=== PATIENT | female | born 1965 | race Two or more races ===

== ENCOUNTER 2020-05-04 00:18 | Emergency (ER) | payer MEDICAID, SELFPAY ==
[2020-05-04 00:20] VITALS: BP 151/84; PULSE 88; RESP 20; TEMP 36.2; O2SAT 99
[2020-05-04 00:50] VITALS: BP 151/84; PULSE 88; RESP 20; TEMP 36.2; O2SAT 99; BMI 34.0
[2020-05-04] MEDS: Acetaminophen 325 MG TABLET 975 MG PO (01:05)
[2020-05-04] MEDS: Lidocaine 4 % Patch ADH..PATCH 1 PATCH TRANSDERMA (01:06)
[2020-05-04] MEDS: Cyclobenzaprine HCl 10 MG TABLET PO (01:06)
[2020-05-04] MEDS: Ketorolac Tromethamine 15 MG/ML VIAL IM (01:08)
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
[2020-05-04 02:00] VITALS: BP 150/83; PULSE 80; RESP 18; O2SAT 100
== END 2020-05-04 02:23 | disposition home or self-care (01) ==
PROVIDERS: Emergency Provider Student in an Organized Health Care Education/Training Program; PCP Family Medicine
DX: M54.5 Low back pain (principal)
CPT/HCPCS: 96372; 99284

== ENCOUNTER 2020-05-17 02:13 | Emergency (ER) | payer MEDICAID, SELFPAY ==
[2020-05-17 02:55] VITALS: BP 186/91; PULSE 87; RESP 16; TEMP 36.9; O2SAT 100; BMI 36.2
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
[2020-05-17] MEDS: Acetaminophen 325 MG TABLET 975 MG PO (03:38)
[2020-05-17] MEDS: Cyclobenzaprine HCl 10 MG TABLET PO (03:38)
[2020-05-17 03:39] LABS: Glucose Urine UA NEG (NEG); Leukocyte Esterase Urine NEG (NEG); Nitrite Urine NEG (NEG); Urine Blood NEG (NEG); Urine Ketones NEG (NEG); Urine Protein NEG (NEG-TRACE)
[2020-05-17] MEDS: Lidocaine 4 % Patch ADH..PATCH 1 PATCH TRANSDERMA (03:39)
[2020-05-17] MEDS: Ketorolac Tromethamine 15 MG/ML VIAL IM (03:39)
[2020-05-17 03:45] LABS: Appearance Urine CLEAR; Color Urine YELLOW; UACC Culture Trigger NO
== END 2020-05-17 04:36 | disposition home or self-care (01) ==
PROVIDERS: Emergency Provider Student in an Organized Health Care Education/Training Program; PCP Family Medicine
DX: M62.830 Muscle spasm of back (principal); M54.5 Low back pain; Z79.899 Other long term (current) drug therapy
CPT/HCPCS: 81003; 96372; 99284; J1885

== ENCOUNTER 2020-06-13 09:04 | Emergency (ER) | payer MEDICAID, SELFPAY ==
--- NOTE | 2020-06-13 09:51 | CT_ITS ---
EXAMINATION: CT ABDOMEN AND PELVIS WITHOUT CONTRAST CLINICAL INFORMATION: Right flank pain. COMPARISON: Ultrasound abdomen 03/22/2019; CT abdomen and pelvis noncontrast 05/01/2017 TECHNIQUE: Multidetector volumetric imaging was performed from the superior aspect of the liver through the pubic symphysis. Sagittal and coronal reformatted images were obtained on the technologist's workstation. No oral or intravenous contrast. This CT examination was performed using dose optimization techniques as appropriate, variously including the following: *Automated exposure control *Adjustment of mA and/or kV according to patient size (this includes techniques or standardized protocols for targeted exams where dose is matched to indication/reason for exam; i.e. extremities or head) *Use of iterative reconstruction technique DLP: 782 mGy-cm FINDINGS: LUNG BASES: There are 2 small nodules left base and 2 small nodules right base, largest 5 mm, all stable from prior CT 2017. No effusion. LIVER, GALLBLADDER, AND BILIARY TREE: The liver is normal in size, shape, and attenuation. No focal hepatic lesion or biliary ductal dilatation is present. The gallbladder is unremarkable with no evidence of radiopaque gallstones, gallbladder wall thickening, or obvious pericholecystic inflammatory changes. PANCREAS: Unremarkable. SPLEEN: Unremarkable. ADRENAL GLANDS: Unremarkable. KIDNEYS AND URETERS: The kidneys are normal in size, shape, and attenuation. No hydronephrosis, hydroureter, or calculi seen. No perinephric stranding. BLADDER: Unremarkable. GASTROINTESTINAL TRACT: There is no bowel obstruction or inflammatory changes in the bowel or mesentery. There is moderate stool in the colon. The appendix is normal. There is no ascites or fluid collection. ABDOMINAL WALL: No significant hernia is appreciated. LYMPH NODES: No lymphadenopathy. VASCULAR: Unremarkable. PELVIC VISCERA: Unremarkable. OSSEOUS STRUCTURES: No acute bony abnormality. There are degenerative facet changes again seen lumbosacral junction. Mild stable degenerative changes SI joints. CT/CT abdomen pelvis wo con IMPRESSION: 1. No urinary tract calculi, hydronephrosis, or perinephric stranding. 2. No bowel obstruction or inflammatory changes. Normal appendix. 3. Stable small bibasilar nodules, similar to 2017, consistent with benign nodules.
[2020-06-13 09:54] VITALS: BP 155/65; PULSE 82; RESP 16; TEMP 36.7; O2SAT 99; BMI 36.2
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
[2020-06-13 10:34] LABS: Glucose Urine UA >=1000 MG/DL (NEG); Leukocyte Esterase Urine NEG (NEG); Nitrite Urine NEG (NEG); PH 5.5 (5.0-8.0); Specific Gravity - Urine <= 1.005 (1.005-1.025); Urine Blood NEG (NEG); Urine Ketones NEG (NEG); Urine Protein NEG (NEG-TRACE)
[2020-06-13 10:35] LABS: Appearance Urine CLEAR; Color Urine STRAW
[2020-06-13 10:44] LABS: RBC Urine 0 /HPF (0); Squamous Epithelial Cell Urine 1+ /LPF; WBC Urine 0 /HPF (0-4)
[2020-06-13 11:11] LABS: Glucose, Whole Blood 161 mg/dL (60-115)
== END 2020-06-13 11:42 | disposition home or self-care (01) ==
PROVIDERS: Physician Assistant Medical; Emergency Provider Emergency Medicine; PCP Family Medicine
DX: M47.896 Other spondylosis, lumbar region (principal); I10 Essential (primary) hypertension; M54.5 Low back pain; F17.200 Nicotine dependence, unspecified, uncomplicated; F14.20 Cocaine dependence, uncomplicated; F41.9 Anxiety disorder, unspecified; Z79.899 Other long term (current) drug therapy; Z71.6 Tobacco abuse counseling
CPT/HCPCS: 74176; 81001; 82947; 99284

== ENCOUNTER 2020-07-04 11:00 | Outpatient (RCR) | payer MEDICAID, SELFPAY | END 2020-07-31 14:25 | disposition other institution (70) | LOC: HO.PT 11:00 | PROVIDERS: PCP Family Medicine; Visit Provider Registered Nurse | DX: M54.5 Low back pain (principal); M62.89 Other specified disorders of muscle | CPT/HCPCS: 97014; 97110; 97112; 97162 ==

== ENCOUNTER 2020-07-16 16:48 | Emergency (ER) | payer MEDICAID, SELFPAY ==
[2020-07-16 17:00] VITALS: BP 141/69; PULSE 92; RESP 20; TEMP 37.1; O2SAT 97; BMI 36.2
--- NOTE | 2020-07-16 17:18 | ED_ITS ---
HPI - Back Pain/Injury General Chief Complaint: Back Pain/Injury Stated Complaint: back pain Time Seen by Provider: 07/16/20 17:09 Source: patient Mode of arrival: ambulatory History of Present Illness HPI Narrative: 55-year-old female with a past medical history of diabetes, hypertension, hyperlipidemia, chronic back pain, sciatica, 3 days, asthma, alcoholism, cocaine dependence, anxiety, adjustment disorder, depression, presenting to ED complaining of right-sided low back pain S/P picking up a heavy box last night. Admits pain radiates down right lower extremity. Does report dysuria today. Denies direct trauma/falls, urinary incontinence or retention, weakness, abdominal pain, flank pain MD elicited complaint: back pain Related Data Home Medications Medication Instructions Recorded Confirmed aspirin 81 mg PO DAILY 05/17/20 05/17/20 lisinopril 20 mg PO DAILY 05/17/20 05/17/20 metformin 1,000 mg PO BID 05/17/20 05/17/20 Previous Rx's Medication Instructions Recorded cyclobenzaprine 10 mg PO BEDTIME PRN #3 tab 05/04/20 ketorolac 10 mg PO Q6H PRN 5 Days #20 tab 05/04/20 cyclobenzaprine 10 mg PO BEDTIME PRN #3 tab 05/17/20 ketorolac 10 mg PO Q6H PRN 5 Days #20 tab 05/17/20 cyclobenzaprine 10 mg PO TID PRN #10 tab 06/13/20 naproxen 500 mg PO BID PRN #10 tab 06/13/20 oxycodone-acetaminophen [Percocet] 1 tab PO Q6H PRN #10 tab 06/13/20 acetaminophen [Tylenol Extra 500 mg PO Q6H PRN #20 tab 07/16/20 Strength] cyclobenzaprine 5 mg PO Q8H PRN 5 Days #14 tab 07/16/20 lidocaine [Lidoderm] 1 patch TOPICAL DAILY PRN #30 ea 07/16/20 MDD remove after 12 hours naproxen 500 mg PO BID PRN 10 Days #20 tab 07/16/20 Allergies Allergy/AdvReac Type Severity Reaction Status Date / Time No Known Allergies Allergy Verified 07/16/20 17:29 Review of Systems Review of Systems: Constitutional: No Weight loss, No Fever, No Chills Gastrointestinal: No Nausea, No Vomiting, No Abdominal pain Genitourinary:+ Dysuria, No Urinary Frequency, No Hematuria, No Urinary Incontinence or retention, No Flank Pain Musculoskeletal: +back pain, No Myalgias, No Joint Swelling Skin: No Skin Lesions, No rash Neuro: No Weakness, No Numbness, No Paresthesias Yes all other systems are reviewed and are negative Neurologic: Denies Sensory deficit (Neuro) [facility] Past Medical History Attestation statement: The following information was validated with the patient. Medical History Asthma Diabetes Hypertension Surgical History History of 2 sections Social History Social History Alcohol intake: never Smoking Status: Current some day smoker Advance Directives: No Advance Directives Information Provided: Yes Physical Exam Vital Signs: Vital Signs: Last Vital Signs Temp 98.7 F 07/16/20 17:00 Pulse 92 07/16/20 17:00 Resp 20 07/16/20 17:00 BP 141/69 H 07/16/20 17:00 Pulse Ox 97 07/16/20 17:00 Body Mass Index 36.2 Const: General: cooperative and healthy appearing Orientation/consciousness: patient oriented x3 Limitations: no limitations HENMT: Head: Yes normal to inspection Ears: hearing grossly normal bilaterally General nose exam: Normal external nose present Face and sinus: Yes normal facial exam Eyes: General: appearance normal, both eyes and all related structures EOM: EOMs intact bilaterally Neck: Neck: Yes normal visual inspection Resp: Effort & Inspection: normal respiratory effort Cardio: Rate: regular rate Peripheral pulses: dorsalis pedis present GI: Inspection: Yes normal to inspection Palpation (GI): Soft to palpation, nontender, no guarding and not rigid : General: Yes no CVA tenderness Back/Spine/Pelvis: Other: No midline thoracic/lumbar spinous tenderness. + right-sided head lumbar MSK tenderness Back: no CVA tenderness Skin: Rashes: no rashes Wounds: no wounds Neuro: Other: No saddle anesthesia. Ambulating with slow steady gait General: patient oriented x3, tone normal and moves all extremities Motor exam (neuro): 5/5 motor strength present throughout Sensory Exam: No Sensory deficit (Neuro) Extrem: General: Yes normal to inspection Course Course Course Narrative: * UA negative MDM - Back Pain/Injury MDM Narrative Medical decision making narrative: 55-year-old female with a past medical history of diabetes, hypertension, hyperlipidemia, chronic back pain, sciatica, 3 days, asthma, alcoholism, cocaine dependence, anxiety, adjustment disorder, depression, presenting to ED complaining of right-sided low back pain S/P picking up a heavy box last night. On exam VSS, NAD/well-appearing, no midline spinous tenderness throughout, no red flag symptoms, ambulating with steady slow gait. Likely MSK pain, low concern for cauda equina/cord compression, or renal stone/pyelo. Rule UTI. Patient has been seen and treated in the ED for similar symptoms in the past. Plan: UA, symptomatic treatment, DC with PCP follow-up Lab Data Labs: Lab Results 07/16/20 Range/Units 17:45 Urine Color YELLOW Urine Appearance CLEAR Urine pH 5.5 (5.0-8.0) Ur Specific [place] 1.015 (1.005-1.025) Urine Protein NEG (NEG-TRACE) MG/DL Urine Glucose (UA) >=1000 H (NEG) MG/DL Urine Ketones NEG (NEG) MG/DL Urine Blood NEG (NEG) Urine Nitrite NEG (NEG) Ur Leukocyte Esterase NEG (NEG) Urine RBC 0 (0) /HPF Urine WBC 0 (0-4) /HPF Ur Squamous Epith Cells 2+ /LPF Urine Bacteria 1+ /LPF Urine Yeast 1+ /HPF Discharge Plan Discharge Clinical Impression: Strain of lumbar region Qualifiers: Encounter type: subsequent encounter Qualified Code(s): S39.012D - Strain of muscle, fascia and tendon of lower back, subsequent encounter Sciatica Qualifiers: Laterality: right Qualified Code(s): M54.31 - Sciatica, right side Patient Disposition: Home, Self-Care Instructions: Acute Low Back Pain (ED) Additional Instructions: Your pain is likely musculoskeletal Flexeril is a muscle relaxer, take at night as it makes you drowsy, do not drive, drink alcohol, or operate machinery while taking it Naproxen as an anti-inflammatory / pain medication, take with food Lidoderm patches are numbing patches, apply to painful area In addition take Tylenol at home If symptoms persist or worsen, pain becomes unbearable, you developed urinary retention or incontinence, or weakness return to the ED Prescriptions: New acetaminophen [Tylenol Extra Strength] 500 mg tablet 500 mg PO Q6H PRN (Reason: pain or fever) Qty: 20 RF: 0 lidocaine [Lidoderm] 5 % adhesive patch,medicated 1 patch topical DAILY MDD remove after 12 hours PRN (Reason: pain) Qty: 30 RF: 0 naproxen 500 mg tablet 500 mg PO BID PRN (Reason: pain) 10 Days Qty: 20 RF: 0 cyclobenzaprine 5 mg tablet 5 mg PO Q8H PRN (Reason: pain (scale score 7-10)) 5 Days Qty: 14 RF: 0 No Action metformin 500 mg Tablet 1,000 mg PO BID RF: 0 lisinopril 20 mg Tablet 20 mg PO DAILY RF: 0 aspirin 81 mg Tablet 81 mg PO DAILY RF: 0 cyclobenzaprine 10 mg tablet 10 mg PO BEDTIME PRN (Reason: muscle spasm) Qty: 3 RF: 0 ketorolac 10 mg tablet 10 mg PO Q6H PRN (Reason: pain) 5 Days Qty: 20 RF: 0 cyclobenzaprine 10 mg tablet 10 mg PO TID PRN (Reason: muscle spasm) Qty: 10 RF: 0 oxycodone-acetaminophen [Percocet] 5-325 mg tablet 1 tab PO Q6H PRN (Reason: pain) Qty: 10 RF: 0 naproxen 500 mg tablet 500 mg PO BID PRN (Reason: pain) Qty: 10 RF: 0 ketorolac 10 mg tablet 10 mg PO Q6H PRN (Reason: pain) 5 Days Qty: 20 RF: 0 cyclobenzaprine 10 mg tablet 10 mg PO BEDTIME PRN (Reason: muscle spasm) Qty: 3 RF: 0 Referrals: Yanira Mi MD [Primary Care Provider] - 2 days
[2020-07-16] MEDS: NaPROXEN 500 MG TABLET PO (17:30)
[2020-07-16] MEDS: Cyclobenzaprine HCl 5 MG TABLET PO (17:30)
[2020-07-16] MEDS: Lidocaine 4 % Patch ADH..PATCH 1 PATCH TRANSDERMA (17:30)
[2020-07-16 17:54] LABS: Glucose Urine UA >=1000 MG/DL (NEG); Leukocyte Esterase Urine NEG (NEG); Nitrite Urine NEG (NEG); PH 5.5 (5.0-8.0); Specific Gravity - Urine 1.015 (1.005-1.025); Urine Blood NEG (NEG); Urine Ketones NEG (NEG); Urine Protein NEG (NEG-TRACE)
[2020-07-16 17:55] LABS: Appearance Urine CLEAR; Color Urine YELLOW
[2020-07-16 18:04] LABS: Bacteria Urine 1+ /LPF; RBC Urine 0 /HPF (0); Squamous Epithelial Cell Urine 2+ /LPF; WBC Urine 0 /HPF (0-4)
== END 2020-07-16 18:43 | disposition home or self-care (01) ==
PROVIDERS: Physician Assistant; Emergency Provider Emergency Medicine; PCP Family Medicine
DX: S39.012A Strain of muscle, fascia and tendon of lower back, initial encounter (principal); X50.0XXA Overexertion from strenuous movement or load, initial encounter; M54.41 Lumbago with sciatica, right side; E11.9 Type 2 diabetes mellitus without complications; I10 Essential (primary) hypertension; F10.20 Alcohol dependence, uncomplicated; F14.20 Cocaine dependence, uncomplicated; Y93.9 Activity, unspecified; Y92.009 Unspecified place in unspecified non-institutional (private) residence as the place of occurrence of the external cause; Y99.9 Unspecified external cause status
CPT/HCPCS: 81001; 99284

== ENCOUNTER 2020-08-28 13:42 | Outpatient (REF) | payer MEDICAID, SELFPAY ==
--- NOTE | 2020-08-28 | MM_ITS ---
EXAMINATION: MM SCREENING DIGITAL BREAST TOMOSYNTHESIS, BILATERAL CLINICAL INFORMATION: Screening. Asymptomatic. The lifetime risk of breast cancer based on the Tyrer-Cuzick Model is 6.1%. COMPARISON: Mammography: June 02, 2019 and studies dating back to March 01, 2014 TECHNIQUE: Digital breast tomosynthesis is performed in both the craniocaudal and mediolateral oblique views along with computer-aided detection (CAD). Synthesized 2D images are generated from the tomosynthesis. FINDINGS: There are scattered areas of fibroglandular density (ACR BI-RADS breast composition Category b). There are no significant masses, abnormal calcifications, or other abnormalities. MM/MM tomosynthesis screening BI IMPRESSION: There are no significant changes from prior study. ASSESSMENT: BI-RADS 1: Negative RECOMMENDATION: Routine annual mammography screening. This patient's information was entered into a reminder system with a target due date for their next mammogram.
== END 2020-08-28 13:43 | disposition home or self-care (01) ==
LOC: HO.MAMMO 13:42
PROVIDERS: PCP Family Medicine; Visit Provider Family Medicine
DX: Z12.31 Encounter for screening mammogram for malignant neoplasm of breast (principal)
CPT/HCPCS: 77063; 77067

== ENCOUNTER 2020-10-08 18:47 | Emergency (ER) | payer MEDICAID, SELFPAY ==
--- NOTE | ~2020-10-08 | XR_ITS ---
EXAMINATION: XR FOOT, LEFT CLINICAL INFORMATION: Question of foreign body in foot COMPARISON: None TECHNIQUE: AP, lateral, and oblique views of the left foot. FINDINGS: No radiopaque foreign bodies are seen there are large spurs in the calcaneus at the insertion of the Achilles tendon as well as on the plantar surface. The bones and soft tissues are otherwise normal. No fracture. Alignment is anatomic. Joint spaces are maintained. XR/XR foot LT 2V IMPRESSION: Large calcaneal spurs. No radiopaque foreign body is seen.
[2020-10-08 18:50] VITALS: BP 118/57; PULSE 90; RESP 18; TEMP 36.8; O2SAT 98; BMI 36.2
--- NOTE | 2020-10-08 20:57 | ED.WOUNDLAC ---
HPI - Wound/Laceration General Chief Complaint: Wound/Laceration Stated Complaint: foot lac Source: patient Mode of arrival: wheelchair Limitations: language barrier History of Present Illness HPI narrative: 55-year-old female with past medical history of hypertension, hyperlipidemia, adjustment disorder, chronic back pain, ETOH abuse, substance abuse, asthma and diabetes presents with a left plantar foot puncture injury and laceration after stepping on a piece of wood. This piece of wood is shaped as a chest piece, and was intact after the incident. Patient was not wearing shoes, and does not report any other concerning symptoms at this time. She is unable to bear weight because of the pain on the bottom of her foot. Onset (ago): hour(s) (Within the hour of arrival) Extremity Location: left: foot Place: home Patient tetanus UTD: No Context: accidental Associated symptoms: pain Related Data Home Medications Medication Instructions Recorded Confirmed aspirin 81 mg PO DAILY 05/17/20 05/17/20 lisinopril 20 mg PO DAILY 05/17/20 05/17/20 metformin 1,000 mg PO BID 05/17/20 05/17/20 Previous Rx's Medication Instructions Recorded cyclobenzaprine 10 mg PO BEDTIME PRN #3 tab 05/04/20 ketorolac 10 mg PO Q6H PRN 5 Days #20 tab 05/04/20 cyclobenzaprine 10 mg PO BEDTIME PRN #3 tab 05/17/20 ketorolac 10 mg PO Q6H PRN 5 Days #20 tab 05/17/20 cyclobenzaprine 10 mg PO TID PRN #10 tab 06/13/20 naproxen 500 mg PO BID PRN #10 tab 06/13/20 oxycodone-acetaminophen [Percocet] 1 tab PO Q6H PRN #10 tab 06/13/20 acetaminophen [Tylenol Extra 500 mg PO Q6H PRN #20 tab 07/16/20 Strength] cyclobenzaprine 5 mg PO Q8H PRN 5 Days #14 tab 07/16/20 lidocaine [Lidoderm] 1 patch TOPICAL DAILY PRN #30 ea 07/16/20 MDD remove after 12 hours naproxen 500 mg PO BID PRN 10 Days #20 tab 07/16/20 amoxicillin-pot clavulanate 1 tab PO Q12H 7 Days #14 tab 10/08/20 [Augmentin] ibuprofen 600 mg PO Q8H PRN #30 tab 10/08/20 Allergies Allergy/AdvReac Type Severity Reaction Status Date / Time No Known Allergies Allergy Verified 07/16/20 17:29 Review of Systems Review of Systems: Constitutional: No Fever, No Chills ENT/Mouth: No Ear Pain, No Hoarseness, No sore throat Eyes: No Eye Pain, No Swelling, No Redness, No Foreign Body Cardiovascular: No Chest Pain, No SOB Respiratory: No Cough, No Dyspnea Gastrointestinal: No Nausea, No Vomiting, No Diarrhea, No abdominal Pain Genitourinary: No Dysuria, No Hematuria Musculoskeletal: positive left foot pain, No Myalgias, No Joint Swelling Skin: Positive plantar laceration puncture wound left foot, No rash Neuro: No Weakness, No Numbness, No Paresthesias, No Loss of Consciousness, No Dizziness, No Headache Psych: No Anxiety/Panic, No Depression Heme/Lymph: no easy bruising, no Lymphadenopathy Endocrine: No Polyuria, No Polydipsia Yes all other systems are reviewed and are negative [facility] Past Medical History Attestation statement: The following information was validated with the patient. Source: old records reviewed Medical History Asthma Diabetes Hypertension Surgical History History of 2 sections Social History Social History Alcohol intake: never Smoking Status: Current some day smoker Advance Directives: No Advance Directives Information Provided: No Physical Exam Vital Signs: Vital Signs: Last Vital Signs Temp 98.3 F 10/08/20 18:50 Pulse 83 10/08/20 21:43 Resp 16 10/08/20 21:43 BP 121/55 L 10/08/20 21:43 Pulse Ox 99 10/08/20 21:43 Body Mass Index 36.2 Appearance: Alert. Oriented X3. Mild distress. Eyes: Pupils equal, round and reactive to light. ENT: Pharynx normal. Neck: Normal inspection. Neck supple. CVS: Normal heart rate and rhythm. Pulses normal. Respiratory: No respiratory distress. Breath sounds normal. Abdomen: Soft and nontender. Skin: 0.5 cm puncture wound to the left plantar, Skin warm and dry. Normal skin color. Normal skin turgor. Extremities: No lower extremity edema. Full range of motion to all extremities, brisk capillary refill, tenderness to palpation to the left foot consistent with puncture wound injury. Neuro: No motor deficit. No sensory deficit. No focal neural deficits, cranial nerves 2-12 intact. Course Course Course Narrative: 55-year-old female presents with puncture wound from a wooden object the left plantar aspect of her foot. The wooden piece was intact, no suspicion for foreign body. Will order x-rays. X-rays negative for foreign body or bone involvement. Patient will follow-up with her health policy manager, laceration is small for sutures, will clean apply bacitracin and dressing the postop shoe. She is a diabetic, we will give antibiotics to prevent infection. She does understand that she must follow-up with her primary care physician and or health policy manager this week. medical records supervisor utilized for all correspondence, Google translate utilized for discharge instructions. Patient verbalized understanding of and agrees plan of care discharge home. MDM - Wound/Laceration MDM Narrative Medical decision making narrative: Puncture wound, foreign body Differential Diagnosis Differential diagnosis: Likely laceration Medical Records Attestation: I reviewed the patient's medical records. Imaging Data Foot x-ray: Attestation: I personally reviewed and interpreted this imaging study as follows: Radiologist's impression: EXAMINATION: XR FOOT, LEFT CLINICAL INFORMATION: Question of foreign body in foot COMPARISON: None TECHNIQUE: AP, lateral, and oblique views of the left foot. FINDINGS: No radiopaque foreign bodies are seen there are large spurs in the calcaneus at the insertion of the Achilles tendon as well as on the plantar surface. The bones and soft tissues are otherwise normal. No fracture. Alignment is anatomic. Joint spaces are maintained. XR/XR foot LT 2V IMPRESSION: Large calcaneal spurs. No radiopaque foreign body is seen. Discharge Plan Discharge Clinical Impression: Puncture wound of foot, left Patient Disposition: Home, Self-Care Instructions: Puncture Wound in the Foot (ED) Additional Instructions: Te evaluaron por carrie herida punzante en el pie tez. Las radiograf?as son negativas para el cuerpo extra?o retenido. Por favor, baldo un seguimiento con Podiatry, llame ma?syed para carrie travis. [place] Tylenol y Motrin seg?n sea necesario para el dolor. [place] el pie, usa hielo para ayudar a reducir la hinchaz?n. Usa un zapato postop si tu habitual se sent?a inc?moda de usar. Roseann por elegir luis departamento de emergencias para alvarado evaluaci?n. Por favor, baldo un seguimiento con el m?dico de atenci?n primaria seg?n sea necesario. Regrese al servicio de emergencias para cualquier s?ntoma nuevo, preocupante o que empeore. You were evaluated for a puncture wound to the left foot. X-rays are negative for retained foreign body. Please follow-up with Podiatry, call tomorrow for an appointment. Use Tylenol and Motrin as needed for pain. Elevate the foot, use ice to help reduce swelling. Use a postop shoe if your regular she was uncomfortable to wear. Thank you for choosing this emergency department for evaluation. Please follow-up with primary care physician as needed. Return to the emergency department for any new, concerning, or worsening symptoms. Prescriptions: New ibuprofen 600 mg tablet 600 mg PO Q8H PRN (Reason: pain) Qty: 30 RF: 0 amoxicillin-pot clavulanate [Augmentin] 875-125 mg tablet 1 tab PO Q12H 7 Days Qty: 14 RF: 0 No Action metformin 500 mg Tablet 1,000 mg PO BID RF: 0 lisinopril 20 mg Tablet 20 mg PO DAILY RF: 0 aspirin 81 mg Tablet 81 mg PO DAILY RF: 0 cyclobenzaprine 10 mg tablet 10 mg PO BEDTIME PRN (Reason: muscle spasm) Qty: 3 RF: 0 ketorolac 10 mg tablet 10 mg PO Q6H PRN (Reason: pain) 5 Days Qty: 20 RF: 0 cyclobenzaprine 10 mg tablet 10 mg PO TID PRN (Reason: muscle spasm) Qty: 10 RF: 0 oxycodone-acetaminophen [Percocet] 5-325 mg tablet 1 tab PO Q6H PRN (Reason: pain) Qty: 10 RF: 0 naproxen 500 mg tablet 500 mg PO BID PRN (Reason: pain) Qty: 10 RF: 0 acetaminophen [Tylenol Extra Strength] 500 mg tablet 500 mg PO Q6H PRN (Reason: pain or fever) Qty: 20 RF: 0 lidocaine [Lidoderm] 5 % adhesive patch,medicated 1 patch topical DAILY MDD remove after 12 hours PRN (Reason: pain) Qty: 30 RF: 0 naproxen 500 mg tablet 500 mg PO BID PRN (Reason: pain) 10 Days Qty: 20 RF: 0 cyclobenzaprine 5 mg tablet 5 mg PO Q8H PRN (Reason: pain (scale score 7-10)) 5 Days Qty: 14 RF: 0 ketorolac 10 mg tablet 10 mg PO Q6H PRN (Reason: pain) 5 Days Qty: 20 RF: 0 cyclobenzaprine 10 mg tablet 10 mg PO BEDTIME PRN (Reason: muscle spasm) Qty: 3 RF: 0 Interventions: ED Discharge Assessment Last Done: 10/08/20 23:16 Discharge Date/Time: 10/08/20 23:17
[2020-10-08] MEDS: Acetaminophen 325 MG TABLET 650 MG PO (21:41)
[2020-10-08 21:43] VITALS: BP 121/55; PULSE 83; RESP 16; O2SAT 99
[2020-10-08] MEDS: Ibuprofen 600 MG TABLET PO (23:05)
[2020-10-08] MEDS: Amoxicillin/Potassium Clav 875 MG TABLET PO (23:05)
[2020-10-08] MEDS: Bacitracin Oint 14 GM TUBE 1 APPL TOPICAL (23:06)
== END 2020-10-08 23:17 | disposition home or self-care (01) ==
PROVIDERS: Emergency Provider Emergency Medicine; PCP Family Medicine
DX: S91.332A Puncture wound without foreign body, left foot, initial encounter (principal); W22.8XXA Striking against or struck by other objects, initial encounter; E11.9 Type 2 diabetes mellitus without complications; I10 Essential (primary) hypertension; Y93.9 Activity, unspecified; Y92.019 Unspecified place in single-family (private) house as the place of occurrence of the external cause; Y99.9 Unspecified external cause status
CPT/HCPCS: 73620; 90471; 90715; 99284

== ENCOUNTER 2021-01-07 19:48 | Emergency (ER) | payer MEDICAID, SELFPAY ==
[2021-01-07 20:22] VITALS: BP 140/65; PULSE 93; RESP 18; TEMP 37; O2SAT 98; BMI 34.2
[2021-01-07 21:46] VITALS: BP 119/49; PULSE 79; RESP 16; TEMP 36.5; O2SAT 97
--- NOTE | 2021-01-07 22:00 | ED.EPISTAXIS ---
History of Present Illness General Chief Complaint: Epistaxis Stated Complaint: NOSE BLEED Time Seen by Provider: 01/07/21 22:00 History of Present Illness HPI Narrative: Patient is a 55-year-old female presents today with having nosebleed that is been on and off for the last 3 days. Only on aspirin. Not on any other blood thinners. The bleeding stops spontaneously with pressure. Patient claims that when she coughs she gets small amount of blood. No nausea no vomiting. No diaphoresis. No chest pain or shortness of breath. Patient is from home. Related Data Home Medications Medication Instructions Recorded Confirmed aspirin 81 mg PO DAILY 05/17/20 05/17/20 lisinopril 20 mg PO DAILY 05/17/20 05/17/20 metformin 1,000 mg PO BID 05/17/20 05/17/20 Previous Rx's Medication Instructions Recorded cyclobenzaprine 10 mg PO BEDTIME PRN #3 tab 05/04/20 ketorolac 10 mg PO Q6H PRN 5 Days #20 tab 05/04/20 cyclobenzaprine 10 mg PO BEDTIME PRN #3 tab 05/17/20 ketorolac 10 mg PO Q6H PRN 5 Days #20 tab 05/17/20 cyclobenzaprine 10 mg PO TID PRN #10 tab 06/13/20 naproxen 500 mg PO BID PRN #10 tab 06/13/20 oxycodone-acetaminophen [Percocet] 1 tab PO Q6H PRN #10 tab 06/13/20 acetaminophen [Tylenol Extra 500 mg PO Q6H PRN #20 tab 07/16/20 Strength] cyclobenzaprine 5 mg PO Q8H PRN 5 Days #14 tab 07/16/20 lidocaine [Lidoderm] 1 patch TOPICAL DAILY PRN #30 ea 07/16/20 MDD remove after 12 hours naproxen 500 mg PO BID PRN 10 Days #20 tab 07/16/20 amoxicillin-pot clavulanate 1 tab PO Q12H 7 Days #14 tab 10/08/20 [Augmentin] ibuprofen 600 mg PO Q8H PRN #30 tab 10/08/20 Allergies Allergy/AdvReac Type Severity Reaction Status Date / Time No Known Allergies Allergy Verified 07/16/20 17:29 Review of Systems Review of Systems: Constitutional: No Weight loss, No Fever, No Chills, No Night Sweats, No Fatigue, No Malaise ENT/Mouth: No Hearing loss, No Ear Pain, No Nasal Congestion, No Sinus Pain, No Hoarseness, No sore throat, No Rhinorrhea, No Swallowing Difficulty. Positive nosebleed Eyes: No Eye Pain, No Swelling, No Redness, No Foreign Body, No Discharge, No Vision Changes Cardiovascular: No Chest Pain, No SOB, No Dyspnea on Exertion, No Orthopnea, No Edema, No Palpitations Respiratory: No Cough, No Sputum, No Wheezing, No Smoke Exposure, No Dyspnea Gastrointestinal: No Nausea, No Vomiting, No Diarrhea, No Constipation, No abdominal Pain, No Hematochezia, No Melena Genitourinary: no irregular bleeding, No Dysuria, No Urinary Frequency, No Hematuria, No Urinary Incontinence, No Urgency, No Flank Pain, No Urinary Flow Changes, No Hesitancy Musculoskeletal: No joint pain, No Myalgias, No Joint Swelling Skin: No Skin Lesions, No rash Neuro: No Weakness, No Numbness, No Paresthesias, No Loss of Consciousness, No Dizziness, No Headache Psych: No Anxiety/Panic, No Depression, No SI/HI/AH/VH, No Social Issues, Heme/Lymph: No Bruising, No Bleeding,No Lymphadenopathy Endocrine: No Polyuria, No Polydipsia, No Temperature Intolerance Yes all other systems are reviewed and are negative [facility] Past Medical History Attestation statement: The following information was validated with the patient. Medical History Asthma Diabetes Hypertension Surgical History History of 2 sections Social History Social History Alcohol intake: never Advance Directives: No Advance Directives Information Provided: Yes Patient : No Physical Exam Vital Signs: Vital Signs: Last Vital Signs Temp 97.7 F 01/07/21 21:46 Pulse 79 01/07/21 21:46 Resp 16 01/07/21 21:46 BP 119/49 L 01/07/21 21:46 Pulse Ox 97 01/07/21 21:46 Body Mass Index 34.2 Appearance: Alert. Oriented X3. No acute distress. Eyes: Pupils equal, round and reactive to light. ENT: Pharynx normal. Bilateral nares are normal. There is minimal amount of dry blood in the left nostril. No active bleeding Neck: Normal inspection. Neck supple. No lymph nodes noted. No crepitus CVS: Normal heart rate and rhythm. Pulses normal. Normal S1 and S2 Respiratory: No respiratory distress. Breath sounds normal. No Wheezing. No rales Abdomen: Soft and nontender. No rigidity. No distention. good BS x4 Skin: Skin warm and dry. Normal skin color. Normal skin turgor. Extremities: No lower extremity edema. Neurovascular intact to all extremities. No Lacerations. No Rash Neuro: Oriented X 3. No motor deficit. No sensory deficit. Moving all extermities. No slurred speech MDM - Epistaxis MDM Narrative Medical decision making narrative: Well-appearing no acute distress. Minimal bleeding has already stopped. Will discharge patient home. Given reassurance. Currently in in stable condition. Differential Diagnosis Differential diagnosis: Likely anterior epistaxis Discharge Plan Discharge Clinical Impression: Epistaxis Patient Disposition: Home, Self-Care Instructions: Nosebleed (ED) Prescriptions: No Action metformin 500 mg Tablet 1,000 mg PO BID RF: 0 lisinopril 20 mg Tablet 20 mg PO DAILY RF: 0 aspirin 81 mg Tablet 81 mg PO DAILY RF: 0 cyclobenzaprine 10 mg tablet 10 mg PO BEDTIME PRN (Reason: muscle spasm) Qty: 3 RF: 0 ketorolac 10 mg tablet 10 mg PO Q6H PRN (Reason: pain) 5 Days Qty: 20 RF: 0 cyclobenzaprine 10 mg tablet 10 mg PO TID PRN (Reason: muscle spasm) Qty: 10 RF: 0 oxycodone-acetaminophen [Percocet] 5-325 mg tablet 1 tab PO Q6H PRN (Reason: pain) Qty: 10 RF: 0 naproxen 500 mg tablet 500 mg PO BID PRN (Reason: pain) Qty: 10 RF: 0 acetaminophen [Tylenol Extra Strength] 500 mg tablet 500 mg PO Q6H PRN (Reason: pain or fever) Qty: 20 RF: 0 lidocaine [Lidoderm] 5 % adhesive patch,medicated 1 patch topical DAILY MDD remove after 12 hours PRN (Reason: pain) Qty: 30 RF: 0 naproxen 500 mg tablet 500 mg PO BID PRN (Reason: pain) 10 Days Qty: 20 RF: 0 cyclobenzaprine 5 mg tablet 5 mg PO Q8H PRN (Reason: pain (scale score 7-10)) 5 Days Qty: 14 RF: 0 ibuprofen 600 mg tablet 600 mg PO Q8H PRN (Reason: pain) Qty: 30 RF: 0 amoxicillin-pot clavulanate [Augmentin] 875-125 mg tablet 1 tab PO Q12H 7 Days Qty: 14 RF: 0 ketorolac 10 mg tablet 10 mg PO Q6H PRN (Reason: pain) 5 Days Qty: 20 RF: 0 cyclobenzaprine 10 mg tablet 10 mg PO BEDTIME PRN (Reason: muscle spasm) Qty: 3 RF: 0 Referrals: Jose Miguel Herrera [Physician] - 2 days Print Language: Faroese
== END 2021-01-07 22:24 | disposition home or self-care (01) ==
PROVIDERS: Emergency Provider Emergency Medicine Emergency Medical Services; PCP Family Medicine
DX: R04.0 Epistaxis (principal); E11.9 Type 2 diabetes mellitus without complications; I10 Essential (primary) hypertension; Z79.84 Long term (current) use of oral hypoglycemic drugs; Z79.82 Long term (current) use of aspirin; Z79.899 Other long term (current) drug therapy
CPT/HCPCS: 99282; 99283

== ENCOUNTER 2021-04-30 14:00 | Outpatient (RCR) | payer MEDICAID, SELFPAY | END 2021-05-09 07:54 | disposition home or self-care (01) | LOC: HO.PT 14:00 | PROVIDERS: PCP Family Medicine; Visit Provider Family Medicine | DX: M25.561 Pain in right knee (principal) | CPT/HCPCS: 97110; 97162 ==

== ENCOUNTER 2021-05-12 04:48 | Emergency (ER) | payer MEDICAID, SELFPAY ==
--- NOTE | ~2021-05-12 | XR_ITS ---
EXAMINATION: XR RIGHT SHOULDER: 3 VIEWS XR RIGHT HUMERUS: 2 VIEWS CLINICAL INFORMATION: Fall. Pain. COMPARISON: None FINDINGS: No acute fracture or dislocation. Prominent marginal osteophytes present along the chromic clavicular joint. Small marginal osteophyte along the glenohumeral joint. Elbow joint unremarkable. Soft tissues unremarkable. XR/XR shoulder RT min 2V IMPRESSION: No acute fracture or dislocation. Chronic and degenerative changes as described.
--- NOTE | ~2021-05-12 | XR_ITS ---
EXAMINATION: XR RIGHT SHOULDER: 3 VIEWS XR RIGHT HUMERUS: 2 VIEWS CLINICAL INFORMATION: Fall. Pain. COMPARISON: None FINDINGS: No acute fracture or dislocation. Prominent marginal osteophytes present along the chromic clavicular joint. Small marginal osteophyte along the glenohumeral joint. Elbow joint unremarkable. Soft tissues unremarkable. XR/XR humerus RT IMPRESSION: No acute fracture or dislocation. Chronic and degenerative changes as described.
--- NOTE | 2021-05-12 05:06 | ED_ITS ---
HPI - Extremity Problem General Chief complaint: Fall Stated complaint: fall Time Seen by Provider: 05/12/21 04:52 Source: patient Mode of arrival: EMS History of Present Illness HPI Narrative: 56-year-old female presents via EMS, intoxicated, stating that she had a mechanical fall onto her right side but denies head strike or loss of consciousness and is now complaining of right shoulder and upper arm pain. Related Data Home Medications Medication Instructions Recorded Confirmed aspirin 81 mg tablet 81 mg PO DAILY 05/17/20 05/17/20 lisinopril 20 mg tablet 20 mg PO DAILY 05/17/20 05/17/20 metformin 500 mg tablet 1,000 mg PO BID 05/17/20 05/17/20 Previous Rx's Medication Instructions Recorded cyclobenzaprine 10 mg tablet 10 mg PO BEDTIME PRN #3 tab 05/04/20 ketorolac 10 mg tablet 10 mg PO Q6H PRN 5 Days #20 tab 05/04/20 cyclobenzaprine 10 mg tablet 10 mg PO BEDTIME PRN #3 tab 05/17/20 ketorolac 10 mg tablet 10 mg PO Q6H PRN 5 Days #20 tab 05/17/20 cyclobenzaprine 10 mg tablet 10 mg PO TID PRN #10 tab 06/13/20 naproxen 500 mg tablet 500 mg PO BID PRN #10 tab 06/13/20 oxycodone-acetaminophen 5 mg-325 1 tab PO Q6H PRN #10 tab 06/13/20 mg tablet (Percocet) acetaminophen 500 mg tablet 500 mg PO Q6H PRN #20 tab 07/16/20 (Tylenol Extra Strength) cyclobenzaprine 5 mg tablet 5 mg PO Q8H PRN 5 Days #14 tab 07/16/20 lidocaine 5 % topical patch 1 patch TOPICAL DAILY PRN #30 ea 07/16/20 (Lidoderm) MDD remove after 12 hours naproxen 500 mg tablet 500 mg PO BID PRN 10 Days #20 tab 07/16/20 amoxicillin 875 mg-potassium 1 tab PO Q12H 7 Days #14 tab 10/08/20 clavulanate 125 mg tablet (Augmentin) ibuprofen 600 mg tablet 600 mg PO Q8H PRN #30 tab 10/08/20 Allergies Allergy/AdvReac Type Severity Reaction Status Date / Time No Known Allergies Allergy Verified 07/16/20 17:29 Review of Systems Review of Systems: Pertinent positives and negatives as stated in HPI 10 point review of systems is otherwise negative. [facility] Past Medical History Source: nursing notes reviewed Medical History Asthma Diabetes Hypertension Surgical History History of 2 sections Social History Social History Alcohol intake: never Advance Directives: No Physical Exam Vital Signs: Vital Signs: Last Vital Signs Temp 98 F 05/12/21 05:28 Pulse 90 05/12/21 05:28 Resp 15 05/12/21 05:28 BP 122/84 05/12/21 05:28 Pulse Ox 98 05/12/21 05:28 Body Mass Index 32.0 VITAL SIGNS: Reviewed. GENERAL: Well developed, well nourished, in no acute distress. HEAD: Normocephalic/atraumatic EYES: PERRLA, EOMI OROPHARYNX: no oral lesions noted, posterior pharynx clear LUNGS: Normal breath sounds. No adventitious sounds or accessory muscle use. SpO2<98> CARDIOVASCULAR: Regular rate and rhythm without noted murmurs ABDOMEN: Soft, non-tender, non-distended with bowel sounds. RIGHT UPPER EXTREMITY: There is no observed deformity, capillary refills less than 3 seconds, palpable radial and ulnar pulses with warm skin, there is tenderness to palpation along the bicipital groove, there is full range of motion at the wrist, elbow, but at the shoulder patient has limited range of motion with ABduction. NEUROLOGIC: Alert and oriented x 4. Strength and sensation to light touch were grossly intact x 4. Course Course Course Narrative: This is a 56-year-old female with history and clinical presentation consistent with mechanical fall resulting in presumably soft tissue injury of the right upper extremity. On review of all investigations there is no evidence of fracture or dislocation and patient was provided with combination analgesics and on re-evaluation has had complete resolution of her pain. She was otherwise discharged in stable condition with a safe ride and instructed to follow-up with primary care provider on Thursday morning. Discharge Plan Discharge Clinical Impression: Accident due to mechanical fall without injury Patient Disposition: Home, Self-Care Instructions: Alcohol Intoxication (ED), Fall Prevention (ED), Shoulder Pain (ED) Additional Instructions: Follow-up with your primary care provider on Thursday morning for re-evaluation and further outpatient management. Prescriptions: No Action metformin 500 mg Tablet 1,000 mg PO BID RF: 0 lisinopril 20 mg Tablet 20 mg PO DAILY RF: 0 aspirin 81 mg Tablet 81 mg PO DAILY RF: 0 cyclobenzaprine 10 mg tablet 10 mg PO BEDTIME PRN (Reason: muscle spasm) Qty: 3 RF: 0 ketorolac 10 mg tablet 10 mg PO Q6H PRN (Reason: pain) 5 Days Qty: 20 RF: 0 cyclobenzaprine 10 mg tablet 10 mg PO TID PRN (Reason: muscle spasm) Qty: 10 RF: 0 oxycodone-acetaminophen [Percocet] 5-325 mg tablet 1 tab PO Q6H PRN (Reason: pain) Qty: 10 RF: 0 naproxen 500 mg tablet 500 mg PO BID PRN (Reason: pain) Qty: 10 RF: 0 acetaminophen [Tylenol Extra Strength] 500 mg tablet 500 mg PO Q6H PRN (Reason: pain or fever) Qty: 20 RF: 0 lidocaine [Lidoderm] 5 % adhesive patch,medicated 1 patch topical DAILY MDD remove after 12 hours PRN (Reason: pain) Qty: 30 RF: 0 naproxen 500 mg tablet 500 mg PO BID PRN (Reason: pain) 10 Days Qty: 20 RF: 0 cyclobenzaprine 5 mg tablet 5 mg PO Q8H PRN (Reason: pain (scale score 7-10)) 5 Days Qty: 14 RF: 0 ibuprofen 600 mg tablet 600 mg PO Q8H PRN (Reason: pain) Qty: 30 RF: 0 amoxicillin-pot clavulanate [Augmentin] 875-125 mg tablet 1 tab PO Q12H 7 Days Qty: 14 RF: 0 ketorolac 10 mg tablet 10 mg PO Q6H PRN (Reason: pain) 5 Days Qty: 20 RF: 0 cyclobenzaprine 10 mg tablet 10 mg PO BEDTIME PRN (Reason: muscle spasm) Qty: 3 RF: 0 Referrals: [facility] [Primary Care Provider] - 2 days Print Language: Slovenian
[2021-05-12 05:15] VITALS: BP 119/64; BP 140/110; PULSE 102; PULSE 92; RESP 15; TEMP 36.6; O2SAT 96; O2SAT 99; BMI 32.0
[2021-05-12] MEDS: Ibuprofen 400 MG TABLET PO (05:21)
[2021-05-12] MEDS: Acetaminophen 325 MG TABLET 975 MG PO (05:21)
[2021-05-12 05:28] VITALS: BP 122/84; PULSE 90; RESP 15; TEMP 36.6; O2SAT 98
[2021-05-12 07:11] VITALS: BP 97/54; PULSE 76; RESP 14; TEMP 36.7; O2SAT 96
--- NOTE | 2021-05-12 08:46 | PC.NURSE ---
Multiple attempts to call pt's daughter and personal cell phone, which she left at home with her son. Pt unable to provide any numbers for us to call.
--- NOTE | 2021-05-12 08:59 | PC.NURSE ---
this rn was able to reach pt's daughter arnoldo ([phone]) who will try to call her brother who has the pt's phone.
--- NOTE | 2021-05-12 09:15 | PC.NURSE ---
spoke with pt's daughter arnoldo ([phone]) who ordered an uber for the pt to take her home.
== END 2021-05-12 09:21 | disposition home or self-care (01) ==
PROVIDERS: Emergency Provider Student in an Organized Health Care Education/Training Program
DX: Z04.3 Encounter for examination and observation following other accident (principal); M25.511 Pain in right shoulder; I10 Essential (primary) hypertension; E11.9 Type 2 diabetes mellitus without complications; Z91.81 History of falling
CPT/HCPCS: 73030; 73060; 99283; 99285

== ENCOUNTER 2021-05-27 10:14 | Emergency (ER) | payer MEDICAID, SELFPAY ==
--- NOTE | ~2021-05-27 | CT_ITS ---
EXAMINATION: CT SHOULDER WITHOUT CONTRAST, RIGHT CLINICAL INFORMATION: Fall with right shoulder pain. Fall a week ago, decreased range of motion. COMPARISON: XR right shoulder and right humerus 05/12/2021. TECHNIQUE: Helical scanning was performed with submillimeter collimation in the axial plane with multiplanar 2-D reconstructions. This CT examination was performed using dose optimization techniques as appropriate, variously including the following: *Automated exposure control *Adjustment of mA and/or kV according to patient size (this includes techniques or standardized protocols for targeted exams where dose is matched to indication/reason for exam; i.e. extremities or head) *Use of iterative reconstruction technique DLP: 388 mGy-cm. FINDINGS: There is no acute fracture or dislocation. There are marginal osteophytes involving the glenohumeral joint. There is moderate elevation of the humeral head relative to the glenoid suspicious for rotator cuff pathology. There is a shallow broad-based subacromial spur. There is a moderate elongated anteriorly projecting acromial spur. There is moderate osteoarthritis of the acromioclavicular joint. The visualized right lung and right rib cage are unremarkable. CT/CT shoulder RT wo con IMPRESSION: 1. Mild osteoarthritis of the glenohumeral joint. Mild elevation of the humeral head suggests rotator cuff pathology. However, CT is not adequate for evaluation of the soft tissue structures of the shoulder, including the rotator cuff, labrum, and biceps. Consider MRI if clinically indicated. 2. Shallow broad-based subacromial spur and moderate elongated anterior acromial spur. 3. Moderate osteoarthritis of the acromioclavicular joint. 4. No acute fracture.
[2021-05-27 11:25] VITALS: BP 120/61; PULSE 82; RESP 18; TEMP 35.6; O2SAT 98; BMI 32.5
--- NOTE | 2021-05-27 11:49 | ED.EXTPRO ---
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 Mode of arrival: ambulatory Limitations: no limitations History of Present Illness Complaint: joint paint Onset (ago): day(s) (since 05/12) Pain Consistency: constant Location: right and upper extremity (shoulder) Quality: aching Radiation: distal Relieving factors: nothing Exacerbating factors: range of motion Associated symptoms: denies other symptoms Context: other (fell seen in ED that night negative xrays but notes that she can't move her arm well since then) Related Data Home Medications Medication Instructions Recorded Confirmed aspirin 81 mg tablet 81 mg PO DAILY 05/17/20 05/17/20 lisinopril 20 mg tablet 20 mg PO DAILY 05/17/20 05/17/20 metformin 500 mg tablet 1,000 mg PO BID 05/17/20 05/17/20 Previous Rx's Medication Instructions Recorded cyclobenzaprine 10 mg tablet 10 mg PO BEDTIME PRN #3 tab 05/04/20 ketorolac 10 mg tablet 10 mg PO Q6H PRN 5 Days #20 tab 05/04/20 cyclobenzaprine 10 mg tablet 10 mg PO BEDTIME PRN #3 tab 05/17/20 ketorolac 10 mg tablet 10 mg PO Q6H PRN 5 Days #20 tab 05/17/20 cyclobenzaprine 10 mg tablet 10 mg PO TID PRN #10 tab 06/13/20 naproxen 500 mg tablet 500 mg PO BID PRN #10 tab 06/13/20 oxycodone-acetaminophen 5 mg-325 1 tab PO Q6H PRN #10 tab 06/13/20 mg tablet (Percocet) acetaminophen 500 mg tablet 500 mg PO Q6H PRN #20 tab 07/16/20 (Tylenol Extra Strength) cyclobenzaprine 5 mg tablet 5 mg PO Q8H PRN 5 Days #14 tab 07/16/20 lidocaine 5 % topical patch 1 patch TOPICAL DAILY PRN #30 ea 07/16/20 (Lidoderm) MDD remove after 12 hours naproxen 500 mg tablet 500 mg PO BID PRN 10 Days #20 tab 07/16/20 amoxicillin 875 mg-potassium 1 tab PO Q12H 7 Days #14 tab 10/08/20 clavulanate 125 mg tablet (Augmentin) ibuprofen 600 mg tablet 600 mg PO Q8H PRN #30 tab 10/08/20 diclofenac sodium 1 % topical gel 2 g TOPICAL QID #100 g 05/27/21 (Voltaren Arthritis Pain) lidocaine 4 % topical patch 1 patch TOPICAL DAILY PRN #10 ea 05/27/21 Allergies Allergy/AdvReac Type Severity Reaction Status Date / Time No Known Allergies Allergy Verified 07/16/20 17:29 Review of Systems Review of Systems: Constitutional : No Fever, No Chills ENT/Mouth : No Ear Pain, No Hoarseness, No sore throat Eyes: No Eye Pain, No Swelling, No Redness, No Foreign Body Cardiovascular : No Chest Pain, No SOB Respiratory : No Cough, No Dyspnea Gastrointestinal : No Nausea, No Vomiting, No Diarrhea, No abdominal Pain Genitourinary : No Dysuria, No Hematuria Musculoskeletal : positive joint pain, No Myalgias, No Joint Swelling Skin : No Skin lacerations, No rash Neuro : No Weakness, No Numbness, No Loss of Consciousness, No Dizziness, No Headache Psych : No Anxiety/Panic, No Depression All other systems reviewed and are negative [facility] Past Medical History Medical History Asthma Diabetes Hypertension Surgical History History of 2 sections Social History Social History (Updated 05/27/21 @ 12:13 by Carolina Clemosn DO) Alcohol intake: never Patient Tobacco Use Status: Never used Tobacco Advance Directives: No Advance Directives Information Provided: Yes Patient : No Physical Exam Vital Signs: Vital Signs: Last Vital Signs Temp 97.8 F 05/27/21 12:31 Pulse 81 05/27/21 12:31 Resp 18 05/27/21 12:31 BP 118/57 L 05/27/21 12:31 Pulse Ox 99 05/27/21 12:31 Body Mass Index 32.5 Appearance: Alert. Oriented X3. No acute distress. Eyes: Pupils equal, round and reactive to light. ENT: Pharynx normal. Neck: Normal inspection. Neck supple. CVS: Normal heart rate and rhythm. Pulses normal. Respiratory: No respiratory distress. Breath sounds normal. Abdomen: Soft and non-tender. Skin: Skin warm and dry. Normal skin color. Normal skin turgor. Extremities: No lower extremity edema. R shoulder ttp along AC joint area cannot reach behind her cannot abduct her lift arm very little strength or ability to do rotator cuff testing Neuro: Oriented X 3. No motor deficit. No sensory deficit. MDM - Extremity (Nontraumatic) MDM Narrative Medical decision making narrative: 56 yo female with HLD, anxiety, ETOH abuse, arhtritis, here with R shoulder pain post fall on 05/12 with neg xrays at this time still c/o pain - she is NV intact. Her exam is concerning for rotator cuff injury at this time CT scan ordered will place in sling order flexeril and voltaren gel instruct her to follow up with PCP for MRI Discharge Plan Discharge Clinical Impression: Injury of right rotator cuff Qualifiers: Encounter type: subsequent encounter Qualified Code(s): S46.001D - Unspecified injury of muscle(s) and tendon(s) of the rotator cuff of right shoulder, subsequent encounter Patient Disposition: Home, Self-Care Instructions: Rotator Cuff Injury (ED), Rotator Cuff Injury Exercises (DC) Additional Instructions: return to ED for any worsening symptoms or concerns wear sling as needed for comfort no more than 3 days use [place] seg?n sea necesario para mayor comodidad no m?s de 3 d?as Prescriptions: New lidocaine 4 % adhesive patch,medicated 1 patch topical DAILY PRN (Reason: pain) Qty: 10 RF: 0 diclofenac sodium [Voltaren Arthritis Pain] 1 % gel 2 g topical QID Qty: 100 RF: 0 No Action metformin 500 mg Tablet 1,000 mg PO BID RF: 0 lisinopril 20 mg Tablet 20 mg PO DAILY RF: 0 aspirin 81 mg Tablet 81 mg PO DAILY RF: 0 cyclobenzaprine 10 mg tablet 10 mg PO BEDTIME PRN (Reason: muscle spasm) Qty: 3 RF: 0 ketorolac 10 mg tablet 10 mg PO Q6H PRN (Reason: pain) 5 Days Qty: 20 RF: 0 cyclobenzaprine 10 mg tablet 10 mg PO TID PRN (Reason: muscle spasm) Qty: 10 RF: 0 oxycodone-acetaminophen [Percocet] 5-325 mg tablet 1 tab PO Q6H PRN (Reason: pain) Qty: 10 RF: 0 naproxen 500 mg tablet 500 mg PO BID PRN (Reason: pain) Qty: 10 RF: 0 acetaminophen [Tylenol Extra Strength] 500 mg tablet 500 mg PO Q6H PRN (Reason: pain or fever) Qty: 20 RF: 0 lidocaine [Lidoderm] 5 % adhesive patch,medicated 1 patch topical DAILY MDD remove after 12 hours PRN (Reason: pain) Qty: 30 RF: 0 naproxen 500 mg tablet 500 mg PO BID PRN (Reason: pain) 10 Days Qty: 20 RF: 0 cyclobenzaprine 5 mg tablet 5 mg PO Q8H PRN (Reason: pain (scale score 7-10)) 5 Days Qty: 14 RF: 0 ibuprofen 600 mg tablet 600 mg PO Q8H PRN (Reason: pain) Qty: 30 RF: 0 amoxicillin-pot clavulanate [Augmentin] 875-125 mg tablet 1 tab PO Q12H 7 Days Qty: 14 RF: 0 ketorolac 10 mg tablet 10 mg PO Q6H PRN (Reason: pain) 5 Days Qty: 20 RF: 0 cyclobenzaprine 10 mg tablet 10 mg PO BEDTIME PRN (Reason: muscle spasm) Qty: 3 RF: 0 Referrals: Yanira Mi MD [Primary Care Provider] - 2 days (MRI) Print Language: Divehi
--- NOTE | 2021-05-27 12:17 | PC.NURSE ---
pt in xr
[2021-05-27 12:31] VITALS: BP 118/57; PULSE 81; RESP 18; TEMP 36.6; O2SAT 99
--- NOTE | 2021-05-27 12:35 | PC.NURSE ---
patient a&ox3, c/o 04/05 rt shoulder pain, sling applied per order, vss, will continue to monitor.
== END 2021-05-27 13:43 | disposition home or self-care (01) ==
PROVIDERS: Emergency Provider Emergency Medicine; PCP Family Medicine
DX: S46.001D Unspecified injury of muscle(s) and tendon(s) of the rotator cuff of right shoulder, subsequent encounter (principal); W19.XXXD Unspecified fall, subsequent encounter; I10 Essential (primary) hypertension; E11.9 Type 2 diabetes mellitus without complications; J45.909 Unspecified asthma, uncomplicated
CPT/HCPCS: 73200; 99284

== ENCOUNTER → 2021-06-05 09:27 | Outpatient (BNVA) | payer MEDICAID, SELFPAY | PROVIDERS: Visit Provider Physician Assistant | DX: M75.81 Other shoulder lesions, right shoulder (principal); E11.9 Type 2 diabetes mellitus without complications; I10 Essential (primary) hypertension | CPT/HCPCS: 20610; 99202; J1020 ==

== ENCOUNTER 2021-06-06 13:16 | Outpatient (REF) | payer MEDICAID, SELFPAY ==
--- NOTE | ~2021-06-06 | XR_ITS ---
EXAMINATION: XR HIP, LEFT CLINICAL INFORMATION: Pain COMPARISON: None TECHNIQUE: Two views of the left hip. FINDINGS: Bone alignment is normal. No fracture or dislocation is seen. There is moderate left hip arthritis with joint space narrowing and osteophyte formation. There are degenerative changes visualized lower lumbar spine. Soft tissues are unremarkable. XR/XR hip LT min 2V IMPRESSION: Moderate left hip arthritis.
--- NOTE | ~2021-06-06 | XR_ITS ---
EXAMINATION: XR LUMBOSACRAL SPINE WITH OBLIQUES CLINICAL INFORMATION: Left hip pain COMPARISON: None TECHNIQUE: AP, flexion and extension, and lateral views of the lumbar spine. Lateral view of the lumbosacral junction. FINDINGS: No fracture or dislocation is seen. There is very mild 2 mm anterior subluxation of L4 with respect L5 with flexion. There is multilevel mild degenerative spondylosis. There is disc space narrowing at L5-S1. There is severe multilevel facet arthritis.. XR/XR lumbar spine 6V w bending IMPRESSION: Mild 2 mm anterior subluxation of L4 with respect L5 on flexion. Severe facet arthritis. Mild multilevel spondylosis and degenerative disc disease at L5-S1.
== END 2021-06-06 13:17 | disposition home or self-care (01) ==
LOC: HO.XRAY 13:16
PROVIDERS: PCP Family Medicine; Visit Provider Family Medicine
DX: M25.552 Pain in left hip (principal); M54.42 Lumbago with sciatica, left side
CPT/HCPCS: 72114; 73502

== ENCOUNTER 2021-06-09 19:22 | Emergency (ER) | payer MEDICAID, SELFPAY ==
--- NOTE | 2021-06-09 | ECG_ITS ---
Test Reason : CHEST PAIN Blood Pressure : / mmHG Vent. Rate : 091 BPM Atrial Rate : 091 BPM P-R Int : 122 ms QRS Dur : 082 ms QT Int : 370 ms P-R-T Axes : 051 029 057 degrees QTc Int : 455 ms Sinus rhythm with Premature supraventricular complexes Nonspecific ST abnormality Abnormal ECG When compared with ECG of 20-FEB-2019 03:46, Premature supraventricular complexes are now Present Referred By: Generic ED Physician Electronically Signed By:CORINA ASHRAF MD
--- NOTE | ~2021-06-09 | XR_ITS ---
EXAMINATION: XR CHEST CLINICAL INFORMATION: Palpitations. COMPARISON: 07/23/2019 chest radiographs. TECHNIQUE: Frontal view of the chest was obtained. FINDINGS: The lungs are clear. The heart and mediastinal structures are unremarkable. Mild thoracic dextro scoliosis and mild to moderate multilevel degenerative changes including marginal osteophyte formation without significant change. XR/XR chest 1V IMPRESSION: No acute cardiopulmonary process.
[2021-06-09 19:33] VITALS: BP 125/45; PULSE 84; RESP 18; TEMP 37.1; O2SAT 98; BMI 31.1
--- NOTE | 2021-06-09 21:17 | ED_ITS ---
HPI - Arrhythmia/Palpitations General Chief Complaint: Arrhythmia/Palpitations Stated Complaint: palpitations Time Seen by Provider: 06/09/21 20:47 Source: patient Mode of arrival: ambulatory Limitations: no limitations History of Present Illness MD complaint: heart racing and palpitations Onset (ago): day(s) (4) Severity: moderate Context: occurred during rest and occurred during exertion Associated symptoms: shortness of breath Related Data Home Medications Medication Instructions Recorded Confirmed aspirin 81 mg tablet 81 mg PO DAILY 05/17/20 05/17/20 lisinopril 20 mg tablet 20 mg PO DAILY 05/17/20 05/17/20 metformin 500 mg tablet 1,000 mg PO BID 05/17/20 05/17/20 Previous Rx's Medication Instructions Recorded cyclobenzaprine 10 mg tablet 10 mg PO BEDTIME PRN #3 tab 05/04/20 ketorolac 10 mg tablet 10 mg PO Q6H PRN 5 Days #20 tab 05/04/20 cyclobenzaprine 10 mg tablet 10 mg PO BEDTIME PRN #3 tab 05/17/20 ketorolac 10 mg tablet 10 mg PO Q6H PRN 5 Days #20 tab 05/17/20 cyclobenzaprine 10 mg tablet 10 mg PO TID PRN #10 tab 06/13/20 naproxen 500 mg tablet 500 mg PO BID PRN #10 tab 06/13/20 oxycodone-acetaminophen 5 mg-325 1 tab PO Q6H PRN #10 tab 06/13/20 mg tablet (Percocet) acetaminophen 500 mg tablet 500 mg PO Q6H PRN #20 tab 07/16/20 (Tylenol Extra Strength) cyclobenzaprine 5 mg tablet 5 mg PO Q8H PRN 5 Days #14 tab 07/16/20 lidocaine 5 % topical patch 1 patch TOPICAL DAILY PRN #30 ea 07/16/20 (Lidoderm) MDD remove after 12 hours naproxen 500 mg tablet 500 mg PO BID PRN 10 Days #20 tab 07/16/20 amoxicillin 875 mg-potassium 1 tab PO Q12H 7 Days #14 tab 10/08/20 clavulanate 125 mg tablet (Augmentin) ibuprofen 600 mg tablet 600 mg PO Q8H PRN #30 tab 10/08/20 diclofenac sodium 1 % topical gel 2 g TOPICAL QID #100 g 05/27/21 (Voltaren Arthritis Pain) lidocaine 4 % topical patch 1 patch TOPICAL DAILY PRN #10 ea 05/27/21 metoprolol succinate 25 mg 12.5 mg PO DAILY #30 tab 06/09/21 tablet,extended release 24 hr Allergies Allergy/AdvReac Type Severity Reaction Status Date / Time No Known Allergies Allergy Verified 06/05/21 09:30 Review of Systems Review of Systems: Constitutional : No Weight loss, No Fever, No Chills, No Fatigue, No Malaise ENT/Mouth : No sore throat, No Rhinorrhea Eyes: No Eye Pain, No Swelling, No Redness Cardiovascular : No Chest Pain, pos SOB, No Dyspnea on Exertion, No Orthopnea, No Edema, pos Palpitations Respiratory : No Cough, No Sputum, No Wheezing Gastrointestinal : No Nausea, No Vomiting, No Diarrhea, No Constipation, No abdominal Pain, No Hematochezia, No Melena Genitourinary : No Dysuria, No Urinary Frequency, No Hematuria, Musculoskeletal : No joint pain, No Myalgias, No Joint Swelling Skin : No Skin Lesions, No rash Neuro : No Weakness, No Numbness, No Dizziness, No Headache Psych : No Anxiety/Panic, No Depression Heme/Lymph: No Bruising, No Bleeding,No Lymphadenopathy Endocrine : No Polyuria, No Polydipsia All other systems reviewed and are negative [facility] Past Medical History Attestation statement: The following information was validated with the patient. Medical History Asthma Diabetes Hypertension Surgical History History of 2 sections Social History Social History Alcohol intake: never Patient Tobacco Use Status: Never used Tobacco Advance Directives: No Physical Exam Vital Signs: Vital Signs: Last Vital Signs Temp 98.7 F 06/09/21 19:33 Pulse 76 06/09/21 22:34 Resp 12 06/09/21 22:34 BP 116/63 06/09/21 22:34 Pulse Ox 97 06/09/21 22:34 Body Mass Index 31.1 Appearance: Alert. Oriented X3. No acute distress. Eyes: Pupils equal, round and reactive to light. ENT: Pharynx normal. Neck: Normal inspection. Neck supple. CVS: irregular heart rate and rhythm. Pulses normal. Respiratory: No respiratory distress. Breath sounds normal. Abdomen: Soft and non-tender. Skin: Skin warm and dry. Normal skin color. Normal skin turgor. Extremities: No lower extremity edema. No calf ttp Neuro: Oriented X 3. No motor deficit. No sensory deficit. Course Course Course Narrative: very symptomatic PACs - will start on low dose bblocker MDM - Arrhythmia/Palpitations MDM Narrative Medical decision making narrative: 56 yo female with hx of ETOH abuse, HTN, DM comes in with 4 days of dyspnea and palpitations - no CP, she is not on any bblockers at this time will obtain labs, EKG, ddimer, troponin, CXR - could be lyte related or low magnesium, I do not see bblockers on her list. Dispo per res ults and findings. Lab Data Result diagrams: 06/09/21 22:08 06/09/21 22:08 Labs: Lab Results 06/09/21 06/09/21 06/09/21 Range/Units 22:08 22:08 22:08 WBC 16.0 H (4.8-10.8) X10*3/uL RBC 4.68 (4.20-5.50) X10*6/uL Hgb 14.3 (12.0-16.0) g/dl Hct 44.4 (37.0-47.0) % MCV 94.9 (80.0-98.0) fL MCH 30.6 (27.0-33.0) pg MCHC 32.2 (31.0-35.0) g/dl RDW 13.2 (11.0-16.0) % Plt Count 219 (160-400) X10*3/uL MPV 11.6 (9.4-12.3) fL Immature Gran % (Auto) 0.8 H (0.0-0.4) % Neut % (Auto) 58.8 (45-73) % Lymph % (Auto) 32.0 (20-40) % [place] % (Auto) 7.0 (2-11) % Eos % (Auto) 1.1 (0-4) % Baso % (Auto) 0.3 (0-2) % Lymph # (Auto) 5.1 H (1.2-4.9) X10*3/uL [place] # (Auto) 1.1 (0.1-1.2) X10*3/uL Eos # (Auto) 0.2 (0.0-0.4) X10*3/uL Baso # (Auto) 0.1 (0.0-0.2) X10*3/uL Abs Immat Gran (auto) 0.13 H (0.00-0.03) X10*3/uL Absolute Neuts (auto) 9.4 H (2.0-8.3) x10*3/uL Absolute Nucleated RBC 0.000 (0.0-0.012) X10*3/uL Nucleated RBC % (auto) 0.0 (0.0-0.2) /100WBC Smear Tech's Comments VERIFIED D-Dimer < 200 NG/ML Sodium 141 (135-145) mmol/L Potassium 4.6 (3.3-5.1) mmol/L Chloride 103 (96-108) mmol/L Carbon Dioxide 26 (22-29) mmol/L Anion Gap 17 (12-20) BUN 14 (9-16) mg/dL Creatinine 0.79 (0.5-1.4) mg/dL Estim Creat Clear Calc 76.4 Estimated GFR > 60 Random Glucose 164 H (60-115) mg/dL Calcium 9.4 (8.4-10.2) mg/dL Magnesium 1.9 (1.6-2.6) mg/dL Total Bilirubin 0.2 (0.0-1.0) mg/dL Direct Bilirubin < 0.2 (0.0-0.5) mg/dL AST 25 (5-31) U/L ALT 42 H (0-31) U/L Alkaline Phosphatase 85 (39-117) U/L Troponin I High Sens (<3.5-17.0) ng/L Total Protein 7.0 (6.5-8.0) g/dL Albumin 4.1 (3.5-5.0) g/dL TSH 0.77 (0.32-4.0) uIU/mL 06/09/21 Range/Units 22:08 WBC (4.8-10.8) X10*3/uL RBC (4.20-5.50) X10*6/uL Hgb (12.0-16.0) g/dl Hct (37.0-47.0) % MCV (80.0-98.0) fL MCH (27.0-33.0) pg MCHC (31.0-35.0) g/dl RDW (11.0-16.0) % Plt Count (160-400) X10*3/uL MPV (9.4-12.3) fL Immature Gran % (Auto) (0.0-0.4) % Neut % (Auto) (45-73) % Lymph % (Auto) (20-40) % [place] % (Auto) (2-11) % Eos % (Auto) (0-4) % Baso % (Auto) (0-2) % Lymph # (Auto) (1.2-4.9) X10*3/uL [place] # (Auto) (0.1-1.2) X10*3/uL Eos # (Auto) (0.0-0.4) X10*3/uL Baso # (Auto) (0.0-0.2) X10*3/uL Abs Immat Gran (auto) (0.00-0.03) X10*3/uL Absolute Neuts (auto) (2.0-8.3) x10*3/uL Absolute Nucleated RBC (0.0-0.012) X10*3/uL Nucleated RBC % (auto) (0.0-0.2) /100WBC Smear Tech's Comments D-Dimer NG/ML Sodium (135-145) mmol/L Potassium (3.3-5.1) mmol/L Chloride (96-108) mmol/L Carbon Dioxide (22-29) mmol/L Anion Gap (12-20) BUN (9-16) mg/dL Creatinine (0.5-1.4) mg/dL Estim Creat Clear Calc Estimated GFR Random Glucose (60-115) mg/dL Calcium (8.4-10.2) mg/dL Magnesium (1.6-2.6) mg/dL Total Bilirubin (0.0-1.0) mg/dL Direct Bilirubin (0.0-0.5) mg/dL AST (5-31) U/L ALT (0-31) U/L Alkaline Phosphatase (39-117) U/L Troponin I High Sens < 3.5 (<3.5-17.0) ng/L Total Protein (6.5-8.0) g/dL Albumin (3.5-5.0) g/dL TSH (0.32-4.0) uIU/mL ECG Data Attestation: I personally reviewed and interpreted this ECG as follows: ECG interpretation date: 06/09/21 ECG interpretation time: 21:24 Interpretation: Rate: 91 Rhythm: NSR with PACs [place]: normal Normal P waves. Normal ROSA. Normal QRS complex. ST T wave : normal no [place] qTC: normal prior studies: no acute ischemia The study has been interpreted contemporaneously by me. . Discharge Plan Discharge Clinical Impression: PAC (premature atrial contraction) Patient Disposition: Home, Self-Care Instructions: Premature Atrial Contractions (ED) Additional Instructions: return to ED for any worsening symptoms or concerns Prescriptions: New metoprolol succinate 25 mg tablet extended release 24 hr 12.5 mg PO DAILY Qty: 30 RF: 0 No Action metformin 500 mg Tablet 1,000 mg PO BID RF: 0 lisinopril 20 mg Tablet 20 mg PO DAILY RF: 0 aspirin 81 mg Tablet 81 mg PO DAILY RF: 0 cyclobenzaprine 10 mg tablet 10 mg PO BEDTIME PRN (Reason: muscle spasm) Qty: 3 RF: 0 ketorolac 10 mg tablet 10 mg PO Q6H PRN (Reason: pain) 5 Days Qty: 20 RF: 0 cyclobenzaprine 10 mg tablet 10 mg PO TID PRN (Reason: muscle spasm) Qty: 10 RF: 0 oxycodone-acetaminophen [Percocet] 5-325 mg tablet 1 tab PO Q6H PRN (Reason: pain) Qty: 10 RF: 0 naproxen 500 mg tablet 500 mg PO BID PRN (Reason: pain) Qty: 10 RF: 0 acetaminophen [Tylenol Extra Strength] 500 mg tablet 500 mg PO Q6H PRN (Reason: pain or fever) Qty: 20 RF: 0 lidocaine [Lidoderm] 5 % adhesive patch,medicated 1 patch topical DAILY MDD remove after 12 hours PRN (Reason: pain) Qty: 30 RF: 0 naproxen 500 mg tablet 500 mg PO BID PRN (Reason: pain) 10 Days Qty: 20 RF: 0 cyclobenzaprine 5 mg tablet 5 mg PO Q8H PRN (Reason: pain (scale score 7-10)) 5 Days Qty: 14 RF: 0 ibuprofen 600 mg tablet 600 mg PO Q8H PRN (Reason: pain) Qty: 30 RF: 0 amoxicillin-pot clavulanate [Augmentin] 875-125 mg tablet 1 tab PO Q12H 7 Days Qty: 14 RF: 0 ketorolac 10 mg tablet 10 mg PO Q6H PRN (Reason: pain) 5 Days Qty: 20 RF: 0 cyclobenzaprine 10 mg tablet 10 mg PO BEDTIME PRN (Reason: muscle spasm) Qty: 3 RF: 0 lidocaine 4 % adhesive patch,medicated 1 patch topical DAILY PRN (Reason: pain) Qty: 10 RF: 0 diclofenac sodium [Voltaren Arthritis Pain] 1 % gel 2 g topical QID Qty: 100 RF: 0 Referrals: Yanira Mi MD [Primary Care Provider] - 1 day Print Language: Chinese
[2021-06-09 22:13] LABS: Basophils Absolute Auto 0.1 X10*3/uL (0.0-0.2); Basophils Percent Auto 0.3 % (0-2); Eosinophils Absolute Auto 0.2 X10*3/uL (0.0-0.4); Eosinophils Percent Auto 1.1 % (0-4); Hematocrit 44.4 % (37.0-47.0); Hemoglobin 14.3 g/dl (12.0-16.0); Imm Gran Abs Auto 0.13 X10*3/uL (0.00-0.03); Imm Gran Pct Auto 0.8 % (0.0-0.4); Lymphocytes Absolute Auto 5.1 X10*3/uL (1.2-4.9); MANUAL DIFF FLAG SCAN; Mean Corpuscular HGB Conc 32.2 g/dl (31.0-35.0); Mean Corpuscular Hemoglobin 30.6 pg (27.0-33.0); Mean Corpuscular Volume 94.9 fL (80.0-98.0); Mean Platelet Volume 11.6 fL (9.4-12.3); Monocytes Absolute Auto 1.1 X10*3/uL (0.1-1.2); Neutrophils Absolute Auto 9.4 x10*3/uL (2.0-8.3); Neutrophils Percent Auto 58.8 % (45-73); Platelet Count 219 X10*3/uL (160-400); Red Blood Count 4.68 X10*6/uL (4.20-5.50); Red Cell Distribution Width 13.2 % (11.0-16.0); SCAN SMEAR FLAG 1
[2021-06-09 22:30] LABS: D Dimer < 200 NG/ML
[2021-06-09 22:31] LABS: Alanine Aminotransferase 42 U/L (0-31); Albumin Level 4.1 g/dL (3.5-5.0); Alkaline Phosphatase 85 U/L (39-117); Anion Gap 17 (12-20); Aspartate Amino Transferase 25 U/L (5-31); Bilirubin Direct < 0.2 mg/dL (0.0-0.5); Bilirubin Total 0.2 mg/dL (0.0-1.0); Blood Urea Nitrogen 14 mg/dL (9-16); Calcium 9.4 mg/dL (8.4-10.2); Carbon Dioxide 26 mmol/L (22-29); Chloride 103 mmol/L (96-108); Creatinine Clr Calc Pharmacy 76.4; Estimated Glomerular Filt Rate > 60; Glucose Random 164 mg/dL (60-115); Magnesium 1.9 mg/dL (1.6-2.6); Potassium 4.6 mmol/L (3.3-5.1); Sodium 141 mmol/L (135-145)
[2021-06-09 22:34] VITALS: BP 116/63; PULSE 76; RESP 12; O2SAT 97
[2021-06-09 22:34] LABS: Troponin-I High Sensitivity < 3.5 ng/L (<3.5-17.0)
[2021-06-09 22:36] LABS: SLIDE REVIEW VERIFIED
[2021-06-09 22:50] LABS: TSH reflex Free T4 0.77 uIU/mL (0.32-4.0)
[2021-06-09 23:21] LABS: Appearance Urine CLEAR; Color Urine YELLOW; Glucose Urine UA >=1000 MG/DL (NEG); Leukocyte Esterase Urine NEG (NEG); Nitrite Urine NEG (NEG); PH 5.5 (5.0-8.0); Specific Gravity - Urine 1.015 (1.005-1.025); Urine Blood NEG (NEG); Urine Ketones NEG (NEG); Urine Protein NEG (NEG-TRACE)
[2021-06-09 23:56] LABS: Granular Casts Urine 0-2 /LPF; Hyaline Casts Urine 0-2 /LPF; Mucus Urine TRACE /LPF; RBC Urine 0 /HPF (0); Squamous Epithelial Cell Urine TRACE /LPF; WBC Urine 0 /HPF (0-4)
== END 2021-06-09 23:37 | disposition home or self-care (01) ==
PROVIDERS: Emergency Provider Emergency Medicine; PCP Family Medicine
DX: I49.1 Atrial premature depolarization (principal); I10 Essential (primary) hypertension; E11.9 Type 2 diabetes mellitus without complications; J45.909 Unspecified asthma, uncomplicated
CPT/HCPCS: 36415; 71045; 80048; 80076; 81001; 83735; 84443; 84484; 85025; 85379; 93005; 99283; 99284

== ENCOUNTER 2021-06-19 13:01 | Outpatient (REF) | payer MEDICAID, SELFPAY ==
--- NOTE | ~2021-06-19 | CT_ITS ---
EXAMINATION: CT CHEST WITHOUT CONTRAST CLINICAL INFORMATION: Follow-up pulmonary nodule COMPARISON: Previous chest CT July 2018 TECHNIQUE: Multidetector volumetric CT imaging of the chest was done. Axial MIP volume rendering provided. Sagittal and coronal reformatted images were obtained. This CT examination was performed using dose optimization techniques as appropriate, variously including the following: *Automated exposure control *Adjustment of mA and/or kV according to patient size (this includes techniques or standardized protocols for targeted exams where dose is matched to indication/reason for exam; i.e. extremities or head) *Use of iterative reconstruction technique DLP: 256 mGy-cm FINDINGS: LUNGS: The pulmonary nodules are stable. Largest pulmonary nodules are a 5 mm left upper lobe nodule axial image 280 series 5 and 4 mm left lower lobe nodule axial image 354 series 5. No new pulmonary nodule is seen. MEDIASTINUM: There are right hilar calcified lymph nodes. There are small noncalcified mediastinal lymph nodes. No enlarged lymph nodes are seen. The heart does not appear enlarged. 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 The thoracic aorta is normal in caliber. There is no pericardial effusion. PLEURA: There is no pleural effusion. No pleural mass or thickening. AXILLA: No lymphadenopathy. UPPER ABDOMEN: Unremarkable. OSSEOUS STRUCTURES: There are degenerative changes of the spine. CT/CT chest wo con IMPRESSION: Stable pulmonary nodules, largest measuring 5 mm in the left upper lobe. Fleischner guidelines were followed.
== END 2021-06-19 13:02 | disposition home or self-care (01) ==
LOC: HO.CT 13:01
PROVIDERS: PCP Family Medicine; Visit Provider Family Medicine
DX: R91.8 Other nonspecific abnormal finding of lung field (principal)
CPT/HCPCS: 71250

== ENCOUNTER → 2021-06-24 13:16 | Outpatient (REF) | payer MEDICAID, SELFPAY ==
--- NOTE | 2021-06-24 13:20 | ECG_ITS ---
Hook-up date: 2021-06-24 13:34:00 Duration: 25:03:00 Test Indications: PALPITATIONS, ATRIAL PREMATURE Medications: 027538 QRS complexes 35 Ventricular ectopics which represent <1 % of total QRS comp. 2753 Supraventricular ectopics which represent 2 % of total QRS comp. * Paced QRS complexs which represent % of total QRS comp. VENTRICULAR ECTOPY 31 Isolated 0 Bigeminal Cycles 2 Couplets 0 Runs 0 Beats in Runs * Beats LONGEST at * BPM at :: -- * Beats FASTEST at * BPM at :: -- SUPRAVENTRICULAR ECTOPY 2747 Isolated 3 Couplets 0 Runs 0 Beats in Runs * Beats LONGEST at * BPM at :: -- * Beats FASTEST at * BPM at :: -- HEART RATES 54 MIN at 09:08:54 2021-06-25 91 AVG 148 MAX at 20:01:07 2021-06-24 LONGEST RR 1.4080 secs at 07:11:44 2021-06-25 S-T LEVELS Channel 1 - 128 mm at 13:34:00 2021-06-24 - 128 mm at 13:34:00 2021-06-24 Channel 2 - 128 mm at 13:34:00 2021-06-24 - 128 mm at 13:34:00 2021-06-24 Channel 3 - 128 mm at 03:25:31 -- - 128 mm at 03:25:31 Basic rhythm Normal sinus rhythm No long pause or profound bradycardia Frequent Sinus tachycardia , 34% of time HR > 100 bpm Frequent Premature atrial complexes , 2% of total beats No diary submitted Referred By: Yanira Mi Overread By: WAGNER LEE MD
== END ==
LOC: HO.CARD 13:16
PROVIDERS: Visit Provider Family Medicine
DX: I49.1 Atrial premature depolarization (principal); R00.2 Palpitations
CPT/HCPCS: 93226

== ENCOUNTER 2021-07-10 10:48 | Outpatient (REF) | payer MEDICAID, SELFPAY ==
--- NOTE | ~2021-07-10 | XR_ITS ---
EXAMINATION: XR SHOULDER, RIGHT XR HUMERUS, RIGHT CLINICAL INFORMATION: Right shoulder and right arm pain. COMPARISON: Most recent right shoulder CT dated 05/27/2021. Right humerus radiographs dated 05/12/2021. TECHNIQUE: AP, Grashey, scapular Y, and axillary views of the right shoulder. AP and lateral views of the right humerus. FINDINGS: Right shoulder: No acute fracture or dislocation. Moderate acromioclavicular joint space narrowing with marginal osteophytes. Lateral subacromial spurring. Mild glenohumeral joint space narrowing with small marginal osteophytes. No osseous erosion. No abnormal soft tissue calcification. Right humerus: No acute fracture or dislocation. No lytic or blastic osseous lesion. Enthesopathic spurring at the medial epicondyle. XR/XR shoulder RT min 2V IMPRESSION: Right shoulder: No acute fracture or dislocation. Moderate acromioclavicular and mild glenohumeral osteoarthritis, unchanged. Lateral subacromial spurring. Right humerus: No acute osseous abnormality.
--- NOTE | ~2021-07-10 | XR_ITS ---
EXAMINATION: XR SHOULDER, RIGHT XR HUMERUS, RIGHT CLINICAL INFORMATION: Right shoulder and right arm pain. COMPARISON: Most recent right shoulder CT dated 05/27/2021. Right humerus radiographs dated 05/12/2021. TECHNIQUE: AP, Grashey, scapular Y, and axillary views of the right shoulder. AP and lateral views of the right humerus. FINDINGS: Right shoulder: No acute fracture or dislocation. Moderate acromioclavicular joint space narrowing with marginal osteophytes. Lateral subacromial spurring. Mild glenohumeral joint space narrowing with small marginal osteophytes. No osseous erosion. No abnormal soft tissue calcification. Right humerus: No acute fracture or dislocation. No lytic or blastic osseous lesion. Enthesopathic spurring at the medial epicondyle. XR/XR humerus RT IMPRESSION: Right shoulder: No acute fracture or dislocation. Moderate acromioclavicular and mild glenohumeral osteoarthritis, unchanged. Lateral subacromial spurring. Right humerus: No acute osseous abnormality.
== END 2021-07-10 10:49 | disposition home or self-care (01) ==
LOC: HO.XRAY 10:48
PROVIDERS: Visit Provider Family Medicine
DX: M25.511 Pain in right shoulder (principal); M79.601 Pain in right arm
CPT/HCPCS: 73030; 73060

== ENCOUNTER 2021-07-10 11:00 | Outpatient (RCR) | payer MEDICAID, SELFPAY ==
--- NOTE | 2021-06-10 15:59 | MHC.PT.EP ---
[facility] [place] Office [place] Office [place] Office [address] [phone] F: [phone] F: [phone] F: [phone] F: [phone] Physical Therapy Plan of Care Date of Evaluation: Date of Surgery: N/A Diagnosis: OTHER SHOULDER LESIONS, RIGHT SHOULDER Assessment: Pt is a 56yo F who presents to PT with R shoulder injury after falling on to her shoulder 05/13/21. XRAY and CT negative for fracture. She presents today with current impairments in pain, decreased shoulder ROM (significant improvement with PROM vs. AROM), decreased strength, decreased scap stability and impaired strength. Her signs and symptoms may be consistent with a RTC tendonitis. She is limited functionally by reaching, overhead ADLs and sleeping. She is a good candidate for skilled PT services to address current impairments in order to facilitate return to PLOF. She will be seen 2x/week for 4 weeks and will be reassessed at that time. Frequency and Duration: The patient will be seen 2x/week for 4 weeks Short Term Goals: Pt will be I with HEP to promote self management of symptoms Pt will improve R shoulder flexion by at least 10 degrees Alf Goals: Pt will demonstrate WNL ROM throughout all planes of R shoulder Pt will perform overhead ADLs without compensation with pain < 3 / 10 Pt will demonstrate improvements in function as evidenced by statistically significant improvement in SPADI outcome measure Treatment Plan: Modalities to reduce pain, spasms and effusion. Manual therapy to restore motion and function. Therapeutic exercise to improve strength and flexibility. Neuromuscular re-education for posture and balance. Therapeutic activities to return to functional activities of daily living. Electronically signed by: Moni Smiley, PT, DPT Please sign and return to therapist. Thank you for your referral.
--- NOTE | 2021-07-10 14:09 | MHC.PT.DC ---
[facility] [place] Office [place] Office [place] Office [address] Sm[address] [phone] F: [phone] F: [phone] F: [phone] F: [phone] Physical Therapy Discharge Report Diagnosis: OTHER SHOULDER LESIONS, RIGHT SHOULDER Date of Surgery: DOI 05/13/21 Date of Evaluation: 06/10/21 Date of Discharge: 07/10/21 Treatments to Date: 7 Cancellations to Date: No Shows to Date: Discharge Status: Recommend MD Follow-up Discharge Summary: Pt has made limited progress since SOC. She has attended 7 PT sessions. She continues to have significant limitations with AROM of R shoulder and is able to achieve only 30 degrees AROM R shoulder flexion with compensation of R UT. She is able to achieve more ROM with PROM vs. AROM. She has empty end feel with PROM limited 2* pain. Her SPADI improved from 119/130 on initial PT evaluation to 100/130 today however she continues to be extremely limited with functional activities involving her R UE. She has (+) drop arm test on her R UE. Pts signs and symptoms may be consistent with a R RTC tear. She is being D/C from skilled PT services 2* lack of progress and she was recommended to follow up with ortho and has an appointment on 07/24/21. Provided pt with printed, updated copy of HEP and RTB and pt verbalized and demonstrated understanding of HEP. Pt reports no further questions or concerns for PT at this time. Electronically signed by: Moni Smiley, PT, DPT Please sign and return to therapist. Thank you for your referral.
== END 2021-07-10 14:09 | disposition home or self-care (01) ==
LOC: HO.PT 11:00
PROVIDERS: PCP Family Medicine; Visit Provider Physician Assistant
DX: M75.81 Other shoulder lesions, right shoulder (principal)
CPT/HCPCS: 97110; 97140; 97162; 97530

== ENCOUNTER → 2021-07-24 09:31 | Outpatient (BNVA) | payer MEDICAID, SELFPAY | PROVIDERS: PCP Family Medicine; Visit Provider Physician Assistant | DX: M75.81 Other shoulder lesions, right shoulder (principal) | CPT/HCPCS: 99212 ==

== ENCOUNTER 2021-08-13 14:44 | Outpatient (REF) | payer MEDICAID, SELFPAY ==
--- NOTE | ~2021-08-13 | MR_ITS ---
EXAMINATION: MR SHOULDER WITHOUT CONTRAST, RIGHT CLINICAL INFORMATION: Other shoulder lesions, right shoulder. COMPARISON: Most recent right shoulder radiographs dated 07/10/2021. Right shoulder CT dated 05/27/2021. Right shoulder MRI dated 09/25/2010. TECHNIQUE: MRI of the shoulder without contrast was performed on a high-field scanner. FINDINGS: ROTATOR CUFF: Complete full-thickness tear of the supraspinatus tendon with full-thickness tearing extending into the anterior aspect of the infraspinatus tendon. Tearing measures up to 3.6 cm in AP dimension and 3.6 cm in ML dimension with retraction of the tendon fibers proximal to the humeral head apex. There is moderate subscapularis tendinosis with full-thickness partial tearing involving the superior 0.9 cm of the distal tendon fibers. No muscle atrophy or fatty infiltration. BICEPS: Normal. CORACOACROMIAL ARCH: The undersurface of the acromion is minimally curved with subacromial spurring. Moderate acromioclavicular osteoarthritis. LABRUM/CAPSULE: Attenuation and irregularity of the posterosuperior and posterior labrum, likely representing degenerative tearing. No displaced undersurface tear. Intact joint capsule. GLENOHUMERAL JOINT/MARROW: Full-thickness articular cartilage loss at the superior humeral head measuring 2.6 cm in ML dimension. Mild glenoid articular cartilage signal heterogeneity. Small marginal osteophytes. Moderate joint effusion. MR/MR shoulder RT wo con IMPRESSION: 1. Complete full-thickness tear of the supraspinatus tendon with full-thickness partial tearing extending into the anterior aspect of the infraspinatus tendon measuring up to 3.6 cm in AP dimension. The torn tendon fibers are retracted proximal to the humeral head apex. Moderate subscapularis tendinosis with superior full-thickness partial tearing. 2. Moderate acromioclavicular osteoarthritis with subacromial spurring. 3. Degenerative tearing of the posterosuperior and posterior labrum. 4. Mild glenohumeral osteoarthritis including full-thickness articular cartilage loss at the superior humeral head. Moderate joint effusion.
== END 2021-08-13 14:45 | disposition home or self-care (01) ==
LOC: HO.MRI 14:44
PROVIDERS: Visit Provider Physician Assistant
DX: M75.81 Other shoulder lesions, right shoulder (principal); M25.511 Pain in right shoulder; R29.898 Other symptoms and signs involving the musculoskeletal system
CPT/HCPCS: 73221

== ENCOUNTER → 2021-08-30 12:44 | Outpatient (BNVA) | payer MEDICAID, SELFPAY | PROVIDERS: PCP Family Medicine; Visit Provider Physician Assistant | DX: M75.101 Unspecified rotator cuff tear or rupture of right shoulder, not specified as traumatic (principal); M12.811 Other specific arthropathies, not elsewhere classified, right shoulder | CPT/HCPCS: 99212 ==

== ENCOUNTER → 2021-09-09 11:00 | Outpatient (BNVA) | payer MEDICAID, SELFPAY | PROVIDERS: PCP Family Medicine; Visit Provider Orthopaedic Surgery | DX: M75.101 Unspecified rotator cuff tear or rupture of right shoulder, not specified as traumatic (principal) | CPT/HCPCS: 99212 ==

== ENCOUNTER 2021-09-12 14:00 | Outpatient (REF) | payer MEDICAID, SELFPAY ==
--- NOTE | ~2021-09-12 | MM_ITS ---
EXAMINATION: MM SCREENING DIGITAL BREAST TOMOSYNTHESIS, BILATERAL CLINICAL INFORMATION: Screening. Asymptomatic. The lifetime risk of breast cancer based on the Tyrer-Cuzick Model is 7%. COMPARISON: Mammography: 08/28/2020, 06/02/2019, 02/16/2018 TECHNIQUE: Digital breast tomosynthesis is performed in both the craniocaudal and mediolateral oblique views along with computer-aided detection (CAD). Synthesized 2D images are generated from the tomosynthesis. Additional right MLO view is provided. FINDINGS: There are scattered areas of fibroglandular density (ACR BI-RADS breast composition Category b). There are no significant masses, abnormal calcifications, or other abnormalities. Background stromal and fibroglandular densities are stable. Small asymmetric fibroglandular densities mid upper outer right breast are similar to prior exams. There is no developing density or interval mass or architectural abnormality. The axilla and skin contours are unremarkable. MM/MM tomosynthesis screening BI IMPRESSION: No significant changes from prior studies. ASSESSMENT: BI-RADS 2: Benign RECOMMENDATION: Routine annual mammography screening. This patient's information was entered into a reminder system with a target due date for their next mammogram.
== END 2021-09-12 14:01 | disposition home or self-care (01) ==
LOC: HO.MAMMO 14:00
PROVIDERS: PCP Family Medicine; Visit Provider Family Medicine
DX: Z12.31 Encounter for screening mammogram for malignant neoplasm of breast (principal)
CPT/HCPCS: 77063; 77067

== ENCOUNTER → 2021-10-08 13:29 | Outpatient (BNVA) | payer MEDICAID, SELFPAY | PROVIDERS: PCP Family Medicine; Referring Provider Family Medicine; Visit Provider Internal Medicine | DX: Z01.810 Encounter for preprocedural cardiovascular examination (principal); I49.1 Atrial premature depolarization | CPT/HCPCS: 93005; 99202 ==

== ENCOUNTER 2021-11-06 12:59 | Outpatient (REF) | payer MEDICAID, SELFPAY ==
--- NOTE | ~2021-11-06 | MR_ITS ---
EXAMINATION: MR BRAIN WITHOUT CONTRAST CLINICAL INFORMATION: 56-year-old with new headaches. History of occipital trauma 04/2021. COMPARISON: None TECHNIQUE: Multiplanar multisequence MR imaging of the brain was done without IV contrast. FINDINGS: Brain Volume: Within normal limits. Structural: No malformations. Brain and Meninges: DWI sequence demonstrates no restricted diffusion. Specifically, there is no evidence for acute or subacute cerebral ischemia. Scattered subcentimeter foci of FLAIR/T2 signal hyperintensity are noted within the subcortical white matter of both cerebral hemispheres, which are nonspecific findings. Small zones of T2 hyperintensity are seen within the periatrial white matter bilaterally. Remainder of the brain is normal in signal intensity. Gradient refocused imaging demonstrates no evidence for hemorrhage, hemosiderin staining or abnormal mineral deposition. No extra-axial fluid collections, space-occupying process or mass effect are identified. Nagel-white matter interface is preserved. Ventricles and Subarachnoid Spaces: The ventricular system and subarachnoid spaces are within normal limits without hydrocephalus. Orbital Structures: Dehiscence of the right medial orbital wall noted with orbital fat prolapsing into the right ethmoid cavity. Otherwise unremarkable within the limitations of the exam. Vascular: Signal voids are noted in the visualized major intracranial vessels. Sinuses and Osseous Structures: There are some retained secretions in the left mastoid which are nonspecific findings and there is minor mucosal thickening in the ethmoid complex. Incidental note is made of a dehiscence of the right lamina papyracea with orbital fat prolapsing into the right ethmoid cavity. MR/MR head/brain wo con IMPRESSION: 1. Multiple nonspecific T2 hyperintense white matter lesions in the cerebral hemispheres bilaterally as detailed above. Differential diagnostic considerations include chronic ischemic microangiopathy, migraine associated vasculopathy, vasculitis and other forms of vasculopathy. Follow-up clinically. 2. No acute intracranial process. No evidence for acute or subacute cerebral ischemia, hemorrhage, extra-axial fluid collection, space-occupying process, mass effect or hydrocephalus. 3. Dehiscence of the medial right orbital wall with prolapse of right orbital fat into the ethmoid cavity incidentally noted. 4. Minimal left mastoid effusion, which is nonspecific.
== END 2021-11-06 13:00 | disposition home or self-care (01) ==
LOC: HO.MRI 12:59
PROVIDERS: Visit Provider Nurse Practitioner Family
DX: R51.9 Headache, unspecified (principal); Z87.828 Personal history of other (healed) physical injury and trauma
CPT/HCPCS: 70551

== ENCOUNTER → 2021-11-19 13:46 | Outpatient (REF) | payer MEDICAID, SELFPAY ==
--- NOTE | 2021-11-19 13:50 | CA_ITS ---
Transthoracic Echocardiogram Patient (Last, First, Middle): La Gamble, Gender: Female Date of : 1965 Age: 56 Procedure Date: 11/19/2021 Procedure Type: Transthoracic Echocardiogram Location: OP Height: 157.48 cm Weight: 86.18 kg BSA: 1.87 m2 Heart Rate: bpm BP: 132 / 90 mmHg Technical Services Consultant: SB Referring MD: Cristobal Guadarrama MD Symptoms: Z01.810 - Encounter for preprocedural cardiovascular exam... Study Quality: Fair ECG Rhythm: Sinus Conclusions: - The left ventricular systolic function is normal. The visually estimated ejection fraction is between 65-70%. - No obvious valvular pathology seen on this study. Findings Left Ventricle Normal left ventricular cavity size. There is normal left ventricular wall thickness. The left ventricular systolic function is normal. The visually estimated ejection fraction is between 65-70%. There is no evidence of regional wall motion abnormalities. Diastolic function is normal for age. Right Ventricle Normal right ventricular cavity size and systolic function. Atria Both atria are normal in size. Aortic Valve There is a normal trileaflet aortic valve. There is no aortic valve stenosis. There is no aortic valve regurgitation. Mitral Valve There is mild mitral annular calcification. There is no mitral valve regurgitation. There is no mitral valve stenosis. Pulmonic Valve The pulmonic valve was not well visualized. Tricuspid Valve Normal tricuspid valve structure. There is trace tricuspid valve regurgitation. The pulmonary artery systolic pressure is normal. Great Vessels The sinuses of valsalva and sino tubular ridge are normal in size. Venous The inferior vena cava is normal in size and collapses greater than 50% with inspiration. Pericardium/Pleural There is no evidence of pericardial effusion. Prior Study Comparison Changes noted compared to prior study dated: 06/29/2013. RVSP looks normal. Recommendations, Care & Conclusions No obvious valvular pathology seen on this study. Measurements 2D Linear Measurements IVSd: 0.78 0.6-0.9/0.6-1.0 cm LVIDd: 4.70 3.9-5.3/4.2-5.9 cm LVIDd Index: 2.51 2.4-3.2/2.2-3.1 cm/m2 LVIDs: 3.07 2.0-3.6 cm LVPWd: 0.76 0.7-1.1 cm LA Diam: 3.70 2.7-3.8/3.0-4.0 cm LAIDs Index: 1.98 1.5-2.3 cm/m2 LV Mass: 144.71 67-162/88-224 g LV Mass Index: 77.39 43-95/49-115 g/m2 LVOT Diam: 1.90 3.0+(-)1.3 cm 2D Systolic Function EF 4C: 62.10 >55% Mitral Valve MV Pk E: 0.85 MV PK A: 0.71 MV Decel Time: 193.00 E/A: 1.20 E'Lateral: 8.59 E'Medial: 8.05 E/E' Med: 10.50 E/E' Lat: 9.90 PHT: 57.00 MVA PHT: 3.86 Decel [place]: 4.39 Aortic Valve AoV Pk Paolo: 1.53 AoV Mn Paolo: 1.04 AoV VTI: 0.26 AoV Pk Grad: 9.00 Aov Mn Grad: 5.00 RAFFI Cont.VTI: 2.78 LVOT LVOT Pk Paolo: 1.33 LVOT Mn Paolo: 0.87 LVOT VTI: 0.25 LVOT Pk Grad: 7.00 LVOT Mn Grad: 4.00 LVOT Diam: 1.90 LVOT Area: 2.84 Diastolic Function MV Pk E: 0.85 MV Pk A: 0.71 E/A: 1.20 E'Medial: 8.05 E/E' Med: 10.50 E' Laterial: 8.59 E/E' Lat: 9.90 Right Ventricle TAPSE (mm): 21.20 TVS' Paolo: 12.60 Tricuspid Valve RA Press: 3.00 Great Vessels Aorta Sinus of Valsalva: 2.40 2.0-3.[address] [place]: 2.42 1.7-3.4 cm Ao Asc: 3.00 2.1-3.4 cm Pulmonary Veins Pulm Vein S/D 0.90 Pulmonary Valve PV Pk Paolo: 0.80 Peak PV Grad: 3.00 Updated in Other Vendor System with Status of Final Cristobal Guadarrama MD electronically signed on 11/19/2021 4:16:03 PM with status of Final
== END ==
LOC: HO.CARD 13:46
PROVIDERS: PCP Family Medicine; Visit Provider Internal Medicine
DX: Z01.810 Encounter for preprocedural cardiovascular examination (principal); I49.1 Atrial premature depolarization
CPT/HCPCS: 93306

== ENCOUNTER 2021-12-16 09:00 | Outpatient (RCR) | payer MEDICAID, SELFPAY ==
--- NOTE | 2021-09-23 16:48 | MHC.PT.EP ---
[facility] [place] Office [place] Office [place] Office [address]iley Cohen [address] [phone] F: [phone] F: [phone] F: [phone] F: [phone] Physical Therapy Plan of Care Date of Evaluation: Date of Surgery: ? ORIGINALLY 10/11/21 BUT IS RESCHEDULED Diagnosis: ROTATOR CUFF TEAR OF R SHOULDER PREHAB Assessment: Pt IS 56 YO RHD F REFERRED TO PT FROM ORTHO (DR CHOPRA) WITH R RC (SUPRASPINATUS) TEAR FROM FALL IN APRIL OF 2021. HAD PT WITHOUT SIGNIF GAIN (SUSPECTED RC TEAR) TO MRI (+TEAR) TO ORTHO AND REFERRED TO PT FOR WORK ON ROM PRIOR TO RC REPAIR SURGERY (INITIALLY SCHEDULED FOR 10/11/21 BUT NOW TO BE RESCHEDULED BECAUSE Pt NEED CARDIOLOGY CLEARANCE FIRST). Pt PRESENTS WITH SIGNIF DECREASE IN ROM AND STRENGTH R SHLDER WITH PAIN AND LIMITED USE OF R UE. SHOULD BENEFIT FROM PT PRE-OP TO HELP IMPROVE ROM AND ED RE POST OP PT INTERVENTION Frequency and Duration: The patient will be seen 2X/WK X 4 WKS Short Term Goals: 1. I HEP 2. INCREASED AWARENESS SHLDER CARE AND POSTURE 3. INCREASED R SHLDER FLEX, ABD, ER 10-20 DEGREES 4. 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 Manual therapy to restore motion and function. Therapeutic exercise to improve strength and flexibility. Neuromuscular re-education for posture and balance. Therapeutic activities to return to functional activities of daily living. Electronically signed by: MICHELL ANSARI PT Please sign and return to therapist. Thank you for your referral.
--- NOTE | 2021-12-16 11:20 | MHC.PT.DC ---
[facility] [place] Office [place] Office [place] Office [address] Smiley Cohen [address] [phone] F: [phone] F: [phone] F: [phone] F: [phone] Physical Therapy Discharge Report Diagnosis: ROTATOR CUFF TEAR OF R SHOULDER PREHAB Date of Surgery: ? ORIGINALLY 10/11/21 BUT IS RESCHEDULED Date of Evaluation: 09/23/21 Date of Discharge: 12/16/21 Treatments to Date: 14 Cancellations to Date: No Shows to Date: Discharge Status: Achieved Goals Independent with HEP Discharge Summary: TO HAVE RC REPAIR 12/[address] CHOPRA. ALREADY HAS PO EVAL SCHEDULED IN ORTHO OFFICE ON 12/30. SHOULD BENEFIT FROM CONTINUED PT INTERVENTION (PROTOCOL BASED ON PROCEDURE) PO Electronically signed by: MICHELL ANSARI PT Please sign and return to therapist. Thank you for your referral.
== END 2021-12-16 11:21 | disposition home or self-care (01) ==
LOC: HO.PT 09:00
PROVIDERS: PCP Family Medicine; Visit Provider Physician Assistant
DX: M75.101 Unspecified rotator cuff tear or rupture of right shoulder, not specified as traumatic (principal); M12.811 Other specific arthropathies, not elsewhere classified, right shoulder
CPT/HCPCS: 97110; 97140; 97161; 97530; 97535

== ENCOUNTER → 2021-12-19 10:27 | Outpatient (BNVA) | payer MEDICAID, SELFPAY | PROVIDERS: PCP Family Medicine; Visit Provider Physician Assistant | DX: Z01.818 Encounter for other preprocedural examination (principal); M75.101 Unspecified rotator cuff tear or rupture of right shoulder, not specified as traumatic | CPT/HCPCS: 99212 ==

== ENCOUNTER 2022-01-01 10:15 | Day surgery (SDC) | payer MEDICAID, SELFPAY ==
[2021-12-18 15:32] VITALS: BMI 32.5
--- NOTE | 2021-12-31 09:29 | HO.ANESPROP2 ---
Documented by User: Amara Parker NP 12/31/21 09:34 HPI - Anesthesia Eval Consult details Narrative: 56yo F for Right Arthroscopic Rotator Cuff Repair Cardiac cleared PMFSH Active Problems Active Problems: All Active Problems (Updated 12/18/21 @ 15:23 by Geovanna Vivas RN) Carpal tunnel syndrome (Acute) Cocaine dependence, episodic (Acute) Chronic back pain (Acute) Alcohol dependence (Acute) Arthritis (Acute) Adjustment disorder (Acute) Anxiety reaction (Acute) Alcoholism (Acute) Sciatica (Acute) Hyperlipidemia (Acute) Dental caries (Acute) Depression (Acute) Mood disorder (Acute) Tendinitis of right rotator cuff (Acute) Rotator cuff tear arthropathy of right shoulder (Acute) Rotator cuff tear, right (Acute) Preoperative cardiovascular examination (Acute) History of 2 sections (Acute) Hypertension (Acute) Diabetes (Acute) Asthma (Acute) Past Medical History Medical History (Updated 12/18/21 @ 15:23 by Geovanna Vivas RN) Alcohol dependence Arthritis Asthma Depression Diabetes Elevated cholesterol Hypertension Mood disorder Palpitations Surgical History Surgical History (Updated 12/18/21 @ 15:31 by Geovanna Vivas RN) H/O colonoscopy History of 2 sections Social History Social History (Updated 12/18/21 @ 15:32 by Geovanna Vivas RN) Alcohol intake: never Patient Tobacco Use Status: Current everyday Tobacco user Cigarettes Per Day: 7 Second Hand Smoke Exposure: No Use of substances other than those prescribed or required for medical reasons: No Advance Directives: Yes Advance Directives Information Provided: Yes Advance Directives on File: Yes Advance Directives Date on File: 06/13/13 Current occupational status: disabled 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 Meds Allergies Allergy/AdvReac Type Severity Reaction Status Date / Time No Known Allergies Allergy Verified 10/08/21 13:44 Home Medications Medication Instructions Recorded Confirmed Last Taken Type aspirin 81 mg tablet 81 mg PO DAILY 05/17/20 12/18/21 Unknown History lisinopril 20 mg tablet 20 mg PO DAILY 05/17/20 12/18/21 Unknown History metformin 500 mg tablet 1,000 mg PO BID 05/17/20 12/18/21 Unknown History atorvastatin 20 mg tablet 20 mg PO QAM 10/08/21 12/18/21 Unknown History sertraline 100 mg tablet 150 mg PO QAM 10/08/21 12/18/21 Unknown History albuterol sulfate 90 mcg/actuation 2 puff PO Q4-6H PRN Wheezing 12/18/21 12/18/21 Unknown History aerosol inhaler (ProAir HFA) buspirone 10 mg tablet 1 tab PO BID anxiety 12/18/21 12/18/21 Unknown History empagliflozin 10 mg tablet 1 tab PO QAM 12/18/21 12/18/21 Unknown History (Jardiance) fluticasone propionate 44 2 puff inhalation BID 12/18/21 12/18/21 Unknown History mcg/actuation HFA aerosol inhaler (Flovent HFA) metoprolol succinate 25 mg 0.5 tab PO QAM 12/18/21 12/18/21 Unknown History tablet,extended release 24 hr Exam Exam Date and Time: December 31, 2021 0929 Height,Weight and Vital Signs: Height 5 ft 2 in Weight 80.739 kg Pertinent Lab Results Pertinent Lab Results: Laboratory Tests 06/09/21 06/09/21 22:08 22:08 WBC 16.0 H Hgb 14.3 Hct 44.4 Plt Count 219 Sodium 141 Potassium 4.6 Chloride 103 Carbon Dioxide 26 BUN 14 Creatinine 0.79 Narrative Narrative: ECHO 10/2021 Conclusions: - The left ventricular systolic function is normal.? The visually estimated ejection fraction is between 65-70%. ? - No obvious valvular pathology seen on this study.? Findings Left Ventricle Normal left ventricular cavity size.? There is normal left ventricular wall thickness.? The left ventricular systolic function is normal.? The visually estimated ejection fraction is between 65-70%.? There is no evidence of regional wall motion abnormalities.? Diastolic function is normal for age. EKG 09/2021 sinus rhythm at 90/Min; no significant ST-T changes and otherwise unremarkable Assessment and Plan Assessment Anesthesia Assessment: Chart Reviewed Documented by User: Alber Jorge MD 01/01/22 14:47 HPI - Anesthesia Eval Consult details Narrative: 56yo F for Right Arthroscopic Rotator Cuff Repair Cardiac cleared As per cardiology patient is optimized and may proceed with surgery PMFSH Past Medical History Medical History (Updated 12/18/21 @ 15:23 by Geovanna Vivas RN) Alcohol dependence Arthritis Asthma Depression Diabetes Elevated cholesterol Hypertension Mood disorder Palpitations Family History Family history of problems with anesthesia: No Surgical History Surgical History (Updated 12/18/21 @ 15:31 by Geovanna Vivas RN) H/O colonoscopy History of 2 sections History of Problems with Anesthesia: No Social History Social History (Updated 12/18/21 @ 15:32 by Geovanna Vivas RN) Alcohol intake: never Patient Tobacco Use Status: Current everyday Tobacco user Cigarettes Per Day: 7 Second Hand Smoke Exposure: No Use of substances other than those prescribed or required for medical reasons: No Advance Directives: Yes Advance Directives Information Provided: Yes Advance Directives on File: Yes Advance Directives Date on File: 06/13/13 Current occupational status: disabled 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 Meds Allergies Allergy/AdvReac Type Severity Reaction Status Date / Time No Known Allergies Allergy Verified 10/08/21 13:44 Home Medications Medication Instructions Recorded Confirmed Last Taken Type aspirin 81 mg tablet 81 mg PO DAILY 05/17/20 12/18/21 Unknown History lisinopril 20 mg tablet 20 mg PO DAILY 05/17/20 12/18/21 Unknown History metformin 500 mg tablet 1,000 mg PO BID 05/17/20 12/18/21 Unknown History atorvastatin 20 mg tablet 20 mg PO QAM 10/08/21 12/18/21 Unknown History sertraline 100 mg tablet 150 mg PO QAM 10/08/21 12/18/21 Unknown History albuterol sulfate 90 mcg/actuation 2 puff PO Q4-6H PRN Wheezing 12/18/21 12/18/21 Unknown History aerosol inhaler (ProAir HFA) buspirone 10 mg tablet 1 tab PO BID anxiety 12/18/21 12/18/21 Unknown History empagliflozin 10 mg tablet 1 tab PO QAM 12/18/21 12/18/21 Unknown History (Jardiance) fluticasone propionate 44 2 puff inhalation BID 12/18/21 12/18/21 Unknown History mcg/actuation HFA aerosol inhaler (Flovent HFA) metoprolol succinate 25 mg 0.5 tab PO QAM 12/18/21 12/18/21 Unknown History tablet,extended release 24 hr Exam Airway Mallampati Class: III TM Dist: >3cm Neck ROM: Full Loose/Missing/Broken Teeth: Yes (poor dentition ) Heart: S1, S2 Lungs: b/l breath sounds Assessment and Plan Assessment Anesthesia Assessment: Anesthesia Plan Discussed Final Anesthetic Review Family History of Problems with Anesthesia: No History of Problems with Anesthesia: No NPO: Yes ASA Class: III Final Preanesthetic Review: Meds/Allgs Chart Reviewed, Consent Obtained/Reviewed and Anes Risks/Benef Reviewed Patient Risk: High Procedure Risk: Intermediate Anesthetic Plan Anesthetic Plan: GA Disposition: Standard PACU
[2022-01-01] VITALS (12 sets, daily range): BP systolic 99–137; BP diastolic 46–81; PULSE 66–99; RESP 16–17; TEMP 36.1–36.5; O2SAT 93–100
[2022-01-01 10:56] LABS: Amphetamine Screen Urine Not Detected (Not Detect); Barbiturates, Urine Not Detected (Not Detect); Benzodiazepines Screen Urine Not Detected (Not Detect); Cannabinoid Screen Urine Not Detected (Not Detect); Cocaine Screen Urine Not Detected (Not Detect); Fentanyl, urine Not Detected (Not Detect); Opiate Screen Urine Not Detected (Not Detect); Phencyclidine Screen Urine Not Detected (Not Detect)
[2022-01-01] MEDS: Lactated Ringers 1,000 ML 100 ML IVCONT (11:03)
[2022-01-01 13:28] LABS: Glucose, Whole Blood 78 mg/dL (60-115)
[2022-01-01] MEDS: ondansetron HCL 4 MG/2 ML VIAL IVPUSH (17:09)
[2022-01-01] MEDS: Ketorolac Tromethamine 30 MG/ML VIAL 15 MG IVPUSH (17:14)
[2022-01-01 17:42] LABS: Glucose, Whole Blood 167 mg/dL (60-115)
--- NOTE | 2022-01-20 17:10 | PM.OP ---
Brief Operative Note Date of Service: 01/01/22 Pre-op diagnosis: right rotator cuff tear Post-op diagnosis: same Procedure: Right rotator cuff repair ( subscapularis and Sup[raspinatus Implants: [employer] Helacopil x 5 Surgeon: Arpan Azul MD Anesthesia: GETA, local and spinal Was an Supervisor [employer] used for this Procedure?: Yes Supervisor [employer]: Dedra Garrido Estimated blood loss (mL): 20 IV fluids (mL): 1,000 Pathology: none sent Condition: stable Disposition: PACU
--- NOTE | 2022-01-20 17:14 | P.OP_ITS ---
Operative Note Operative Note Date of Service: 01/01/22 Narrative: Date of Service: 01/01/22 Pre-op diagnosis: right rotator cuff tear Post-op diagnosis: same Procedure: Right rotator cuff repair ( subscapularis and Sup[raspinatus Implants: [employer]hew Helacopil x 5 Surgeon: Arpan Azul MD Anesthesia: GETA, local and spinal Was an Machine Stone Polisher used for this Procedure?: Yes Machine Stone Polisher: Dedra Garrido Estimated blood loss (mL): 20 IV fluids (mL): 1,000 Pathology: none sent Condition: stable Disposition: PACU Procedure in detail: Patient was brought to the operating room and placed the the beach chair position. All bony prominences were well padded and the limb was prepped and draped in standard sterile fashion. A time out was called to identify proper site, proper procedure and proper surgeon. IV antibiotics per weight were administered.I began by making a posterolateral stab incision with a 15 blade. A blunt trochar was placed into the glenohumeral joint and I insufflated the joint with saline and a 30 degree arthroscope was placed. I established an outside- in anterior portal just distal to the biceps tendon. I then began my inspection of the glenohumeral joint. The cartilage surfaces were normal. The biceps and labrum were normal. The subscapularis was 50 % torn at the humeral insertion. I debrided the insertion and given that subscapularis was mobile I placed 1 5 point 0 [employer]hew knotless helical oil at the humeral insertion of the subscapularis and performed an anatomic repair of the subscap. I was satisfied with the repair. This was repaired in internal rotation. Once this was done I turned my attention to the subacromial space. A direct lateral portal was then established and I performed a bursectomy. The cuff was then examined. There was a large full-thickness tear of the supraspinatus and infraspinatus. The tear was mobile. I therefore debrided loose tissue and then placed 24.75 double loaded Healicoil anchors at the medial row. The bone here was poor and 1 of the anchors pulled out. A 2nd anchor was placed more ant erior. I then passed the SutureTape through the cuff and brought 1 limb from each anchor down to a lateral anchor. Prior to this I burred down the bare area to bleeding bone. I had excellent reapproximation of the cuff and was very satisfied with the repair specially given the poor quality of her bone. A 5 mm subacromial decompression was then performed. Once I was satisfied with the repair final images were captured and I removed all instrumentation. Portals were closed with nylon. Patient was placed in an abduction sling, extubated and brought to the recovery room in stable condition. There were no known complications.
== END 2022-01-01 18:30 | disposition home or self-care (01) ==
LOC: HO.SSS 10:16
PROVIDERS: Nurse Practitioner; PCP Family Medicine; Visit Provider Orthopaedic Surgery
PROC: (CPT 29827; principal; 2022-01-01 12:50)
DX: M75.101 Unspecified rotator cuff tear or rupture of right shoulder, not specified as traumatic (principal); I10 Essential (primary) hypertension; R00.2 Palpitations; I49.1 Atrial premature depolarization; J45.909 Unspecified asthma, uncomplicated; E11.9 Type 2 diabetes mellitus without complications; Z79.82 Long term (current) use of aspirin; Z79.1 Long term (current) use of non-steroidal anti-inflammatories (NSAID); Z79.84 Long term (current) use of oral hypoglycemic drugs; Z79.899 Other long term (current) drug therapy; F17.210 Nicotine dependence, cigarettes, uncomplicated
CPT/HCPCS: 29827; 29826; 80307; 82947; C1713; J0131; J0690; J1100; J1170; J1885; J2250; J2370; J2405; J2795; J3010

== ENCOUNTER 2022-03-03 08:23 | Emergency (ER) | payer MEDICAID, SELFPAY ==
[2022-03-03 08:59] VITALS: BP 106/36; PULSE 66; RESP 18; TEMP 36.2; O2SAT 96; BMI 34.4
[2022-03-03 09:43] LABS: Appearance Urine CLEAR; Color Urine STRAW; Glucose Urine UA >=1000 MG/DL (NEG); Leukocyte Esterase Urine NEG (NEG); Nitrite Urine NEG (NEG); PH 5.5 (5.0-8.0); Urine Blood NEG (NEG); Urine Ketones NEG (NEG); Urine Protein NEG (NEG-TRACE)
[2022-03-03 09:54] LABS: Squamous Epithelial Cell Urine 2+ /LPF
[2022-03-03 09:56] LABS: Bacteria Urine TRACE /LPF
[2022-03-03 09:58] LABS: RBC Urine 0 /HPF (0); WBC Urine 0-2 /HPF (0-4)
--- NOTE | 2022-03-03 11:19 | ED.BACK ---
HPI - Back Pain/Injury General Chief Complaint: Back Pain/Injury Stated Complaint: Back pain Time Seen by Provider: 03/03/22 09:59 History of Present Illness HPI Narrative: Patient complains of low back pain on both sides radiating down the right leg with some tingling and pain but no numbness or weakness no changes to bowel or bladder Related Data Home Medications Medication Instructions Recorded Confirmed aspirin 81 mg tablet 81 mg PO DAILY 05/17/20 12/18/21 lisinopril 20 mg tablet 20 mg PO DAILY 05/17/20 12/18/21 metformin 500 mg tablet 1,000 mg PO BID 05/17/20 12/18/21 atorvastatin 20 mg tablet 20 mg PO QAM 10/08/21 12/18/21 sertraline 100 mg tablet 150 mg PO QAM 10/08/21 12/18/21 albuterol sulfate 90 mcg/actuation 2 puff PO Q4-6H PRN Wheezing 12/18/21 12/18/21 aerosol inhaler (ProAir HFA) buspirone 10 mg tablet 1 tab PO BID anxiety 12/18/21 12/18/21 empagliflozin 10 mg tablet 1 tab PO QAM 12/18/21 12/18/21 (Jardiance) fluticasone propionate 44 2 puff inhalation BID 12/18/21 12/18/21 mcg/actuation HFA aerosol inhaler (Flovent HFA) metoprolol succinate 25 mg 0.5 tab PO QAM 12/18/21 12/18/21 tablet,extended release 24 hr Previous Rx's Medication Instructions Recorded ketorolac 10 mg tablet 10 mg PO Q6H PRN pain 5 days #20 05/04/20 tabs naproxen 500 mg tablet 500 mg PO BID PRN pain #10 tabs 06/13/20 acetaminophen 500 mg tablet 500 mg PO Q6H PRN pain or fever 07/16/20 (Tylenol Extra Strength) #20 tabs cyclobenzaprine 5 mg tablet 5 mg PO Q8H PRN pain (scale score 07/16/20 7-10) 5 days #14 tabs lidocaine 5 % topical patch 1 patch topical DAILY PRN pain #30 07/16/20 (Lidoderm) ea ibuprofen 600 mg tablet 600 mg PO Q8H PRN pain #30 tabs 10/08/20 diclofenac sodium 1 % topical gel 2 g topical QID #100 grams 05/27/21 (Voltaren Arthritis Pain) oxycodone 10 mg tablet,crush 10 mg PO Q12H 3 days #6 tabs 01/01/22 resistant,extended release 12 hr (OxyContin) oxycodone-acetaminophen 5 mg-325 1 tab PO .QD PRN pain (scale score 02/28/22 mg tablet (Percocet) 4-6) 7 days #7 tabs cyclobenzaprine 5 mg tablet 5 mg PO TID PRN muscle spasm #10 03/03/22 tabs ibuprofen 600 mg tablet 600 mg PO Q6H PRN pain #20 tabs 03/03/22 oxycodone 5 mg tablet 5 mg PO Q6H PRN pain #10 tabs 03/03/22 prednisone 20 mg tablet 60 mg PO DAILY 3 days #9 tabs 03/03/22 Allergies Allergy/AdvReac Type Severity Reaction Status Date / Time No Known Allergies Allergy Verified 03/03/22 09:05 Review of Systems Review of Systems: Positive for back pain radiating to right leg Negatives are no fever no chills no dizziness or weakness no headache no neck pain no chest pain no abdominal pain no nausea or vomiting no dysuria no frequency no incontinence no changes to bowel or bladder no numbness or weakness no muscle weakness or loss of sensation no skin rash Yes all other systems are reviewed and are negative [facility] Past Medical History Source: nursing notes reviewed Medical History (Updated 03/03/22 @ 11:22 by MERYL Nguyen) Alcohol dependence Arthritis Asthma Depression Diabetes Elevated cholesterol Hypertension Mood disorder Palpitations Surgical History (Updated 02/07/22 @ 12:38 by JACK Leal) H/O colonoscopy History of 2 sections Hx of repair of rotator cuff Social History Social History Alcohol intake: never Patient Tobacco Use Status: Current everyday Tobacco user Cigarettes Per Day: 7 Second Hand Smoke Exposure: No Advance Directives: Yes Advance Directives on File: Yes Advance Directives Date on File: 01/02/22 Current occupational status: disabled 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 Physical Exam Vital Signs: Vital Signs: Last Vital Signs Temp 97.2 F 03/03/22 08:59 Pulse 66 03/03/22 08:59 Resp 18 03/03/22 08:59 BP 106/36 L 03/03/22 08:59 Pulse Ox 96 03/03/22 08:59 O2 Del Method 03/03/22 08:59 BMI result Body Mass Index 34.4 General appearance no distress Head is normocephalic atraumatic Neck is supple Respiratory no distress Abdomen soft nontender The back had mostly right-sided lower lumbar tenderness, skin was normal in appearance no redness no wound no rash The extremities full range of motion x4 Neuro gait and balance are normal, motor is 5/5 x4, sensation is intact and symmetrical Course Course Course Narrative: Patient without neurologic deficit with atraumatic back pain is discharged MDM - Back Pain/Injury Lab Data Labs: Lab Results 03/03/22 Range/Units 09:26 Urine Color STRAW Urine Appearance CLEAR Urine pH 5.5 (5.0-8.0) Ur Specific [place] 1.010 (1.005-1.025) Urine Protein NEG (NEG-TRACE) MG/DL Urine Glucose (UA) >=1000 H (NEG) MG/DL Urine Ketones NEG (NEG) MG/DL Urine Blood NEG (NEG) Urine Nitrite NEG (NEG) Ur Leukocyte Esterase NEG (NEG) Urine RBC 0 (0) /HPF Urine WBC 0-2 (0-4) /HPF Ur Squamous Epith Cells 2+ /LPF Urine Bacteria TRACE /LPF Urine Yeast TRACE /HPF Discharge Plan Discharge Clinical Impression: Sciatica Patient Disposition: Home, Self-Care Additional Instructions: The pain shooting down your leg from her back is a pinched nerve Prednisone, steroid may reduce inflammation around the nerve but if it causes unpleasant side effects he did not need to take it, it does not always work You can use Motrin and Tylenol as needed for pain You can use oxycodone narcotic if needed and muscle relaxer as well but these will make you sleepy Follow with primary doctor for further evaluation Return to ER any time if worse Prescriptions: New prednisone 20 mg tablet 60 mg PO DAILY 3 Days Qty: 9 0RF ibuprofen 600 mg tablet 600 mg PO Q6H PRN (Reason: pain) Qty: 20 0RF cyclobenzaprine 5 mg tablet 5 mg PO TID PRN (Reason: muscle spasm) Qty: 10 0RF oxycodone 5 mg tablet 5 mg PO Q6H PRN (Reason: pain) Qty: 10 0RF Rx Instructions: Partial Fill upon patient request. Narcotic may cause drowsiness so no driving for 6 hours after taking No Action oxycodone-acetaminophen [Percocet] 5-325 mg tablet 1 tab PO .QD PRN (Reason: pain (scale score 4-6)) 7 Days Qty: 7 0RF Rx Instructions: Partial Fill upon patient request. metformin 500 mg Tablet 1,000 mg PO BID lisinopril 20 mg Tablet 20 mg PO DAILY aspirin 81 mg Tablet 81 mg PO DAILY naproxen 500 mg tablet 500 mg PO BID PRN (Reason: pain) Qty: 10 0RF acetaminophen [Tylenol Extra Strength] 500 mg tablet 500 mg PO Q6H PRN (Reason: pain or fever) Qty: 20 0RF lidocaine [Lidoderm] 5 % adhesive patch,medicated 1 patch topical DAILY MDD remove after 12 hours PRN (Reason: pain) Qty: 30 0RF Rx Instructions: leave on most painful area for up to 12 hrs cyclobenzaprine 5 mg tablet 5 mg PO Q8H PRN (Reason: pain (scale score 7-10)) 5 Days Qty: 14 0RF ibuprofen 600 mg tablet 600 mg PO Q8H PRN (Reason: pain) Qty: 30 0RF ketorolac 10 mg tablet 10 mg PO Q6H PRN (Reason: pain) 5 Days Qty: 20 0RF diclofenac sodium [Voltaren Arthritis Pain] 1 % gel 2 g topical QID Qty: 100 0RF Rx Instructions: apply to single elbow, wrist or hand; for hand includes palm/fingers/back of hand buspirone 10 mg tablet 1 tab PO BID Flovent HFA 44 mcg/actuation HFA aerosol inhaler 2 puff inhalation BID metoprolol succinate 25 mg tablet extended release 24 hr 0.5 tab PO QAM albuterol sulfate [ProAir HFA] 90 mcg/actuation HFA aerosol inhaler 2 puff PO Q4-6H PRN (Reason: Wheezing) Jardiance 10 mg tablet 1 tab PO QAM oxycodone [OxyContin] 10 mg tablet,oral only,ext.rel.12 hr 10 mg PO Q12H 3 Days Qty: 6 0RF Rx Instructions: Partial Fill upon patient request. sertraline 100 mg tablet 150 mg PO QAM atorvastatin 20 mg tablet 20 mg PO QAM Interventions: ED Discharge Assessment Last Done: 03/03/22 12:02 Discharge Date/Time: 03/03/22 12:03
[2022-03-03] MEDS: Ketorolac Tromethamine 30 MG/ML VIAL IM (11:22)
== END 2022-03-03 12:03 | disposition home or self-care (01) ==
PROVIDERS: Emergency Provider Emergency Medicine; PCP Family Medicine
DX: M54.41 Lumbago with sciatica, right side (principal); E11.9 Type 2 diabetes mellitus without complications; I10 Essential (primary) hypertension; E78.5 Hyperlipidemia, unspecified; F17.210 Nicotine dependence, cigarettes, uncomplicated; F14.20 Cocaine dependence, uncomplicated; F10.20 Alcohol dependence, uncomplicated; Z79.82 Long term (current) use of aspirin; Z79.84 Long term (current) use of oral hypoglycemic drugs; Z79.02 Long term (current) use of antithrombotics/antiplatelets; Z79.899 Other long term (current) drug therapy
CPT/HCPCS: 81001; 96372; 99282; 99283; 99284; J1885

== ENCOUNTER 2022-03-13 20:27 | Emergency (ER) | payer MEDICAID, SELFPAY ==
--- NOTE | ~2022-03-13 | XR_ITS ---
EXAMINATION: XR LUMBOSACRAL SPINE CLINICAL INFORMATION: Lower back pain. COMPARISON: 06/06/2021 TECHNIQUE: Three views of the lumbosacral spine. FINDINGS: No acute fracture or subluxation. Vertebral body height and alignment maintained. Disc spaces are maintained. Prominent endplate osteophytes throughout with associated facet arthropathy. The sacroiliac joints are symmetric. The sacrum is intact. Normal bowel gas pattern. XR/XR lumbar spine 2-3V IMPRESSION: Moderate degenerative change throughout the lumbar spine.
[2022-03-13 20:39] VITALS: BP 115/55; PULSE 75; RESP 16; TEMP 37; O2SAT 99; BMI 32.9
--- NOTE | 2022-03-13 20:58 | ED.BACK ---
HPI - Back Pain/Injury General Chief Complaint: Back Pain/Injury Stated Complaint: BACK PAIN Time Seen by Provider: 03/13/22 20:40 Source: patient Mode of arrival: ambulatory Limitations: no limitations History of Present Illness HPI Narrative: This is a 57-year-old female who presents to the emergency department with right-sided low back pain for the past month. She reports low back pain on the right side for the past month described as a squeezing sensation With radiation down the right leg just above her knee. Her pain is worse with transitioning from a seated to a standing position, states that she freezes upon standing due to the pain. She was seen at [facility] 2 weeks ago where she received a diagnosis of sciatica and was discharged home with a prescription for prednisone and ibuprofen. She states that she completed this course of medication without relief. Her back pain has continued and worsened, prompting her to be evaluated at the [facility] earlier today where they prescribed her diclofenac and baclofen. She tells me that she took a dose of these medications 4 hours ago however she continues to have low back pain. She has yet to follow-up with her primary care physician since being discharged from the emergency department 2 weeks ago however she has an appointment with her PCP on Thursday. Denies history of IV drug use. Denies any spinal surgeries. denies fever, chills, lethargy, headache, bowel or bladder incontinence, saddle anesthesia, numbness, weakness, tingling or gait issues. Denies recent falls or trauma. MD elicited complaint: back pain Onset (ago): month(s) (1) Timing: constant Severity: severe Related Data Home Medications Medication Instructions Recorded Confirmed aspirin 81 mg tablet 81 mg PO DAILY 05/17/20 12/18/21 lisinopril 20 mg tablet 20 mg PO DAILY 05/17/20 12/18/21 metformin 500 mg tablet 1,000 mg PO BID 05/17/20 12/18/21 atorvastatin 20 mg tablet 20 mg PO QAM 10/08/21 12/18/21 sertraline 100 mg tablet 150 mg PO QAM 10/08/21 12/18/21 albuterol sulfate 90 mcg/actuation 2 puff PO Q4-6H PRN Wheezing 12/18/21 12/18/21 aerosol inhaler (ProAir HFA) buspirone 10 mg tablet 1 tab PO BID anxiety 12/18/21 12/18/21 empagliflozin 10 mg tablet 1 tab PO QAM 12/18/21 12/18/21 (Jardiance) fluticasone propionate 44 2 puff inhalation BID 12/18/21 12/18/21 mcg/actuation HFA aerosol inhaler (Flovent HFA) metoprolol succinate 25 mg 0.5 tab PO QAM 12/18/21 12/18/21 tablet,extended release 24 hr Previous Rx's Medication Instructions Recorded ketorolac 10 mg tablet 10 mg PO Q6H PRN pain 5 days #20 05/04/20 tabs naproxen 500 mg tablet 500 mg PO BID PRN pain #10 tabs 06/13/20 acetaminophen 500 mg tablet 500 mg PO Q6H PRN pain or fever 07/16/20 (Tylenol Extra Strength) #20 tabs cyclobenzaprine 5 mg tablet 5 mg PO Q8H PRN pain (scale score 07/16/20 7-10) 5 days #14 tabs lidocaine 5 % topical patch 1 patch topical DAILY PRN pain #30 07/16/20 (Lidoderm) ea ibuprofen 600 mg tablet 600 mg PO Q8H PRN pain #30 tabs 10/08/20 diclofenac sodium 1 % topical gel 2 g topical QID #100 grams 05/27/21 (Voltaren Arthritis Pain) oxycodone 10 mg tablet,crush 10 mg PO Q12H 3 days #6 tabs 01/01/22 resistant,extended release 12 hr (OxyContin) oxycodone-acetaminophen 5 mg-325 1 tab PO .QD PRN pain (scale score 02/28/22 mg tablet (Percocet) 4-6) 7 days #7 tabs cyclobenzaprine 5 mg tablet 5 mg PO TID PRN muscle spasm #10 03/03/22 tabs ibuprofen 600 mg tablet 600 mg PO Q6H PRN pain #20 tabs 03/03/22 oxycodone 5 mg tablet 5 mg PO Q6H PRN pain #10 tabs 03/03/22 prednisone 20 mg tablet 60 mg PO DAILY 3 days #9 tabs 03/03/22 lidocaine 5 % topical patch 1 patch topical DAILY PRN pain #15 03/13/22 ea Allergies Allergy/AdvReac Type Severity Reaction Status Date / Time No Known Allergies Allergy Verified 03/13/22 20:45 Review of Systems Review of Systems: Constitutional : No Weight loss, No Fever, No Chills, No Fatigue, No Malaise ENT/Mouth : No sore throat, No Rhinorrhea Eyes: No Eye Pain, No Swelling, No Redness Cardiovascular : No Chest Pain, No SOB, No Dyspnea on Exertion, No Orthopnea, No Edema, No Palpitations Respiratory : No Cough, No Sputum, No Wheezing Gastrointestinal : No Nausea, No Vomiting, No Diarrhea, No Constipation, No abdominal Pain, No Hematochezia, No Melena Genitourinary : No Dysuria, No Urinary Frequency, No Hematuria, Musculoskeletal : No joint pain, No Myalgias, No Joint Swelling, + back pain Skin : No Skin Lesions, No rash Neuro : No Weakness, No Numbness, No Dizziness, No Headache All other systems reviewed and are negative Yes all other systems are reviewed and are negative [facility] Past Medical History Attestation statement: The following information was validated with the patient. Source: old records reviewed and nursing notes reviewed Medical History (Updated 03/13/22 @ 22:39 by MERYL Rodriguez) Alcohol dependence Arthritis Asthma Depression Diabetes Elevated cholesterol Hypertension Mood disorder Palpitations Surgical History (Updated 02/07/22 @ 12:38 by JACK Leal) H/O colonoscopy History of 2 sections Hx of repair of rotator cuff Social History Social History Alcohol intake: never Patient Tobacco Use Status: Current everyday Tobacco user Cigarettes Per Day: 7 Second Hand Smoke Exposure: No Advance Directives: Yes Advance Directives on File: Yes Advance Directives Date on File: 01/02/22 Current occupational status: disabled 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 Oriented X3.? No acute distress.? Patient lying uncomfortably on the bed. Head: Normocephalic, atraumatic, no step-offs or deformities Eyes: Pupils equal, round and reactive to light.? ENT: Pharynx normal.? Neck: Normal inspection.? Neck supple.? CVS: Normal heart rate and rhythm.? Pulses normal.? Respiratory: No respiratory distress.? Breath sounds normal.? Abdomen: Soft and nontender.? Skin: Skin warm and dry.? Normal skin color.? Normal skin turgor.? Extremities: No lower extremity edema.? No calf ttp. 5/5 strength to bilateral upper and lower extremities Back: No midline tenderness, no C-spine tenderness, full range of motion, no CVA tenderness bilaterally. Normal gait. Neuro: Oriented X 3.? No motor deficit.? No sensory deficit. Patellar reflexes 2+. Course Reevaluation(s) Reevaluation #1: Patient with slight leukocytosis likely reactive, secondary to severe pain, chemistry with no acute electrolyte abnormalities requiring intervention, normal CRP and ESR, urine clean. COVID negative. X-ray of the lumbar spine pending. However, patient ambulating around the emergency room without difficulty with a steady gait normal coordination. Again likely sciatica, unlikely cauda equina or epidural abscess. Time: 22:29 Reevaluation #2: X-ray with degenerative changes, discussed results with patient advised her to follow-up with her PCP as she may require an MRI for further evaluation and treatment. At this time patient will be discharged home, outlined worrisome signs and symptoms on discharge. Comfortable w/discharge Time: 22:41 MDM - Back Pain/Injury MDM Narrative Medical decision making narrative: 2049 This 57-year-old female presenting with right-sided low back pain with radiation down the right leg for the past month, worsening. Seen at [facility] 2 weeks ago, diagnosed with sciatica, discharged home with prednisone and ibuprofen with prompt PCP follow-up. Seen at [facility] today and prescribe diclofenac and baclofen without relief of symptoms. Denies fever, chills, bowel or bladder incontinence, saddle anesthesia. Denies history of IV drug use or spinal surgeries. Vital signs stable. Physical exam without midline tenderness or groin numbness. Patellar tendon reflexes 2+. Negative Yaniv sign. Normal gait and cordination Suspicion for sciatica. Unlikely spinal abscess or cauda equina. Plan at this time is to order basic labs, UA. Medical Records Attestation: I reviewed the patient's medical records. Lab Data Attestation: I reviewed the patient's lab results. Result diagrams: 03/13/22 21:21 03/13/22 21:21 Labs: Lab Results 03/13/22 03/13/22 03/13/22 Range/Units 21:21 21:21 21:21 WBC 11.0 H (4.8-10.8) X10*3/uL RBC 4.51 (4.20-5.50) X10*6/uL Hgb 13.5 (12.0-16.0) g/dl Hct 41.6 (37.0-47.0) % MCV 92.2 (80.0-98.0) fL MCH 29.9 (27.0-33.0) pg MCHC 32.5 (31.0-35.0) g/dl RDW 13.6 (11.0-16.0) % Plt Count 226 (160-400) X10*3/uL MPV 11.9 (9.4-12.3) fL Immature Gran % (Auto) 0.7 H (0.0-0.4) % Neut % (Auto) 50.4 (45-73) % Lymph % (Auto) 38.9 (20-40) % [place] % (Auto) 7.9 (2-11) % Eos % (Auto) 1.7 (0-4) % Baso % (Auto) 0.4 (0-2) % Lymph # (Auto) 4.3 (1.2-4.9) X10*3/uL [place] # (Auto) 0.9 (0.1-1.2) X10*3/uL Eos # (Auto) 0.2 (0.0-0.4) X10*3/uL Baso # (Auto) 0.0 (0.0-0.2) X10*3/uL Abs Immat Gran (auto) 0.08 H (0.00-0.03) X10*3/uL Absolute Neuts (auto) 5.5 (2.0-8.3) x10*3/uL Absolute Nucleated RBC 0.000 (0.0-0.012) X10*3/uL Nucleated RBC % (auto) 0.0 (0.0-0.2) /100WBC ESR 9 (0-20) MM/HR Sodium 142 (135-145) mmol/L Potassium 4.4 (3.3-5.1) mmol/L Chloride 106 (96-108) mmol/L Carbon Dioxide 25 (22-29) mmol/L Anion Gap 15 (12-20) BUN 15 (9-16) mg/dL Creatinine 0.78 (0.5-1.4) mg/dL Estim Creat Clear Calc 78.7 Estimated GFR > 60 Random Glucose 177 H (60-115) mg/dL Calcium 8.9 (8.4-10.2) mg/dL Magnesium 1.9 (1.6-2.6) mg/dL Total Bilirubin < 0.2 (0.0-1.0) mg/dL AST 30 (5-31) U/L ALT 39 H (0-31) U/L Alkaline Phosphatase 82 (39-117) U/L C-Reactive Protein 0.35 (< or = 0.50) mg/dL Total Protein 6.9 (6.5-8.0) g/dL Albumin 3.8 (3.5-5.0) g/dL Urine Color Urine Appearance Urine pH (5.0-8.0) Ur Specific [place] (1.005-1.025) Urine Protein (Neg-Trace) mg/dL Urine Glucose (UA) (Negative) mg/dL Urine Ketones (Negative) mg/dL Urine Blood (Negative) Urine Nitrite (Negative) Ur Leukocyte Esterase (Negative) Urine RBC (0-2) /HPF Urine WBC (0-5) /HPF Ur Squamous Epith Cells (0-2) /HPF Urine Bacteria (None Seen) Hyaline Casts (0-2) /LPF COVID-19 (FILI) (Negative) COVID-19 Clin Com 03/13/22 03/13/22 Range/Units 21:21 21:21 WBC (4.8-10.8) X10*3/uL RBC (4.20-5.50) X10*6/uL Hgb (12.0-16.0) g/dl Hct (37.0-47.0) % MCV (80.0-98.0) fL MCH (27.0-33.0) pg MCHC (31.0-35.0) g/dl RDW (11.0-16.0) % Plt Count (160-400) X10*3/uL MPV (9.4-12.3) fL Immature Gran % (Auto) (0.0-0.4) % Neut % (Auto) (45-73) % Lymph % (Auto) (20-40) % [place] % (Auto) (2-11) % Eos % (Auto) (0-4) % Baso % (Auto) (0-2) % Lymph # (Auto) (1.2-4.9) X10*3/uL [place] # (Auto) (0.1-1.2) X10*3/uL Eos # (Auto) (0.0-0.4) X10*3/uL Baso # (Auto) (0.0-0.2) X10*3/uL Abs Immat Gran (auto) (0.00-0.03) X10*3/uL Absolute Neuts (auto) (2.0-8.3) x10*3/uL Absolute Nucleated RBC (0.0-0.012) X10*3/uL Nucleated RBC % (auto) (0.0-0.2) /100WBC ESR (0-20) MM/HR Sodium (135-145) mmol/L Potassium (3.3-5.1) mmol/L Chloride (96-108) mmol/L Carbon Dioxide (22-29) mmol/L Anion Gap (12-20) BUN (9-16) mg/dL Creatinine (0.5-1.4) mg/dL Estim Creat Clear Calc Estimated GFR Random Glucose (60-115) mg/dL Calcium (8.4-10.2) mg/dL Magnesium (1.6-2.6) mg/dL Total Bilirubin (0.0-1.0) mg/dL AST (5-31) U/L ALT (0-31) U/L Alkaline Phosphatase (39-117) U/L C-Reactive Protein (< or = 0.50) mg/dL Total Protein (6.5-8.0) g/dL Albumin (3.5-5.0) g/dL Urine Color Straw Urine Appearance Clear Urine pH 6.0 (5.0-8.0) Ur Specific [place] <= 1.005 (1.005-1.025) Urine Protein Negative (Neg-Trace) mg/dL Urine Glucose (UA) >=1000 H (Negative) mg/dL Urine Ketones Negative (Negative) mg/dL Urine Blood Negative (Negative) Urine Nitrite Negative (Negative) Ur Leukocyte Esterase Negative (Negative) Urine RBC 0-2 (0-2) /HPF Urine WBC 0-5 (0-5) /HPF Ur Squamous Epith Cells 0-2 (0-2) /HPF Urine Bacteria None Seen (None Seen) Hyaline Casts 0-2 (0-2) /LPF COVID-19 (FILI) Negative (Negative) COVID-19 Clin Com See Note Critical Care Time Critical Care Time Critical Care Time: No Discharge Plan Discharge Clinical Impression: Sciatica, Osteoarthritis Patient Disposition: Home, Self-Care Instructions: Sciatica (ED), Back Pain (ED), Lower Back Exercises (ED) Additional Instructions: Take your medications as prescribed. If you were prescribed antibiotics today, it is important that you take your medication to their entirety, do not skip any doses, do not finish them early. Follow-up with your primary care provider this week. Return to the emergency department with new or worsening symptoms. Such as fevers, chills, chest pain, shortness of breath, nausea, vomiting, dizziness, headache, vision changes, lethargy In case of emergency call 911 Your x-ray showed no acute findings, you may require an MRI for further evaluation and treatment, please follow-up with your primary care provider FINDINGS: No acute fracture or subluxation. Vertebral body height and alignment maintained. Disc spaces are maintained. Prominent endplate osteophytes throughout with associated facet arthropathy. The sacroiliac joints are symmetric. The sacrum is intact. Normal bowel gas pattern. XR/XR lumbar spine 2-3V IMPRESSION: Moderate degenerative change throughout the lumbar spine. Prescriptions: New lidocaine 5 % adhesive patch,medicated 1 patch topical DAILY PRN (Reason: pain) Qty: 15 0RF Rx Instructions: leave on most painful area for up to 12 hrs No Action oxycodone-acetaminophen [Percocet] 5-325 mg tablet 1 tab PO .QD PRN (Reason: pain (scale score 4-6)) 7 Days Qty: 7 0RF Rx Instructions: Partial Fill upon patient request. metformin 500 mg Tablet 1,000 mg PO BID lisinopril 20 mg Tablet 20 mg PO DAILY aspirin 81 mg Tablet 81 mg PO DAILY naproxen 500 mg tablet 500 mg PO BID PRN (Reason: pain) Qty: 10 0RF acetaminophen [Tylenol Extra Strength] 500 mg tablet 500 mg PO Q6H PRN (Reason: pain or fever) Qty: 20 0RF lidocaine [Lidoderm] 5 % adhesive patch,medicated 1 patch topical DAILY MDD remove after 12 hours PRN (Reason: pain) Qty: 30 0RF Rx Instructions: leave on most painful area for up to 12 hrs cyclobenzaprine 5 mg tablet 5 mg PO Q8H PRN (Reason: pain (scale score 7-10)) 5 Days Qty: 14 0RF ibuprofen 600 mg tablet 600 mg PO Q8H PRN (Reason: pain) Qty: 30 0RF ketorolac 10 mg tablet 10 mg PO Q6H PRN (Reason: pain) 5 Days Qty: 20 0RF diclofenac sodium [Voltaren Arthritis Pain] 1 % gel 2 g topical QID Qty: 100 0RF Rx Instructions: apply to single elbow, wrist or hand; for hand includes palm/fingers/back of hand buspirone 10 mg tablet 1 tab PO BID Flovent HFA 44 mcg/actuation HFA aerosol inhaler 2 puff inhalation BID metoprolol succinate 25 mg tablet extended release 24 hr 0.5 tab PO QAM albuterol sulfate [ProAir HFA] 90 mcg/actuation HFA aerosol inhaler 2 puff PO Q4-6H PRN (Reason: Wheezing) Jardiance 10 mg tablet 1 tab PO QAM oxycodone [OxyContin] 10 mg tablet,oral only,ext.rel.12 hr 10 mg PO Q12H 3 Days Qty: 6 0RF Rx Instructions: Partial Fill upon patient request. prednisone 20 mg tablet 60 mg PO DAILY 3 Days Qty: 9 0RF ibuprofen 600 mg tablet 600 mg PO Q6H PRN (Reason: pain) Qty: 20 0RF cyclobenzaprine 5 mg tablet 5 mg PO TID PRN (Reason: muscle spasm) Qty: 10 0RF oxycodone 5 mg tablet 5 mg PO Q6H PRN (Reason: pain) Qty: 10 0RF Rx Instructions: Partial Fill upon patient request. Narcotic may cause drowsiness so no driving for 6 hours after taking sertraline 100 mg tablet 150 mg PO QAM atorvastatin 20 mg tablet 20 mg PO QAM Referrals: Yanira Mi MD [Primary Care Provider] - 2 days
[2022-03-13 21:25] VITALS: BP 109/52; PULSE 73; RESP 16; TEMP 36.9; O2SAT 97
[2022-03-13 21:28] LABS: MANUAL DIFF FLAG NO
[2022-03-13 21:30] LABS: Appearance Urine Clear; Basophils Percent Auto 0.4 % (0-2); Color Urine Straw; Eosinophils Absolute Auto 0.2 X10*3/uL (0.0-0.4); Eosinophils Percent Auto 1.7 % (0-4); Glucose Urine UA >=1000 mg/dL (Negative); Hematocrit 41.6 % (37.0-47.0); Hemoglobin 13.5 g/dl (12.0-16.0); Imm Gran Abs Auto 0.08 X10*3/uL (0.00-0.03); Imm Gran Pct Auto 0.7 % (0.0-0.4); Leukocyte Esterase Urine Negative (Negative); Lymphocytes Absolute Auto 4.3 X10*3/uL (1.2-4.9); Lymphocytes Percent Auto 38.9 % (20-40); Mean Corpuscular HGB Conc 32.5 g/dl (31.0-35.0); Mean Corpuscular Hemoglobin 29.9 pg (27.0-33.0); Mean Corpuscular Volume 92.2 fL (80.0-98.0); Mean Platelet Volume 11.9 fL (9.4-12.3); Monocytes Absolute Auto 0.9 X10*3/uL (0.1-1.2); Monocytes Percent Auto 7.9 % (2-11); Neutrophils Absolute Auto 5.5 x10*3/uL (2.0-8.3); Neutrophils Percent Auto 50.4 % (45-73); Nitrite Urine Negative (Negative); Platelet Count 226 X10*3/uL (160-400); Red Blood Count 4.51 X10*6/uL (4.20-5.50); Red Cell Distribution Width 13.6 % (11.0-16.0); Specific Gravity - Urine <= 1.005 (1.005-1.025); Urine Blood Negative (Negative); Urine Ketones Negative (Negative); Urine Protein Negative (Neg-Trace)
[2022-03-13 21:39] LABS: Bacteria Urine None Seen (None Seen); Hyaline Casts Urine 0-2 /LPF (0-2); RBC Urine 0-2 /HPF (0-2); Squamous Epithelial Cell Urine 0-2 /HPF (0-2); WBC Urine 0-5 /HPF (0-5)
[2022-03-13 21:48] LABS: COVID-19 Test Negative (Negative); IDNOW Serial# 55D5AD1C
[2022-03-13 21:58] LABS: Alanine Aminotransferase 39 U/L (0-31); Albumin Level 3.8 g/dL (3.5-5.0); Alkaline Phosphatase 82 U/L (39-117); Anion Gap 15 (12-20); Aspartate Amino Transferase 30 U/L (5-31); Bilirubin Total < 0.2 mg/dL (0.0-1.0); Blood Urea Nitrogen 15 mg/dL (9-16); C Reactive Protein 0.35 mg/dL (< or = 0.50); Calcium 8.9 mg/dL (8.4-10.2); Carbon Dioxide 25 mmol/L (22-29); Chloride 106 mmol/L (96-108); Creatinine Clr Calc Pharmacy 78.7; Estimated Glomerular Filt Rate > 60; Glucose Random 177 mg/dL (60-115); Magnesium 1.9 mg/dL (1.6-2.6); Potassium 4.4 mmol/L (3.3-5.1); Sodium 142 mmol/L (135-145); Total Protein 6.9 g/dL (6.5-8.0)
[2022-03-13 22:04] LABS: Erythrocyte Sedimentation Rate 9 MM/HR (0-20)
[2022-03-13] MEDS: Lidocaine 4 % Patch ADH..PATCH 1 PATCH TRANSDERMA (22:15)
[2022-03-13] MEDS: Ketorolac Tromethamine 15 MG/ML VIAL 30 MG IM (22:15)
[2022-03-13] MEDS: Cyclobenzaprine HCl 10 MG TABLET PO (22:16)
== END 2022-03-13 23:04 | disposition home or self-care (01) ==
PROVIDERS: Physician Assistant; Emergency Provider Emergency Medicine; PCP Family Medicine
DX: M54.41 Lumbago with sciatica, right side (principal); M47.816 Spondylosis without myelopathy or radiculopathy, lumbar region; Z20.822 Contact with and (suspected) exposure to COVID-19; E11.9 Type 2 diabetes mellitus without complications; I10 Essential (primary) hypertension; E78.5 Hyperlipidemia, unspecified; Z79.84 Long term (current) use of oral hypoglycemic drugs; Z79.82 Long term (current) use of aspirin; Z79.02 Long term (current) use of antithrombotics/antiplatelets; Z79.899 Other long term (current) drug therapy
CPT/HCPCS: 72100; 80053; 81001; 83735; 85025; 85652; 86140; 87635; 96372; 99283; 99284; J1885

== ENCOUNTER 2022-03-22 20:07 | Emergency (ER) | payer MEDICAID, SELFPAY ==
[2022-03-22 21:38] VITALS: BP 171/91; PULSE 82; RESP 16; TEMP 37.9; O2SAT 95; BMI 33.0
--- NOTE | 2022-03-22 22:08 | ED_ITS ---
HPI - Animal Bite General Chief Complaint: Animal Bite Stated Complaint: ?infected bite Related Data Home Medications Medication Instructions Recorded Confirmed aspirin 81 mg tablet 81 mg PO DAILY 05/17/20 12/18/21 lisinopril 20 mg tablet 20 mg PO DAILY 05/17/20 12/18/21 metformin 500 mg tablet 1,000 mg PO BID 05/17/20 12/18/21 atorvastatin 20 mg tablet 20 mg PO QAM 10/08/21 12/18/21 sertraline 100 mg tablet 150 mg PO QAM 10/08/21 12/18/21 albuterol sulfate 90 mcg/actuation 2 puff PO Q4-6H PRN Wheezing 12/18/21 12/18/21 aerosol inhaler (ProAir HFA) buspirone 10 mg tablet 1 tab PO BID anxiety 12/18/21 12/18/21 empagliflozin 10 mg tablet 1 tab PO QAM 12/18/21 12/18/21 (Jardiance) fluticasone propionate 44 2 puff inhalation BID 12/18/21 12/18/21 mcg/actuation HFA aerosol inhaler (Flovent HFA) metoprolol succinate 25 mg 0.5 tab PO QAM 12/18/21 12/18/21 tablet,extended release 24 hr Previous Rx's Medication Instructions Recorded ketorolac 10 mg tablet 10 mg PO Q6H PRN pain 5 days #20 05/04/20 tabs naproxen 500 mg tablet 500 mg PO BID PRN pain #10 tabs 06/13/20 acetaminophen 500 mg tablet 500 mg PO Q6H PRN pain or fever 07/16/20 (Tylenol Extra Strength) #20 tabs cyclobenzaprine 5 mg tablet 5 mg PO Q8H PRN pain (scale score 07/16/20 7-10) 5 days #14 tabs lidocaine 5 % topical patch 1 patch topical DAILY PRN pain #30 07/16/20 (Lidoderm) ea ibuprofen 600 mg tablet 600 mg PO Q8H PRN pain #30 tabs 10/08/20 diclofenac sodium 1 % topical gel 2 g topical QID #100 grams 05/27/21 (Voltaren Arthritis Pain) oxycodone 10 mg tablet,crush 10 mg PO Q12H 3 days #6 tabs 01/01/22 resistant,extended release 12 hr (OxyContin) oxycodone-acetaminophen 5 mg-325 1 tab PO .QD PRN pain (scale score 02/28/22 mg tablet (Percocet) 4-6) 7 days #7 tabs cyclobenzaprine 5 mg tablet 5 mg PO TID PRN muscle spasm #10 03/03/22 tabs ibuprofen 600 mg tablet 600 mg PO Q6H PRN pain #20 tabs 03/03/22 oxycodone 5 mg tablet 5 mg PO Q6H PRN pain #10 tabs 03/03/22 prednisone 20 mg tablet 60 mg PO DAILY 3 days #9 tabs 03/03/22 lidocaine 5 % topical patch 1 patch topical DAILY PRN pain #15 03/13/22 ea Allergies Allergy/AdvReac Type Severity Reaction Status Date / Time No Known Allergies Allergy Verified 03/22/22 21:38 [facility] Past Medical History Attestation statement: The following information was validated with the patient. 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 metformin 500 mg Tablet 1,000 mg PO BID lisinopril 20 mg Tablet 20 mg PO DAILY aspirin 81 mg Tablet 81 mg PO DAILY naproxen 500 mg tablet 500 mg PO BID PRN (Reason: pain) Qty: 10 0RF acetaminophen [Tylenol Extra Strength] 500 mg tablet 500 mg PO Q6H PRN (Reason: pain or fever) Qty: 20 0RF lidocaine [Lidoderm] 5 % adhesive patch,medicated 1 patch topical DAILY MDD remove after 12 hours PRN (Reason: pain) Qty: 30 0RF Rx Instructions: leave on most painful area for up to 12 hrs cyclobenzaprine 5 mg tablet 5 mg PO Q8H PRN (Reason: pain (scale score 7-10)) 5 Days Qty: 14 0RF ibuprofen 600 mg tablet 600 mg PO Q8H PRN (Reason: pain) Qty: 30 0RF ketorolac 10 mg tablet 10 mg PO Q6H PRN (Reason: pain) 5 Days Qty: 20 0RF diclofenac sodium [Voltaren Arthritis Pain] 1 % gel 2 g topical QID Qty: 100 0RF Rx Instructions: apply to single elbow, wrist or hand; for hand includes palm/fingers/back of hand buspirone 10 mg tablet 1 tab PO BID Flovent HFA 44 mcg/actuation HFA aerosol inhaler 2 puff inhalation BID metoprolol succinate 25 mg tablet extended release 24 hr 0.5 tab PO QAM albuterol sulfate [ProAir HFA] 90 mcg/actuation HFA aerosol inhaler 2 puff PO Q4-6H PRN (Reason: Wheezing) Jardiance 10 mg tablet 1 tab PO QAM oxycodone [OxyContin] 10 mg tablet,oral only,ext.rel.12 hr 10 mg PO Q12H 3 Days Qty: 6 0RF Rx Instructions: Partial Fill upon patient request. lidocaine 5 % adhesive patch,medicated 1 patch topical DAILY PRN (Reason: pain) Qty: 15 0RF Rx Instructions: leave on most painful area for up to 12 hrs prednisone 20 mg tablet 60 mg PO DAILY 3 Days Qty: 9 0RF ibuprofen 600 mg tablet 600 mg PO Q6H PRN (Reason: pain) Qty: 20 0RF cyclobenzaprine 5 mg tablet 5 mg PO TID PRN (Reason: muscle spasm) Qty: 10 0RF oxycodone 5 mg tablet 5 mg PO Q6H PRN (Reason: pain) Qty: 10 0RF Rx Instructions: Partial Fill upon patient request. Narcotic may cause drowsiness so no driving for 6 hours after taking sertraline 100 mg tablet 150 mg PO QAM atorvastatin 20 mg tablet 20 mg PO QAM
--- NOTE | 2022-03-22 22:35 | ED.SKABFB ---
HPI - Skin/Abscess/Foreign Bdy General Chief complaint: Animal Bite Stated complaint: ?infected bite Source: patient Mode of arrival: ambulatory Limitations: no limitations History of Present Illness HPI narrative: 57-year-old female presents with an insect bite or sting to her back that occurred 4 days ago. States the pain and redness has increased. She did not report fevers or chills, states that she would like the site evaluated. MD complaint: insect bite/sting Onset (ago): day(s) (4) Tetanus up to date: yes Location: back Severity: mild Severity scale (1-10): 4 Quality: aching Pain Consistency: constant Relieving factors: none Exacerbating factors: other (Itching) Associated symptoms: itching Treatments prior to arrival: none Related Data Home Medications Medication Instructions Recorded Confirmed aspirin 81 mg tablet 81 mg PO DAILY 05/17/20 12/18/21 lisinopril 20 mg tablet 20 mg PO DAILY 05/17/20 12/18/21 metformin 500 mg tablet 1,000 mg PO BID 05/17/20 12/18/21 atorvastatin 20 mg tablet 20 mg PO QAM 10/08/21 12/18/21 sertraline 100 mg tablet 150 mg PO QAM 10/08/21 12/18/21 albuterol sulfate 90 mcg/actuation 2 puff PO Q4-6H PRN Wheezing 12/18/21 12/18/21 aerosol inhaler (ProAir HFA) buspirone 10 mg tablet 1 tab PO BID anxiety 12/18/21 12/18/21 empagliflozin 10 mg tablet 1 tab PO QAM 12/18/21 12/18/21 (Jardiance) fluticasone propionate 44 2 puff inhalation BID 12/18/21 12/18/21 mcg/actuation HFA aerosol inhaler (Flovent HFA) metoprolol succinate 25 mg 0.5 tab PO QAM 12/18/21 12/18/21 tablet,extended release 24 hr Previous Rx's Medication Instructions Recorded ketorolac 10 mg tablet 10 mg PO Q6H PRN pain 5 days #20 05/04/20 tabs naproxen 500 mg tablet 500 mg PO BID PRN pain #10 tabs 06/13/20 acetaminophen 500 mg tablet 500 mg PO Q6H PRN pain or fever 07/16/20 (Tylenol Extra Strength) #20 tabs cyclobenzaprine 5 mg tablet 5 mg PO Q8H PRN pain (scale score 07/16/20 7-10) 5 days #14 tabs lidocaine 5 % topical patch 1 patch topical DAILY PRN pain #30 07/16/20 (Lidoderm) ea ibuprofen 600 mg tablet 600 mg PO Q8H PRN pain #30 tabs 10/08/20 diclofenac sodium 1 % topical gel 2 g topical QID #100 grams 05/27/21 (Voltaren Arthritis Pain) oxycodone 10 mg tablet,crush 10 mg PO Q12H 3 days #6 tabs 01/01/22 resistant,extended release 12 hr (OxyContin) oxycodone-acetaminophen 5 mg-325 1 tab PO .QD PRN pain (scale score 02/28/22 mg tablet (Percocet) 4-6) 7 days #7 tabs cyclobenzaprine 5 mg tablet 5 mg PO TID PRN muscle spasm #10 03/03/22 tabs ibuprofen 600 mg tablet 600 mg PO Q6H PRN pain #20 tabs 03/03/22 oxycodone 5 mg tablet 5 mg PO Q6H PRN pain #10 tabs 03/03/22 prednisone 20 mg tablet 60 mg PO DAILY 3 days #9 tabs 03/03/22 lidocaine 5 % topical patch 1 patch topical DAILY PRN pain #15 03/13/22 ea cefuroxime axetil 500 mg tablet 500 mg PO Q12H 7 days #14 tabs 03/22/22 doxycycline monohydrate 100 mg 100 mg PO BID 7 days #14 caps 03/22/22 capsule Allergies Allergy/AdvReac Type Severity Reaction Status Date / Time No Known Allergies Allergy Verified 03/22/22 21:38 Review of Systems Review of Systems: Constitutional: No Fever, No Chills ENT/Mouth: No Ear Pain, No Hoarseness, No sore throat Eyes: No Eye Pain, No Swelling, No Redness, No Foreign Body Cardiovascular: No Chest Pain, No SOB Respiratory: No Cough, No Dyspnea Gastrointestinal: No Nausea, No Vomiting, No Diarrhea, No abdominal Pain Genitourinary: No Dysuria, No Hematuria Musculoskeletal: No joint pain, No Myalgias, No Joint Swelling Skin: Positive insect bite to her right shoulder blade, No Skin lacerations, No rash Neuro: No Weakness, No Numbness, No Paresthesias, No Loss of Consciousness, No Dizziness, No Headache Psych: No Anxiety/Panic, No Depression Heme/Lymph: no easy bruising, no Lymphadenopathy Endocrine: No Polyuria, No Polydipsia Yes all other systems are reviewed and are negative [facility] Past Medical History Attestation statement: The following information was validated with the patient. 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 Oriented X3. No acute distress. Eyes: Pupils equal, round and reactive to light. ENT: Pharynx normal. Neck: Normal inspection. Neck supple. CVS: Normal heart rate and rhythm. Pulses normal. Respiratory: No respiratory distress. Breath sounds normal. Abdomen: Soft and nontender. Skin: 2 cm in diameter erythematous indurated area with scab to the center without fluctuance, Skin warm and dry. Normal skin color. Normal skin turgor. Extremities: No lower extremity edema. Gait will balance well coordinated. Neuro: No motor deficit. No sensory deficit. Cranial nerves 2-12 intact. Course Course Course Narrative: 57-year-old female presents for evaluation for an insect bite to her right scapula. She is unsure if it was a sting or bite, it occurred 4 days ago, and she feels that it is worsening. Site is indurated, erythematous without fluctuance. Center has a scab without drainage. Will treat with cefuroxime and doxycycline. Patient verbalized understanding of and agrees to plan of care discharge home. Verbalized understanding of signs symptoms indicating need for emergent to venture. park interpreter utilized corresponds. Google translate utilized for discharge instructions. MDM - Skin/Abscess/Foreign Bdy Differential Diagnosis Differential diagnosis: Likely abscess of skin or subcutaneous tissue, cellulitis and insect bites Medical Records Attestation: I reviewed the patient's medical records. Discharge Plan Discharge Clinical Impression: Cellulitis, Insect bite Patient Disposition: Home, Self-Care Instructions: Cellulitis (ED), Insect Bite or Sting (ED), Warm Compress or Soak (ED) Additional Instructions: Le evaluaron por picadura de insecto o picadura en la espalda. El sitio est? infectado y necesita antibi?ticos. [place] cefuroxima 500 mg dos veces al d?a thang los pr?ximos 7 d?as. [place] doxiciclina 100 mg dos veces al d?a thang los pr?ximos 7 d?as. La doxiciclina tiene carrie reacci?n significativa en la piel cuando se expone al diamante. Use sombrero, mangas largas y protector solar para evitar erupciones. Use carrie compresa tibia en el sitio. Roseann por elegir luis departamento de emergencias para alvarado evaluaci?n. Por favor, baldo un seguimiento con el m?dico de atenci?n primaria seg?n sea necesario. Regrese al departamento de emergencias por cualquier s?ntoma nuevo, preocupante o que empeore. You were evaluated for insect bite or sting to her back. The site is infected and you need antibiotics. Please take cefuroxime 500 mg twice a day for the next 7 days. Please take doxycycline 100 mg twice a day for the next 7 days. Doxycycline has a significant reaction to the skin when you expose herself the sunshine. Please wear hat, long sleeves and sunscreen to prevent rash. Use a warm compress to the site. Thank you for choosing this emergency department for evaluation. Please follow-up with primary care physician as needed. Return to the emergency department for any new, concerning, or worsening symptoms. Prescriptions: New cefuroxime axetil 500 mg tablet 500 mg PO Q12H 7 Days Qty: 14 0RF doxycycline monohydrate 100 mg capsule 100 mg PO BID 7 Days Qty: 14 0RF No Action oxycodone-acetaminophen [Percocet] 5-325 mg tablet 1 tab PO .QD PRN (Reason: pain (scale score 4-6)) 7 Days Qty: 7 0RF Rx Instructions: Partial Fill upon patient request. metformin 500 mg Tablet 1,000 mg PO BID lisinopril 20 mg Tablet 20 mg PO DAILY aspirin 81 mg Tablet 81 mg PO DAILY naproxen 500 mg tablet 500 mg PO BID PRN (Reason: pain) Qty: 10 0RF acetaminophen [Tylenol Extra Strength] 500 mg tablet 500 mg PO Q6H PRN (Reason: pain or fever) Qty: 20 0RF lidocaine [Lidoderm] 5 % adhesive patch,medicated 1 patch topical DAILY MDD remove after 12 hours PRN (Reason: pain) Qty: 30 0RF Rx Instructions: leave on most painful area for up to 12 hrs cyclobenzaprine 5 mg tablet 5 mg PO Q8H PRN (Reason: pain (scale score 7-10)) 5 Days Qty: 14 0RF ibuprofen 600 mg tablet 600 mg PO Q8H PRN (Reason: pain) Qty: 30 0RF ketorolac 10 mg tablet 10 mg PO Q6H PRN (Reason: pain) 5 Days Qty: 20 0RF diclofenac sodium [Voltaren Arthritis Pain] 1 % gel 2 g topical QID Qty: 100 0RF Rx Instructions: apply to single elbow, wrist or hand; for hand includes palm/fingers/back of hand buspirone 10 mg tablet 1 tab PO BID Flovent HFA 44 mcg/actuation HFA aerosol inhaler 2 puff inhalation BID metoprolol succinate 25 mg tablet extended release 24 hr 0.5 tab PO QAM albuterol sulfate [ProAir HFA] 90 mcg/actuation HFA aerosol inhaler 2 puff PO Q4-6H PRN (Reason: Wheezing) Jardiance 10 mg tablet 1 tab PO QAM oxycodone [OxyContin] 10 mg tablet,oral only,ext.rel.12 hr 10 mg PO Q12H 3 Days Qty: 6 0RF Rx Instructions: Partial Fill upon patient request. lidocaine 5 % adhesive patch,medicated 1 patch topical DAILY PRN (Reason: pain) Qty: 15 0RF Rx Instructions: leave on most painful area for up to 12 hrs prednisone 20 mg tablet 60 mg PO DAILY 3 Days Qty: 9 0RF ibuprofen 600 mg tablet 600 mg PO Q6H PRN (Reason: pain) Qty: 20 0RF cyclobenzaprine 5 mg tablet 5 mg PO TID PRN (Reason: muscle spasm) Qty: 10 0RF oxycodone 5 mg tablet 5 mg PO Q6H PRN (Reason: pain) Qty: 10 0RF Rx Instructions: Partial Fill upon patient request. Narcotic may cause drowsiness so no driving for 6 hours after taking sertraline 100 mg tablet 150 mg PO QAM atorvastatin 20 mg tablet 20 mg PO QAM Interventions: ED Discharge Assessment Last Done: 03/22/22 22:59 Discharge Date/Time: 03/22/22 23:01 Print Language: Faroese
== END 2022-03-22 23:01 | disposition home or self-care (01) ==
PROVIDERS: Emergency Provider Emergency Medicine; PCP Family Medicine
DX: L03.113 Cellulitis of right upper limb (principal); S40.261A Insect bite (nonvenomous) of right shoulder, initial encounter; W57.XXXA Bitten or stung by nonvenomous insect and other nonvenomous arthropods, initial encounter; Y93.9 Activity, unspecified; Y92.9 Unspecified place or not applicable; Y99.9 Unspecified external cause status
CPT/HCPCS: 99282; 99283

== ENCOUNTER 2022-04-25 10:00 | Outpatient (RCR) | payer MEDICAID, SELFPAY | END 2022-06-17 09:58 | disposition home or self-care (01) | LOC: HO.PT 10:00 | PROVIDERS: PCP Family Medicine; Visit Provider Physician Assistant | DX: M75.101 Unspecified rotator cuff tear or rupture of right shoulder, not specified as traumatic (principal) | CPT/HCPCS: 97110; 97140; 97150; 97161; 97530 ==

== ENCOUNTER → 2022-05-01 13:29 | Outpatient (BNVA) | payer MEDICAID, SELFPAY | PROVIDERS: PCP Family Medicine; Visit Provider Nurse Practitioner Family | DX: M47.816 Spondylosis without myelopathy or radiculopathy, lumbar region (principal); M54.16 Radiculopathy, lumbar region; M62.830 Muscle spasm of back; M25.551 Pain in right hip; M25.552 Pain in left hip | CPT/HCPCS: 99202 ==

== ENCOUNTER 2022-05-28 10:48 | Outpatient (REF) | payer MEDICAID, SELFPAY ==
--- NOTE | ~2022-05-28 | CT_ITS ---
EXAMINATION: CT CHEST WITHOUT CONTRAST CLINICAL INFORMATION: Solitary pulmonary nodule. COMPARISON: CT chest 06/19/2021. TECHNIQUE: Multidetector volumetric CT imaging of the chest was done. Axial MIP volume rendering provided. Sagittal and coronal reformatted images were obtained. This CT examination was performed using dose optimization techniques as appropriate, variously including the following: *Automated exposure control *Adjustment of mA and/or kV according to patient size (this includes techniques or standardized protocols for targeted exams where dose is matched to indication/reason for exam; i.e. 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 LUNGS: There are multiple liver nodules. The left upper lobe nodule measuring 3 mm axial image 115/7, 5 mm nodule left upper lobe axial image 251/7 and a 6 mm nodule left lower lobe axial image 306/7 appears stable. 4 mm nodule left lower lobe axial image 346/7 is stable as well. There are no new pulmonary nodules seen. No acute consolidation or mass. MEDIASTINUM: Thyroid lobes are symmetrical and normal. The central trachea and the bronchi are widely patent. Atherosclerotic changes of thoracic arch are seen. A 1 cm precarinal noncalcified lymph node and right hilar calcified lymph node are stable. No pericardial effusion seen. CORONARY ARTERY CALCIFICATION: None visualized on this study. PLEURA: There is no pleural effusion. No pleural mass or thickening. AXILLA: No lymphadenopathy. UPPER ABDOMEN: Visualized liver, spleen, pancreas and bilateral adrenal glands unremarkable. There are no radiopaque gallstones. OSSEOUS STRUCTURES: No lytic or sclerotic process seen. There is moderate ventral spondylosis throughout dorsal spine. CT/CT chest wo IV con IMPRESSION: Stable bilateral pulmonary nodules and mediastinal small shotty lymph nodes. Fleischner guidelines were followed.
== END 2022-05-28 10:49 | disposition home or self-care (01) ==
LOC: HO.CT 10:48
PROVIDERS: PCP Family Medicine; Visit Provider Internal Medicine
DX: R91.1 Solitary pulmonary nodule (principal)
CPT/HCPCS: 71250

== ENCOUNTER 2022-05-29 13:40 | Outpatient (REF) | payer MEDICAID, SELFPAY ==
--- NOTE | ~2022-05-29 | MR_ITS ---
EXAMINATION: MR LUMBAR SPINE WITHOUT CONTRAST CLINICAL INFORMATION: Lumbar radiculopathy on right side. Low back pain. COMPARISON: X-ray dated 03/13/2022. TECHNIQUE: Multiplanar, multisequence imaging was obtained. FINDINGS: VERTEBRAL BODIES AND PARASPINAL STRUCTURES: There is a leftward curvature of the lumbar spine. Mild edematous endplate changes noted anteriorly with bulky ossific spurring at the T11-T12 level and, to a lesser degree, at the T10-T11 level. There are no compression fractures. The remainder of the marrow signal is homogeneous. Slight retrosubluxation evident at the L3-L4 level with a minimal anterolisthesis at the L4-L5 level. The paraspinal soft tissues are unremarkable. CONUS MEDULLARIS AND CAUDA EQUINE: The distal cord, conus tip, and cauda equina nerve roots are normal. SPINAL LEVELS: L1-L2: Mild retrosubluxation and disc bulge with mild facet arthropathy. No central canal stenosis or foraminal narrowing. L2-L3: [id number] facet arthropathy and right lateral endplate spurring. No focal disc protrusion, central canal stenosis, or foraminal narrowing. L3-L4: Slight retrosubluxation and mild disc bulge with hypertrophic facet arthropathy resulting in mild central canal stenosis and mild thecal sac distortion. Patent foramina. L4-L5: Mild anterolisthesis and disc bulge with advanced facet arthropathy and thickening of the ligamentum flavum resulting in severe central canal stenosis and thecal sac compression. Mild bilateral foraminal narrowing. L5-S1: Very mild disc bulge and severe facet arthrosis, more so on the left side. No central canal stenosis. Mild right foraminal narrowing. Ossific spurring results in moderate left foraminal encroachment and mass effect upon the exiting left L5 nerve root. MR/MR lumbar spine wo con IMPRESSION: 1. Leftward curvature of the lumbar spine with multilevel spondylitic changes. Mild anterior endplate edema at the T11-T12 level with bulky ossific spurring. 2. Mild central canal stenosis and mild disc bulge at the L3-L4 level. 3. Mild anterolisthesis and severe facet arthropathy with a mild disc bulge at the L4-L5 level resulting in severe central canal stenosis and thecal sac compression. 4. Severe facet arthropathy at the L5-S1 level with moderate left foraminal encroachment and osseous spurring resulting in mass effect upon the exiting left L5 nerve root.
== END 2022-05-29 13:41 | disposition home or self-care (01) ==
LOC: HO.MRI 13:40
PROVIDERS: Visit Provider Nurse Practitioner Family
DX: M47.816 Spondylosis without myelopathy or radiculopathy, lumbar region (principal); M54.16 Radiculopathy, lumbar region; M62.830 Muscle spasm of back
CPT/HCPCS: 72148

== ENCOUNTER → 2022-06-17 12:56 | Outpatient (BNVA) | payer MEDICAID, SELFPAY | PROVIDERS: PCP Family Medicine; Visit Provider Physician Assistant | DX: M75.101 Unspecified rotator cuff tear or rupture of right shoulder, not specified as traumatic (principal); M75.01 Adhesive capsulitis of right shoulder | CPT/HCPCS: 99212 ==

== ENCOUNTER 2022-06-24 13:30 | Emergency (ER) | payer MEDICAID, SELFPAY ==
[2022-06-24 16:42] VITALS: BP 124/64; PULSE 92; RESP 18; TEMP 37.1; O2SAT 99; BMI 34.9
--- NOTE | 2022-06-24 16:43 | ED.GENADULT ---
HPI - General Adult General Chief complaint: Back Pain/Injury Stated complaint: back pain Source: patient Mode of arrival: ambulatory History of Present Illness HPI narrative: See patient course Related Data Home Medications Medication Instructions Recorded Confirmed aspirin 81 mg tablet 81 mg PO DAILY 05/17/20 12/18/21 lisinopril 20 mg tablet 20 mg PO DAILY 05/17/20 12/18/21 metformin 500 mg tablet 1,000 mg PO BID 05/17/20 12/18/21 atorvastatin 20 mg tablet 20 mg PO QAM 10/08/21 12/18/21 sertraline 100 mg tablet 150 mg PO QAM 10/08/21 12/18/21 albuterol sulfate 90 mcg/actuation 2 puff PO Q4-6H PRN Wheezing 12/18/21 12/18/21 aerosol inhaler (ProAir HFA) buspirone 10 mg tablet 1 tab PO BID anxiety 12/18/21 12/18/21 empagliflozin 10 mg tablet 1 tab PO QAM 12/18/21 12/18/21 (Jardiance) fluticasone propionate 44 2 puff inhalation BID 12/18/21 12/18/21 mcg/actuation HFA aerosol inhaler (Flovent HFA) metoprolol succinate 25 mg 0.5 tab PO QAM 12/18/21 12/18/21 tablet,extended release 24 hr valacyclovir 1 gram tablet 1,000 mg PO Q12H 05/01/22 Previous Rx's Medication Instructions Recorded acetaminophen 500 mg tablet 500 mg PO Q6H PRN pain or fever 07/16/20 (Tylenol Extra Strength) #20 tabs diclofenac sodium 1 % topical gel 2 g topical QID #100 grams 05/27/21 (Voltaren Arthritis Pain) cyclobenzaprine 5 mg tablet 5 mg PO TID PRN muscle spasm #10 03/03/22 tabs cefuroxime axetil 500 mg tablet 500 mg PO Q12H 7 days #14 tabs 03/22/22 celecoxib 200 mg capsule 200 mg PO BID PRN pain 30 days #60 05/01/22 caps cyclobenzaprine 5 mg tablet 5 mg PO BEDTIME PRN muscle spasm 06/24/22 #4 tabs ketorolac 10 mg tablet 10 mg PO Q6H PRN pain 5 days #20 06/24/22 tabs Allergies Allergy/AdvReac Type Severity Reaction Status Date / Time No Known Allergies Allergy Verified 06/24/22 16:42 Review of Systems Review of Systems: Pertinent positives and negatives as stated in HPI 10 point review of systems is otherwise negative. 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 VITAL SIGNS: Reviewed. GENERAL: Well developed, well nourished, in no acute distress. HEAD: Normocephalic/atraumatic EYES: PERRLA, EOMI LUNGS: Normal breath sounds. No adventitious sounds or accessory muscle use. CARDIOVASCULAR: Regular rate and rhythm without noted murmurs ABDOMEN: Soft, non-tender, non-distended with bowel sounds. BACK: no midline vertebral tenderness or step-offs MUSCULOSKELETAL: No tenderness, deformities, or effusions noted on gross inspection. EXTREMITIES: No cyanosis, clubbing or edema. SKIN: Inspection of the skin reveals no rashes NEUROLOGIC: Alert and oriented x 4. Strength and sensation to light touch were grossly intact x 4. 57-year-old female with history clinical presentation most consistent with lumbago and treated with combination analgesics as well as lidocaine patch and sent home with a prescription for muscle relaxant. She was strongly encouraged to continue with physical therapy and there is no evidence to suggest UTI, abscess, or traumatic injury to include no evidence to suggest cauda equina. Patient is otherwise discharged home in stable condition. Discharge Plan Discharge Clinical Impression: Lumbar radiculopathy, right Patient Disposition: Home, Self-Care Instructions: Lumbar Radiculopathy (ED), Lower Back Exercises (ED) Additional Instructions: Tylenol 1000 mg,, every 6 hours as needed for pain control. Do not exceed 4000 mg within 24 hours. Lidocaine patch, apply to area maximal tenderness as directed on the outside packaging Continue with your physical therapy appointments as this will be the most beneficial for your continued Success. Return to the ER for any worsening symptoms. Prescriptions: New cyclobenzaprine 5 mg tablet 5 mg PO BEDTIME PRN (Reason: muscle spasm) Qty: 4 0RF ketorolac 10 mg tablet 10 mg PO Q6H PRN (Reason: pain) 5 Days Qty: 20 0RF Rx Instructions: 1. Patient rec'd Toradol in the ER 2. Please instruct to stop other NSAIDs No Action metformin 500 mg Tablet 1,000 mg PO BID lisinopril 20 mg Tablet 20 mg PO DAILY aspirin 81 mg Tablet 81 mg PO DAILY acetaminophen [Tylenol Extra Strength] 500 mg tablet 500 mg PO Q6H PRN (Reason: pain or fever) Qty: 20 0RF diclofenac sodium [Voltaren Arthritis Pain] 1 % gel 2 g topical QID Qty: 100 0RF Rx Instructions: apply to single elbow, wrist or hand; for hand includes palm/fingers/back of hand buspirone 10 mg tablet 1 tab PO BID Flovent HFA 44 mcg/actuation HFA aerosol inhaler 2 puff inhalation BID metoprolol succinate 25 mg tablet extended release 24 hr 0.5 tab PO QAM albuterol sulfate [ProAir HFA] 90 mcg/actuation HFA aerosol inhaler 2 puff PO Q4-6H PRN (Reason: Wheezing) Jardiance 10 mg tablet 1 tab PO QAM cyclobenzaprine 5 mg tablet 5 mg PO TID PRN (Reason: muscle spasm) Qty: 10 0RF cefuroxime axetil 500 mg tablet 500 mg PO Q12H 7 Days Qty: 14 0RF sertraline 100 mg tablet 150 mg PO QAM atorvastatin 20 mg tablet 20 mg PO QAM valacyclovir 1 gram tablet 1,000 mg PO Q12H celecoxib 200 mg capsule 200 mg PO BID PRN (Reason: pain) 30 Days Qty: 60 0RF Referrals: Yanira Mi MD [Primary Care Provider] - Print Language: Slovenian
[2022-06-24] MEDS: Acetaminophen 325 MG TABLET 975 MG PO (16:50)
[2022-06-24] MEDS: Ketorolac Tromethamine 15 MG/ML VIAL IM (16:54)
[2022-06-24] MEDS: Lidocaine 4 % Patch ADH..PATCH 1 PATCH TRANSDERMA (16:55)
== END 2022-06-24 17:03 | disposition home or self-care (01) ==
PROVIDERS: Emergency Provider Student in an Organized Health Care Education/Training Program; PCP Family Medicine
DX: M54.50 Low back pain, unspecified (principal); F17.210 Nicotine dependence, cigarettes, uncomplicated; Z71.6 Tobacco abuse counseling; Z79.899 Other long term (current) drug therapy
CPT/HCPCS: 96372; 99283; 99284; J1885

== ENCOUNTER 2022-06-26 12:58 | Outpatient (REF) | payer MEDICAID, SELFPAY ==
--- NOTE | ~2022-06-26 | XR_ITS ---
EXAMINATION: XR CHEST CLINICAL INFORMATION: Cough COMPARISON: Chest radiographs 06/09/2021, 07/23/2019 TECHNIQUE: 2 views of the chest were obtained. FINDINGS: The lungs are clear. There is no airspace consolidation or groundglass opacity or effusion. Heart size normal. Vascularity normal. The hilar and mediastinal contours are unremarkable. No acute bony abnormality. Again, there is dextrocurvature thoracic spine with multilevel degenerative changes. Orthopedic anchors overlying right humeral head. XR/XR chest 2V IMPRESSION: Lungs clear.
== END 2022-06-26 12:59 | disposition home or self-care (01) ==
LOC: HO.XRAY 12:58
PROVIDERS: Absent Provider Family Medicine; PCP Family Medicine; Visit Provider Internal Medicine
DX: R05.1 Acute cough (principal)
CPT/HCPCS: 71046

== ENCOUNTER 2022-07-14 14:00 | Outpatient (RCR) | payer MEDICAID, SELFPAY ==
--- NOTE | 2022-06-10 10:38 | MHC.PT.EP ---
[facility] [place] [facility] [place] [facility] [place] Office [address] Smiley Cohen [address] [phone] F: [phone] F: [phone] F: [phone] F: [phone] Physical Therapy Plan of Care Date of Evaluation: Date of Surgery: 01/01/22 Diagnosis: ADHESIVE CAPSULITIS Assessment: JANE RETURNS FOR PT AT HER LAST ORTHO FOLLOW UP SHE REPORTS INCREASED PAIN AND DECREASED ROM. UPON EXAM TODAY SHE DEMONSTRATES IMPAIRMENTS INCLUDING DECREASED ROM, DECREASED STRENGTH, ALTERED POSTURE AND POSITIONING, INCREASED PAIN. FUNCTIONAL LIMITATIONS INCLUDE DECREASED ABILITY TO PERFORM ADLs AND HOMEMAKING TASKS, DECREASED ABILITY TO PUSH, PULL, LIFT, CARRY AND REACH. SHE REPORTS DECREASED PARTICIPATION IN COMMUNITY AND RECREATIONAL ACTIVITIES AND HAS DISRUPTED SLEEP. Pt IS A GOOD CANDIDATE FOR SKILLED PT DUE TO AGE, POTENTIAL REMEDIATION OF IMPAIRMENTS, TYPICAL DISEASE/CONDITION PROGRESSION AND PROGNOSIS, COMORBIDITIES, AND MOTIVATION. Pt WOULD BENEFIT FROM TAILORED PROGRAM OF THERAPEUTIC ACTIVITIES, FUNCTIONAL TRAINING, POSTURAL EDUCATION, NEUROMUSCULAR RE-EDUCATION, AND MODALITIES NEEDED. Frequency and Duration: The patient will be seen 2 X WEEK FOR 4 WEEKS Short Term Goals: REVIEW AND PROGRESS PREVIOUS HEP Power Hair Clipper Goals: ACTIVE SHOULDER ELEVATION TO GREATER THAN 120 DEGREES TO PERFORM ALL HOMEMAKING AND SELF CARE TASKS WITH PAIN NO GREATER THAN 2/[address] 5# OBJECT ON SHOULDER HEIGHT SHELF SPADI SCORE OF LESS THAN 30% DISABILITY Treatment Plan: Modalities to reduce pain, spasms and effusion. Manual therapy to restore motion and function. Therapeutic exercise to improve strength and flexibility. Neuromuscular re-education for posture and balance. Therapeutic activities to return to functional activities of daily living. Electronically signed by: RASHAWN GUILLEN PT, DPT Please sign and return to therapist. Thank you for your referral.
--- NOTE | 2022-07-14 15:01 | MHC.PT.DC ---
[facility] [place] Office [place] Office [place] Office [address] Smiley Cohen [address] [phone] F: [phone] F: [phone] F: [phone] F: [phone] Physical Therapy Discharge Report Diagnosis: ADHESIVE CAPSULITIS Date of Surgery: 01/01/22 Date of Evaluation: 06/10/22 Date of Discharge: 07/14/22 Treatments to Date: 3 Cancellations to Date: 0 No Shows to Date: 0 Discharge Status: Discharge Summary: JANE DEMONSTRATES MUCH IMPROVED ROM. AT THIS TIME SHE IS CHALLENGED WITH ATTENDING PT VISITS DUE TO RESPIRATORY ISSUES AND LOW BACK PAIN. SHE FEELS CONFIDENT WITH CURRENT PROGRAM AND WILL CONTINUE AT HOME. D/C ON THIS DATE. SHOULDER ROM: FLEXION 95(160) ABD 90(120) ER TO 75 Electronically signed by: RASHAWN GUILLEN PT, DPT Please sign and return to therapist. Thank you for your referral.
== END 2022-07-14 15:02 | disposition home or self-care (01) ==
LOC: HO.PT 14:00
PROVIDERS: PCP Family Medicine; Visit Provider Orthopaedic Surgery
DX: M75.101 Unspecified rotator cuff tear or rupture of right shoulder, not specified as traumatic (principal)
CPT/HCPCS: 97110; 97140; 97162

== ENCOUNTER 2022-09-18 13:45 | Outpatient (REF) | payer MEDICAID, SELFPAY ==
--- NOTE | ~2022-09-18 | MM_ITS ---
EXAMINATION: MM SCREENING DIGITAL BREAST TOMOSYNTHESIS, BILATERAL CLINICAL INFORMATION: Screening. Asymptomatic. The lifetime risk of breast cancer based on the Tyrer-Cuzick Model is 6%. COMPARISON: Mammography: 09/12/2021, 08/28/2020, 06/02/2019 TECHNIQUE: Digital breast tomosynthesis is performed in both the craniocaudal and mediolateral oblique views along with computer-aided detection (CAD). Synthesized 2D images are generated from the tomosynthesis. Additional left MLO view is provided. FINDINGS: There are scattered areas of fibroglandular density (ACR BI-RADS breast composition Category b). There are no significant masses, abnormal calcifications, or other abnormalities. Minor parenchymal asymmetries are stable. No developing density or architectural abnormality. The axilla and skin contours are unremarkable. MM/MM tomosynthesis screening BI IMPRESSION: No mammographic evidence of malignancy. ASSESSMENT: BI-RADS 2: Benign RECOMMENDATION: Routine annual mammography screening. This patient's information was entered into a reminder system with a target due date for their next mammogram.
== END 2022-09-18 13:46 | disposition home or self-care (01) ==
LOC: HO.MAMMO 13:45
PROVIDERS: Visit Provider Family Medicine
DX: Z12.31 Encounter for screening mammogram for malignant neoplasm of breast (principal)
CPT/HCPCS: 77063; 77067

== ENCOUNTER → 2022-10-02 12:43 | Outpatient (BNVA) | payer MEDICAID, SELFPAY | PROVIDERS: PCP Family Medicine; Visit Provider Physician Assistant | DX: M75.101 Unspecified rotator cuff tear or rupture of right shoulder, not specified as traumatic (principal); M75.01 Adhesive capsulitis of right shoulder | CPT/HCPCS: 99212 ==

== ENCOUNTER 2022-11-20 13:48 | Outpatient (REF) | payer MEDICAID, SELFPAY ==
--- NOTE | ~2022-11-20 | XR_ITS ---
EXAMINATION: XR foot RT min 3V CLINICAL INFORMATION: Pain COMPARISON: None TECHNIQUE: 3 views of the foot FINDINGS: No fracture or dislocation. Moderate degenerative changes of the foot with spurring of the dorsal midfoot, large Achilles tendon enthesophyte and large plantar calcaneal spur. No joint effusion. Soft tissues are unremarkable. XR/XR foot RT min 3V IMPRESSION: Moderate degenerative changes of the foot.
== END 2022-11-20 13:49 | disposition home or self-care (01) ==
LOC: HO.XRAY 13:48
PROVIDERS: PCP Family Medicine; Visit Provider Family Medicine
DX: M79.671 Pain in right foot (principal)
CPT/HCPCS: 73630

== ENCOUNTER 2023-01-28 17:28 | Emergency (ER) | payer MEDICAID, SELFPAY ==
[2023-01-28 17:45] VITALS: BP 117/59; PULSE 74; RESP 16; TEMP 38.1; O2SAT 98; BMI 31.3
--- NOTE | 2023-01-28 17:46 | ED_ITS ---
HPI - General Adult General Chief complaint: Extremity Injury, Lower Stated complaint: fell leslie. knee pain Time Seen by Provider: 01/28/23 19:36 Source: patient Mode of arrival: ambulatory Limitations: no limitations History of Present Illness HPI narrative: 57-year-old female presents with bilateral knee pain. Symptoms started today after missing the 4th step on her walk up to her apartment. She did not hit her head or lose consciousness. She denies any prodrome such as chest pain, palpitations or lightheadedness. She now complains of bilateral knee pain. The pain is moderate to severe. Worse with ambulation. The pain does not radiate. There is no numbness or tingling distal to the injury. She suffered abrasions. Her last tetanus vaccination was 2 years ago. Patient was brought to the hospital by a friend/family member. They noted that she was diaphoretic and having some shortness of breath. Patient denies any of symptoms whatsoever however. Related Data Home Medications Medication Instructions Recorded Confirmed aspirin 81 mg tablet 81 mg PO DAILY 05/17/20 12/18/21 lisinopril 20 mg tablet 20 mg PO DAILY 05/17/20 12/18/21 metformin 500 mg tablet 1,000 mg PO BID 05/17/20 12/18/21 atorvastatin 20 mg tablet 20 mg PO QAM 10/08/21 12/18/21 sertraline 100 mg tablet 150 mg PO QAM 10/08/21 12/18/21 albuterol sulfate 90 mcg/actuation 2 puff PO Q4-6H PRN Wheezing 12/18/21 12/18/21 aerosol inhaler (ProAir HFA) buspirone 10 mg tablet 1 tab PO BID anxiety 12/18/21 12/18/21 empagliflozin 10 mg tablet 1 tab PO QAM 12/18/21 12/18/21 (Jardiance) fluticasone propionate 44 2 puff inhalation BID 12/18/21 12/18/21 mcg/actuation HFA aerosol inhaler (Flovent HFA) metoprolol succinate 25 mg 0.5 tab PO QAM 12/18/21 12/18/21 tablet,extended release 24 hr valacyclovir 1 gram tablet 1,000 mg PO Q12H 05/01/22 Previous Rx's Medication Instructions Recorded acetaminophen 500 mg tablet 500 mg PO Q6H PRN pain or fever 07/16/20 (Tylenol Extra Strength) #20 tabs diclofenac sodium 1 % topical gel 2 g topical QID #100 grams 05/27/21 (Voltaren Arthritis Pain) cyclobenzaprine 5 mg tablet 5 mg PO TID PRN muscle spasm #10 03/03/22 tabs cefuroxime axetil 500 mg tablet 500 mg PO Q12H 7 days #14 tabs 03/22/22 celecoxib 200 mg capsule 200 mg PO BID PRN pain 30 days #60 05/01/22 caps cyclobenzaprine 5 mg tablet 5 mg PO BEDTIME PRN muscle spasm 06/24/22 #4 tabs ketorolac 10 mg tablet 10 mg PO Q6H PRN pain 5 days #20 06/24/22 tabs Allergies Allergy/AdvReac Type Severity Reaction Status Date / Time No Known Allergies Allergy Verified 10/02/22 12:48 Review of Systems Review of Systems: CONSTITUTIONAL: Denies weight loss, fever and chills. HEENT: Denies changes in vision and hearing. RESPIRATORY: Denies SOB and cough. CV: Denies palpitations no CP. GI: Denies abdominal pain, nausea, vomiting and diarrhea. : Denies dysuria and urinary frequency. MSK: + myalgia and joint pain. SKIN: Denies rash and pruritus. NEUROLOGICAL: Denies headache and syncope. PSYCHIATRIC: Denies recent changes in mood. Denies anxiety and depression. All other ROS are negative unless in HPI PMFSH Past Medical History Medical History Alcohol dependence Arthritis Asthma Depression Diabetes Elevated cholesterol Hypertension Mood disorder Palpitations Surgical History H/O colonoscopy History of 2 sections Hx of repair of rotator cuff Social History Social History Alcohol intake: current Alcohol intake frequency: does not drink Alcohol type: hard liquor Patient Tobacco Use Status: Current everyday Tobacco user Cigarettes Per Day: 7 Smoked in Last 30 Days: Yes Second Hand Smoke Exposure: No Advance Directives: Yes Advance Directives on File: Yes Advance Directives Date on File: 01/02/22 Current occupational status: disabled 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 Physical Exam ED Vital Signs: Vital Signs - 24 hr 01/28/23 17:45 01/28/23 19:24 01/28/23 19:26 Temperature 100.5 F H Pulse Rate 74 74 78 Respiratory Rate 16 Blood Pressure 117/59 L 113/58 L 119/67 Pulse Oximetry 98 Oxygen Delivery Method Room Air 01/28/23 19:28 01/28/23 19:56 Temperature 99.7 F Pulse Rate 80 Respiratory Rate Blood Pressure 109/65 Pulse Oximetry Oxygen Delivery Method BMI result Body Mass Index 31.3 GEN: Well developed, no acute distress, alert, oriented HEENT: Normocephalic, atraumatic, normal external ears, nose appears normal, no oropharyngeal edema or exudates Eyes: Normal to appearance Neck: Supple, no lymphadenopathy Respiratory: Talks in complete sentences, no respiratory distress, clear to auscultation bilaterally Cardiovascular: Regular rate and rhythm, no murmurs rubs or gallops Abdomen: Soft, nontender, nondistended, no guarding, no rebound Back: No CVA tenderness Extremities: No clubbing cyanosis or edema, tenderness bilateral knees, no joint effusion, no deformity, NV I Neurologic: No focal neurologic deficits, cranial nerves 2-12 intact, strength is 5/5 bilaterally Skin: No rash superficial abrasions bilateral knees Course Course Course Narrative: RME- 57 year old female presents for evaluation of bilateral knee pain after a fall. Patient reports feeling dizzy and sweaty at the time of the fall. Patient was noted to have a temperature of 100.5? in triage. Plan for labs, x- rays, EKG, orthostatic vital signs. Reevaluation(s) Reevaluation #1: The workup is complete. X-rays of the knees demonstrated no acute fractures or dislocation. She has abrasions and contusion to the knee. She is aware that the symptoms may last for a few days to a few weeks. She can take Tylenol and ibuprofen as needed for pain and discomfort. I recommended follow-up with her primary care provider in 1 week for further evaluation. In addition, patient has had reported diaphoresis and some shortness of breath with exertion. She did test positive for COVID. I informed her about the results. I recommended appropriate levels of isolation. She is vaccinated. She has no acute distress. There is no definite indication for Paxlovid at this time. Time: 20:51 Medications Administered Discontinued Medications Generic Name Dose Route Start Last Admin Trade Name Freq PRN Reason Stop Dose Admin Acetaminophen 975 mg 01/28/23 20:33 01/28/23 20:41 Acetaminophen 325 Mg Tablet PO 01/28/23 20:34 975 mg ONCE ONE Administration Ibuprofen 600 mg 01/28/23 20:33 01/28/23 20:41 Ibuprofen 600 Mg Tablet PO 01/28/23 20:34 600 mg ONCE ONE Administration Medical Decision Making Medical Decision Making [facility] Narrative: Patient presents with bilateral knee pain that is traumatic. Differential diagnosis includes contusion, fracture, hematoma, internal knee injury. She has good joint stability. She is neurovascular intact. She has abrasions to bilateral knees. X-ray will be ordered to rule out acute fracture or dislocation initially, patient had some systemic symptoms prior to arrival as well. Additional testing has been ordered from our triage provider. Dif ferential diagnosis of patient's reported shortness of breath which she denies includes anemia, viral syndrome, COVID, electrolyte abnormality, deconditioning, asthma. Differential Diagnosis Differential Diagnoses: The differential diagnosis associated with the presentation includes (See above) Admission/Observation Consideration of admission/observation: Escalation of care including adm ission/observation considered Lab Data [facility] Lab Attestation statement: I reviewed the patient's lab results. 01/28/23 17:57 01/28/23 17:57 Labs: Lab Results 01/28/23 01/28/23 01/28/23 Range/Units 17:57 17:57 17:57 WBC 11.7 H (4.8-10.8) X10*3/uL RBC 4.89 (4.20-5.50) X10*6/uL Hgb 15.3 (12.0-16.0) g/dl Hct 47.0 (37.0-47.0) % MCV 96.1 (80.0-98.0) fL MCH 31.3 (27.0-33.0) pg MCHC 32.6 (31.0-35.0) g/dl RDW 14.2 (11.0-16.0) % Plt Count 274 (160-400) X10*3/uL MPV 11.2 (9.4-12.3) fL Immature Gran % (Auto) 1.5 H (0.0-0.4) % Neut % (Auto) 53.8 (45-73) % Lymph % (Auto) 37.4 (20-40) % Woods % (Auto) 6.0 (2-11) % Eos % (Auto) 1.0 (0-4) % Baso % (Auto) 0.3 (0-2) % Lymph # (Auto) 4.4 (1.2-4.9) X10*3/uL Woods # (Auto) 0.7 (0.1-1.2) X10*3/uL Eos # (Auto) 0.1 (0.0-0.4) X10*3/uL Baso # (Auto) 0.0 (0.0-0.2) X10*3/uL Abs Immat Gran (auto) 0.17 H (0.00-0.03) X10*3/uL Absolute Neuts (auto) 6.3 (2.0-8.3) x10*3/uL Absolute Nucleated RBC 0.000 (0.0-0.012) X10*3/uL Nucleated RBC % (auto) 0.0 (0.0-0.2) /100WBC Smear Tech's Comments VERIFIED PT (10.0-13.1) SEC INR (0.9-1.1) APTT (26.0-36.4) SEC Sodium 142 (135-145) mmol/L Potassium 4.1 (3.3-5.1) mmol/L Chloride 104 (96-108) mmol/L Carbon Dioxide 24 (22-29) mmol/L Anion Gap 18 (12-20) BUN 12 (9-16) mg/dL Creatinine 1.12 (0.5-1.4) mg/dL Estim Creat Clear Calc 53.4 Estimated GFR 50 Random Glucose 214 H (60-115) mg/dL Calcium 10.4 H D (8.4-10.2) mg/dL Troponin I High Sens (<3.5-17.0) ng/L Urine Color Urine Appearance Urine pH (5.0-9.0) Ur Specific [place] (1.005-1.025) Urine Protein (Neg-Trace) mg/dL Urine Glucose (UA) (Negative) mg/dL Urine Ketones (Negative) mg/dL Urine Blood (Negative) Urine Nitrite (Negative) Ur Leukocyte Esterase (Negative) Urine RBC (0-2) /HPF Urine WBC (0-5) /HPF Ur Squamous Epith Cells (0-2) /HPF Urine Bacteria (None Seen) Hyaline Casts (0-2) /LPF COVID-19 (FILI) Positive A (Negative) COVID-19 Clin Com See Note 01/28/23 01/28/23 01/28/23 Range/Units 17:57 17:57 19:40 WBC (4.8-10.8) X10*3/uL RBC (4.20-5.50) X10*6/uL Hgb (12.0-16.0) g/dl Hct (37.0-47.0) % MCV (80.0-98.0) fL MCH (27.0-33.0) pg MCHC (31.0-35.0) g/dl RDW (11.0-16.0) % Plt Count (160-400) X10*3/uL MPV (9.4-12.3) fL Immature Gran % (Auto) (0.0-0.4) % Neut % (Auto) (45-73) % Lymph % (Auto) (20-40) % Woods % (Auto) (2-11) % Eos % (Auto) (0-4) % Baso % (Auto) (0-2) % Lymph # (Auto) (1.2-4.9) X10*3/uL Woods # (Auto) (0.1-1.2) X10*3/uL Eos # (Auto) (0.0-0.4) X10*3/uL Baso # (Auto) (0.0-0.2) X10*3/uL Abs Immat Gran (auto) (0.00-0.03) X10*3/uL Absolute Neuts (auto) (2.0-8.3) x10*3/uL Absolute Nucleated RBC (0.0-0.012) X10*3/uL Nucleated RBC % (auto) (0.0-0.2) /100WBC Smear Tech's Comments PT 9.8 L (10.0-13.1) SEC INR 0.9 (0.9-1.1) APTT 26.1 (26.0-36.4) SEC Sodium (135-145) mmol/L Potassium (3.3-5.1) mmol/L Chloride (96-108) mmol/L Carbon Dioxide (22-29) mmol/L Anion Gap (12-20) BUN (9-16) mg/dL Creatinine (0.5-1.4) mg/dL Estim Creat Clear Calc Estimated GFR Random Glucose (60-115) mg/dL Calcium (8.4-10.2) mg/dL Troponin I High Sens < 2.7 (<3.5-17.0) ng/L Urine Color Yellow Urine Appearance Clear Urine pH 5.0 (5.0-9.0) Ur Specific [place] >= 1.030 H (1.005-1.025) Urine Protein Negative (Neg-Trace) mg/dL Urine Glucose (UA) >=1000 H (Negative) mg/dL Urine Ketones Negative (Negative) mg/dL Urine Blood Negative (Negative) Urine Nitrite Negative (Negative) Ur Leukocyte Esterase Negative (Negative) Urine RBC 11-20 H (0-2) /HPF Urine WBC 0-5 (0-5) /HPF Ur Squamous Epith Cells 0-2 (0-2) /HPF Urine Bacteria None Seen (None Seen) Hyaline Casts 3-5 (0-2) /LPF COVID-19 (FILI) (Negative) COVID-19 Clin Com Independent Interpretation I performed an independent interpretation of an: EKG (Normal sinus rhythm heart rate 76, normal intervals, no acute ST elevations or depressions) and Plain X- Ray (Bilateral knees no acute fracture or traumatic injury) Radiology Impression Discussion of test interpretation with radiology: I have reviewed the radiologist's reading. ( XR/XR chest 2V IMPRESSION: No evidence for acute disease in the chest. Dictated By:Fatimah Noble MDSigned By:<Electronically signed by Fatimah Noble MD in [place]>01/28/231829 DD/ TD/TT: Stenotype Machine Operator: STEPHON) Radiologist Impression: Bilateral knee per radiologist no acute traumatic injury Prescription Management I considered prescription management with: Pain Medication Discharge Plan Discharge Clinical Impression: Abrasion of knee, Contusion of knee, COVID Patient Disposition: Home, Self-Care Instructions: Contusion in Adults (ED), Abrasion (ED), COVID-19 (Coronavirus Disease 2019) (ED) Prescriptions: No Action metformin 500 mg Tablet 1,000 mg PO BID lisinopril 20 mg Tablet 20 mg PO DAILY aspirin 81 mg Tablet 81 mg PO DAILY acetaminophen [Tylenol Extra Strength] 500 mg tablet 500 mg PO Q6H PRN (Reason: pain or fever) Qty: 20 0RF diclofenac sodium [Voltaren Arthritis Pain] 1 % gel 2 g topical QID Qty: 100 0RF Rx Instructions: apply to single elbow, wrist or hand; for hand includes palm/fingers/back of hand buspirone 10 mg tablet 1 tab PO BID Flovent HFA 44 mcg/actuation HFA aerosol inhaler 2 puff inhalation BID metoprolol succinate 25 mg tablet extended release 24 hr 0.5 tab PO QAM albuterol sulfate [ProAir HFA] 90 mcg/actuation HFA aerosol inhaler 2 puff PO Q4-6H PRN (Reason: Wheezing) Jardiance 10 mg tablet 1 tab PO QAM cyclobenzaprine 5 mg tablet 5 mg PO BEDTIME PRN (Reason: muscle spasm) Qty: 4 0RF ketorolac 10 mg tablet 10 mg PO Q6H PRN (Reason: pain) 5 Days Qty: 20 0RF Rx Instructions: 1. Patient rec'd Toradol in the ER 2. Please instruct to stop other NSAIDs cyclobenzaprine 5 mg tablet 5 mg PO TID PRN (Reason: muscle spasm) Qty: 10 0RF cefuroxime axetil 500 mg tablet 500 mg PO Q12H 7 Days Qty: 14 0RF sertraline 100 mg tablet 150 mg PO QAM atorvastatin 20 mg tablet 20 mg PO QAM valacyclovir 1 gram tablet 1,000 mg PO Q12H celecoxib 200 mg capsule 200 mg PO BID PRN (Reason: pain) 30 Days Qty: 60 0RF Referrals: [facility] [Primary Care Provider] - 1 week
[2023-01-28 18:25] LABS: Anion Gap 18 (12-20); Blood Urea Nitrogen 12 mg/dL (9-16); Calcium 10.4 mg/dL (8.4-10.2); Carbon Dioxide 24 mmol/L (22-29); Chloride 104 mmol/L (96-108); Creatinine Clr Calc Pharmacy 53.4; Estimated Glomerular Filt Rate 50; Glucose Random 214 mg/dL (60-115); Potassium 4.1 mmol/L (3.3-5.1); Sodium 142 mmol/L (135-145)
[2023-01-28 19:24] VITALS: BP 113/58; PULSE 74
[2023-01-28 19:26] VITALS: BP 119/67; PULSE 78
[2023-01-28 19:28] VITALS: BP 109/65; PULSE 80
[2023-01-28 19:56] VITALS: TEMP 37.6
== END 2023-01-28 20:58 | disposition home or self-care (01) ==
PROVIDERS: Physician Assistant; Emergency Provider Emergency Medicine
DX: S80.212A Abrasion, left knee, initial encounter (principal); S80.211A Abrasion, right knee, initial encounter; S80.02XA Contusion of left knee, initial encounter; S80.01XA Contusion of right knee, initial encounter; W10.8XXA Fall (on) (from) other stairs and steps, initial encounter; I10 Essential (primary) hypertension; E11.9 Type 2 diabetes mellitus without complications; E78.00 Pure hypercholesterolemia, unspecified; F17.210 Nicotine dependence, cigarettes, uncomplicated; Z20.822 Contact with and (suspected) exposure to COVID-19; Z79.82 Long term (current) use of aspirin; Z79.84 Long term (current) use of oral hypoglycemic drugs; Z79.899 Other long term (current) drug therapy; Y93.01 Activity, walking, marching and hiking; Y92.038 Other place in apartment as the place of occurrence of the external cause; Y99.9 Unspecified external cause status
CPT/HCPCS: 36415; 71046; 73564; 80048; 81001; 84484; 85025; 85610; 85730; 87635; 93005; 99283; 99285

== ENCOUNTER 2023-02-18 18:30 | Outpatient (REF) | payer MEDICAID, SELFPAY ==
[2023-02-18 19:04] LABS: Creatinine Urine 54.01 mg/dL; Microalbumin Urine < 5.0 mg/L
== END 2023-02-18 18:31 | disposition home or self-care (01) ==
LOC: HO.HHCLNP 18:30
PROVIDERS: Visit Provider Family Medicine
DX: E11.9 Type 2 diabetes mellitus without complications (principal)
CPT/HCPCS: 82043

== ENCOUNTER 2023-03-09 12:11 | Emergency (ER) | payer MEDICAID, SELFPAY ==
--- NOTE | ~2023-03-09 | XR_ITS ---
EXAMINATION: XR LUMBOSACRAL SPINE CLINICAL INFORMATION: Low back pain. COMPARISON: Lumbar spine radiographs dated 03/13/2022. TECHNIQUE: Three views of the lumbosacral spine. FINDINGS: There is normal lumbar lordosis and spinal alignment. Mild to moderate multilevel marginal osteophyte formation is seen. Mild disc space narrowing is seen at L5-S1. Moderate hypertrophic bilateral facet arthropathy is seen at L5-S1. There is no acute fracture. The soft tissues are unremarkable. XR/XR lumbar spine 2-3V IMPRESSION: Mild to moderate multilevel marginal osteophyte formation. L5-S1 mild disc space narrowing and moderate hypertrophic bilateral facet arthropathy. No acute abnormality.
[2023-03-09 12:23] VITALS: BP 132/64; PULSE 85; RESP 16; TEMP 36.7; O2SAT 99; BMI 32.0
--- NOTE | 2023-03-09 12:23 | ED.BACK ---
HPI - Back Pain/Injury General Chief Complaint: Back Pain/Injury Stated Complaint: low back pain Time Seen by Provider: 03/09/23 16:08 Source: patient, RN notes reviewed, old records reviewed and certified court interpreter Mode of arrival: ambulatory Limitations: language barrier History of Present Illness HPI Narrative: 58-year-old female presents for evaluation of lower back pain. Patient reports she has a history of lower back pain She reports that Flexeril usually helps her pain but ?mind so I can not take them. ? She reports for last 2 days she has had worsening lower back pain right slightly greater than left She reports no trauma that she remember. She did state that she was on the ground looking for something onto the couch and felt a mild pain in her lower back when she stood up No numbness, tingling, weakness No bladder or bowel incontinence Related Data Home Medications Medication Instructions Recorded Confirmed aspirin 81 mg tablet 81 mg PO DAILY 05/17/20 12/18/21 lisinopril 20 mg tablet 20 mg PO DAILY 05/17/20 12/18/21 metformin 500 mg tablet 1,000 mg PO BID 05/17/20 12/18/21 atorvastatin 20 mg tablet 20 mg PO QAM 10/08/21 12/18/21 sertraline 100 mg tablet 150 mg PO QAM 10/08/21 12/18/21 albuterol sulfate 90 mcg/actuation 2 puff PO Q4-6H PRN Wheezing 12/18/21 12/18/21 aerosol inhaler (ProAir HFA) buspirone 10 mg tablet 1 tab PO BID anxiety 12/18/21 12/18/21 empagliflozin 10 mg tablet 1 tab PO QAM 12/18/21 12/18/21 (Jardiance) fluticasone propionate 44 2 puff inhalation BID 12/18/21 12/18/21 mcg/actuation HFA aerosol inhaler (Flovent HFA) metoprolol succinate 25 mg 0.5 tab PO QAM 12/18/21 12/18/21 tablet,extended release 24 hr valacyclovir 1 gram tablet 1,000 mg PO Q12H 05/01/22 Previous Rx's Medication Instructions Recorded acetaminophen 500 mg tablet 500 mg PO Q6H PRN pain or fever 07/16/20 (Tylenol Extra Strength) #20 tabs diclofenac sodium 1 % topical gel 2 g topical QID #100 grams 05/27/21 (Voltaren Arthritis Pain) cyclobenzaprine 5 mg tablet 5 mg PO TID PRN muscle spasm #10 03/03/22 tabs cefuroxime axetil 500 mg tablet 500 mg PO Q12H 7 days #14 tabs 03/22/22 celecoxib 200 mg capsule 200 mg PO BID PRN pain 30 days #60 05/01/22 caps cyclobenzaprine 5 mg tablet 5 mg PO BEDTIME PRN muscle spasm 06/24/22 #4 tabs ketorolac 10 mg tablet 10 mg PO Q6H PRN pain 5 days #20 06/24/22 tabs cyclobenzaprine 5 mg tablet 5 mg PO TID PRN muscle spasm #20 03/09/23 tabs Allergies Allergy/AdvReac Type Severity Reaction Status Date / Time No Known Allergies Allergy Verified 10/02/22 12:48 Review of Systems Constitutional: Constitutional: Reports as per HPI, Denies chills, Denies fatigue, Denies fever(s) and Denies headache(s) ENT: Denies headache(s) Cardiovascular: Cardiovascular: Denies chest pain and Denies dyspnea Respiratory: Respiratory: Denies cough and Denies dyspnea Gastrointestinal: Gastrointestinal: Denies abdominal pain, Denies constipation and Denies vomiting Genitourinary: Genitourinary: Denies dysuria Musculoskeletal: Musculoskeletal: Reports back pain, Denies numbness and Denies tingling Neurologic: Denies headache(s), Denies focal weakness, Denies numbness, Denies Sensory deficit (Neuro) and Denies tingling Endocrine: Endocrine: Denies fatigue PMFSH Past Medical History Medical History Alcohol dependence Arthritis Asthma Depression Diabetes Elevated cholesterol Hypertension Mood disorder Palpitations Surgical History H/O colonoscopy History of 2 sections Hx of repair of rotator cuff Social History Social History Alcohol intake: current Alcohol intake frequency: does not drink Alcohol type: hard liquor Patient Tobacco Use Status: Current everyday Tobacco user Cigarettes Per Day: 7 Second Hand Smoke Exposure: No Advance Directives: Yes Advance Directives on File: Yes Advance Directives Date on File: 01/02/22 Current occupational status: disabled 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 Physical Exam Vital Signs: Vital Signs: Last Vital Signs Temp 98.1 F 03/09/23 12:23 Pulse 85 03/09/23 12:23 Resp 16 03/09/23 12:23 BP 132/64 03/09/23 12:23 Pulse Ox 99 03/09/23 12:23 O2 Del Method Room Air 03/09/23 12:23 BMI result Body Mass Index 32.0 Const: General: healthy appearing, comfortable, no acute distress, alert and awake Nutritional Appearance: well nourished Orientation/consciousness: patient oriented x3 HEENT: Head: Yes normocephalic and Yes atraumatic Eyes: Eyelids: Yes eyelids normal Conjunctivae: conjunctivae normal Sclerae: sclerae normal Corneas: corneas normal Pupils: Equal, round and reactive pupils present EOM: EOMs intact bilaterally Neck: Neck: Yes full ROM Resp: Effort & Inspection: normal respiratory effort, able to speak in complete sentences and not labored Cardio: Rate: regular rate Rhythm: regular rhythm Back/Spine/Pelvis: Other: Mild right lumbar paraspinous muscle tenderness without deformity. Straight leg raise negative. Neuro: General: patient oriented x3 Cranial nerves: Yes Equal, round and reactive pupils present and Yes Bilaterally intact EOM present Cognition (Neuro): normal cognition Motor exam (neuro): 5/5 motor strength present throughout Sensory Exam: No Sensory deficit (Neuro) Course Course Course Narrative: RME: 50-year-old female with a past medical history of ETOH dependence, asthma, depression, diabetes, HTN, HLD, mood disorder, presenting to the ED complaining of low back pain since Thursday s/p trying to lift herself off the floor. Admits to radiation down RLE. States pain is in the middle. denies urinary incontinence/retention, weakness Ambulating with slow limping gait XRs ordered Full HPI, ROS and PE to be performed by primary ED provider. Medical Decision Making Medical Decision Making MDM Narrative: 58-year-old female presents for evaluation of lower back pain. She has a history of similar. No warning signs for cauda equina syndrome. X-ray shows mild arthritis. Patient be discharged with cyclobenzaprine. Differential Diagnosis Differential Diagnoses: The differential diagnosis associated with the presentation includes Lower back pain Muscle strain Radiculopathy Sciatica Osteoarthritis Independent Interpretation I performed an independent interpretation of an: Plain X-Ray Interpretation: Acute fracture of the lumbar spine. Radiology Impression Discussion of test interpretation with radiology: I have reviewed the radiologist's reading. Radiologist Impression: Mild osteoarthritis of the lumbar spine Discharge Plan Discharge Clinical Impression: Acute low back pain Patient Disposition: Home, Self-Care Instructions: Acute Low Back Pain (ED) Additional Instructions: You may continue using Tylenol as needed for your pain. You may use Flexeril 3 times daily as needed for muscle spasms This may make you sleepy, did not drink alcohol or drive after taking it Your x-ray did show some arthritis of your lower back which may also be contributing to your symptoms Follow-up with your primary doctor Prescriptions: New cyclobenzaprine 5 mg tablet 5 mg PO TID PRN (Reason: muscle spasm) Qty: 20 0RF No Action metformin 500 mg Tablet 1,000 mg PO BID lisinopril 20 mg Tablet 20 mg PO DAILY aspirin 81 mg Tablet 81 mg PO DAILY acetaminophen [Tylenol Extra Strength] 500 mg tablet 500 mg PO Q6H PRN (Reason: pain or fever) Qty: 20 0RF diclofenac sodium [Voltaren Arthritis Pain] 1 % gel 2 g topical QID Qty: 100 0RF Rx Instructions: apply to single elbow, wrist or hand; for hand includes palm/fingers/back of hand buspirone 10 mg tablet 1 tab PO BID Flovent HFA 44 mcg/actuation HFA aerosol inhaler 2 puff inhalation BID metoprolol succinate 25 mg tablet extended release 24 hr 0.5 tab PO QAM albuterol sulfate [ProAir HFA] 90 mcg/actuation HFA aerosol inhaler 2 puff PO Q4-6H PRN (Reason: Wheezing) Jardiance 10 mg tablet 1 tab PO QAM cyclobenzaprine 5 mg tablet 5 mg PO BEDTIME PRN (Reason: muscle spasm) Qty: 4 0RF ketorolac 10 mg tablet 10 mg PO Q6H PRN (Reason: pain) 5 Days Qty: 20 0RF Rx Instructions: 1. Patient rec'd Toradol in the ER 2. Please instruct to stop other NSAIDs cyclobenzaprine 5 mg tablet 5 mg PO TID PRN (Reason: muscle spasm) Qty: 10 0RF cefuroxime axetil 500 mg tablet 500 mg PO Q12H 7 Days Qty: 14 0RF sertraline 100 mg tablet 150 mg PO QAM atorvastatin 20 mg tablet 20 mg PO QAM valacyclovir 1 gram tablet 1,000 mg PO Q12H celecoxib 200 mg capsule 200 mg PO BID PRN (Reason: pain) 30 Days Qty: 60 0RF
== END 2023-03-09 16:25 | disposition home or self-care (01) ==
PROVIDERS: Emergency Provider Emergency Medicine; PCP Family Medicine
DX: M54.50 Low back pain, unspecified (principal); E11.9 Type 2 diabetes mellitus without complications; I10 Essential (primary) hypertension; E78.5 Hyperlipidemia, unspecified; F17.210 Nicotine dependence, cigarettes, uncomplicated; Z79.899 Other long term (current) drug therapy; Z79.82 Long term (current) use of aspirin
CPT/HCPCS: 72100; 99282; 99283

== ENCOUNTER 2023-03-24 07:26 | Outpatient (REF) | payer MEDICAID, SELFPAY ==
--- NOTE | ~2023-03-24 | XR_ITS ---
EXAMINATION: XR KNEE AP STANDING CLINICAL INFORMATION: Pain COMPARISON: Previous exam January 2023 TECHNIQUE: Standing AP and bilateral sunrise views of the knees FINDINGS: Bone alignment is normal. No fracture or dislocation. Normal joint spaces. Anterior patellar osteophytes better appreciated on January 2023 exam. XR/XR knee RT 1V IMPRESSION: Unremarkable exam.
--- NOTE | ~2023-03-24 | XR_ITS ---
EXAMINATION: XR KNEE AP STANDING CLINICAL INFORMATION: Pain COMPARISON: Previous exam January 2023 TECHNIQUE: Standing AP and bilateral sunrise views of the knees FINDINGS: Bone alignment is normal. No fracture or dislocation. Normal joint spaces. Anterior patellar osteophytes better appreciated on January 2023 exam. XR/XR knee standing BI IMPRESSION: Unremarkable exam.
--- NOTE | ~2023-03-24 | XR_ITS ---
EXAMINATION: XR KNEE AP STANDING CLINICAL INFORMATION: Pain COMPARISON: Previous exam January 2023 TECHNIQUE: Standing AP and bilateral sunrise views of the knees FINDINGS: Bone alignment is normal. No fracture or dislocation. Normal joint spaces. Anterior patellar osteophytes better appreciated on January 2023 exam. XR/XR knee LT 1V IMPRESSION: Unremarkable exam.
== END 2023-03-24 07:27 | disposition home or self-care (01) ==
LOC: HO.HOSX 07:26
PROVIDERS: Visit Provider Physician Assistant
DX: M25.561 Pain in right knee (principal); M25.562 Pain in left knee; E11.9 Type 2 diabetes mellitus without complications; S80.02XD Contusion of left knee, subsequent encounter; S80.01XA Contusion of right knee, initial encounter; X58.XXXD Exposure to other specified factors, subsequent encounter
CPT/HCPCS: 20610; 73560; 73565; 99214; J1020

== ENCOUNTER 2023-03-24 13:28 | Outpatient (AMB) | payer MEDICAID, SELFPAY ==
--- NOTE | 2023-03-24 13:32 | A.OFFVIS_ITS ---
Intake Intake Visit Reasons: New Prob- B/L knee pain Intake Note: La is a 58 year old female who presents today for a evaluation for his bilateral knee pain, Last injection for the right knee 11/26/17. Hx of Tylenol with no relief. Hx of knee brace with no relief. Hx of injection with no relief. Patient reports off and on pain for a month. She states that both of her knees are equal when it comes to pain. Patient reports that her pain is on the medial aspect of the knee. Pain is worse when going up the stairs and when getting up from a chair per patient. Allergies No Known Allergies Allergy (Verified 03/24/23 13:33) HPI New Prob- B/L knee pain HPI Details 58-year-old female, who is [place] speaking, presents in the office today for an evaluation of bilateral knee pain. The patient has a cortisone injection in the right knee on 11/26/2017. She confirms the use of Tylenol, a knee brace, and cortisone injection with no relief. She reports intermittent pain for a month. She states the right knee is worse then the left knee. She claims the pain is on the medial aspect of the bilateral knees. She reports an increase in pain with stairs, squatting, and kneeling. She reports a fall on the bilateral knees on 01/28/2023. 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 No ecchymosis, erythema, or joint effusio n. No tenderness to palpation to the medial or lateral joint lines. Minimal pain with patella grind. Full knee extension and flexion. Negative Mir's. Negative anterior draw. NVI. Office Procedures Joint Injection/Drain Joint Injection/Drain Primary Site: right knee Prep: site was prepped using aseptic technique, ethochloride spray was applied and injection warnings given Injected: 40 mg of, DepoMedrol, with 8 mL of (2% plain lido ) and in the joint Approach Used: anterolateral Procedure: The patient tolerated the procedure well, but had some pain with the injection and there was some relief with the local anesthesia Coding 96338 - Large joint Procedure code (CPT) selection complete Results Reviewed Results Reviewed: 03/24/23 14:07 Lidocaine HCl 2 % MPF [Xylocaine 2 % MPF] 5 ml .ROUTE .STK-MED ONE methylPREDNISolone acetate [DEPO-MedroL] 40 mg .ROUTE .STK-MED ONE Assessment & Plan Assessment & Plan (1) Contusion of right knee: Code(s): S80.01XA - Contusion of right knee, initial encounter (2) Contusion of left knee: Code(s): S80.02XA - Contusion of left knee, initial encounter (3) Diabetes: Code(s): E11.9 - Type 2 diabetes mellitus without complications Plan Ms. Gamble is a 58-year-old female, who is [place] speaking, presents in the office today for an evaluation of bilateral knee pain. The patient has a cortisone injection in the right knee on 11/26/2017. She confirms the use of Tylenol, a knee brace, and cortisone injection with no relief. She reports intermittent pain for a month. She states the right knee is worse then the left knee. She claims the pain is on the medial aspect of the bilateral knees. She reports an increase in pain with stairs, squatting, and kneeling. She reports a fall on the bilateral knees on 01/28/2023. The patient was offered a cortisone injection in the right knee with 40 mg of DepoMedrol. The patient was explained the risk, benefits, and alternatives to receiving this injection. After receiving consent for the injection, the patient had the procedure done while in office today. The patient tolerated the procedure well with no complications. Due to the patient?s history of diabetes, they were instructed to monitor her blood glucose level. The patient was informed that they could see a rise in their numbers and if the numbers became too high, they were instructed to call their PCP. The patient was also informed that they could have facial flushing as a side effect of the injection but this will pass. Due to the patient having diabetes we only injected on knee today in the office. We choose to injection the right knee due to her stating this knee causes her more pain. In a few weeks if she finds relief in the right knee due to the injection she will call the office to schedule the left knee cortisone injection. Follow up will be PRN, or sooner if needed. X-rays of the bilateral knees which were obtained while in the office today and were reviewed by me, Dedra Garrido PA-C, revealed no acute fracture or dislocation. Osteophytes bilateral at the distal poles of the patella. Orders: Orders XR knee LT 1V Today M25.569 - Pain in unspecified knee XR knee RT 1V Today M25.569 - Pain in unspecified knee XR knee standing BI Today M25.569 - Pain in unspecified knee Patient Instructions: Scribed for Dedra Garrido PA-C by Madalyn Clements medical technologist, on 03/24/2023 at 1:33 pm, EST. Coding Level of Care Code Est Pt Level 4 (08062) Diagnoses Contusion of right knee S80.01XA Contusion of left knee S80.02XA Diabetes E11.9 CPT Codes Coding - 34279 Large joint: 70706 - Large joint ([id number])
== END 2023-03-24 14:29 | disposition home or self-care (01) ==
PROVIDERS: Visit Provider Physician Assistant
DX: S80.01XA Contusion of right knee, initial encounter (principal); S80.02XA Contusion of left knee, initial encounter
CPT/HCPCS: 20610; 99214

== ENCOUNTER 2023-05-18 12:47 | Outpatient (REF) | payer MEDICAID, SELFPAY ==
--- NOTE | ~2023-05-18 | CT_ITS ---
EXAMINATION: CT CHEST WITHOUT CONTRAST CLINICAL INFORMATION: Pulmonary nodule COMPARISON: 05/28/2022 TECHNIQUE: Multidetector volumetric CT imaging of the chest was done. Axial MIP volume rendering provided. Sagittal and coronal reformatted images were obtained. This CT examination was performed using dose optimization techniques as appropriate, variously including the following: *Automated exposure control *Adjustment of mA and/or kV according to patient size (this includes techniques or standardized protocols for targeted exams where dose is matched to indication/reason for exam; i.e. extremities or head) *Use of iterative reconstruction technique DLP: 184 mGy-cm FINDINGS: CONVEX GRINDER: Unremarkable LUNGS: There are multiple small lung nodules seen again and changes of centrilobular emphysema. There are no new nodules. The largest nodule seen in the left upper lobe on image 161, measured 0.3 cm in the left upper lobe on image 279, measured 0.4 cm, 0.3 cm nodule in the left lower lobe seen on image 340, subpleural right lower lobe 0.4 cm nodule seen on image 324, 0.3 cm nodule in the right lower lobe seen on image 304 and 0.4 cm nodule seen on image 293 in the right lower lobe subpleural 0.3 cm nodule seen in the right upper lobe image 234 MEDIASTINUM: There is stable pretracheal, precarinal 1.4 cm nodule. Thyroid gland is unremarkable. There is no hilar lymphadenopathy. Calcified nodule seen in the right hilum most likely granulomatous disease. There is no pericardial effusion or aortic dilatation. CORONARY ARTERY CALCIFICATION: None visualized on this study. PLEURA: There is no pleural effusion. No pleural mass or thickening. AXILLA: No lymphadenopathy. UPPER ABDOMEN: There is nodularity in the left adrenal gland, measured 1.6 cm with attenuation of 10 HU, most likely adenoma. OSSEOUS STRUCTURES: There are changes of degenerative spondylosis in lower thoracic spine. CT/CT chest wo IV con IMPRESSION: 1. Multiple stable lung nodules. 2. Centrilobular emphysema. 3. Stable mediastinal lymphadenopathy. 4. Left adrenal gland adenoma. 5. Degenerative spondylosis in lower thoracic spine. Fleischner guidelines were followed.
== END 2023-05-18 12:48 | disposition home or self-care (01) ==
LOC: HO.CT 12:47
PROVIDERS: PCP Family Medicine; Visit Provider Family Medicine
DX: R91.8 Other nonspecific abnormal finding of lung field (principal)
CPT/HCPCS: 71250

== ENCOUNTER 2023-06-02 08:37 | Outpatient (REF) | payer MEDICAID, SELFPAY ==
[2023-06-02 12:00] LABS: Cholesterol 156 mg/dL (<200); HDL Cholesterol 44 mg/dL (>40); LDL Cholesterol Calculated 55 mg/dL (<100); Triglycerides 288 mg/dL (<150)
[2023-06-02 12:07] LABS: Alanine Aminotransferase 46 U/L (0-31); Alkaline Phosphatase 86 U/L (39-117); Anion Gap 15 (12-20); Aspartate Amino Transferase 29 U/L (5-31); Bilirubin Total 0.6 mg/dL (0.0-1.0); Blood Urea Nitrogen 10 mg/dL (9-16); Calcium 9.4 mg/dL (8.4-10.2); Carbon Dioxide 25 mmol/L (22-29); Chloride 108 mmol/L (96-108); Estimated Glomerular Filt Rate > 60; Glucose Random 150 mg/dL (60-115); Potassium 3.9 mmol/L (3.3-5.1); Sodium 144 mmol/L (135-145); Total Protein 7.4 g/dL (6.5-8.0)
[2023-06-02 12:11] LABS: TSH reflex Free T4 1.72 uIU/mL (0.32-4.0)
[2023-06-02 12:21] LABS: Vitamin B12 1010 pg/mL (200-900)
[2023-06-02 13:07] LABS: Reflex LDLD? No
== END 2023-06-02 08:38 | disposition home or self-care (01) ==
LOC: HO.HHCL 08:37
PROVIDERS: Visit Provider Family Medicine
DX: E11.9 Type 2 diabetes mellitus without complications (principal)
CPT/HCPCS: 36415; 80053; 80061; 82607; 82746; 84443

== ENCOUNTER 2023-06-16 15:12 | Outpatient (REF) | payer MEDICAID, SELFPAY ==
[2023-06-16 18:25] LABS: CT PCR NOT DETECTED (Not Detect.); NG PCR NOT DETECTED (Not Detect.)
[2023-06-17 04:19] LABS: Syphilis Screen Nonreactive (Nonreactive)
[2023-06-17 04:26] LABS: HIV AB/AG Nonreactive (Nonreactive); HIV Num 1 0.06 S/CO (0.00-0.99); ~HepC Num1 0.24 S/CO (0.00-0.79); ~Hepatitis C Antibody Nonreactive (Nonreactive)
== END 2023-06-16 15:13 | disposition home or self-care (01) ==
LOC: HO.HHCL 15:12
PROVIDERS: Visit Provider Internal Medicine
DX: Z11.4 Encounter for screening for human immunodeficiency virus [HIV] (principal); Z11.3 Encounter for screening for infections with a predominantly sexual mode of transmission; R39.89 Other symptoms and signs involving the genitourinary system
CPT/HCPCS: 0353U; 36415; 86780; 86803; 87255; 87389

== ENCOUNTER 2023-08-18 14:08 | Outpatient (AMB) | payer MEDICAID, SELFPAY ==
--- NOTE | 2023-08-18 14:28 | A.OFFVIS_ITS ---
Intake Intake Visit Reasons: OV - B/L knee pain Intake Note: La is a 58 year old female who presents today for a follow up for his bilateral knee pain, Last injection for the right knee 03/24/23. Patient reports that her last injections didn't give her relief. Hx of tried and failed 3 + months of taking NSAIDs/Tylenol. Hx of using a knee brace for 3 months with no relief. Hx of 3 + months of cortisone injections with no relief. Allergies No Known Allergies Allergy (Verified 08/18/23 14:32) HPI OV - B/L knee pain HPI Details 58-year-old female, who is Togolese speak ing, presents in the office today for a follow up of bilateral knee pain. I last saw the patient in the office on 03/24/2023 where she was given a cortisone injection in the right knee. The patient reports her last injection did not give her any relief. She states the pain is worse at night. She states the pain is greater in the right knee then the left. She has tried and failed 3 months of NSAID?s/Tylenol. History of knee brace use for 3 months with no relief. History of over three months of cortisone injections with no relief. Patient has a significant medical history of diabetes mellitus. 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 No ecchymosis, erythema, or joint effusion. No tenderness to palpation to the medial or lateral joint lines. Minimal pain with patella grind. Full knee extension and flexion. Negative Mir's. Negative anterior draw. NVI. Assessment & Plan Assessment & Plan (1) Lumbar radicular pain: Code(s): M54.16 - Radiculopathy, lumbar region (2) Diabetes: Code(s): E11.9 - Type 2 diabetes mellitus without complications (3) Lumbar radiculopathy: Code(s): M54.16 - Radiculopathy, lumbar region Plan Ms. Gamble is a 58-year-old female, who is Togolese speaking, presents in the office today for a follow up of bilateral knee pain. I last saw the patient in the office on 03/24/2023 where she was given a cortisone injection in the right knee. The patient reports her last injection did not give her any relief. She states the pain is worse at night. She states the pain is greater in the right knee then the left. She has tried and failed 3 months of NSAID?s/Tylenol. History of knee brace use for 3 months with no relief. History of over three months of cortisone injections with no relief. Patient has a significant medical history of diabetes mellitus. I will place a referred to Pain Management for further evaluation and treatment of the lumbar spine. I recommend for you to continue to take the Tylenol and Ibuprofen until you are evaluated by Pain Management. I will send in a prescription for a topical compound cream. Follow up will be PRN, or sooner if needed. X-rays of the lumbar spine, obtained on 03/09/2023, revealed: There is normal lumbar lordosis and spinal alignment. Mild to moderate multilevel marginal osteophyte formation is seen. Mild disc space narrowing is seen at L5-S1. Moderate hypertrophic bilateral facet arthropathy is seen at L5-S1. There is no acute fracture. The soft tissues are unremarkable. Orders: Referrals Pain Management Referral M54.16 - Radiculopathy, lumbar region Patient Instructions: Scribed for Dedra Garrido PA-C by maddi King scribe, on 08/18/2023 at 2:10 pm, EST. Coding Level of Care Code Est Pt Level 4 (10296) Diagnoses Lumbar radicular pain M54.16 Diabetes E11.9 Lumbar radiculopathy M54.16
== END 2023-08-18 15:20 | disposition home or self-care (01) ==
PROVIDERS: PCP Family Medicine; Visit Provider Physician Assistant
DX: M54.16 Radiculopathy, lumbar region (principal); E11.9 Type 2 diabetes mellitus without complications
CPT/HCPCS: 99214

== ENCOUNTER → 2023-08-18 14:08 | Outpatient (BNVA) | payer MEDICAID, SELFPAY | PROVIDERS: PCP Family Medicine; Visit Provider Physician Assistant | DX: M54.16 Radiculopathy, lumbar region (principal); M25.561 Pain in right knee; M25.562 Pain in left knee; E11.9 Type 2 diabetes mellitus without complications | CPT/HCPCS: 99212 ==

== ENCOUNTER 2023-08-24 09:28 | Outpatient (REF) | payer MEDICAID, SELFPAY ==
--- NOTE | ~2023-08-24 | XR_ITS ---
EXAMINATION: XR PELVIS CLINICAL INFORMATION: Right hip and thigh pain per order. Patient states months of pain, no injury. COMPARISON: Lumbosacral spine of 03/09/2023. TECHNIQUE: 3 AP views of the pelvis. FINDINGS: Degenerative changes in the imaged lower lumbar spine. Moderate degenerative changes with sclerosis in the bilateral sacroiliac joints, right greater than left. Advanced degenerative changes in the bilateral hips with joint space narrowing and hypertrophic change, right greater than left. XR/XR hip RT min 2V IMPRESSION: 1. 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 2. Degenerative changes in the imaged lower lumbar spine. 3. Moderate degenerative changes in the bilateral sacroiliac joints, right greater than left. Correlation with clinical exam recommended to determine further management. If there is clinical concern for fracture or other underlying pathology, MRI could be obtained for further evaluation.
--- NOTE | ~2023-08-24 | XR_ITS ---
EXAMINATION: XR PELVIS CLINICAL INFORMATION: Right hip and thigh pain per order. Patient states months of pain, no injury. COMPARISON: Lumbosacral spine of 03/09/2023. TECHNIQUE: 3 AP views of the pelvis. FINDINGS: Degenerative changes in the imaged lower lumbar spine. Moderate degenerative changes with sclerosis in the bilateral sacroiliac joints, right greater than left. Advanced degenerative changes in the bilateral hips with joint space narrowing and hypertrophic change, right greater than left. XR/XR pelvis min 3V IMPRESSION: 1. 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 2. Degenerative changes in the imaged lower lumbar spine. 3. Moderate degenerative changes in the bilateral sacroiliac joints, right greater than left. Correlation with clinical exam recommended to determine further management. If there is clinical concern for fracture or other underlying pathology, MRI could be obtained for further evaluation.
== END 2023-08-24 09:29 | disposition home or self-care (01) ==
LOC: HO.HHCX 09:28
PROVIDERS: Visit Provider Family Medicine
DX: M25.551 Pain in right hip (principal); M79.651 Pain in right thigh
CPT/HCPCS: 72190; 73502

== ENCOUNTER 2023-08-31 12:47 | Outpatient (REF) | payer MEDICAID, SELFPAY ==
--- NOTE | ~2023-08-31 | US_ITS ---
EXAMINATION: US LOWER EXTREMITY VENOUS (REFLUX EXAM), BILATERAL CLINICAL INDICATION: Varicose veins COMPARISON: None. TECHNIQUE: Color flow triplex imaging and compression Doppler was performed to evaluate both the deep and the superficial systems bilaterally. To evaluate the superficial system, the examination was performed in the upright position. Color-flow Doppler ultrasound and compression ultrasound were utilized. In addition, maneuvers were utilized to demonstrate reflux. FINDINGS: RIGHT: 1. DEEP VENOUS ULTRASOUND OF THE RIGHT LOWER EXTREMITY: Common Femoral Vein: Compressible, normal respiratory variation and augmented flow. Popliteal Vein: Compressible, normal augmentation. Deep Venous Reflux: There is no evidence of reflux in the deep system in either the common femoral vein or the popliteal vein. There is no evidence of a Cisneros's cyst. 2. SUPERFICIAL ULTRASOUND WITH DOPPLER OF RIGHT LOWER EXTREMITY: RIGHT GREAT SAPHENOUS VEIN: Saphenofemoral Junction: 5 mm. No reflux. Proximal Thigh: 3 mm. No reflux. Mid Thigh: Not seen Above Knee: Not seen Below Knee: 2 mm. 2468 ms reflux. Mid Calf: 2 mm. No reflux. Ankle: 2 mm. No reflux. DUPLICATED GREAT SAPHENOUS VEIN: None RIGHT SMALL SAPHENOUS VEIN: Proximal: 1 mm. No reflux. Distal: 2 mm. No reflux. PERFORATORS: Distal small saphenous vein: 2 mm. No reflux Proximal calf: 1 mm. No reflux Proximal calf: 3 mm. No reflux Varicose veins: Proximal calf measuring 3 mm. 2628 ms reflux. LEFT: 1. DEEP VENOUS ULTRASOUND OF THE LEFT LOWER EXTREMITY: Common Femoral Vein: Compressible, normal respiratory variation and augmented flow. Popliteal Vein: Compressible, normal augmentation. Deep Venous Reflux: There is no evidence of reflux in the deep system in either the common femoral vein or the popliteal vein. There is no evidence of a Cisneros's cyst. 2. SUPERFICIAL ULTRASOUND WITH DOPPLER OF LEFT LOWER EXTREMITY: LEFT GREAT SAPHENOUS VEIN: Saphenofemoral Junction: 2 mm. No reflux. Proximal Thigh: 3 mm. No reflux. Mid Thigh: 2 mm. No reflux. Above Knee: 2 mm. No reflux. Below Knee: 2 mm. No reflux. Mid Calf: 2 mm. 1108 reflux. Ankle: 2 mm. No reflux. DUPLICATED GREAT SAPHENOUS VEIN: None LEFT SMALL SAPHENOUS VEIN: Proximal: 1 mm. No reflux. Distal: 2 mm. No reflux. PERFORATORS: Mid thigh: 1 mm. No reflux Proximal calf: 1 mm. No reflux Varicose veins: Mid and proximal thigh measuring 3 mm. No reflux. US/US venous insuf bilat IMPRESSION: 1. Nonvisualized great saphenous vein at the right mid thigh to the knee, likely from prior treatment. 2. Prolonged reflux of the below-knee great saphenous vein. 3. Focal prolonged reflux of the left great saphenous vein at the mid calf. 4. Prolonged reflux of right proximal calf varicose vein. Abnormal lower extremity venous reflux times: Superficial and deep calf veins: >500 ms Femoropopliteal veins: >1000 ms Perforating veins: >350 ms Tahira N, Richard J, Kelton L, Sylwia DEAN, Antoine SS, Maye Duncan M, Blayne WH. Definition of venous reflux in lower-extremity veins.J Vasc Surg. 2003; [id number].
--- NOTE | ~2023-08-31 | XR_ITS ---
EXAMINATION: XR HIP, RIGHT CLINICAL INFORMATION: Right hip and thigh pain COMPARISON: 08/24/2023 TECHNIQUE: Two views of the right hip. FINDINGS: No fracture or dislocation. Alignment remains maintained. Inferior right acetabular sclerosis and small bony density adjacent to the superior lateral acetabulum again seen. Lesser trochanteric spurring again noted. Bilateral SI sclerosis, right greater than left. Degenerative changes lower lumbar spine. XR/XR hip RT min 2V IMPRESSION: Stable chronic and degenerative type changes. No acute bony pathology.
== END 2023-08-31 12:48 | disposition home or self-care (01) ==
LOC: HO.US 12:47
PROVIDERS: PCP Family Medicine; Visit Provider Family Medicine
DX: M25.551 Pain in right hip (principal); M79.651 Pain in right thigh; I83.813 Varicose veins of bilateral lower extremities with pain
CPT/HCPCS: 73502; 93970

== ENCOUNTER 2023-09-07 15:12 | Emergency (ER) | payer MEDICAID, SELFPAY ==
--- NOTE | ~2023-09-07 | US_ITS ---
EXAMINATION: US VENOUS ULTRASOUND WITH DOPPLER LOWER EXTREMITY, RIGHT CLINICAL INFORMATION: Pain and swelling COMPARISON: None available. TECHNIQUE: Ultrasound of the deep veins is performed from the hip to the calf with compression sonography and color and pulse Doppler assessment. Spectral analysis with color-flow imaging is performed. FINDINGS: There is normal venous compression and respiratory variation. The visualized common femoral vein, superficial femoral vein, profunda femoral vein, popliteal vein, and the posterior tibial and peroneal veins shows no evidence of deep venous thrombosis. US/US venous duplex LE RT IMPRESSION: No DVT demonstrated in the right lower extremity.
--- NOTE | 2023-09-07 15:40 | ED_ITS ---
HPI - General Adult General Chief complaint: General Medical Stated complaint: ? 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 Patient states that she had an US of the right leg and was told that she should have it repeated. Patient states that the pain is the same as it has been, no worse. Patient states that she has an appointment with the vascular surgeon coming up. Patient denies any dizziness, lightheadedness, abdominal pain, nausea, vomiting, fever, chills, blurry vision, double vision, loss of vision, chest pain, difficulty breathing, shortness of breath, back pain, night sweats, pain with urination, increased urinary frequency, increased urinary urgency, blood in her urine or stool, syncope or a near syncopal episode, recent trauma or falls, bowel incontinence, bladder incontinence, bowel retention, bladder retention, or any other complaints at this time. Relieving factors: none Exacerbating factors: none Associated symptoms: denies other symptoms Treatments prior to arrival: none Related Data Home Medications Medication Instructions Recorded Confirmed aspirin 81 mg tablet 81 mg PO DAILY 05/17/20 12/18/21 lisinopril 20 mg tablet 20 mg PO DAILY 05/17/20 12/18/21 metformin 500 mg tablet 1,000 mg PO BID 05/17/20 12/18/21 atorvastatin 20 mg tablet 20 mg PO QAM 10/08/21 12/18/21 sertraline 100 mg tablet 150 mg PO QAM 10/08/21 12/18/21 albuterol sulfate 90 mcg/actuation 2 puff PO Q4-6H PRN Wheezing 12/18/21 12/18/21 aerosol inhaler (ProAir HFA) buspirone 10 mg tablet 1 tab PO BID anxiety 12/18/21 12/18/21 empagliflozin 10 mg tablet 1 tab PO QAM 12/18/21 12/18/21 (Jardiance) fluticasone propionate 44 2 puff inhalation BID 12/18/21 12/18/21 mcg/actuation HFA aerosol inhaler (Flovent HFA) metoprolol succinate 25 mg 0.5 tab PO QAM 12/18/21 12/18/21 tablet,extended release 24 hr valacyclovir 1 gram tablet 1,000 mg PO Q12H 05/01/22 Previous Rx's Medication Instructions Recorded acetaminophen 500 mg tablet 500 mg PO Q6H PRN pain or fever 07/16/20 (Tylenol Extra Strength) #20 tabs diclofenac sodium 1 % topical gel 2 g topical QID #100 grams 05/27/21 (Voltaren Arthritis Pain) cyclobenzaprine 5 mg tablet 5 mg PO TID PRN muscle spasm #10 03/03/22 tabs cefuroxime axetil 500 mg tablet 500 mg PO Q12H 7 days #14 tabs 03/22/22 celecoxib 200 mg capsule 200 mg PO BID PRN pain 30 days #60 05/01/22 caps cyclobenzaprine 5 mg tablet 5 mg PO BEDTIME PRN muscle spasm 06/24/22 #4 tabs ketorolac 10 mg tablet 10 mg PO Q6H PRN pain 5 days #20 06/24/22 tabs cyclobenzaprine 5 mg tablet 5 mg PO TID PRN muscle spasm #20 03/09/23 tabs Allergies Allergy/AdvReac Type Severity Reaction Status Date / Time No Known Allergies Allergy Verified 09/07/23 15:45 Review of Systems Constitutional: Constitutional: Reports no additional constitutional complaints, Denies chills, Denies fever(s) and Denies night sweats Eyes: Eyes: Reports no additional eye complaints, Denies blurry vision, Denies change in vision, Denies diplopia, Denies eye discharge, Denies loss of vision and Denies eye pain ENT: Denies dizziness Cardiovascular: Cardiovascular: Reports no additional cardiovascular complaints, Denies chest pain, Denies lightheadedness, Denies Loss of Consciousness and Denies dyspnea Respiratory: Respiratory: Reports no additional respiratory complaints and Denies dyspnea Gastrointestinal: Gastrointestinal: Reports no additional gastrointestinal complaints, Denies abdominal pain, Denies melena, Denies hematochezia, Denies change in bowel habits and Denies change in stool character Genitourinary: Genitourinary: Denies hematuria, Denies urinary frequency, Denies dysuria, Denies urinary incontinence, Denies urinary hesitancy and Denies urinary urgency Musculoskeletal: Musculoskeletal: Reports no additional musculoskeletal complaints, Denies numbness and Denies tingling Comments: chronic right leg pain Neurologic: Denies dizziness, Denies loss of vision, Denies numbness and Denies tingling Psychiatric: Psychiatric: Reports no additional psychiatric complaints Endocrine: Endocrine: Reports no additional endocrine complaints Hematologic/Lymphatic: Hematologic/Lymphatic: Reports no additional hematologic/lymphatic complaints Allergic/Immunologic: Allergic/Immunologic: Reports no additional allergic/immunologic complaints PMFSH Past Medical History Attestation statement: The following information was validated with the patient. Source: old records reviewed and nursing notes reviewed Medical History Contusion of left knee Contusion of right knee COVID Preoperative cardiovascular examination Dental caries Alcoholism Anxiety reaction Muscle spasm of back Mood disorder Elevated cholesterol Arthritis Alcohol dependence Depression Palpitations Asthma Diabetes Hypertension Surgical History Hx of repair of rotator cuff H/O colonoscopy History of 2 sections Social History Social History Alcohol intake: current Alcohol intake frequency: does not drink Alcohol type: hard liquor Patient Tobacco Use Status: Current everyday Tobacco user Cigarettes Per Day: 7 Second Hand Smoke Exposure: No Advance Directives: Yes Advance Directives on File: Yes Advance Directives Date on File: 01/02/22 Current occupational status: disabled 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 Physical Exam ED Vital Signs: Vital Signs - 24 hr 09/07/23 15:42 Temperature 96.3 F L Pulse Rate 66 Respiratory Rate 16 Blood Pressure 131/57 L Pulse Oximetry 97 Oxygen Delivery Method Room Air BMI result Body Mass Index 32.4 Const General: cooperative, no acute distress, alert and awake Nutritional Appearance: well nourished Orientation/consciousness: patient oriented x3 Limitations: no limitations HENMT Head: Yes normal to inspection and Yes atraumatic Ears: hearing grossly normal bilaterally and external ears normal General nose exam: Normal external nose present, no nasal discharge noted and no epistaxis Face and sinus: Yes normal facial exam, No abrasion and No laceration Mouth: Normal oral and palatal mucosa present, no drooling and no muffled voice Eyes General: appearance normal, both eyes and all related structures Periorbital: periorbital findings normal Eyelids: Yes eyelids normal Conjunctivae: conjunctivae normal Pupils: Equal, round and reactive pupils present EOM: EOMs intact bilaterally Neck Neck: Yes normal visual inspection, Yes full ROM and Yes no lymphadenopathy Chest Chest palpation & inspection: normal inspection of the chest Resp Effort & Inspection: normal respiratory effort and able to speak in complete sentences GI Inspection: Yes normal to inspection Neuro General: patient oriented x3 and moves all extremities Cranial nerves: Yes Equal, round and reactive pupils present Cognition (Neuro): normal cognition Motor exam (neuro): 5/5 motor strength present throughout Sensory Exam: Normal double simultaneous stimulation for sensation Coordination: [id number] test normal Extrem General: Yes normal to inspection, Yes full ROM and Yes capillary refill normal Psych Appearance: grossly normal Mental Status: mental status grossly normal Affect: normal affect Attitude: cooperative Thought process: Normal thought process present Thought content: Normal thought content present Insight: Good insight present (Psych) Course Course Course Narrative: RME performed by Debbie Rangel PA-C. Patient is a 58 year old assigned female at presenting to the emergency department with right leg pain. Patient had a right leg US on 08/31/2023 and they recommended her getting a repeat US to confirm no clot. Detailed physical exam and review of systems are deferred to the primary care md. Imaging ordered. Patient placed back in the waiting room pending room availability and results. Medical Decision Making Medical Decision Making MDM Narrative: Patient is a 58 year old assigned female at with a history of DM presenting to the emergency department today for chronic right leg pain and a repeat ultrasound. Patient's physical exam was unremarkable. Patient's RLE US showed no acute process. I explained my physical exam findings as well as all test results to the patient. I answered all questions asked by the patient. I stressed the importance of the patient taking her medication as prescribed. I stressed the importance of the patient following up with her primary care provider. I stressed the importance of the patient returning to the emergency department immediately if her symptoms were to worsen or if she were to develop any dizziness, shortness of breath, difficulty breathing, chest pain, blurry vision, loss of vision, nausea, vomiting, abdominal pain, fever, chills, back pain, or any other complaints. Patient verbalized agreement and understanding with this treatment plan and discharge. Differential Diagnosis Differential Diagnoses: The differential diagnosis associated with the p resentation includes DVT Chronic leg pain Repeat US Admission/Observation Consideration of admission/observation: Escalation of care including admission/observation considered Patient would have been admitted to the hospital had her work up had any findings where hospital admission was appropriate and her clinical presentation warranted hospital admission. Independent Interpretation I performed an independent interpretation of an: Ultrasound Interpretation: My interpretation is in agreement with the radiologist's impression of this imaging study. EXAMINATION: US VENOUS ULTRASOUND WITH DOPPLER LOWER EXTREMITY, RIGHT CLINICAL INFORMATION: Pain and swelling COMPARISON: None available. TECHNIQUE: Ultrasound of the deep veins is performed from the hip to the calf with compression sonography and color and pulse Doppler assessment. Spectral analysis with color-flow imaging is performed. FINDINGS: There is normal venous compression and respiratory variation. The visualized common femoral vein, superficial femoral vein, profunda femoral vein, popliteal vein, and the posterior tibial and peroneal veins shows no evidence of deep venous thrombosis. US/US venous duplex LE RT IMPRESSION: No DVT demonstrated in the right lower extremity. Dictated By: Fatimah Topete MD Signed By: Electronically signed by Fatimah Topete MD 09/07/23 6089 Radiology Impression Discussion of test interpretation with radiology: I have reviewed the radiologist's reading. Discharge Plan Discharge Clinical Impression: Leg pain Patient Disposition: Home, Self-Care Instructions: Leg Pain (ED) Additional Instructions: Follow up with your primary care provider and a vascular surgeon. Return to the emergency department immediately if your symptoms worsen or if you develop any dizziness, shortness of breath, difficulty breathing, chest pain, blurry vision, loss of vision, nausea, vomiting, abdominal pain, fever, chills, back pain, or any other complaints. Jean Claude un seguimiento con alvarado proveedor de atenci?n primaria y un cirujano vascular. Regrese al departamento de emergencias inmediatamente si xuan s?ntomas empeoran o si presenta mareos, dificultad para respirar, dificultad para respirar, dolor en el pecho, visi?n borrosa, p?rdida de la visi?n, n?useas, v?mitos, dolor abdominal, fiebre, escalofr?os, dolor de espalda o cualquier otras quejas. Prescriptions: No Action metformin 500 mg Tablet 1,000 mg PO BID lisinopril 20 mg Tablet 20 mg PO DAILY aspirin 81 mg Tablet 81 mg PO DAILY acetaminophen [Tylenol Extra Strength] 500 mg tablet 500 mg PO Q6H PRN (Reason: pain or fever) Qty: 20 0RF diclofenac sodium [Voltaren Arthritis Pain] 1 % gel 2 g topical QID Qty: 100 0RF Rx Instructions: apply to single elbow, wrist or hand; for hand includes palm/fingers/back of hand buspirone 10 mg tablet 1 tab PO BID Flovent HFA 44 mcg/actuation HFA aerosol inhaler 2 puff inhalation BID metoprolol succinate 25 mg tablet extended release 24 hr 0.5 tab PO QAM albuterol sulfate [ProAir HFA] 90 mcg/actuation HFA aerosol inhaler 2 puff PO Q4-6H PRN (Reason: Wheezing) Jardiance 10 mg tablet 1 tab PO QAM cyclobenzaprine 5 mg tablet 5 mg PO BEDTIME PRN (Reason: muscle spasm) Qty: 4 0RF ketorolac 10 mg tablet 10 mg PO Q6H PRN (Reason: pain) 5 Days Qty: 20 0RF Rx Instructions: 1. Patient rec'd Toradol in the ER 2. Please instruct to stop other NSAIDs cyclobenzaprine 5 mg tablet 5 mg PO TID PRN (Reason: muscle spasm) Qty: 10 0RF cefuroxime axetil 500 mg tablet 500 mg PO Q12H 7 Days Qty: 14 0RF cyclobenzaprine 5 mg tablet 5 mg PO TID PRN (Reason: muscle spasm) Qty: 20 0RF sertraline 100 mg tablet 150 mg PO QAM atorvastatin 20 mg tablet 20 mg PO QAM valacyclovir 1 gram tablet 1,000 mg PO Q12H celecoxib 200 mg capsule 200 mg PO BID PRN (Reason: pain) 30 Days Qty: 60 0RF Referrals: [facility] [place] V[facility] Services [Provider Group] (Call to establish and follow up with a vascular provider. Llame para establecer y realizar un seguimiento con un proveedor vascular.) Yanira Mi MD [Primary Care Provider] - Interventions: ED Discharge Assessment Last Done: 09/07/23 18:00 Discharge Date/Time: 09/07/23 18:01 Print Language: Kinyarwanda
[2023-09-07 15:42] VITALS: BP 131/57; PULSE 66; RESP 16; TEMP 35.7; O2SAT 97; BMI 32.4
== END 2023-09-07 18:01 | disposition home or self-care (01) ==
PROVIDERS: Emergency Provider Emergency Medicine Emergency Medical Services; PCP Family Medicine
DX: M79.661 Pain in right lower leg (principal); F17.210 Nicotine dependence, cigarettes, uncomplicated; E78.00 Pure hypercholesterolemia, unspecified; E11.8 Type 2 diabetes mellitus with unspecified complications; I10 Essential (primary) hypertension; Z79.899 Other long term (current) drug therapy; Z79.84 Long term (current) use of oral hypoglycemic drugs
CPT/HCPCS: 93971; 99282; 99284

== ENCOUNTER 2023-09-24 13:44 | Outpatient (REF) | payer MEDICAID, SELFPAY | END 2023-09-24 13:45 | disposition home or self-care (01) | LOC: HO.MAMMO 13:44 | PROVIDERS: PCP Family Medicine; Visit Provider Family Medicine | DX: Z12.31 Encounter for screening mammogram for malignant neoplasm of breast (principal) | CPT/HCPCS: 77063; 77067 ==

== ENCOUNTER → 2023-09-24 14:00 | Outpatient (BNV) | payer MEDICAID, SELFPAY | PROVIDERS: PCP Family Medicine; Visit Provider Radiology Diagnostic Radiology | DX: Z12.31 Encounter for screening mammogram for malignant neoplasm of breast (principal) | CPT/HCPCS: 77063; 77067 ==

== ENCOUNTER 2023-10-13 13:27 | Outpatient (AMB) | payer MEDICAID, SELFPAY ==
[2023-10-13 13:31] VITALS: BMI 32.4
--- NOTE | 2023-10-13 13:31 | A.OFFVIS_ITS ---
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 Complaints include pain over varicosities, swelling of lower extremities, cramping, fatigue, and heaviness of the lower extremities. It has been affecting there daily activities including walking. It is noted more so in left leg. Patient notes right leg venous ablation by Dr. Marino nearly 14 years Patient denies any history of DVT/ PE. Patient denies any history of phlebitis. Trial of compression includes - [id number] They now present for vascular evaluation regarding their varicose veins. [facility] Medical History Contusion of left knee Contusion of right knee COVID Preoperative cardiovascular examination Dental caries Alcoholism Anxiety reaction Muscle spasm of back Mood disorder Elevated cholesterol Arthritis Alcohol dependence Depression Palpitations Asthma Diabetes Hypertension Surgical History Hx of repair of rotator cuff H/O colonoscopy History of 2 sections Social History Alcohol intake: current Alcohol intake frequency: does not drink Alcohol type: hard liquor Patient Tobacco Use Status: Current everyday Tobacco user Cigarettes Per Day: 7 Second Hand Smoke Exposure: No Advance Directives Date on File: 01/02/22 Current occupational status: disabled 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 Review of Systems Const Reports as per HPI ENT Reports no additional complaints Card Denies chest pain, Denies chest pain at rest and Denies chest pain with activity Resp Denies chest congestion and Denies cough GI Reports no additional complaints Musc Details: pain over varicosities, aching of lower extremities, swelling, cramping, heaviness and tiredness, itching Denies abnormal gait Skin/Breast Reports pruritus and Denies wounds Neuro Reports no additional complaints and Denies abnormal gait Psych Denies no additional complaints Physical Exam Vital Signs: BMI result Body Mass Index 32.4 Const General: cooperative, healthy appearing and comfortable Orientation/consciousness: oriented to person, oriented to place and oriented to time Neck Carotids: no bruits Chest Chest palpation & inspection: normal inspection of the chest and normal palpation of entire chest wall Resp Effort & Inspection: normal respiratory effort and able to speak in complete sentences Cardio Rate: regular rate Heart sounds: S1 normal heart sound present and S2 normal heart sound present Peripheral pulses: Peripheral pulses 2+ throughout GI Inspection: Yes normal to inspection Skin Other: +2 edema, large rope-like varicosities greater than 4 mm left thigh and calf CEAP Classification C4 - skin color changes Ep - Etiology Primary As - superficial veins P - reflux General skin exam: dry skin Neuro General: oriented to person, oriented to place and oriented to time Extrem Right lower extremity: full ROM, normal capillary refill and edema Left lower extremity: full ROM, normal capillary refill and edema Psych Mental Status: mental status grossly normal Results Reviewed Results Reviewed: Brief summary of venous insufficiency testing is as follows: right great saphenous vein: negative right small saphenous vein: negative right accessory vein: none present left great saphenous vein: negative left small saphenous vein: negative left accessory vein: none present Please note there is no evidence of any venous aneurysms or significant tortuosity Assessment & Plan Assessment & Plan (1) Varicose veins of left lower extremity with inflammation: Code(s): I83.12 - Varicose veins of left lower extremity with inflammation Plan: This patient has varicose veins with inflammation. They continue to be a source of discomfort for the patient. The patient has tried conservative treatment with compression, leg elevation and exercise program for over 3 months time. They have been compliant with all treatment. This has provided minimal relief for the patient. I do not anticipate this course of treatment will alter the underlying etiology. The patient has been scheduled for lower extremity venous treatment inclusive of --- left leg microphlebectomy. Risks, benefits, and complications of this procedure has been discussed in detail with the patient including but not limited to bleeding, infection, and the development of a DVT. The patient has demonstrated a clear understanding and has consented. We will schedule the patient as soon as possible. Thank you for allowing us to participate in this patient's care. If there are any questions or concerns please do not hesitate to contact us. Coding Level of Care Code New Pt Level 4 (87966) Diagnoses Varicose veins of left lower extremity with inflammation I83.12
== END 2023-10-13 14:14 | disposition home or self-care (01) ==
PROVIDERS: PCP Family Medicine; Visit Provider Surgery Vascular Surgery
DX: I83.12 Varicose veins of left lower extremity with inflammation (principal)
CPT/HCPCS: 99204

== ENCOUNTER → 2023-10-13 13:27 | Outpatient (BNVA) | payer MEDICAID, SELFPAY | PROVIDERS: PCP Family Medicine; Visit Provider Surgery Vascular Surgery | DX: I83.812 Varicose veins of left lower extremity with pain (principal) | CPT/HCPCS: 99202 ==

== ENCOUNTER 2023-11-03 09:04 | Outpatient (REF) | payer MEDICARE, MEDICAID, SELFPAY ==
[2023-11-03 12:41] LABS: HBS Num1 39.91 mIU/mL (0-7.99); HBc Num1 0.11 S/CO (0.00-0.79); HBsAGNum1 0.26 S/CO (0.00-0.99); HIV AB/AG Nonreactive (Nonreactive); HIV Num 1 0.06 S/CO (0.00-0.99); Hepatitis B Core Antibody Nonreactive (Nonreactive); Hepatitis B Surface Antigen Negative (Negative); ~Hepatitis B Surface Antibody REACTIVE (Nonreactive); ~Hepatitis C Antibody Nonreactive (Nonreactive)
[2023-11-03 12:42] LABS: Syphilis Screen Nonreactive (Nonreactive)
[2023-11-03 13:20] LABS: CT PCR NOT DETECTED (Not Detect.); NG PCR NOT DETECTED (Not Detect.)
== END 2023-11-03 09:05 | disposition home or self-care (01) ==
LOC: HO.HHCL 09:04
PROVIDERS: Visit Provider Family Medicine
DX: Z20.5 Contact with and (suspected) exposure to viral hepatitis (principal); Z11.3 Encounter for screening for infections with a predominantly sexual mode of transmission; Z72.89 Other problems related to lifestyle
CPT/HCPCS: 0353U; 36415; 86704; 86706; 86780; 86803; 87340; 87389

== ENCOUNTER 2023-12-11 10:19 | Outpatient (AMB) | payer OTHER, MEDICAID, SELFPAY ==
[2023-12-11 10:38] VITALS: BMI 32.4
--- NOTE | 2023-12-11 10:38 | A.OFFVIS_ITS ---
Vital Signs 12/11/23 10:38 Height 5 ft 2 in Weight 177 lb BMI 32.4 Intake Visit Reasons: Left LE Micro Accompanied by: Self / Same As Patient Allergies No Known Allergies Allergy (Verified 12/11/23 10:39) PFSH Medical History Contusion of left knee Contusion of right knee COVID Preoperative cardiovascular examination Dental caries Alcoholism Anxiety reaction Muscle spasm of back Mood disorder Elevated cholesterol Arthritis Alcohol dependence Depression Palpitations Asthma Diabetes Hypertension Surgical History Hx of repair of rotator cuff H/O colonoscopy History of 2 sections Social History Alcohol intake: current Alcohol intake frequency: does not drink Alcohol type: hard liquor Patient Tobacco Use Status: Current everyday Tobacco user Cigarettes Per Day: 7 Second Hand Smoke Exposure: No Advance Directives Date on File: 01/02/22 Current occupational status: disabled 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 Varicose veins were marked in the standing position on the left leg and the patient was then placed in the supine position. The left lower extremity was prepared and draped to allow knee flexion in the sterile field. The patient had large superficial varicose veins with significant symptoms of pain. It was therefore determined to perform microphlebectomies of the clusters of varicose veins. The patient had bulging varicose veins which were previously marked in the standing position. A small stab incision was made longitudinally directly overlying the varicose vein in the calf and the varicose vein was grasped with a hemostat aided by a vein hook. It was then dissected as far proximally and distally as possible and avulsed. A total of 10 stab incisions were made and the procedure of stab phlebectomies was repeated 10 times. Hemostasis was checked and stab incision sites were closed with steri-strips and sterile dressing was given with gauze and krilex wrap followed by an bam bandage. There were no complications and blood loss was minimal. Post-Op instr uctions were given and a follow-up appointment was recommended. [id number] - Phleb Veins, Extrem - up to 20 All charges added?: Procedure code (CPT) selection complete Assessment & Plan Assessment & Plan (1) Varicose veins of left lower extremity with inflammation: Comment: 12/11/2023 - left leg microphlebectomy Code(s): I83.12 - Varicose veins of left lower extremity with inflammation Category: Medical Plan: See op note Coding Level of Care Code Procedure Only Diagnoses Varicose veins of left lower extremity with inflammation I83.12 CPT Codes Details - Vascular 5: 73386 - Phleb Veins, Extrem - up to 20 ([id number])
== END 2023-12-11 11:46 | disposition home or self-care (01) ==
PROVIDERS: PCP Family Medicine; Visit Provider Surgery Vascular Surgery
DX: I83.12 Varicose veins of left lower extremity with inflammation (principal)
CPT/HCPCS: 37765

== ENCOUNTER → 2023-12-11 10:19 | Outpatient (BNVA) | payer OTHER, SELFPAY | PROVIDERS: PCP Family Medicine; Visit Provider Surgery Vascular Surgery | DX: I83.12 Varicose veins of left lower extremity with inflammation (principal) | CPT/HCPCS: 37765 ==

== ENCOUNTER 2023-12-24 13:34 | Outpatient (AMB) | payer OTHER, MEDICAID, SELFPAY ==
[2023-12-24 13:36] VITALS: BMI 32.4
--- NOTE | 2023-12-24 13:36 | A.OFFVIS_ITS ---
Vital Signs 12/24/23 13:36 12/24/23 13:39 Height 5 ft 2 in 5 ft 2 in Weight 177 lb 177 lb BMI 32.4 32.4 Intake Visit Reasons: 2 week follow up left leg micro Intake Note: 2 week follow up Left LE MIcro 12/11/23, pt states no pain, has been walking a lot and still has steri strips on today Accompanied by: Self / Same As Patient Allergies No Known Allergies Allergy (Verified 12/24/23 13:43) HPI HPI 2 week follow up left leg micro: Details: Very pleasant 58-year-old female presents for follow-up status post left leg microphlebectomy. Overall reports that the cluster in her left thigh feel signi ficantly better. Pain and discomfort have improved. She now presents for postprocedure follow-up. [facility] Medical History Contusion of left knee Contusion of right knee COVID Preoperative cardiovascular examination Dental caries Alcoholism Anxiety reaction Muscle spasm of back Mood disorder Elevated cholesterol Arthritis Alcohol dependence Depression Palpitations Asthma Diabetes Hypertension Surgical History Hx of repair of rotator cuff H/O colonoscopy History of 2 sections Social History Alcohol intake: current Alcohol intake frequency: does not drink Alcohol type: hard liquor Patient Tobacco Use Status: Current everyday Tobacco user Cigarettes Per Day: 7 Second Hand Smoke Exposure: No Advance Directives Date on File: 01/02/22 Current occupational status: disabled 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 Review of Systems Const All systems reviewed & are unremarkable except as noted in HPI and below Reports no additional complaints ENT Reports Normal hearing present Card Denies chest pain, Denies chest pain at rest, Denies chest pain with activity and Denies pedal edema Resp Denies cough GI Denies abdominal pain Musc Denies abnormal gait, Denies muscle cramps and Denies radiating pain into limb Skin/Breast Denies skin ulcer and Denies wounds Neuro Reports Normal hearing present and Denies abnormal gait Psych Reports no additional complaints Physical Exam Vital Signs: BMI result Body Mass Index 32.4 Const General: cooperative, healthy appearing and comfortable Orientation/consciousness: oriented to person, oriented to place and oriented to time HEENT Head: Yes normal to inspection Neck Neck: Yes normal visual inspection Carotids: no bruits Chest Chest palpation & inspection: normal inspection of the chest Resp Effort & Inspection: normal respiratory effort and able to speak in complete sentences Auscultation: clear to auscultation bilaterally, no crackles, no rales, no rhonchi and no wheezes Cardio Rate: regular rate Rhythm: regular rhythm Heart sounds: S1 normal heart sound present and S2 normal heart sound present Bruits: no carotid bruits Peripheral pulses: Peripheral pulses 2+ throughout GI Inspection: Yes normal to inspection Skin Other: Left thigh incisions well healed Wounds: no wounds Hair: normal Neuro General: oriented to person, oriented to place and oriented to time Cranial nerves: Yes CN's II-XII intact bilaterally and Yes Normal hearing present Cognition (Neuro): normal cognition Motor exam (neuro): 5/5 motor strength present throughout Extrem Other: venous exam: No significant superficial varicosities or spider telangiectasias, minimal edema General: No clubbing, No cyanosis and No edema Psych Appearance: grossly normal Mental Status: mental status grossly normal Speech and movement: Normal speech and movement present Assessment & Plan Assessment & Plan (1) Varicose veins of left lower extremity with inflammation: Comment: 12/11/2023 - left leg microphlebectomy Code(s): I83.12 - Varicose veins of left lower extremity with inflammation Category: Medical Plan: The patient has done extremely well with all venous treatments. Patient's may often experience postprocedure phlebitic episodes and I have discussed with the patient use of warm compresses and NSAIDS if tolerated for pain discomfort. In addition, I have discussed continued conservative measures including use of compression, leg elevation, and exercise. The patient was also given an information sheet regarding appropriate use of compression stockings and future purchases. Thank you for allowing us to care for your patient with venous disease. Coding Level of Care Code Est Pt Level 3 (31787) Diagnoses Varicose veins of left lower extremity with inflammation I83.12
[2023-12-24 13:39] VITALS: BMI 32.4
== END 2023-12-24 13:52 | disposition home or self-care (01) ==
PROVIDERS: PCP Family Medicine; Referring Provider Family Medicine; Visit Provider Surgery Vascular Surgery
DX: I83.12 Varicose veins of left lower extremity with inflammation (principal)
CPT/HCPCS: 99213

== ENCOUNTER → 2023-12-24 13:34 | Outpatient (BNVA) | payer MEDICAID, SELFPAY | PROVIDERS: PCP Family Medicine; Visit Provider Surgery Vascular Surgery | DX: I83.12 Varicose veins of left lower extremity with inflammation (principal) | CPT/HCPCS: 99212 ==

== ENCOUNTER 2024-01-26 16:37 | Outpatient (REF) | payer OTHER, MEDICAID, SELFPAY ==
[2024-01-26 18:18] LABS: Bacterial Vaginosis PCR NEGATIVE (Negative); Candida Group PCR NOT DETECTED (Not Detect); Candida glab krusei PCR NOT DETECTED (Not Detect); Trichomonas vaginalis PCR NOT DETECTED (Not Detect)
== END 2024-01-26 16:38 | disposition home or self-care (01) ==
LOC: HO.HHCLNP 16:37
PROVIDERS: Visit Provider Advanced Practice Midwife
DX: R30.0 Dysuria (principal)
CPT/HCPCS: 0352U; 87086

== ENCOUNTER 2024-02-04 11:53 | Outpatient (REF) | payer OTHER, MEDICAID, SELFPAY ==
[2024-02-04 15:14] LABS: CT PCR NOT DETECTED (Not Detect.); NG PCR NOT DETECTED (Not Detect.)
[2024-02-04 18:22] LABS: Bacterial Vaginosis PCR NEGATIVE (Negative); Candida Group PCR DETECTED (Not Detect); Candida glab krusei PCR DETECTED (Not Detect); Trichomonas vaginalis PCR NOT DETECTED (Not Detect)
== END 2024-02-04 11:54 | disposition home or self-care (01) ==
LOC: HO.HHCLNP 11:53
PROVIDERS: Visit Provider Student in an Organized Health Care Education/Training Program
DX: N89.8 Other specified noninflammatory disorders of vagina (principal)
CPT/HCPCS: 0352U; 87491; 87591

== ENCOUNTER 2024-05-18 13:58 | Outpatient (REF) | payer OTHER, MEDICAID, SELFPAY ==
[2024-05-18 17:00] LABS: Microalbumin Urine < 5.0 mg/L
[2024-05-18 17:01] LABS: Alanine Aminotransferase 52 U/L (0-31); Alkaline Phosphatase 89 U/L (39-117); Anion Gap 16 (12-20); Aspartate Amino Transferase 37 U/L (5-31); Bilirubin Total 0.4 mg/dL (0.0-1.0); Blood Urea Nitrogen 15 mg/dL (9-16); Calcium 10.3 mg/dL (8.4-10.2); Carbon Dioxide 27 mmol/L (22-29); Chloride 105 mmol/L (96-108); Cholesterol 162 mg/dL (<200); Estimated Glomerular Filt Rate > 60; Glucose Random 181 mg/dL (60-115); HDL Cholesterol 42 mg/dL (>40); Potassium 3.9 mmol/L (3.3-5.1); Sodium 144 mmol/L (135-145); Total Protein 7.4 g/dL (6.5-8.0); Triglycerides 472 mg/dL (<150)
[2024-05-18 17:30] LABS: Reflex LDLD? Yes
[2024-05-18 17:31] LABS: Folate 9.8 ng/mL (> or = 4.0); Vitamin B12 1335 pg/mL (200-900)
[2024-05-19 22:44] LABS: LDL Cholesterol Direct 76 mg/dL (<100)
== END 2024-05-18 13:59 | disposition home or self-care (01) ==
LOC: HO.HHCL 13:58
PROVIDERS: Visit Provider Family Medicine
DX: E11.9 Type 2 diabetes mellitus without complications (principal)
CPT/HCPCS: 36415; 80053; 80061; 82570; 82607; 82746; 83721

== ENCOUNTER 2024-06-01 14:29 | Outpatient (REF) | payer OTHER, SELFPAY ==
--- NOTE | ~2024-06-01 | XR_ITS ---
EXAMINATION: XR HAND, RIGHT CLINICAL INFORMATION: PT STATES RIGHT HAND PAIN X 5 DAYS DENIES INJURY. COMPARISON: Right hand radiograph 03/17/2018 TECHNIQUE: PA, lateral, and oblique views of the right hand. FINDINGS: No acute fracture. Negative ulnar variance, as before. Carpal rows and osseous structures in the hand are in anatomic alignment with joint spaces maintained. No erosions or soft tissue calcifications. No radiopaque foreign body. XR/XR hand RT min 3V IMPRESSION: 1. No acute fracture or dislocation. 2. Negative ulnar variance, as before. Electronically signed by: Marielena Garrett DO 06/02/2024 12:24 PM [facility] [place]
== END 2024-06-01 14:30 | disposition home or self-care (01) ==
LOC: HO.HHCX 14:29
PROVIDERS: Visit Provider Student in an Organized Health Care Education/Training Program
DX: M79.641 Pain in right hand (principal)
CPT/HCPCS: 73130

== ENCOUNTER 2024-07-01 13:43 | Outpatient (REF) | payer OTHER, SELFPAY ==
--- NOTE | ~2024-07-01 | CT_ITS ---
EXAMINATION: CT CHEST WITHOUT CONTRAST CLINICAL INFORMATION: Follow-up pulmonary nodules and mediastinal lymphadenopathy. COMPARISON: Prior chest CT examinations, most recently 05/21/2023. TECHNIQUE: Multidetector volumetric CT imaging of the chest was done. Axial MIP volume rendering provided. Sagittal and coronal reformatted images were obtained. This CT examination was performed using dose optimization techniques as appropriate, variously including the following: *Automated exposure control *Adjustment of mA and/or kV according to patient size (this includes techniques or standardized protocols for targeted exams where dose is matched to indication/reason for exam; i.e. extremities or head) *Use of iterative reconstruction technique FINDINGS: ACCOUNT SUPPORT ANALYST: The lungs are symmetrically well-expanded and grossly clear. LUNGS: Medially within the right upper lobe (5:153 and 268), 3 mm and 5 mm noncalcified subpleural nodules are seen. Within the posterior segment of the right upper lobe medially (5:159), a 3 mm noncalcified nodule is seen. At the posterior right base (5:249, 273, 286 and 306), 5 mm, 4 mm, 4 mm and 5 mm subpleural nodules are seen. At the lateral left apex (5:131), a 4 mm noncalcified nodule is seen. Within the apicoposterior segment of the left upper lobe (5:268), a 6 mm noncalcified nodule is seen. In the posterior basal segment of the left lower lobe (5:323), a 5 mm noncalcified nodule is seen. In the lateral basal segment of the left lower lobe (5:365), a 4 mm noncalcified nodule is seen. These nodules are stable from 06/15/2022, and they are considered benign. No new nodule, mass, infiltrate or groundglass opacity is seen. There is no generalized increase in peripheral interlobular septal markings. There is mild mosaic attenuation pattern, most pronounced within the mid and lower lungs bilaterally. No generalized small airway thickening is seen. The central airways appear patent. MEDIASTINUM: The thyroid is unremarkable. A precarinal lymph node is seen, with short axis diameter of 9 mm. There is no sizable mediastinal or hilar lymphadenopathy. No thoracic aortic aneurysm or dissection is seen. There are mild atherosclerotic calcifications of the great vessel origins and thoracic aorta. CORONARY ARTERY CALCIFICATION: None visualized on this study. PLEURA: There is no pleural effusion. No pleural mass or thickening. AXILLA: No lymphadenopathy. UPPER ABDOMEN: Unremarkable. OSSEOUS STRUCTURES: There is multi-level marked thoracolumbar spondylosis, with an appearance suggesting possible DISH (diffuse idiopathic skeletal hyperostosis). No acute or aggressive osseous finding is noted. CT/CT chest wo IV con IMPRESSION: 1. There are benign, stable pulmonary nodules, as detailed. 2. No new nodule, mass, infiltrate or groundglass opacity is seen. 3. There is a mild bilateral mosaic attenuation pattern, which can be associated with obstructive small airways disease. 4. No thoracic lymphadenopathy or pleural effusion is seen. 5. Skeletal findings suggest possible DISH. No aggressive osseous lesion is seen. Fleischner guidelines were followed. Electronically signed by: Duc Palomino MD 08/24/2024 06:41 PM [facility]
== END 2024-07-01 13:44 | disposition home or self-care (01) ==
LOC: HO.CT 13:43
PROVIDERS: PCP Family Medicine; Visit Provider Family Medicine
DX: R91.8 Other nonspecific abnormal finding of lung field (principal)
CPT/HCPCS: 71250

== ENCOUNTER 2024-07-04 14:14 | Emergency (ER) | payer OTHER, SELFPAY ==
--- NOTE | ~2024-07-04 | XR_ITS ---
EXAMINATION: XR HIP, RIGHT CLINICAL INFORMATION: right hip pain COMPARISON: 08/31/2023, 08/24/2023. TECHNIQUE: AP pelvis, AP and frog-leg lateral views of the right hip. FINDINGS: Normal bone mineralization. No fracture, dislocation, or suspicious bone lesion. Normal alignment of the joints. Redemonstration of moderate to severe arthritis in the right greater than left hip joints, unchanged from prior radiographs. No evidence of AVN. Femoral heads normal in contour. Advanced degenerative changes noted in the L4-5 and L5-S1 facet joints. Mild arthritis in the bilateral SI joints. No soft tissue abnormalities. XR/XR hip RT w PEL1V IMPRESSION: 1. No acute findings right hip. 2. 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 Electronically signed by: Tc Zhang MD 07/04/2024 05:01 PM [facility]
--- NOTE | ~2024-07-04 | US_ITS ---
EXAMINATION: US TRIPLEX LOWER EXTREMITY, RIGHT CLINICAL INFORMATION: Calf pain, rule out DVT COMPARISON: Venous Doppler ultrasound September 07, 2023 TECHNIQUE: Color-flow triplex imaging with spectral analysis and compression Doppler were performed on the right lower extremity. FINDINGS: Respiratory variation, normal compression and augmented flow are noted throughout the right lower extremity. The visualized common femoral vein, superficial femoral vein, profunda femoral vein, popliteal vein and midcalf peroneal and posterior tibial venous segments show no evidence of deep venous thrombosis. There is no Cisneros's cyst. US/US venous duplex LE RT IMPRESSION: No evidence of deep venous thrombosis involving the right lower extremity. Electronically signed by: Oliver Verde DO 07/04/2024 04:03 PM CHELO
[2024-07-04 14:40] VITALS: BP 112/61; PULSE 78; RESP 18; TEMP 36.2; O2SAT 98; BMI 31.6
--- NOTE | 2024-07-04 14:46 | ED_ITS ---
HPI - General Adult General Chief complaint: Extremity Injury, Lower Stated complaint: R leg pain Time Seen by Provider: 07/04/24 16:42 Source: patient Mode of arrival: ambulatory Limitations: no limitations History of Present Illness ED Provider: Mitchell Silverio HPI narrative: 59-year-old female past medical history of hypertension, diabetes, asthma depression, sciatica presents to ED for right groin hip pain radiating down right thigh that is worse on movement. Patient states having symptoms for 1 week. Patient denies any recent trauma, abdominal pain, dysuria, hematuria, calf pain, chest pain, or shortness of breath. Related Data Home Medications ?Medication ?Instructions ?Recorded ?Confirmed aspirin 81 mg tablet 81 mg PO DAILY 05/17/20 12/18/21 lisinopril 20 mg tablet 20 mg PO DAILY 05/17/20 12/18/21 metformin 500 mg tablet 1,000 mg PO BID 05/17/20 12/18/21 atorvastatin 20 mg tablet 20 mg PO QAM 10/08/21 12/18/21 sertraline 100 mg tablet 150 mg PO QAM 10/08/21 12/18/21 albuterol sulfate 90 mcg/actuation 2 puff PO Q4-6H PRN Wheezing 12/18/21 12/18/21 aerosol inhaler (ProAir HFA) buspirone 10 mg tablet 1 tab PO BID anxiety 12/18/21 12/18/21 empagliflozin 10 mg tablet 1 tab PO QAM 12/18/21 12/18/21 (Jardiance) fluticasone propionate 44 2 puff inhalation BID 12/18/21 12/18/21 mcg/actuation HFA aerosol inhaler (Flovent HFA) metoprolol succinate 25 mg 0.5 tab PO QAM 12/18/21 12/18/21 tablet,extended release 24 hr valacyclovir 1 gram tablet 1,000 mg PO Q12H 05/01/22 Previous Rx's ?Medication ?Instructions ?Recorded acetaminophen 500 mg tablet 500 mg PO Q6H PRN pain or fever 07/16/20 (Tylenol Extra Strength) #20 tabs diclofenac sodium 1 % topical gel 2 g topical QID #100 grams 05/27/21 (Voltaren Arthritis Pain) cyclobenzaprine 5 mg tablet 5 mg PO TID PRN muscle spasm #10 08/08/22 tabs cefuroxime axetil 500 mg tablet 500 mg PO Q12H 7 days #14 tabs 03/22/22 celecoxib 200 mg capsule 200 mg PO BID PRN pain 30 days #60 05/01/22 caps cyclobenzaprine 5 mg tablet 5 mg PO BEDTIME PRN muscle spasm 06/24/22 #4 tabs ketorolac 10 mg tablet 10 mg PO Q6H PRN pain 5 days #20 06/24/22 tabs cyclobenzaprine 5 mg tablet 5 mg PO TID PRN muscle spasm #20 03/09/23 tabs acetaminophen 325 mg tablet 325 mg PO QID 7 days #28 tabs 07/04/24 (Tylenol) prednisone 20 mg tablet 40 mg (2 x 20 mg) PO DAILY 5 days 07/04/24 #10 tabs Allergies Allergy/AdvReac Type Severity Reaction Status Date / Time No Known Allergies Allergy Verified 07/04/24 14:43 Review of Systems 2 Review of Systems: Right hip pain Yes all other systems are reviewed and are negative [facility] Past Medical History Medical History Contusion of left knee Contusion of right knee COVID Preoperative cardiovascular examination Dental caries Alcoholism Anxiety reaction Muscle spasm of back Mood disorder Elevated cholesterol Arthritis Alcohol dependence Depression Palpitations Asthma Diabetes Hypertension Surgical History Hx of repair of rotator cuff H/O colonoscopy History of 2 sections Social History Social History Alcohol intake: current Alcohol intake frequency: does not drink Alcohol type: hard liquor Patient Tobacco Use Status: Current everyday Tobacco user Cigarettes Per Day: 7 Second Hand Smoke Exposure: No Advance Directives: Yes Advance Directives on File: Yes Advance Directives Date on File: 01/02/22 Do you have a plan to hurt others: No Plan Current occupational status: disabled 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 Physical Exam ED Vital Signs: Vital Signs - 24 hr 07/04/24 14:40 07/04/24 16:47 07/04/24 16:50 Temperature 97.2 F 98.3 F Pulse Rate 78 62 Respiratory Rate 18 16 Blood Pressure 112/61 87/56 L 98/55 L Pulse Oximetry 98 96 Oxygen Delivery Method Room Air Room Air 07/04/24 18:45 Temperature 98.4 F Pulse Rate 75 Respiratory Rate 18 Blood Pressure 98/55 L Pulse Oximetry 97 Oxygen Delivery Method Room Air BMI result Body Mass Index 31.6 Const General: cooperative, healthy appearing, comfortable, no acute distress, well developed, alert, awake and Physically active Orientation/consciousness: patient oriented x3 [facility] Head: Yes normal to inspection, Yes No palpable skull fracture present, Yes normocephalic, Yes atraumatic and No abrasion Eyes General: appearance normal, both eyes and all related structures Neck Neck: Yes normal visual inspection, Yes full ROM, Yes no lymphadenopathy, Yes no meningeal signs, Yes trachea midline, Yes supple, No anterior neck swelling and No tender Chest Chest palpation & inspection: normal inspection of the chest and normal palpation of entire chest wall Resp Effort & Inspection: normal respiratory effort and able to speak in complete sentences Auscultation: clear to auscultation bilaterally Cardio Jugular venous distension: no JVD Heart sounds: S1 normal heart sound present and S2 normal heart sound present GI Inspection: Yes normal to inspection Palpation (GI): Soft to palpation, not firm, nontender, no guarding and not rigid General: No CVA tenderness and Yes no CVA tenderness Back/Spine/Pelvis Back: no CVA tenderness, No CVA tenderness and No back tenderness Skin General skin exam: no rashes or lesions noted, elasticity normal and turgor normal Neuro General: patient oriented x3, gait normal, tone normal, moves all extremities, Normal light touch and pain sensation, no meningeal signs, no focal motor deficits, CN's II-XI intact bilaterally and normal sensation to monofilament Extrem General: Yes normal to inspection, Yes full ROM and Yes capillary refill normal Upper/lower leg/hip images: 2 1. Positive for tenderness on palpation. Negative for ecchymosis, crepitus, deformity, erythema, or palpable cord. Femoral pulse intact. Rest of extremity normal. Motor/neuro/vascular exam intact Psych Appearance: grossly normal, well kempt and not disheveled Course Course Course Narrative: RME: 59-year-old female presents to ED for right anterior thigh and right posterior calf pain for 1 week that is worse on movement. Patient denies any recent trauma or swelling. Patient states no fever chills. Physical exam positive for right anterior thigh and right posterior calf tenderness on palpation. Labs ultrasound x-ray ordered. Medications Administered Discontinued Medications Generic Name Dose Route Start Last Admin Trade Name Amanda PRN Reason Stop Dose Admin Ketorolac Tromethamine 30 mg 07/04/24 17:40 07/04/24 17:50 Ketorolac Tromethamine 30 Mg/Ml Vial IM 07/04/24 17:41 30 mg ONCE ONE Administration Medical Decision Making Medical Decision Making [facility] Narrative: Patient 9-year-old female presents to ED for right hip groin pain radiating down leg with worse on movement without any trauma. Ultrasound negative for DVT.. X-ray shows severe right hip arthritis. Rest of labs normal. Waiting for UA results. 5:39pm: UA clean. Patient discharged with pain medication. Patient explained worrisome signs and informed to return to the ED immediately. Patient explained worrisome signs and informed to return to the ED immediately. Not suspecting compartment syndrome, osteomyelitis, cellulitis, necrotizing fasciitis, arterial occlusion, or any other life-threatening etiology. Differential Diagnosis Differential Diagnoses: The differential diagnosis associated with the presentation includes (DVT, arthritis, UTI) Admission/Observation Consideration of admission/observation: Escalation of care including admission/observation considered Lab Data [facility] Lab Attestation statement: I reviewed the patient's lab results. 07/04/24 15:07 07/04/24 15:07 Labs: Lab Results 07/04/24 07/04/24 07/04/24 Range/Units 15:07 17:02 17:46 WBC 9.9 (4.8-10.8) X10*3/uL RBC 4.67 (4.20-5.50) X10*6/uL Hgb 14.6 (12.0-16.0) g/dl Hct 44.9 (37.0-47.0) % MCV 96.1 (80.0-98.0) fL MCH 31.3 (27.0-33.0) pg MCHC 32.5 (31.0-35.0) g/dl RDW 13.2 (11.0-16.0) % Plt Count 234 (160-400) X10*3/uL MPV 10.9 (9.4-12.3) fL Immature Gran % (Auto) 0.7 H (0.0-0.4) % Neut % (Auto) 56.3 (45-73) % Lymph % (Auto) 34.4 (20-40) % [place] % (Auto) 7.2 (2-11) % Eos % (Auto) 1.0 (0-4) % Baso % (Auto) 0.4 (0-2) % Lymph # (Auto) 3.4 (1.2-4.9) X10*3/uL [place] # (Auto) 0.7 (0.1-1.2) X10*3/uL Eos # (Auto) 0.1 (0.0-0.4) X10*3/uL Baso # (Auto) 0.0 (0.0-0.2) X10*3/uL Abs Immat Gran (auto) 0.07 H (0.00-0.03) X10*3/uL Absolute Neuts (auto) 5.6 (2.0-8.3) x10*3/uL Absolute Nucleated RBC 0.000 (0.0-0.012) X10*3/uL Nucleated RBC % (auto) 0.0 (0.0-0.2) /100WBC PT 10.1 L (10.9-12.4) SEC INR 0.9 (0.9-1.1) APTT 32.3 (26.0-36.8) SEC Sodium 143 (135-145) mmol/L Potassium 3.9 (3.3-5.1) mmol/L Chloride 104 (96-108) mmol/L Carbon Dioxide 29 (22-29) mmol/L Anion Gap 14 (12-20) BUN 16 (9-16) mg/dL Creatinine 1.14 (0.5-1.4) mg/dL Estim Creat Clear Calc 51.5 Estimated GFR 49 POC Glucose 111 (60-115) mg/dL Random Glucose 141 H (60-115) mg/dL Calcium 10.0 (8.4-10.2) mg/dL Total Bilirubin 0.3 (0.0-1.0) mg/dL AST 50 H (5-31) U/L ALT 57 H (0-31) U/L Alkaline Phosphatase 81 (39-117) U/L Total Protein 7.5 (6.5-8.0) g/dL Albumin 4.1 (3.5-5.0) g/dL Urine Color Yellow Urine Appearance Clear Urine pH 5.5 (5.0-9.0) Ur Specific [place] >= 1.030 H (1.005-1.025) Urine Protein Negative (Neg-Trace) mg/dL Urine Glucose (UA) >=1000 H (Negative) mg/dL Urine Ketones Negative (Negative) mg/dL Urine Blood Negative (Negative) Urine Nitrite Negative (Negative) Ur Leukocyte Esterase Negative (Negative) Urine RBC 0-2 (0-2) /HPF Urine WBC 0-5 (0-5) /HPF Ur Squamous Epith Cells 0-2 (0-2) /HPF Urine Bacteria None Seen (None Seen) Hyaline Casts 0-2 (0-2) /LPF Independent Interpretation I performed an independent interpretation of an: Plain X-Ray and Ultrasound Radiology Impression Discussion of test interpretation with radiology: I have reviewed the radiologist's reading. Independent Historian Clinical information obtained from an independent historian. History obtained from or confirmed by: Other ([facility]) External Record Review External record reviewed: Other (prior visit) Prescription Management I considered prescription management with: Pain Medication Discharge Plan Discharge Clinical Impression: Arthritis, Arthritis, hip Patient Disposition: Home, Self-Care Instructions: Osteoarthritis (ED) Additional Instructions: Ultrasound came back negative for blood clot. Your labs were normal. X-ray shows severe right hip arthritis. Recommend follow-up with the primary care provider. Return to the ED immediately for right lower extremity swelling, abdominal pain, nausea, vomiting, dysuria, hematuria, bulging Vass groin, severe hip pain, fever, chills, flank pain, or any other concerning symptoms. XR/XR hip RT w PEL1V IMPRESSION: 1. No acute findings right hip. 2. 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 Electronically signed by: Tc Zhang MD 07/04/2024 05:01 PM EST RP US/US venous duplex LE RT IMPRESSION: No evidence of deep venous thrombosis involving the right lower extremity. Electronically signed by: Oliver Verde DO 07/04/2024 04:03 PM EST RP Prescriptions: New prednisone 20 mg tablet 40 mg PO DAILY 5 Days Qty: 10 0RF acetaminophen [Tylenol] 325 mg tablet 325 mg PO QID 7 Days Qty: 28 0RF No Action metformin 500 mg Tablet 1,000 mg PO BID lisinopril 20 mg Tablet 20 mg PO DAILY aspirin 81 mg Tablet 81 mg PO DAILY acetaminophen [Tylenol Extra Strength] 500 mg tablet 500 mg PO Q6H PRN (Reason: pain or fever) Qty: 20 0RF diclofenac sodium [Voltaren Arthritis Pain] 1 % gel 2 g topical QID Qty: 100 0RF Rx Instructions: apply to single elbow, wrist or hand; for hand includes palm/fingers/back of hand buspirone 10 mg tablet 1 tab PO BID Flovent HFA 44 mcg/actuation HFA aerosol inhaler 2 puff inhalation BID metoprolol succinate 25 mg tablet extended release 24 hr 0.5 tab PO QAM albuterol sulfate [ProAir HFA] 90 mcg/actuation HFA aerosol inhaler 2 puff PO Q4-6H PRN (Reason: Wheezing) Jardiance 10 mg tablet 1 tab PO QAM cyclobenzaprine 5 mg tablet 5 mg PO BEDTIME PRN (Reason: muscle spasm) Qty: 4 0RF ketorolac 10 mg tablet 10 mg PO Q6H PRN (Reason: pain) 5 Days Qty: 20 0RF Rx Instructions: 1. Patient rec'd Toradol in the ER 2. Please instruct to stop other NSAIDs cyclobenzaprine 5 mg tablet 5 mg PO TID PRN (Reason: muscle spasm) Qty: 10 0RF cefuroxime axetil 500 mg tablet 500 mg PO Q12H 7 Days Qty: 14 0RF cyclobenzaprine 5 mg tablet 5 mg PO TID PRN (Reason: muscle spasm) Qty: 20 0RF sertraline 100 mg tablet 150 mg PO QAM atorvastatin 20 mg tablet 20 mg PO QAM valacyclovir 1 gram tablet 1,000 mg PO Q12H celecoxib 200 mg capsule 200 mg PO BID PRN (Reason: pain) 30 Days Qty: 60 0RF Stand Alone Forms: Work/School Release Interventions: ED Discharge Assessment Last Done: 07/04/24 18:45 Discharge Date/Time: 07/04/24 18:45 Print Language: Greek
[2024-07-04 15:11] LABS: MANUAL DIFF FLAG NO
[2024-07-04 15:15] LABS: Basophils Percent Auto 0.4 % (0-2); Eosinophils Absolute Auto 0.1 X10*3/uL (0.0-0.4); Hematocrit 44.9 % (37.0-47.0); Hemoglobin 14.6 g/dl (12.0-16.0); Imm Gran Abs Auto 0.07 X10*3/uL (0.00-0.03); Imm Gran Pct Auto 0.7 % (0.0-0.4); Lymphocytes Absolute Auto 3.4 X10*3/uL (1.2-4.9); Lymphocytes Percent Auto 34.4 % (20-40); Mean Corpuscular HGB Conc 32.5 g/dl (31.0-35.0); Mean Corpuscular Hemoglobin 31.3 pg (27.0-33.0); Mean Corpuscular Volume 96.1 fL (80.0-98.0); Mean Platelet Volume 10.9 fL (9.4-12.3); Monocytes Absolute Auto 0.7 X10*3/uL (0.1-1.2); Monocytes Percent Auto 7.2 % (2-11); Neutrophils Absolute Auto 5.6 x10*3/uL (2.0-8.3); Neutrophils Percent Auto 56.3 % (45-73); Platelet Count 234 X10*3/uL (160-400); Red Blood Count 4.67 X10*6/uL (4.20-5.50); Red Cell Distribution Width 13.2 % (11.0-16.0); White Blood Count 9.9 X10*3/uL (4.8-10.8)
[2024-07-04 15:24] LABS: INTERNATIONAL NORM RATIO 0.9 (0.9-1.1); Prothrombin Time 10.1 SEC (10.9-12.4)
[2024-07-04 15:27] LABS: Partial Thromboplastin Time 32.3 SEC (26.0-36.8)
[2024-07-04 15:30] LABS: Albumin Level 4.1 g/dL (3.5-5.0); Anion Gap 14 (12-20); Aspartate Amino Transferase 50 U/L (5-31); Bilirubin Total 0.3 mg/dL (0.0-1.0); Blood Urea Nitrogen 16 mg/dL (9-16); Carbon Dioxide 29 mmol/L (22-29); Chloride 104 mmol/L (96-108); Creatinine Clr Calc Pharmacy 51.5; Estimated Glomerular Filt Rate 49; Glucose Random 141 mg/dL (60-115); Potassium 3.9 mmol/L (3.3-5.1); Sodium 143 mmol/L (135-145); Total Protein 7.5 g/dL (6.5-8.0)
[2024-07-04 15:46] LABS: Alanine Aminotransferase 57 U/L (0-31); Alkaline Phosphatase 81 U/L (39-117)
[2024-07-04 16:47] VITALS: BP 87/56; PULSE 62; RESP 16; TEMP 36.8; O2SAT 96
[2024-07-04 16:50] VITALS: BP 98/55
[2024-07-04 17:19] LABS: Appearance Urine Clear; Color Urine Yellow; Glucose Urine UA >=1000 mg/dL (Negative); Leukocyte Esterase Urine Negative (Negative); Nitrite Urine Negative (Negative); PH 5.5 (5.0-9.0); Specific Gravity - Urine >= 1.030 (1.005-1.025); UMIC TRIGGER UACC YES; Urine Blood Negative (Negative); Urine Ketones Negative (Negative); Urine Protein Negative (Neg-Trace)
[2024-07-04 17:28] LABS: Bacteria Urine None Seen (None Seen); Hyaline Casts Urine 0-2 /LPF (0-2); RBC Urine 0-2 /HPF (0-2); Squamous Epithelial Cell Urine 0-2 /HPF (0-2); WBC Urine 0-5 /HPF (0-5)
[2024-07-04 17:50] LABS: Glucose, Whole Blood 111 mg/dL (60-115)
[2024-07-04] MEDS: Ketorolac Tromethamine 30 MG/ML VIAL IM (17:50)
[2024-07-04 18:45] VITALS: BP 98/55; PULSE 75; RESP 18; TEMP 36.9; O2SAT 97
== END 2024-07-04 18:45 | disposition home or self-care (01) ==
PROVIDERS: Physician Assistant; Emergency Provider Emergency Medicine Emergency Medical Services; PCP Family Medicine
DX: M16.11 Unilateral primary osteoarthritis, right hip (principal); M79.604 Pain in right leg; R60.0 Localized edema; Z79.899 Other long term (current) drug therapy
CPT/HCPCS: 36415; 73502; 80053; 81001; 82947; 85025; 85610; 85730; 93971; 96372; 99283; 99284; J1885

== ENCOUNTER → 2024-07-04 14:45 | Outpatient (BNV) | payer OTHER, SELFPAY | PROVIDERS: Emergency Provider Emergency Medicine Emergency Medical Services; PCP Family Medicine; Visit Provider Radiology Diagnostic Radiology | DX: M25.551 Pain in right hip (principal); M16.11 Unilateral primary osteoarthritis, right hip | CPT/HCPCS: 73502 ==

== ENCOUNTER → 2024-08-31 09:57 | Outpatient (REF) | payer OTHER, SELFPAY ==
--- NOTE | 2024-08-31 10:00 | HM_ITS ---
Conclusion: 1. Patient was monitored for total period of 2 days 2. Baseline was normal sinus rhythm with average heart of 77 beats per minute 3. No significant pauses noted 4. Frequent mostly isolated PACs noted with total burden of 5.8% 5. No patient reported events MTDD
--- OUTSIDE RECORDS SUMMARY | 2024-08-31 10:47 | XMS_ITS | Encounter Summary ---
Author Organization [employer] [facility] Address [address] 7t [place] [address] Care Team Providers Care System Support Analyst Name Role Phone Yanira Mi MD Primary Care Provider [phone] Encounter Details Date Type Department Care Team (Late st Contact Info) Description 06/13/2022 Abstract [facility] MEDICINE [address] [place], [place] [phone] ProviderShanel MD Social History Tobacco Use Types Packs/Day Years Used Date Smoking Tobacco: Never Assessed Comments Unknown Sex and Gender Information Value Date Recorded Sex Assigned at Female 05/26/2022 10:15 AM EDT Legal Sex Female 10:15 AM EDT Gender Identity Female 05/26/2022 10:15 AM EDT Sexual Orientation Straight 05/26/2022 10 :15 AM EDT documented as of this encounter Plan of Treatment Upcoming Encounters Date Type Department Care Team (Late st Contact Info) Description 12/14/2024 2:00 PM EDT Office Visit [facility] ADULT DENTAL [address] [place], [place] [phone] Darrian, Yari [address] [place] [address] documented as of this encounter Procedures Procedure Name Priority Date/Time Associated Diagnosis Comments PAP/HPV Routine 03/27/2022 MAMMOGRAPHY Routine 09/12/2021 HEMOGLOBIN A1C Routine 08/23/2021 COLONOSCOPY Routine 10/25/2015 documented in this encounter Results * Pap Smear (03/27/2022) Pap smear Performed Historical Provider HEALTH MAINTENANCE Final Result * Mammography (09/12/2021) Mammogram Performed Anatomical Region Laterality Modality Other Historical Provider HEALTH MAINTENANCE Final Result * (ABNORMAL) Hemoglobin A1c (08/23/2021) Pathologist [facility] Hemoglobin A1C 6.6(A) 4.0 - 6.0 % Blood Venous blood specimen / Unknown [facility] Provider LAB BLOOD ORDERABLES Vivi l Result * Colonoscopy (10/25/2015) Pathologist [facility] Colonoscopy Performed [facility] Provider HEALTH MAINTENANCE Edited Result - Final documented in this encounter Visit Diagnoses Not on filedocumented in this encounter Care Teams System Support Analyst Relationship Specialty Start Date End Date Yanira Mi MD [address] [place] [address] PCP - General Family Medicine 07/08/12 Marbella Tobar Transcript EvaluatorPower And Recovery Superintendent 07/29/23 documented as of this encounter
--- OUTSIDE RECORDS SUMMARY | 2024-08-31 10:47 | XMS_ITS | Encounter Summary ---
Author Organization [employer] [facility] Address [address] [place] [address] 7t [place] [address] Care Team Providers Care Bearing Machine Operator Name Role Phone Yanira Mi MD Primary Care Provider [phone] Encounter Details Date Type Department Care Team (Late st Contact Info) Description 06/10/2022 Abstract [facility] MEDICINE [address] [place] [address] ProviderShanel MD Social History Tobacco Use Types [...] Description 12/14/2024 2:00 PM EDT Office Visit [facility] ADULT DENTAL [address] [place] [address] Darrian, Yari [address] [place] [address] documented as of this encounter Visit Diagnoses Not on filedocumented in this encounter Care Teams Bearing Machine Operator Relationship Specialty Start Date End Date Yanira Mi MD [address] [place] [address] PCP - General Family Medicine 07/08/12 Marbella Tobar Coin CollectorFood And Drug Research Scientist 07/29/23 documented as of this encounter
--- OUTSIDE RECORDS SUMMARY | 2024-08-31 10:47 | XMS_ITS | Encounter Summary ---
Author Organization [employer] [facility] Address [address] [facility] 7t [place] [address] Care Team Providers Care Colorist Name Role Phone Yanira Mi MD Primary Care Provider [phone] Encounter Details Date Type Department Care Team (Latest Contact Info) Description 09/01/2019 Abstract [facility] Dental, Provider, DDS Social History Tobacco Use Types Packs/Day Years [...] Description 12/14/2024 2:00 PM EDT Office Visit [facility] ADULT DENTAL [address] [place] [address] Darrian, Yari [address] [place] [address] documented as of this encounter Visit Diagnoses Not on filedocumented in this encounter Care Teams Colorist Relationship Specialty Start Date End Date Yanira Mi MD [address] [place] [address] PCP - General Family Medicine 07/08/12 Marbella Tobar Interlocking And Signal MechanicBench Grinder 07/29/23 documented as of this encounter
--- OUTSIDE RECORDS SUMMARY | 2024-08-31 10:47 | XMS_ITS | Encounter Summary ---
Author Organization [facility] [facility] Address [address] 7t [place] [address] Care Team Providers Care Senior Project Leader/Team Lead Name Role Phone Yanira Mi MD Primary Care Provider [phone] Encounter Details Date Type Department Care Team (Late st Contact Info) Description 06/16/2022 Abstract [facility] MEDICINE [address] [place] [address] Yanira Mi MD [address] [place] [address] Social History Tobacco Use Types Packs/Day Years [...] Description 12/14/2024 2:00 PM EDT Office Visit [facility] ADULT DENTAL [address] [place] [address] Darrian, Yari [address] [place] [address] documented as of this encounter Visit Diagnoses Not on filedocumented in this encounter Care Teams Senior Project Leader/Team Lead Relationship Specialty Start Date End Date Yanira Mi MD [address] [place] [address] PCP - General Family Medicine 07/08/12 Marbella Tobar Forepart ReducerCasing Runner 07/29/23 documented as of this encounter
--- OUTSIDE RECORDS SUMMARY | 2024-08-31 10:47 | XMS_ITS | Encounter Summary ---
Author Organization [employer] [facility] Address [address] [facility] 7t [place] [address] Care Team Providers Care Rn Employee Health Name Role Phone Yanira Mi MD Primary Care Provider [phone] Encounter Details Date Type Department Care Team (Latest Contact Info) Description 09/11/2021 Abstract [facility] Dental, Provider, DDS Social History Tobacco [...] Description 12/14/2024 2:00 PM EDT Office Visit [facility] ADULT DENTAL [address] [place] [address] DarrianFlipYari [address] [place] [address] documented as of this encounter Visit Diagnoses Not on filedocumented in this encounter Care Teams Rn Employee Health Relationship Specialty Start Date End Date Yanira Mi MD [address] [place] [address] PCP - General Family Medicine 07/08/12 Marbella Tobar Bridge Club ManagerHead Operator Sulfide 07/29/23 documented as of this encounter
--- OUTSIDE RECORDS SUMMARY | 2024-08-31 10:47 | XMS_ITS | Encounter Summary ---
Author Organization [employer] [facility] Address [address] [facility] [address] [facility] 7t [place] [address] Care Team Providers Care Boiler Coverer Name Role Phone Yanira Mi MD Primary Care Provider [phone] Encounter Details Date Type Department Care Team (Late st Contact Info) Description 06/16/2022 Abstract [facility] MEDICINE [address] [place] [address] Yanira Mi MD [address] [place] [address] Social History Tobacco Use Types Packs/Day Years [...] Description 12/14/2024 2:00 PM EDT Office Visit [facility] ADULT DENTAL [address] [place] [address] Darrian, Yari [address] [place] [address] documented as of this encounter Visit Diagnoses Not on filedocumented in this encounter Care Teams Boiler Coverer Relationship Specialty Start Date End Date Yanira Mi MD [address] [place] [address] PCP - General Family Medicine 07/08/12 Marbella Tobar Ice Skating InstructorDigital Marketing Executive 07/29/23 documented as of this encounter
--- OUTSIDE RECORDS SUMMARY | 2024-08-31 10:48 | XMS_ITS | Encounter Summary ---
Author Organization [employer] Address [address] 7t [place] [address] Care Team Providers Care Dental Floss Packer Name Role Phone Yanira Mi MD Primary Care Provider [phone] Reason for Visit * Reason Comments Med Refill Encounter Details Date Type Department Care Team (Late st Contact Info) Description 06/09/2024 Refill [facility] MEDICINE [address] [place] [address] Jessica Menjivar, FAROOQ [address] [place] [address] Social History Tobacco Use Types Packs/Day Years Used Date Smoking Tobacco: Every Day Cigarettes Passive Smoke Exposure: Current Smokeless Tobacco: Current Alcohol Use Standard Drinks/Week Comments Not Currently 0 (1 standard drink = 0.6 oz pur e alcohol) Alcohol Answer Date Recorded Frequency of Alcohol Consumption Not on file 05/17/2024 Average Number of Drinks Not on file 024 Frequency of Binge Drinking Not on file 04/27 Score 0 05/17/2024 Depression Answer Date Recorded Patient Health Questionnaire-9 Score 6 05/02/2024 Patient Health Questionnaire-9 Score 6 05/02/2024 Last PHQ-9: Questionnaire Data Not on file 1 Housing Stability Answer Date Recorded What is your housing situation today? I have nito bermudez 05/11/[address] you li ve. Do you have problems with any of the following? None of the above 05/11/2023 Food Insecurity Answer Date Recorded Within the past 12 months, y ou worried that your food would run out before you got money to buy more: Never True 05/11/2023 Within the past 12 months,th e food you bought just didn't last and you didn't have enough money to get more: Never True Transportation Answer Date Recorded In the past 12 months, has l ack of transportation kept you from medical appts, meetings, work or from getting things needed for daily living? No 05/11/2023 Utilities Answer Date Recorded In the past 12 months, has t he electric, gas, oil or water company threatened to shut off services in your home? No 05/11/2023 Depression Answer Date Recorded Patient Health Questionnaire-2 Score 2 05/02/2024 Comments No Sex and Gender Information Value Date Recorded Sex Assigned at Female 05/26/2022 10:15 AM EDT Legal Sex Female 10:15 AM EDT Gender Identity Female 05/26/2022 10:15 AM EDT Sexual Orientation Straight 05/26/2022 10 :15 AM EDT documented as of this encounter Plan of Treatment Upcoming Encounters Date Type Department Care Team (Late st Contact Info) Description 12/14/2024 2:00 PM EDT Office Visit [facility] ADULT DENTAL [address] [place] [address] Darrian, Yari [address] [place] [address] documented as of this encounter Visit Diagnoses Not on filedocumented in this encounter Additional Health Concerns Assessment Noted Time PHQ-9 Depression Total Score: 6 05/02/20 24 8:45 AM EDT documented as of this encounter Care Teams Dental Floss Packer Relationship Specialty Start Date End Date Yanira Mi MD [address] [place] [address] PCP - General Family Medicine 07/08/12 Marbella Tobar MonotyperJd Edwards Consultant 07/29/23 documented as of this encounter
--- OUTSIDE RECORDS SUMMARY | 2024-08-31 10:48 | XMS_ITS | Encounter Summary ---
Author Organization [employer] [facility] Address [address] [facility] 7t [place] [address] Care Team Providers Care Marketing Sales Manager Name Role Phone Yanira Mi MD Primary Care Provider [phone] Encounter Details Date Type Department Care Team (Late st Contact Info) Description 06/26/2022 Orders Only [facility] MEDICINE [address] [place], [place] [phone] Casie Callaway PharmD [address] [place] [address] Social History Tobacco Use Types Packs/Day Years Used Date Smoking Tobacco: Never Assessed PHQ-2 Answer Date Recorded Patient Health Questionnaire-2 Score 2 06/26/2022 Depression Answer Date Recorded Patient Health Questionnaire-2 Score 2 06/26/2022 Comments Unknown Sex and Gender Information Value Date Recorded Sex Assigned at Female 05/26/2022 10:15 AM EDT Legal Sex Female 10:15 AM EDT Gender Identity Female 05/26/2022 10:15 AM EDT Sexual Orientation Straight 05/26/2022 10 :15 AM EDT COVID-19 Exposure Response Date Recorded In the last 10 days, have yo u been in contact with someone who was confirmed or suspected to have Coronavirus/COVID-19? No / Unsure 06/26/2022 9:43 AM EST documented as of this encounter Plan of Treatment Upcoming Encounters Date Type Department Care Team (Late st Contact Info) Description 12/14/2024 2:00 PM EDT Office Visit [facility] ADULT DENTAL [address] [place], [place] [phone] Yari Colmenares [address] [place] [address] documented as of this encounter Procedures Procedure Name Priority Date/Time Associated Diagnosis Comments XR CHEST 2 VIEWS Routine 06/26/2022 1:20 PM EST documented in this encounter Results * XR Chest 2 Views (06/26/2022 1:20 PM EST) Anatomical Region Laterality Modality Chest Radiographic Gayathri ging 06/26/2022 1:20 PM EST Narrative 07/01/2022 8:59 AM EST ? [facility] ?[address] ?[place] [address] ?XRay Report ? Signed ? Patient: Gamble,La ?MR#: [id number] ?? [id number] ? : 1965 ?Acct:[id number] ? Age/Sex: 57 / F ?ADM Date: 06/26/22 ? Loc: HO.XRAY ? Attending Dr: Ilya Mcdaniel MD ? Ordering Physician: Ilya Mcdaniel MD ?? Date of Service: 06/26/22 ?? Procedure(s): XR chest 2V ?? Accession Number(s): [id number] ? cc: Ilya Mcdaniel MD ? EXAMINATION: ?? XR CHEST ? CLINICAL INFORMATION: ?? Cough ? COMPARISON: ?? Chest radiographs 06/09/2021, 07/23/2019 ? TECHNIQUE: ?? 2 views of the chest were obtained. ? FINDINGS: ?? The lungs are clear. There is no airspace consolidation or groundglass ?? opacity or effusion. Heart size normal. Vascularity normal. The hilar ?? and mediastinal contours are unremarkable. No acute bony abnormality. ?? Again, there is dextrocurvature thoracic spine with multilevel ?? degenerative changes. Orthopedic anchors overlying right humeral head. ? XR/XR chest 2V ?? IMPRESSION: ?? Lungs clear. ? Dictated By: ?John Dallas MD ? Signed By: ?<Electronically signed by John Dallas MD in OV> ?07/01/22856 ? DD/ 1320 ? TD/TT: ? Medical Record Transcriber: ROSA ? Procedure Note Cynthia, Image - 07/01/2022 [facility] [address] [place] [address] XRay Report Signed Patient: La GambleMR#: [id number] 631 : 1965Acct:[id number] Age/Sex: 57 / FADM Date: 06/26/22 Loc: HO.XRAY Attending Dr: Ilya Mcdaniel MD Ordering Physician: Ilya Mcdaniel MD Date of Service: 06/26/22 Procedure(s): XR chest 2V Accession Number(s): [id number] cc: Ilya Mcdaniel MD EXAMINATION: XR CHEST CLINICAL INFORMATION: Cough COMPARISON: Chest radiographs 06/09/2021, 07/23/2019 TECHNIQUE: 2 views of the chest were obtained. FINDINGS: The lungs are clear. There is no airspace consolidation or groundglass opacity or effusion. Heart size normal. Vascularity normal. The hilar and mediastinal contours are unremarkable. No acute bony abnormality. Again, there is dextrocurvature thoracic spine with multilevel degenerative changes. Orthopedic anchors overlying right humeral head. XR/XR chest 2V IMPRESSION: Lungs clear. Dictated By: John Dallas MD Signed By: <Electronically signed by John Dallas MD in OV> 07/01/22 0857 DD/ 1320 TD/TT: Medical Record Transcriber: ROSA [facility] External Provider IMG XR PROCEDURES Edited Result - Final documented in this encounter Visit Diagnoses Not on filedocumented in this encounter Care Teams Marketing Sales Manager Relationship Specialty Start Date End Date Yanira Mi MD [address] [place] [address] PCP - General Family Medicine 07/08/12 Marbella Tobar Design Engineer ProductsLibrary Media Specialist 07/29/23 documented as of this encounter
--- OUTSIDE RECORDS SUMMARY | 2024-08-31 10:48 | XMS_ITS | Encounter Summary ---
Author Organization [employer] [facility] Address [address] [place] [address] Care Team Providers Care Freight Unloader Name Role Phone Yanira Mi MD Primary Care Provider [phone] Reason for Visit * Reason Comments Extraction Encounter Details Date Type Department Care Team (Late st Contact Info) Description 08/05/2024 1:30 PM EST Office Visit [facility] ADULT DENTAL [address] [place], [place] [phone] Aiden Tate DDS [address] [place], [place] [phone] Dental caries (Primary Dx) Social History Tobacco Use Types Packs/Day Years [...] AM EDT documented as of this encounter Last Filed Vital Signs Vital Sign Reading Time Taken Comments Blood Pressure 100/50 08/05/2024 1:56 PM EST Pulse - - Temperature - - Respiratory Rate - - Oxygen Saturation - - Inhaled Oxygen Concentration - - Weight - - Height - - Body Mass Index - - documented in this encounter Progress Notes * Aiden Tate DDS - 08/05/2024 1:30 PM EST Pt. Presents for previously planned exo (# 16) However, La decided to reschedule, due to general anxiety today. Pt was dismissed walking in a good spirit . [place] MARYO before Exo # 16 Assistants: Shannan Ochoa and Annalise Tate documented in this encounter Plan of Treatment Upcoming Encounters Date Type Department Care Team (Late st Contact Info) Description 12/14/2024 2:00 PM EDT Office Visit [facility] ADULT DENTAL [address] [place], [place] [phone] Darrian, Yari [address] [place], [place] [phone] documented as of this encounter Procedures Procedure Name Priority Date/Time Associated Diagnosis Comments NO CHARGE VISIT Routine 08/05/2024 1:30 PM EST documented in this encounter Visit Diagnoses Diagnosis Dental caries- Primary Unspecified dental caries documented in this encounter Additional Health Concerns Assessment Noted Time PHQ-9 Depression Total Score: 6 05/02/20 24 8:45 AM EDT documented as of this encounter Care Teams Freight Unloader Relationship Specialty Start Date End Date Yanira Mi MD [address] [place] [address] PCP - General Family Medicine 07/08/12 Marbella Tobar Inspector And UnloaderWarehouse Record Clerk 07/29/23 documented as of this encounter
--- OUTSIDE RECORDS SUMMARY | 2024-08-31 10:48 | XMS_ITS | Encounter Summary ---
Author Organization [employer] Address [address] [place] [address] Care Team Providers Care Shipyard Painter Name Role Phone Yanira Mi MD Primary Care Provider [phone] Encounter Details Date Type Department Care Team (Late st Contact Info) Description 05/19/2024 Orders Only [facility] [address] [place], [place] [phone] Yanira Mi MD [address] [place] [address] Cobalamin deficiency (Primary Dx); Hypertriglyceridemia; Transaminitis Social History Tobacco Use Types Packs/Day Years [...] Description 12/14/2024 2:00 PM EDT Office Visit [facility] ADULT DENTAL [address] [place] [address] Darrian, Yari [address] [place] [address] Scheduled Orders Name Type Priority Associated Diagnoses Orde r Schedule Hepatic Function Panel Lab Routine Transaminitis Expected: 05/19/2024 (Approximate), Expires: 05/19/2025 Hepatitis A Antibody, Total Lab Routine Transaminitis Expected: 05/19/2024 (Approximate), Expires: 05/19/2025 Hepatitis B Core Antibody, Total Lab Routine Transaminitis Expected: 05/19/2024 (Approximate), Expires: 05/19/2025 Hepatitis B Surface Antibody, Qualitative Lab Routine Transaminitis Expected: 05/19/2024 (Approximate), Expires: 05/19/2025 Hepatitis B surface antigen, EIA Lab Routine Transaminitis Expected: 05/19/2024 (Approximate), Expires: 05/19/2025 Hepatitis C Antibody with Reflex to HCV, RNA, Quantitative, Real-Time PCR Lab Routine Transaminitis Expected: 05/19/2024 (Approximate), Expires: 05/19/2025 CBC Lab Routine Transaminitis Expected: 05/19/2024, Expires: 05/19/2025 HIV-1/2 Antigen and Antibodies, Fourth Generation, with Reflexes Lab Routine Transaminitis Expected: 05/19/2024 (Approximate), Expires: 05/19/2025 Lipid Panel with Reflex to Direct LDL Lab Routine Hypertriglyceridemia Expected: 05/19/2024 (Approximate), Expires: 05/19/2025 documented as of this encounter Visit Diagnoses Diagnosis Cobalamin deficiency- Primary Other B-complex deficiencies Hypertriglyceridemia Pure hyperglyceridemia Transaminitis Nonspecific elevation of levels of transaminase or lactic acid dehydrogenase (LDH) documented in this encounter Additional Health Concerns Assessment Noted Time PHQ-9 Depression Total Score: 6 05/02/20 24 8:45 AM EDT documented as of this encounter Care Teams Shipyard Painter Relationship Specialty Start Date End Date Yanira Mi MD [address] [place] [address] PCP - General Family Medicine 07/08/12 Marbella Tobar Stone Carriage OperatorMedical Technologist Hematology 07/29/23 documented as of this encounter
--- OUTSIDE RECORDS SUMMARY | 2024-08-31 10:48 | XMS_ITS | Encounter Summary ---
Author Organization [facility] [facility] Address [address] 7[address] [place] [address] Care Team Providers Care Shipper Name Role Phone Yanira Mi MD Primary Care Provider [phone] Encounter Details Date Type Department Care Team (Late st Contact Info) Description 02/19/2023 Abstract [facility] MEDICINE [address] [place] [address] Yanira Mi MD [address] [place], [place] [phone] Social History Tobacco Use Types Packs/Day Years Used Date Smoking Tobacco: Every Day Cigarettes Passive Smoke Exposure: Current Smokeless Tobacco: Current PHQ-2 Answer Date Recorded Patient Health Questionnaire-2 [...] suspected to have Coronavirus/COVID-19? No / Unsure 01/26/2023 9:23 AM EDT documented as of this encounter Plan of Treatment Upcoming Encounters Date Type Department Care Team (Late st Contact Info) Description 12/14/2024 2:00 PM EDT Office Visit [facility] ADULT DENTAL [address] [place] [address] Yari Colmenares [address] [place] [address] documented as of this encounter Procedures Procedure Name Priority Date/Time Associated Diagnosis Comments HM DIABETES: URINE PROTEIN SCREENING Routine 02/18/2023 documented in this encounter Results * HM Diabetes: Urine Protein Screening (02/18/2023) Microalbumin, Urine 5.0 Creatinine, Random Urine 54.01 Urine Result [facility] HEALTH MAINTENANCE Final Result documented in this encounter Visit Diagnoses Not on filedocumented in this encounter Care Teams Shipper Relationship Specialty Start Date End Date Yanira Mi MD [address] [place] [address] PCP - General Family Medicine 07/08/12 Marbella Tobar Rattlesnake FarmerWoodworking Bench Carpenter 07/29/23 documented as of this encounter
--- OUTSIDE RECORDS SUMMARY | 2024-08-31 10:48 | XMS_ITS | Encounter Summary ---
Author Organization [employer] [facility] Address [address] [facility] [place] [address] Care Team Providers Care Rubber Moulding Machine Operator Name Role Phone Yanira Mi MD Primary Care Provider [phone] Reason for Visit * Reason Comments Med Refill Encounter Details Date Type Department Care Team (Late Contact Info) Description 03/26/2023 Refill [facility] [address] [place], [place] [phone] Yanira Mi MD [address] [place] [address] Social History Tobacco Use Types Packs/Day Years [...] Encounters Date Type Department Care Team (Late Contact Info) Description 12/14/2024 2:00 PM EDT Office Visit [facility] ADULT DENTAL [address] [place] [address] Yari Colmenares [address] [place] [address] documented as of this encounter Visit Diagnoses Not on filedocumented in this encounter Care Teams Rubber Moulding Machine Operator Relationship Specialty Start Date End Date Yanira Mi MD [address] [place] [address] PCP - General Family Medicine 07/08/12 Marbella Tobar Coin TellerHoliday Detector Operator 07/29/23 documented as of this encounter
--- OUTSIDE RECORDS SUMMARY | 2024-08-31 10:48 | XMS_ITS | Encounter Summary ---
Author Organization [employer] Address [address] [facility] [address] [address] [place] [address] Care Team Providers Care Black Oxide Coating Equipment Tender Name Role Phone Yanira Mi MD Primary Care Provider [phone] Encounter Details Date Type Department Care Team (Latest Contact Info) Description 08/22/2024 Travel Social History Tobacco Use Types Packs/Day Years [...] Description 12/14/2024 2:00 PM EDT Office Visit [facility] ADULT DENTAL [address] [place] [address] Flip Colmenaresaris [address] [place] [address] documented as of this encounter Visit Diagnoses Not on filedocumented in this encounter Additional Health Concerns Assessment Noted Time PHQ-9 Depression Total Score: 6 05/02/20 24 8:45 AM EDT documented as of this encounter Care Teams Black Oxide Coating Equipment Tender Relationship Specialty Start Date End Date Yanira Mi MD [address] [place] [address] PCP - General Family Medicine 07/08/12 Marbella Tobar Alterations ExpertWarehouse Assembly Worker 07/29/23 documented as of this encounter
--- OUTSIDE RECORDS SUMMARY | 2024-08-31 10:48 | XMS_ITS | Encounter Summary ---
Author Organization [employer] Address [address] [facility] [address] [place] [address] Care Team Providers Care Putty And Patch Worker Name Role Phone Yanira Mi MD Primary Care Provider [phone] Reason for Visit * Reason Comments Med Refill Encounter Details Date Type Department Care Team (Late st Contact Info) Description 06/09/2024 Refill [facility] [address] [place], [place] [phone] Halima Hernandez ANP [address] [place] [address] Muscle tension pain Social History Tobacco Use Types Packs/Day Years [...] Description 12/14/2024 2:00 PM EDT Office Visit [facility] ADULT D[facility] [address] [place] [address] Darrian, Yari [address] [place] [address] documented as of this encounter Visit Diagnoses Diagnosis Muscle tension pain documented in this encounter Additional Health Concerns Assessment Noted Time PHQ-9 Depression Total Score: 6 05/02/20 24 8:45 AM EDT documented as of this encounter Care Teams Putty And Patch Worker Relationship Specialty Start Date End Date Yanira Mi MD [address] [place] [address] PCP - General Family Medicine 07/08/12 Marbella Tobar Safety DirectorImager 07/29/23 documented as of this encounter
--- OUTSIDE RECORDS SUMMARY | 2024-08-31 10:48 | XMS_ITS | Encounter Summary ---
Author Organization [employer] [facility] Address [address] [facility] [address] [place] [address] Care Team Providers Care Aquatics Director Name Role Phone Yanira Mi MD Primary Care Provider [phone] Reason for Visit * Reason Onset Date Comments Letter required 09/24/2022 Encounter Details Date Type Department Care Team ([facility] st Contact Info) Description 09/24/2022 Telephone [facility] MEDICINE [address] [place], [place] [phone] Yanira Mi MD [address] [place], [place] [phone] Letter required Social History Tobacco Use Types Packs/Day Years [...] suspected to have Coronavirus/COVID-19? No / Unsure 09/11/2022 1:46 PM EST documented as of this encounter Miscellaneous Notes * Telephone Encounter - Rossi Rodriguez - 09/24/2022 1:04 PM EST Tc from [facility] with [facility] requesting a letter for [facility] stating that patient would benefit from their facility regarding to Adult Foster Care. Please contact Karyn for any further information at [phone] documented in this encounter Plan of Treatment Upcoming Encounters Date Type Department Care Team (Late st Contact Info) Description 12/14/2024 2:00 PM EDT Office Visit [facility] ADULT D[facility]AL [address] [place], [place] [phone] Darrian, Yari [address] [place] [address] documented as of this encounter Visit Diagnoses Not on filedocumented in this encounter Care Teams Aquatics Director Relationship Specialty Start Date End Date Yanira Mi MD [address] [place] [address] PCP - General Family Medicine 07/08/12 Marbella Tobar Secure Software AssessorCommunications Technician 07/29/23 documented as of this encounter
--- OUTSIDE RECORDS SUMMARY | 2024-08-31 10:48 | XMS_ITS | Clinical Summary ---
Author Organization [facility] Address [address] [place] [address] Care Team Providers Care Seafood Specialist Name Role Phone Yanira Mi MD Primary Care Provider [phone] Allergies No known active allergies Medications * This document contains information received from the source organization and may not represent a complete record from that organization. Blood Glucose Monitoring Suppl (FreeStyle Lite) w/Device kit 1 each in the morning. 1 kit 11 023 Active Mometasone Furoate (Asmanex HFA) 100 MCG/ACT aerosol INHALE 1 PUFF TWICE DAILY. RINSE MOUTH AFTER USING. 39 g 3 024 Active cyclobenzaprine (Flexeril) 5 MG tabletIndication s:Muscle tension pain 1 tab up to TID as needed for muscle spasm/pain 30 tablet 024 Active Additional Information Patient not taking.Reported on 08/05/2024 Aspirin Adult Low Strength 81 MG EC tablet TAKE 1 TABLET BY MOUTH EVERY MORNING 90 tablet 3 024 Active Acetaminophen Extra Strength 500 MG tabletIndication s:Pain TAKE 1 TO 2 TABLETS BY MOUTH EVERY 6 TO 8 HOURS NEEDED. DO NOT EXCEED 8 TABLETS IN 24 HOURS. 90 tablet 2 024 Active Jardiance 10 MG TAKE 1 TABLET BY MOUTH EVERY MORNING 30 tablet 11 024 Active FREESTYLE LITE test stripIndications :Type 2 diabetes mellitus without complication, without long-term current use of insulin ([facility]) TEST BLOOD SUGAR THREE TIMES DAILY 100 strip 5 024 Active atorvastatin (Lipitor) 20 MG tablet TAKE 1 TABLET BY MOUTH EVERY MORNING 90 tablet 3 024 Active cholecalciferol (Vitamin D High Potency) 25 MCG (1000 UT) capsule TAKE 1 CAPSULE BY MOUTH EVERY MORNING 90 capsule 3 024 Active cyanocobalamin (Vitamin B-12) 250 MCG tabletIndication s:Cobalamin deficiency Take 1 tablet (250 mcg) by mouth in the morning. 90 tablet 3 024 Active Alcohol Swabs (Alcohol Prep) 70 % padsIndications: Type 2 diabetes mellitus without complications (CMS/HCC) USE DIRECTED 100 each 11 024 Active fluticasone (Flonase Allergy Relief) 50 MCG/ACT nasal spray Administer 1-2 sprays into affected nostril(s) at bed time. 022 Active TRUEplus Lancets 33G miscIndications: Type 2 diabetes mellitus without complications (CMS/HCC) TEST BLOOD SUGAR TWICE DAILY 100 each 11 024 Active ammonium lactate (Lac-Hydrin) 12 % lotion Apply topically if needed for dry skin. 225 g 2 024 Active albuterol 108 (90 Base) MCG/ACT inhalerIndicatio ns:COPD exacerbation ([facility]) Inhale 2 puffs every 4 (four) hours if needed for wheezing or shortness of breath. 18 g 1 024 Active sertraline (Zoloft) 100 MG tabletIndication s:Anxiety TAKE 1 AND 1/2 TABLETS BY MOUTH IN THE MORNING 45 tablet 3 024 Active metoprolol succinate XL (Toprol-XL) 25 MG 24 hr tabletIndication s:Primary hypertension TAKE 1/2 TABLET BY MOUTH EVERY MORNING 45 tablet 3 025 Active metFORMIN XR (Glucophage-XR) 500 MG 24 hr tabletIndication s:Hypertension associated with diabetes (CMS/HCC) (CMS/HCC) TAKE 2 TABLETS BY MOUTH TWICE DAILY IN THE MORNING AND EVENING 360 tablet 3 025 Active celecoxib (CeleBREX) 200 MG capsule Take 1 capsule (200 mg) by mouth at bedtime. 30 capsule 2 025 Active loratadine (Claritin) 10 MG tabletIndication s:Moderate persistent asthma with acute exacerbation TAKE 1 TABLET BY MOUTH EVERY MORNING 90 tablet 3 025 Active lisinopril 20 MG tabletIndication s:Hypertension associated with diabetes (CMS/HCC) (CMS/HCC) TAKE 1 TABLET BY MOUTH EVERY MORNING 90 tablet 3 025 Active loratadine (Claritin) 10 MG tabletIndication s:Moderate persistent asthma with acute exacerbation TAKE 1 TABLET BY MOUTH EVERY MORNING 90 tablet 3 024 2024 Discontinued lisinopril 20 MG tabletIndication s:Hypertension associated with diabetes (CMS/[facility]) ([facility]) TAKE 1 TABLET BY MOUTH EVERY MORNING 90 tablet 3 024 2024 Discontinued hydrocortisone 1 % ointment Apply sparingly to affected area twice a day for 3 days 28 g 024 2024 Discontinued(M ed list cleanup (will not trigger notification to Pharmacy)) Diclofenac Sodium 1 % gelIndications:M uscle strain of right thigh, initial encounter Apply thin layer by topical route (quantity as directed on package insert) to affected area of pain 3 times daily as needed. 50 g 3 024 2024 Discontinued(M ed list cleanup (will not trigger notification to Pharmacy)) Active Problems Problem Noted Date Diagnosed Date Abrasion of knee 06/28/2024 Accident due to mechanical fall without injury 1 08/29/2023 Adhesive capsulitis of right shoulder 06/28/2024 Alcoholism 06/28/2024 Carpal tunnel syndrome 06/28/2024 Cellulitis 06/28/2024 Cocaine dependence, episodic 06/28/2024 Contusion of left knee 06/28/2024 Contusion of right knee 06/28/2024 COVID 06/28/2024 Dental caries 06/28/2024 Epistaxis 06/28/2024 History of 2 sections 06/28/2024 Insect bite 06/28/2024 Muscle spasm of back 06/28/2024 Osteoarthritis 06/28/2024 PAC (premature atrial contraction) 06/28/2024 Assessment & Plan (08/28/2024 12:32 PM EST): - evaluate with Holter monitor - in a setting of albuterol use, smoking, and occasional cocaine use Preoperative cardiovascular examination 06/28/20 24 Puncture wound of foot, left 06/28/2024 Spinal stenosis of lumbar region with radiculopa thy 06/28/2024 Strain of lumbar region 06/28/2024 Tendinitis of right rotator cuff 06/28/2024 Rotator cuff tear 06/28/2024 PTSD (post-traumatic stress disorder) 04/13/2024 Dental calculus 11/12/2023 Periodontal disease 11/12/2023 Generalized gingival recession 11/12/2023 Dyslipidemia 08/13/2023 Assessment & Plan (08/22/2024 3:08 PM EST): Last lipid profile: 06/02/23 total cholesterol 156; triglyceride 288; HDL 44; LDL 55 Current medication: Atorvastatin 20 mg at bedtime Continue working on lifestyle modifications Assessment & Plan (02/09/2024 5:59 PM EDT): Last lipid profile: 06/02/23 total cholesterol 156; triglyceride 288; HDL 44; LDL 55 Current medication: Atorvastatin 20 mg at bedtime Continue working on lifestyle modifications Assessment & Plan (11/10/2023 10:52 AM EDT): Last lipid profile: 06/02/23 total cholesterol 156; triglyceride 288; HDL 44; LDL 55 Current medication: Atorvastatin 20 mg at bedtime Continue working on lifestyle modifications Assessment & Plan (08/13/2023 5:57 AM EST): Last lipid profile: 06/02/23 total cholesterol 156; triglyceride 288; HDL 44; LDL 55 Current medication: Atorvastatin 20 mg at bedtime Continue working on lifestyle modifications Right hip pain 08/13/2023 Assessment & Plan (08/28/2024 12:37 PM EST): - X-ray in Jun 2024 showed moderate-severe osteoarthritis - judicious use of GARDUNO-2 inhibitor for severe pain - judicious josué of APAP for milder pain - continue staying physically active as tolerated Assessment & Plan (08/14/2023 5:55 PM EST): - check X-ray - continue staying physically active as tolerated Right thigh pain 08/13/2023 Assessment & Plan (08/14/2023 5:54 PM EST): - check X-ray - ?inguinal lympadenopathy Varicose veins of both lower extremities with pa in 08/13/2023 Assessment & Plan (02/09/2024 5:58 PM EDT): - 08/31/23 venous study 1. Nonvisualized great saphenous vein at the right mid thigh to the knee, likely from prior treatment. 2. Prolonged reflux of the below-knee great saphenous vein. 3. Focal prolonged reflux of the left great saphenous vein at the mid calf. 4. Prolonged reflux of right proximal calf varicose vein. - leg elevation, DASH diet, compression stocking - following with vascular specialist, last seen in September 2023, tentative schedule for left microphlebectomy Assessment & Plan (11/10/2023 10:58 AM EDT): - 08/31/23 venous study 1. Nonvisualized great saphenous vein at the right mid thigh to the knee, likely from prior treatment. 2. Prolonged reflux of the below-knee great saphenous vein. 3. Focal prolonged reflux of the left great saphenous vein at the mid calf. 4. Prolonged reflux of right proximal calf varicose vein. - leg elevation, DASH diet, compression stocking - following with vascular specialist, last seen in September 2023, tentative schedule for left microphlebectomy Assessment & Plan (08/14/2023 5:51 PM EST): - patient reports pain - leg elevation, DASH diet, compression stocking - refer to vascular specialist Genital sore 06/16/2023 Assessment & Plan (06/16/2023 3:08 PM EST): Pt here with c/o recurrence of right sided genital sore. Tells me she catties a diagnosis of genital herpes. Exam suggestive of genital herpes Plan: Viral Cx obtained since I see no evidence of confirmatory test. Will also test for other STIs Syphilis, GC and Chlamydia, HIV and Hep C A course of Valtrex x 7 days sent. Pt reports she has episodes perhaps once every 4 months so no need for suppressive therapy at the moment Sexually active with same partner for years Follow up with PCP Moderate episode of recurrent major depressive d isorder 05/14/2023 DIANE (generalized anxiety disorder) 05/14/2023 Assessment & Plan (05/15/2023 1:47 PM EDT): La reports anhedonia, depression, sleep disturbance, feeling tiered, poor appetite, guilt, trouble concentrating, moving and speaking slowly. She also reports, feeling anxious, not being able to control worries, worrying a lot of different things, troule relaxing, restlessness, irritability, and fearfulness. La originally declined medication. After providing education on medication, La is open to attempt medication. I will be referring to Kavon Reza. PHQ9: 13 GAD7: 17 At this time La Gamble meets criteria for Visit Diagnoses: Problem List Items Addressed This Visit Other Substance use disorder Moderate episode of recurrent major depressive disorder (CMS/HCC) DIANE (generalized anxiety disorder) Patient ready to address current needs Yes Strengths include Willingness to engage, identifies triggers, boundary setting. PLAN: 1. Follow up with [facility]: Recommended for follow-up: 1 month 2. Patient goal is manage symptoms 3. Behavioral Recommendations a. Referral to Kavon Philip/sylvia prior to 06/11 if needed c. Continue attending -Care Scalp lesion 11/17/2022 Assessment & Plan (11/17/2022 11:42 AM EDT): Appears benign -However, since it is growing in size we will refer her to Dr. Mansfield for examination and treatment Nonintractable episodic headache 11/17/2022 Assessment & Plan (11/17/2022 11:42 AM EDT): Mild -likely not related to scalp lesion -continue tylenol, prn Chronic right shoulder pain 10/26/2022 Assessment & Plan (08/22/2024 3:08 PM EST): - s/p right rotator cuff repair on 01/21/22 Assessment & Plan (10/26/2022 7:01 AM EDT): - s/p right rotator cuff repair on 01/21/22 Chronic pain of both knees 10/26/2022 Assessment & Plan (02/09/2024 5:58 PM EDT): - following with [facility] - last seen on 03/24/23, received steroid injection - right side is worse than left side - continue judicious use of analgesics Assessment & Plan (08/14/2023 5:55 PM EST): - following with [facility] - last seen on 03/24/23, received steroid injection - right side is worse than left side - continue judicious use of analgesics Assessment & Plan (05/09/2023 4:21 PM EDT): - following with [facility] - last seen on 03/24/23, received steroid injection - right side is worse than left side - continue judicious use of analgesics Assessment & Plan (02/21/2023 5:34 PM EDT): - right more painful than left - previously seen by [facility] - received steroid injection - she declines a referral for another steroid injection or physical therapy - home exercise program - upcoming appt with ortho due to recent fall injury Assessment & Plan (10/26/2022 7:03 AM EDT): - right more painful than left - previously seen by [facility] - received steroid injection - she declines a referral for another steroid injection or physical therapy - home exercise program Chronic bilateral low back pain with bilateral s ciatica 07/01/2022 Overview (07/01/2022): -followed by [facility] paint tinter -MRI on 05/29/22 -Continue PT and following up with specialist -Continue cyclobenzaprine, APAP Right foot pain 07/01/2022 Overview (11/17/2022): Following with [employer] Supervisor Assessment & Plan (11/17/2022 11:34 AM EDT): -Evaluate with X-Ray -Consider diabetic footwear -been referred to section weaver Callus of foot 07/01/2022 Overview (07/01/2022): -Refer to section weaver. Assessment & Plan (10/26/2022 6:58 AM EDT): - referred to a section weaver, but will refer to another section weaver whose office is more accessible EVELIA (obstructive sleep apnea) 07/01/2022 Assessment & Plan (11/01/2023 7:15 PM EDT): -sleep study on 05/07/22 recommended AutoPAP 8-16 cm H2O with heated humidifier. -Her CPAP/APAP was taken away because she was not using it; however, she did not know how to use it. -We have requested CPAP supplier to give her a thorough instruction how to use it; patient states she has not received it yet -We will check its status Assessment & Plan (08/14/2023 5:50 PM EST): -sleep study on 05/07/22 recommended AutoPAP 8-16 cm H2O with heated humidifier. -Her CPAP/APAP was taken away because she was not using it; however, she did not know how to use it. -We have requested CPAP supplier to give her a thorough instruction how to use it; patient states she has not received it yet -We will check its status Assessment & Plan (05/09/2023 4:19 PM EDT): -sleep study on 05/07/22 recommended AutoPAP 8-16 cm H2O with heated humidifier. -Her CPAP/APAP was taken away because she was not using it; however, she did not know how to use it. Will request CPAP supplier to give her a teaching Assessment & Plan (02/21/2023 5:31 PM EDT): -sleep study on 05/07/22 recommended AutoPAP 8-16 cm H2O with heated humidifier. -Her CPAP/APAP was taken away because she was not using it; however, she did not know how to use it. Will request CPAP supplier to give her a teaching Assessment & Plan (10/21/2022 6:09 AM EDT): -sleep study on 05/07/22 recommended AutoPAP 8-16 cm H2O with heated humidifier. Scripts written. Still waiting for supply -Check the status of AutoPAP. Vaginal candidiasis 06/30/2022 Assessment & Plan (02/09/2024 5:58 PM EDT): - recurrent - on empagliflozin for DM2 - low threshold to treat for presumptive vaginal candidiasis - last treatment in July 2022 - UA today suggestive of no UTI; pt also reports no vaginal itchiness or discharge - encourage adequate fluid intake and glycemic control Assessment & Plan (10/26/2022 6:57 AM EDT): - recurrent - on empagliflozin for DM2 - low threshold to treat for presumptive vaginal candidiasis - last treatment in July 2022 - UA today suggestive of no UTI; pt also reports no vaginal itchiness or discharge - encourage adequate fluid intake and glycemic control Obesity 06/13/2022 History of repair of rotator cuff 06/13/2022 Type 2 diabetes mellitus without complication Assessment & Plan (08/28/2024 12:36 PM EST): -HgbA1C 7.8% on 08/22/24, - recently received prednisone for right hip arthritis pain -receiving prednisone for COPD exacerbation 3-4 times per year and steroid injection by orthopedist 2-3 times per year. -Continue metformin 2 g qAM -Continue Jardiacne 10 mg daily, patient is having frequent vaginal candidiasis which may be a side effect of jardiance, patient is also having hyperglycemia lately, patient agreed to improve her diet -Continue working on lifestyle modifications -Continue self-monitoring blood glucose -Last eye exam Mar 2022 per patient, upcoming appointment on 05/24/24 -Last foot exam October 2023 -Last microalbumin test 05/18/24 no microalbuminuria -Last lipid profile on 05/18/24 total cholesterol 156; triglyceride 288; HDL 44; LDL 55 -Follow-up in 3-4 mo Assessment & Plan (05/22/2024 4:57 PM EDT): -HgbA1C 7.6% on 05/17/24 -receiving prednisone for COPD exacerbation 3-4 times per year and steroid injection by orthopedist 2-3 times per year. -Continue metformin 2 g qAM -Continue Jardiacne 10 mg daily, patient is having frequent vaginal candidiasis which may be a side effect of jardiance, patient is also having hyperglycemia lately, patient agreed to improve her diet -Continue working on lifestyle modifications -Continue self-monitoring blood glucose -Last eye exam Mar 2022 per patient, upcoming appointment on 05/24/24 -Last foot exam October 2023 -Last microalbumin test 06/02/23 no microalbuminuria -Last lipid profile on 06/02/23 total cholesterol 156; triglyceride 288; HDL 44; LDL 55 -Follow-up in 3-4 mo Assessment & Plan (02/09/2024 5:39 PM EDT): -HgbA1C 7.6% on 02/09/24 receiving prednisone for COPD exacerbation 3-4 times per year and steroid injection by orthopedist 2-3 times per year. -Continue metformin 2 g qAM -Continue Jardiacne 10 mg daily, patient is having frequent vaginal candidiasis which may be a side effect of jardiance, patient is also having hyperglycemia lately, patient agreed to improve her diet -Continue working on lifestyle modifications -Continue self-monitoring blood glucose -Last eye exam Mar 2022 per pt -Last foot exam October 2023 -Last microalbumin test 06/02/23 no microalbuminuria -Last lipid profile on 06/02/23 total cholesterol 156; triglyceride 288; HDL 44; LDL 55 -Follow-up in 3-4 mo Assessment & Plan (11/10/2023 10:51 AM EDT): -HgbA1C 6.8% on 11/02/23, 7.1% on 08/13/23, stable, receiving prednisone for COPD exacerbation 3-4 times per year and steroid injection by orthopedist 2-3 times per year. -Continue metformin 2 g qAM -Continue Jardiacne 10 mg daily -Continue working on lifestyle modifications -Continue self-monitoring blood glucose -Last eye exam Mar 2022 per pt -Last foot exam October 2023 -Last microalbumin test 06/02/23 no microalbuminuria -Last lipid profile on 06/02/23 total cholesterol 156; triglyceride 288; HDL 44; LDL 55 -Follow-up in 3-4 mo Assessment & Plan (08/14/2023 5:56 PM EST): ?? HgbA1C 7.1% on 08/13/23, stable from 7.%1 05/07/23, receiving prednisone for COPD exacerbation 3-4 times per year and steroid injection by orthopedist 2-3 times per year. ?? Continue metformin 2 g qAM ?? Continue Jardiacne 10 mg daily ?? Continue working on lifestyle modifications ?? Continue self-monitoring blood glucose ?? Last eye exam Mar 2022 per pt ?? Last foot exam Jul 2023 ?? Last microalbumin test 06/02/23 no microalbuminuria ?? Last lipid profile on 06/02/23 total cholesterol 156; triglyceride 288; HDL 44; LDL 55 ?? Follow-up in 3 mo Assessment & Plan (05/09/2023 4:23 PM EDT): ?? HgbA1C 7.1% on 05/07/23, receiving prednisone for COPD exacerbation 3-4 times per year and steroid injection by orthopedist 2-3 times per year. ?? Continue metformin 2 g qAM ?? Continue Jardiacne 10 mg daily ?? Continue working on lifestyle modifications ?? Continue self-monitoring blood glucose ?? Last eye exam Mar 2022 per pt ?? Last foot exam January 2023 ?? Last microalbumin test UACR 8 on 06/14/21 ?? Last lipid profile on 10/22/22 TC 146; TG 192; HDL 48; LDL 72 ?? Follow-up in 3 mo Assessment & Plan (02/21/2023 5:37 PM EDT): ?? HgbA1C 7.4% on 02/17/23, receiving prednisone for COPD exacerbation 3-4 times per year. ?? Continue metformin 2 g qAM ?? Continue Jardiacne 10 mg daily ?? Continue working on lifestyle modifications ?? Continue self-monitoring blood glucose ?? Last eye exam Mar 2022 per pt ?? Last foot exam January 2023 ?? Last microalbumin test UACR 8 on 06/14/21 ?? Last lipid profile on 10/22/22 TC 146; TG 192; HDL 48; LDL 72 ?? Follow-up in 3 mo Assessment & Plan (11/17/2022 11:33 AM EDT): ?? HgbA1C 7.5% on 10/21/22, trending upwards, received prednisone 2 weeks ago ?? Continue metformin 2 g qAM ?? Continue Jardiacne 10 mg daily ?? Continue working on lifestyle modifications ?? Continue self-monitoring blood glucose ?? Last eye exam Mar 2022 per pt ?? Last foot exam November 2021 ?? Last microalbumin test UACR 8 on 06/14/21 ?? Last lipid profile on 06/14/21 ?? Follow-up in 3 mo Assessment & Plan (10/26/2022 7:00 AM EDT): ?? HgbA1C 7.5% on 10/21/22, trending upwards, received prednisone 2 weeks ago ?? Continue metformin 2 g qAM ?? Continue Jardiacne 10 mg daily ?? Continue working on lifestyle modifications ?? Continue self-monitoring blood glucose ?? Last eye exam Mar 2022 per pt ?? Last foot exam November 2021 ?? Last microalbumin test UACR 8 on 06/14/21 ?? Last lipid profile on 06/14/21 ?? Follow-up in 3 mo Assessment & Plan (07/01/2022 10:04 AM EST): ?? HgbA1C 7.1% on 03/17/22 ?? Continue metformin 2 g qAM ?? Continue Jardiacne 10 mg daily ?? Continue working on lifestyle modifications ?? Last eye exam Mar 2022 per pt ?? Last foot exam November 2021 ?? Last microalbumin test UACR 8 on 06/14/21 ?? Last lipid profile on 06/14/21 ?? Follow-up in 3 mo Hypertriglyceridemia 06/02/2017 Assessment & Plan (08/14/2023 5:59 PM EST): 06/02/23 total cholesterol 156; triglyceride 288; HDL 44; LDL 55 Current medication: Atorvastatin 20 mg at bedtime Continue working on lifestyle modifications Vitamin D deficiency 01/13/2017 Substance use disorder 12/20/2015 Tobacco dependence 12/20/2015 Assessment & Plan (08/22/2024 3:09 PM EST): Encouraged to keep up with smoking cessation Assessment & Plan (02/09/2024 5:58 PM EDT): Encouraged to keep up with smoking cessation Assessment & Plan (08/14/2023 5:57 PM EST): Encouraged to keep up with smoking cessation Assessment & Plan (05/09/2023 4:25 PM EDT): Encouraged to keep up with smoking cessation Assessment & Plan (11/17/2022 11:31 AM EDT): Encouraged to keep up with smoking cessation Recurrent herpes simplex 01/09/2015 Assessment & Plan (02/09/2024 5:40 PM EDT): - most recent outbreak in May 2023 - frequency q1-2 months - continue episodic valacyclovir treatment - tried suppression therapy with valacyclovir 500 mg daily; patient developed constipation and we agreed to resume episodic treatment Assessment & Plan (08/14/2023 5:57 PM EST): - most recent outbreak in May 2023 - frequency q1-2 months - continue episodic valacyclovir treatment - start suppression therapy with valacyclovir 500 mg daily; may need to increase to 1000 mg daily Assessment & Plan (05/09/2023 4:24 PM EDT): - most recent outbreak in Mar 2023 - continue episodic valacyclovir treatment - consider suppressive therapy when it becomes more frequent Asthma with COPD 10/10/2014 Assessment & Plan (08/22/2024 3:07 PM EST): - most recent exacerbation in December 2022, Rx azithromycin, prednisone - COVID 19 in December 2022 - last PFT in 2014, mild restrictive disease, equivocal for obstructive airway disease - last imagin05/18/23 1. Multiple stable lung nodules. 2. Centrilobular emphysema. 3. Stable mediastinal lymphadenopathy. 4. Left adrenal gland adenoma. 5. Degenerative spondylosis in lower thoracic spine. - change fluticasone inhaler to mometasone 100 mcg bid - continue albuterol inhaler prn - stop smoking Assessment & Plan (05/22/2024 4:54 PM EDT): - most recent exacerbation in December 2022, Rx azithromycin, prednisone - COVID 19 in December 2022 - last PFT in 2013, mild restrictive disease, equivocal for obstructive airway disease - last imagin05/18/23 1. Multiple stable lung nodules. 2. Centrilobular emphysema. 3. Stable mediastinal lymphadenopathy. 4. Left adrenal gland adenoma. 5. Degenerative spondylosis in lower thoracic spine. - change fluticasone inhaler to mometasone 100 mcg bid - continue albuterol inhaler prn - stop smoking Assessment & Plan (02/09/2024 5:58 PM EDT): - most recent exacerbation in December 2022, Rx azithromycin, prednisone - COVID 19 in December 2022 - last PFT in 2013, mild restrictive disease, equivocal for obstructive airway disease - last imagin05/18/23 1. Multiple stable lung nodules. 2. Centrilobular emphysema. 3. Stable mediastinal lymphadenopathy. 4. Left adrenal gland adenoma. 5. Degenerative spondylosis in lower thoracic spine. - change fluticasone inhaler to mometasone 100 mcg bid - continue albuterol inhaler prn - stop smoking Assessment & Plan (11/10/2023 10:49 AM EDT): - most recent exacerbation in December 2022, Rx azithromycin, prednisone - COVID 19 in December 2022 - last PFT in 2014, mild restrictive disease, equivocal for obstructive airway disease - last imagin05/18/23 1. Multiple stable lung nodules. 2. Centrilobular emphysema. 3. Stable mediastinal lymphadenopathy. 4. Left adrenal gland adenoma. 5. Degenerative spondylosis in lower thoracic spine. - change fluticasone inhaler to mometasone 100 mcg bid - continue albuterol inhaler prn - stop smoking Assessment & Plan (08/14/2023 5:51 PM EST): - most recent exacerbation in December 2022, Rx azithromycin, prednisone - COVID 19 in December 2022 - last PFT in 2013, mild restrictive disease, equivocal for obstructive airway disease - last imagin05/18/23 1. Multiple stable lung nodules. 2. Centrilobular emphysema. 3. Stable mediastinal lymphadenopathy. 4. Left adrenal gland adenoma. 5. Degenerative spondylosis in lower thoracic spine. - change fluticasone inhaler to mometasone 100 mcg bid - continue albuterol inhaler prn - stop smoking Assessment & Plan (05/09/2023 4:20 PM EDT): - most recent exacerbation in December 2022, Rx azithromycin, prednisone - COVID 19 in December 2022 - last PFT in 2013, mild restrictive disease, equivocal for obstructive airway disease - continue Flovent 110 mcg bid - continue albuterol inhaler prn - stop smoking Assessment & Plan (02/21/2023 5:32 PM EDT): - most recent exacerbation in December 2022, Rx azithromycin, prednisone - COVID 19 in December 2022 - last PFT in 2013, mild restrictive disease, equivocal for obstructive airway disease - continue Flovent 110 mcg bid - continue albuterol inhaler prn - stop smoking Assessment & Plan (10/26/2022 6:54 AM EDT): - last PFT in 2013, mild restrictive disease, equivocal for obstructive airway disease - continue Flovent 110 mcg bid - continue albuterol inhaler prn - stop smoking Assessment & Plan (06/26/2022 10:29 AM EST): Pt here with c/o dry non productive cough x 1 day, thinks had mild cough Hypertension 04/28/2013 Assessment & Plan (08/22/2024 3:07 PM EST): -Goal BP < 140/90 per JNC-8 and < 130/80 per ACC/AHA guideline (Treatment threshold >= 130/80 ) - BP at goal today -Continue working on lifestyle modifications -Recommended self-monitoring BP. -Continue current medications: lisinopril 20 mg daily; metoprolol succinate 25 mg daily -Treatment Hx: -Follow up in 3-6 mo, sooner if any problem arises Assessment & Plan (05/22/2024 4:54 PM EDT): -Goal BP < 140/90 per JNC-8 and < 130/80 per ACC/AHA guideline (Treatment threshold >= 130/80 ) - BP at goal today -Continue working on lifestyle modifications -Recommended self-monitoring BP. -Continue current medications: lisinopril 20 mg daily; metoprolol succinate 25 mg daily -Treatment Hx: -Follow up in 3-6 mo, sooner if any problem arises Assessment & Plan (02/09/2024 5:37 PM EDT): -Goal BP < 140/90 per JNC-8 and < 130/80 per ACC/AHA guideline (Treatment threshold >= 130/80 ) - BP at goal today -Continue working on lifestyle modifications -Recommended self-monitoring BP. -Continue current medications: lisinopril 20 mg daily; metoprolol succinate 25 mg daily -Treatment Hx: -Follow up in 3-6 mo, sooner if any problem arises Assessment & Plan (11/10/2023 10:49 AM EDT): -Goal BP < 140/90 per JNC-8 and < 130/80 per ACC/AHA guideline (Treatment threshold >= 130/80 ) - BP at goal today -Continue working on lifestyle modifications -Recommended self-monitoring BP. -Continue current medications: lisinopril 20 mg daily; metoprolol succinate 25 mg daily -Treatment Hx: -Follow up in 3-6 mo, sooner if any problem arises Assessment & Plan (08/13/2023 5:45 AM EST): -Goal BP < 140/90 per JNC-8 and < 130/80 per ACC/AHA guideline (Treatment threshold >= 130/80 ) - BP at goal today -Continue working on lifestyle modifications -Recommended self-monitoring BP. -Continue current medications: lisinopril 20 mg daily; metoprolol succinate 25 mg daily -Treatment Hx: -Follow up in 3-6 mo, sooner if any problem arises Assessment & Plan (05/09/2023 4:20 PM EDT): -Goal BP < 140/90 per JNC-8 and < 130/80 per ACC/AHA guideline (Treatment threshold >= 130/80 ) - BP at goal today -Continue working on lifestyle modifications -Recommended self-monitoring BP. -Continue current medications: lisinopril 20 mg daily; metoprolol succinate 25 mg daily -Treatment Hx: -Follow up in 3-6 mo, sooner if any problem arises Assessment & Plan (02/21/2023 5:33 PM EDT): -Goal BP < 140/90 per JNC-8 and < 130/80 per ACC/AHA guideline (Treatment threshold >= 130/80 ) - BP at goal today -Continue working on lifestyle modifications -Recommended self-monitoring BP. -Continue current medications: lisinopril 20 mg daily; metoprolol succinate 25 mg daily -Treatment Hx: -Follow up in 3-6 mo, sooner if any problem arises Assessment & Plan (11/17/2022 11:31 AM EDT): -Goal BP < 140/90 per JNC-8 and < 130/80 per ACC/AHA guideline (Treatment threshold >= 130/80 ) - BP at goal today -Continue working on lifestyle modifications -Recommended self-monitoring BP. -Continue current medications: lisinopril 20 mg daily; metoprolol succinate 25 mg daily -Treatment Hx: -Follow up in 3-6 mo, sooner if any problem arises Assessment & Plan (10/26/2022 6:54 AM EDT): -Goal BP < 140/90 per JNC-8 and < 130/80 per ACC/AHA guideline (Treatment threshold >= 130/80 ) - BP at goal today -Continue working on lifestyle modifications -Recommended self-monitoring BP. -Continue current medications: lisinopril 20 mg daily; metoprolol succinate 25 mg daily -Treatment Hx: -Follow up in 3-6 mo, sooner if any problem arises Uterine leiomyoma 10/05/2012 Constipation 06/04/2012 Pulmonary nodules 04/12/2012 Assessment & Plan (08/28/2024 12:32 PM EST): -Most recent CT scan on 05/18/23 shwoed multiple stable nodule -CT scan on 07/01/24, pending result -Continue working on risk fator management Assessment & Plan (05/22/2024 4:54 PM EDT): -Most recent CT scan on 05/18/23 shwoed multiple stable nodule -Repeat in 1 year -Continue working on risk fator management Assessment & Plan (02/09/2024 5:58 PM EDT): -Most recent CT scan on 05/18/23 shwoed multiple stable nodule -Repeat in 1 year -Continue working on risk fator management Assessment & Plan (08/13/2023 5:48 AM EST): -Most recent CT scan on 05/18/23 shwoed multiple stable nodule -Repeat in 1 year -Continue working on risk fator management Assessment & Plan (05/09/2023 4:19 PM EDT): -Most recent CT scan on 05/28/22 shwoed stable nodule -Repeat in 1 year -Continue working on risk fator management Assessment & Plan (02/21/2023 5:31 PM EDT): -Most recent CT scan on 05/28/22 shwoed stable nodule -Repeat in 1 year -Continue working on risk fator management Assessment & Plan (10/21/2022 6:07 AM EDT): -Most recent CT scan on 05/28/22 shwoed stable nodule -Repeat in 1 year -Continue working on risk fator management Cobalamin deficiency 12/15/2011 Resolved Problems Problem Noted Date Diagnosed Date Resolved Date Arthritis 06/28/2024 08/21/2024 Influenza 06/26/2022 10/26/2022 Assessment & Plan (06/26/2022 12:33 PM EST): Pt with c/o new onset of cough, had fever yesterday. On exams mild wheezing. Rapid flu test POSITIVE Plan: Supportive measures, Tamiflu x 5 days, Prednisone taper, continue inhalers F/u with PCP as needed Acute back pain with sciatica 06/13/2022 02/21/2023 Pruritus of vagina 06/13/2022 Depressive disorder 09/02/2013 05/14/20 Assessment & Plan (05/09/2023 4:27 PM EDT): - previously seeing [facility] provider - continue sertraline - continue V-care Anxiety 04/12/2012 05/14/2023 Encounters * This document contains information received from the source organization and may not represent a complete record from that organization. Date Type Department Care Team Description 08/26/2024 Telephone [facility] [address] [place] [address] Ynaira Mi MD 08/25/2024 Refill [facility] [address] [place] [phone] Yanira Mi MD Moderate persistent asthma with acute exacerbation; Hypertension associated with diabetes (CMS/HCC) (CMS/HCC) 08/22/2024 3:15 PM EST Office Visit [facility] [address] [place] [phone] Yanira Mi MD Pulmonary nodules (Primary Dx); Asthma with COPD (CMS/HCC); PAC (premature atrial contraction); Primary hypertension; Adhesive capsulitis of right shoulder; Tendinitis of right rotator cuff; Tear of right rotator cuff, unspecified tear extent, unspecified whether traumatic; Chronic right shoulder pain; Type 2 diabetes mellitus without complication, without long-term current use of insulin (CMS/HCC); Dyslipidemia; History of repair of rotator cuff; Moderate episode of recurrent major depressive disorder (CMS/HCC); PTSD (post-traumatic stress disorder); Tobacco dependence; Premature beats; Right hip pain; Right thigh pain 08/22/2024 Travel 08/05/2024 1:30 PM EST Office Visit [facility] [address] [place] [address] Aiden Tate DDS Dental caries (Primary Dx) 07/28/2024 Refill [facility] [address] [facility] [place] [address] Yanira Mi MD Primary hypertension; Hypertension associated with diabetes (CMS/HCC) ([facility]) 07/24/2024 Refill [facility] [address] [facility] [place] [address] Yanira Mi MD Anxiety 07/04/2024 Orders Only GENERIC EXTERNAL DATA DEPARTMENT Provider, Generic External Data 06/29/2024 Patient Outreach [facility] [address] [facility] [place] [address] Aiden Medina 06/28/2024 5:20 PM EST Office Visit [facility] [address] [place] [address] Xiomara Robles MD Muscle strain of right thigh, initial encounter (Primary Dx) 06/21/2024 Patient Outreach [facility] [address] [place] [phone] Ramone Stewart 06/15/2024 1:00 PM EST Office Visit [facility] [address] [place] [address] Yari Colmenares Advanced periodontitis (Primary Dx); Dental calculus; Periodontal disease; Generalized gingival recession 06/15/2024 9:00 AM EST Office Visit [facility] [address] [place] [phone] Ralph Jaeger MD Substance use disorder (Primary Dx) 06/15/2024 Travel 06/13/2024 Patient Outreach [facility] [address] [place] [phone] Isaak Ni 06/13/2024 Patient Outreach [facility] [address] [place] [phone] Ramone Stewart 06/09/2024 Refill [facility] [address] [place] [address] Yanira Mi MD 06/09/2024 Refill [facility] [address] [place] [address] Yanira Mi MD Type 2 diabetes mellitus without complications ([facility]); COPD exacerbation (CMS/[facility]) 06/09/2024 Refill [facility] [address] [place] [address] Jessica Menjivar, CNM 06/09/2024 Refill [facility] [address] [place] [phone] Alisha Ko, TAX CREDIT LEASING CONSULTANT 06/09/2024 Refill [facility] [address] [place] [phone] Halima Hernandez ANP Muscle tension pain 06/09/2024 Patient Outreach [address] [address] Isaak Ni 06/08/2024 9:00 AM EST Office Visit [address] [address] Ralph Jaeger MD Substance use disorder (Primary Dx) 06/08/2024 Travel 06/06/[address] [address] Yanira Mi MD Type 2 diabetes mellitus without complications ([facility]) 06/06/2024 Patient Outreach [address] [address] Ramone Stewart 06/02/2024 Patient Outreach [address] [address] Ramone Stewart 06/01/2024 2:40 PM EST Office Visit [facility] [address] [address] Aleta Franklin MD Right hand pain (Primary Dx) 06/01/2024 9:00 AM EST Office Visit [address] [address] Ralph Jaeger MD Substance use disorder (Primary Dx) 06/01/2024 Orders Only [facility] [address], [place] [phone] Aleta Franklin MD 06/01/2024 Travel 05/31/2024 Patient Outreach [address] [phone] Aiden Medina from Last 3 Months Immunizations Name Administration Dates Next Due Hep A, Adult 11/02/2023 Hep B, adult 03/06/2009,10/25/2008,09/07/2008 Influenza Injectable Quadriv alant Preservative Free IIV4 MDCK 04/30/2022 Influenza injectable quadriv alent IIV4 with preservative 04/08/2019,07/23/2017,04/18/2015 Influenza injectable quadriv alent preservative free 05/11/2023,04/20/2020,05/26/2018,07/17 Influenza, IIV3, injectable 06/14/2014, 1 Influenza, Split (incl. rahat fied surface antigen) 04/28/2013,04/12/2012 Influenza, seasonal, injecta ble, preservative free 05/17/2024 MMR 12/23/1989,03/24/1979 Moderna Covid-19 Vaccine 12+ 12/02/2021, 07/23/2021,10/23/2020,09/25 Moderna Covid-19 Vaccine 6+ Bivalent 07/22/2022 Pfizer Covid-19 Vaccine 12+ 05/11/2023 Pneumococcal Conjugate PCV 20 12/01/2022 Pneumococcal Polysaccharide PPSV23 06/12/2013,,12/03/2006 TD (adult), 2 Lf tetanus tox oid, preservative free, adsorbed 11/29/2006 Td (adult), 5 Lf tetanus tox oid, preservative free, adsorbed 08/17/2012 Tdap 10/08/2020,10/05/2012 Zoster, Recombinant 03/20/2021,01/01/2021 Family History Medical History Relation Name Comments Breast cancer Sister Relation Name Status Comments Sister Social History Tobacco Use Types Packs/Day Years Used Date Smoking Tobacco: Every Day Cigarettes Passive Smoke Exposure: Current Smokeless Tobacco: Current Tobacco Cessation:Ready to Q uit: Not Asked; Counseling Given: Not Answered Alcohol Use Standard Drinks/Week Comments Not Currently [...] Orientation Straight 05/26/2022 10 :15 AM EDT Last Filed Vital Signs Vital Sign Reading Time Taken Comments Blood Pressure 128/70 08/22/2024 2:25 PM EST Pulse 58 08/22/2024 2:25 PM EST Temperature 36.7 ??C (98.1 ??F) 08/22/2024 2:25 PM ES T Respiratory Rate 12 08/22/2024 2:25 PM EST Oxygen Saturation 98% 06/28/2024 4:58 PM EST Inhaled Oxygen Concentration - - Weight 79.8 kg (176 lb) 08/22/2024 2:25 PM EST Height 157.5 cm (5' 2 ) 06/28/2024 4:58 PM EST Body Mass Index 32.19 06/28/2024 4:58 PM EST Plan of Treatment Upcoming Encounters Date Type Department Care Team (Late st Contact Info) Description 12/14/2024 2:00 PM EDT Office Visit [facility] [address] [place] [address] Flip Colmenaresaris [address] [place] [address] Health Maintenance Due Date Last Done Comments CT Colonography 1965 FIT DNA/Cologuard 1965 FIT 1965 FOBT 1965 Sigmoidoscopy 1965 Eye Exam 1975 COVID-19 Vaccine ( season) 2024 05/11/2023, 07/22/2022, 12/02/2021, Additional history exists Hepatitis A Vaccines (2 of 2 - Risk 2-dose series) 05/03/2024 11/02/2023 Mammogram 09/23/2024 09/24/2023, 08/28, 09/12/2021, Additional history exists SDOH Screening 10/21/2024 10/22/2023 Diabetes: Foot Exam 11/01/2024 11/02/2023, 11/02/2023, 11/02/2023, Additional history exists Diabetes: Hemoglobin A1C 11/20/2024 025, 05/17/2024, 02/09/2024, Additional history exists Dental Oral Exam 12/14/2024 06/15/2024, , 05/22/2022, Additional history exists Dental Prophylaxis 12/14/2024 06/15/2024, 0 11/12/2023, 05/22/2022, Additional history exists Depression Screening 05/02/2025 05/02/2024, 05/02/20 24 Alcohol/Substance Use Screening 05/17/2025 05/17/2024 Diabetes: Urine Protein Screening 05/18/2025 05/18/2024, 02/18/2023, 02/18/2023, Additional history exists Lipid Panel 05/18/2025 05/18/2024, 04/27, 06/02/2023, Additional history exists Dental X-Ray: Bitewings 06/16/2025 06/15/20 24, 11/12/2023, 09/11/2021, Additional history exists Tobacco Screening 08/05/2025 08/05/2024 Colonoscopy 10/24/2025 10/25/2015 Colorectal Cancer Screening 10/24/2025 Dental X-Ray: Full Mouth 11/12/2026 024, 09/01/2019, 05/06/2011, Additional history exists Cervical Cancer Screening 03/27/2027 HPV/Cotest 03/27/2027 03/27/2022, 04/07/2017 Pap Smear 03/27/2027 03/27/2022, 03/27/2022 DTaP/Tdap/Td Vaccines (3 - Td or Tdap) 10/08/2030 10/08/2020, 10/05/2012, 08/17/2012, Additional history exists RSV Patients and Patients Aged 60 years or older (1 - 1-dose 75+ series) 02/16/2040 Hepatitis B Vaccines Completed 03/06/2009, 10/25/2008, 09/07/2008 Zoster Vaccines Completed 03/20/2021, 01/01/2021 Pneumococcal Vaccine: 50+ Years Completed 12/01/2022, 06/12/2013, 10/05/2012, Additional history exists HIV Screening Completed 11/03/2023, 05/28, 05/09/2022 Hepatitis C Screening Completed 11/03/2023 , 06/16/2023, 05/09/2022 Influenza Vaccine Completed 05/17/2024, , 04/30/2022, Additional history exists HIB Vaccines Aged Out No longer eligi ble based on patient's age to complete this topic HPV Vaccines Aged Out No longer eligi ble based on patient's age to complete this topic IPV Vaccines Aged Out No longer eligi ble based on patient's age to complete this topic Meningococcal Vaccine Aged Out No lakeisha william eligible based on patient's age to complete this topic RSV under 20 months Aged Out No longe r eligible based on patient's age to complete this topic Rotavirus Vaccines Aged Out No longer eligible based on patient's age to complete this topic Procedures Procedure Name Priority Date/Time Associated Diagnosis Comments POCT GLYCOSYLATED HEMOGLOBIN (HGB A1C) Routine 08/22/2024 2:29 PM EST Type 2 diabetes mellitus without complication, without long-term current use of insulin ([facility]) POCT GLUCOSE Routine 08/22/2024 2:28 PM EST Type 2 diabetes mellitus without complication, without long-term current use of insulin ([facility]) NO CHARGE VISIT Routine 08/05/2024 1:30 PM EST GLUCOSE, WHOLE BLOOD Routine 07/04/2024 5:46 PM EST URINALYSIS, COMPLETE, WITH REFLEX TO CULTURE Routine 07/04/2024 5:02 PM EST XR HIP RIGHT WITH PELVIS 1 VIEW Routine 07/04/2024 4:09 PM EST US VENOUS DUPLEX LE RT Routine 3:20 PM EST COMPREHENSIVE METABOLIC PANEL Routine 07/04/2024 3:07 PM EST APTT Routine 07/04/2024 3:07 PM EST PROTHROMBIN TIME-INR Routine 07/04/2024 3:07 PM EST CBC WITH AUTO DIFFERENTIAL Routine 07/04/2024 3:[address] CHEST WO CONTRAST Routine 07/01/2024 1:55 PM EST Pulmonary nodules PERIODIC ORAL EVALUATION - ESTABLISHED PATIENT Routine 06/15/2024 1:00 PM EST ADJUNCTIVE GENERAL SERVICES - PROFESSIONAL VISITS - CASE PRESENTATION, SUBSEQUENT TO DETAILED AND EXTENSIVE TREATMENT PLANNING Routine 06/15/2024 1:00 PM EST Advanced periodontitis Dental calculus Periodontal disease Generalized gingival recession INTRAORAL - PERIAPICAL FIRST RADIOGRAPHIC IMAGE Routine 06/15/2024 1:00 PM EST Advanced periodontitis Dental calculus Periodontal disease Generalized gingival recession BITEWINGS - 4 RADIOGRAPHIC IMAGES Routine 06/15/2024 1:00 PM EST Advanced periodontitis Dental calculus Periodontal disease Generalized gingival recession ORAL HYGIENE INSTRUCTIONS Routine 06/15/2024 1:00 PM EST Advanced periodontitis Dental calculus Periodontal disease Generalized gingival recession TOPICAL APPLICATION OF FLUORIDE VARNISH Routine 06/15/2024 1:00 PM EST Advanced periodontitis Dental calculus Periodontal disease Generalized gingival recession PROPHYLAXIS - ADULT Routine 06/15/2024 1 :00 PM EST Dental calculus Periodontal disease XR HAND 3+ VIEWS RIGHT Routine 2:31 PM EST ALBUMIN, RANDOM URINE W/CREATININE Routine 05/18/2024 2:00 PM EDT Type 2 diabetes mellitus without complication, without long-term current use of insulin ([facility]/HCC) LIPID PANEL WITH REFLEX TO DIRECT LDL Routine 05/18/2024 2:00 PM EDT Type 2 diabetes mellitus without complication, without long-term current use of insulin ([facility]) DIAGNOSTIC - DIAGNOSTIC IMAGING - INTRAORAL - COMPREHENSIVE SERIES OF RADIOGRAPHIC IMAGES Routine 11/12/2023 2:00 PM EDT Dental calculus Periodontal disease Generalized gingival recession HEPATITIS C AB W/REFL TO HCV RNA, QN, PCR Routine 11/03/2023 9:10 AM EDT Routine screening for STI (sexually transmitted infection) HIV 1/2 ANTIGEN/ANTIBODY, FOURTH GENERATION W/RFL Routine 11/03/2023 9:10 AM EDT Routine screening for STI (sexually transmitted infection) BI MAMMOGRAM SCREENING TOMOSYNTHESIS BILATERAL Routine 09/24/2023 2:20 PM EST THINPREP IMAGING PAP AND HPV MRNA E6/E7, WITH CT/NG, TRICHOMONAS Routine 03/27/2022 10:59 AM EDT HM PAP/HPV Routine 03/27/2022 HM COLONOSCOPY Routine 10/25/2015 from Last 3 Months or Most Recently Relevant to Health Maintenance Results * (ABNORMAL) POCT glycosylated hemoglobin (Hgb A1c) (08/22/2024 2:29 PM EST) Hemoglobin A1C 7.8(A) 4.0 - 6.0 % QC Media Lot # [id number] Lot# Expiration Date Blood Capillary blood specimen / Unknown 08/22/2024 2:29 PM EST Yanira Mi MD POINT OF CARE TEST ENTER/EDIT OR DERABLES Final Result * POCT glucose manually resulted (08/22/2024 2:28 PM EST) Glucose Blood, POC 123 60 - 200 mg/dL QC Media Lot # [id number] Lot# Expiration Date Blood Capillary blood specimen / Unknown 08/22/2024 2:28 PM EST Yanira Mi MD POINT OF CARE TEST ENTER/EDIT OR DERABLES Final Result * Glucose, Whole Blood (07/04/2024 5:46 PM EST) Glucose, Whole Blood 111 60 - 115 mg/dL [facility] Comment:METER #: [id number] 07/04/2024 5:46 PM EST 07/04/2024 5:49 PM EST Generic External Data Provider LAB BLOOD ORDERAB LES Final Result [facility] [address] [place] [address] [phone] * (ABNORMAL) Urinalysis, Complete, with Reflex to Culture (07/04/2024 5:02 PM EST) Color Urine Yellow [facility] Appearance Urine Clear [facility] PH 5.5 5.0 - 9.0 [facility] Glucose Urine UA >=1000(A) Negative mg/dL [facility] Urine Blood Negative Negative [facility] Specific [place] - Urine >=1.030(H) 1.005 - 1.025 [facility] Urine Protein Negative Neg-Trace mg/dL [facility] Urine Ketones Negative Negative mg/dL [facility] Nitrite Urine Negative Negative [facility] Leukocyte Esterase Urine Negative Negative [facility] RBC Urine 0-2 0 - 2 /HPF [facility] Urine WBC 0-5 0 - 5 /HPF [facility] Urine Squamous Epithelial Cell 0-2 0 - 2 /HPF [facility] Urine Bacteria None Seen None Seen [facility] Hyaline Casts, Urine 0-2 0 - 2 /LPF [facility] 07/04/2024 5:0 2 PM EST 07/04/2024 5:07 PM EST Narrative [facility] - 07/04/2024 5:32 PM EST [id number], [employer] us Generic External Data Provider LAB URINE ORDERAB LES Final Result [facility] [address] [place] [address] [phone] * XR Hip right with Pelvis 1 view (07/04/2024 4:09 PM EST) Anatomical Region Laterality Modality Lower Extremities, Hip Bilateral Radiograp hic Imaging 07/04/2024 4:09 PM EST Narrative 07/04/2024 5:03 PM EST ? [facility] ?[address] ?[place] [address] ?XRay Report ? Signed ? Patient: Gamble,La ?MR#: [id number] ?? [id number] ? : 1965 ?Acct:[id number] ? Age/Sex: 59 / F ?ADM Date: 07/04/24 ? Loc: HO.ED ? Attending Dr: ? Ordering Physician: Mitchell Silverio ?? Date of Service: 07/04/24 ?? Procedure(s): XR hip RT w [id number] ?? Accession Number(s): [id number] ? cc: Mitchell Silverio; Yanira Mi MD ? EXAMINATION: ?? XR HIP, RIGHT ? CLINICAL INFORMATION: ?? right hip pain ? COMPARISON: ?? 08/31/2023, 08/24/2023. ? TECHNIQUE: ?? AP pelvis, AP and frog-leg lateral views of the right hip. ? FINDINGS: ?? Normal bone mineralization. No fracture, dislocation, or suspicious ?? bone lesion. ?? Normal alignment of the joints. ?? Redemonstration of moderate to severe arthritis in the right greater ?? than left hip joints, unchanged from prior radiographs. ?? No evidence of AVN. Femoral heads normal in contour. ? Advanced degenerative changes noted in the L4-5 and L5-S1 facet joints. ?? Mild arthritis in the bilateral SI joints. ? No soft tissue abnormalities. ? XR/XR hip RT w PEL1V ?? IMPRESSION: ?? 1. No acute findings right hip. ?? 2. Stable moderate to severe right greater than left hip joint ?? arthritis. ? Electronically signed by: ??Tc Zhang MD ??07/04/2024 05:01 PM EST RP ? Dictated By: ?Tc Zhang MD ? Signed By: ?<Electronically signed by Tc Zhang MD in OV> ?07/04/24 1701 ? DD/ 1609 ? TD/TT: 07/04/24 1609 ? Archeology Professor: ? Procedure Note Sallie Marie - 07/04/2024 [place] [address] XRay Report Signed Patient: La GambleMR#: [id number] 631 : 1965Acct:[id number] Age/Sex: 59 / FADM Date: 07/04/24 Loc: HO.ED Attending Dr: Ordering Physician: Mitchell Silverio Date of Service: 07/04/24 Procedure(s): XR hip RT w PEL1V Accession Number(s): [id number] cc: Mitchell Silverio; Yanira Mi MD EXAMINATION: XR HIP, RIGHT CLINICAL INFORMATION: right hip pain COMPARISON: 08/31/2023, 08/24/2023. TECHNIQUE: AP pelvis, AP and frog-leg lateral views of the right hip. FINDINGS: Normal bone mineralization. No fracture, dislocation, or suspicious bone lesion. Normal alignment of the joints. Redemonstration of moderate to severe arthritis in the right greater than left hip joints, unchanged from prior radiographs. No evidence of AVN. Femoral heads normal in contour. Advanced degenerative changes noted in the L4-5 and L5-S1 facet joints. Mild arthritis in the bilateral SI joints. No soft tissue abnormalities. XR/XR hip RT w PEL1V IMPRESSION: 1. No acute findings right hip. 2. 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 Electronically signed by: Tc Zhang MD 07/04/2024 05:01 PM EST Dictated By: Tc Zhang MD Signed By: <Electronically signed by Tc Zhang MD in OV> 07/04/24 1701 DD/ 1609 TD/TT: 07/04/24 1609 Archeology Professor: [facility] External Provider IMG XR PROCEDURES Final Result * US VENOUS DUPLEX LE RT (07/04/2024 3:20 PM EST) Anatomical Region Laterality Modality Abdomen Ultrasound 07/04/2024 3:20 PM EST Narrative 07/04/2024 4:06 PM EST ? [facility] ?[address] ?[place] [address] ? Ultrasound Report ? Signed ? Patient: Gamble,La ?MR#: [id number] ?? 631 ? : 1965 ?Acct:[id number] ? Age/Sex: 59 / F ?ADM Date: 07/04/24 ? Loc: HO.ED ? Attending Dr: ? Ordering Physician: Mitchell Silverio ?? Date of Service: 07/04/24 ?? Procedure(s): US venous duplex LE RT ?? Accession Number(s): [id number] ? cc: Mitchell Silverio; Yanira Mi MD ? EXAMINATION: ?? US TRIPLEX LOWER EXTREMITY, RIGHT ? CLINICAL INFORMATION: ?? Calf pain, rule out DVT ? COMPARISON: ?? Venous Doppler ultrasound September 07, 2023 ? TECHNIQUE: ?? Color-flow triplex imaging with spectral analysis and compression ?? Doppler were performed on the right lower extremity. ? FINDINGS: ?? Respiratory variation, normal compression and augmented flow are noted ?? throughout the right lower extremity. The visualized common femoral ?? vein, superficial femoral vein, profunda femoral vein, popliteal vein ?? and midcalf peroneal and posterior tibial venous segments show no ?? evidence of deep venous thrombosis. ? There is no Cisneros's cyst. ? US/US venous duplex LE RT ?? IMPRESSION: ?? No evidence of deep venous thrombosis involving the right lower ?? extremity. ? Electronically signed by: ??Oliver Verde DO ??07/04/2024 04:03 PM EST RP ? Dictated By: ?Oliver Verde ? Signed By: ?<Electronically signed by Oliver Verde in OV> ? 07/04/24 1603 ? DD/ 1520 ? TD/TT: 07/04/24 1526 ? Archeology Professor: ? Procedure Note Cynthia, Image - 07/04/2024 [place] [address] Ultrasound Report Signed Patient: La GambleMR#: [id number] 631 : 1965Acct:[id number] Age/Sex: 59 / FADM Date: 07/04/24 Loc: .ED Attending Dr: Ordering Physician: Mitchell Silverio Date of Service: 07/04/24 Procedure(s): US venous duplex LE RT Accession Number(s): [id number] cc: Mitchell Silverio; Yanira Mi MD EXAMINATION: US TRIPLEX LOWER EXTREMITY, RIGHT CLINICAL INFORMATION: Calf pain, rule out DVT COMPARISON: Venous Doppler ultrasound September 07, 2023 TECHNIQUE: Color-flow triplex imaging with spectral analysis and compression Doppler were performed on the right lower extremity. FINDINGS: Respiratory variation, normal compression and augmented flow are noted throughout the right lower extremity. The visualized common femoral vein, superficial femoral vein, profunda femoral vein, popliteal vein and midcalf peroneal and posterior tibial venous segments show no evidence of deep venous thrombosis. There is no Cisneros's cyst. US/US venous duplex LE RT IMPRESSION: No evidence of deep venous thrombosis involving the right lower extremity. Electronically signed by: Oliver Verde DO 07/04/2024 04:03 PM EST RP Dictated By: Oliver Verde Signed By: <Electronically signed by Olvier Verde in OV> 07/04/24 1603 DD/ 1520 TD/TT: 07/04/24 1526 Archeology Professor: us [facility] External Provider IMG US PROCEDURES Final Result * (ABNORMAL) CBC auto differential (07/04/2024 3:07 PM EST) White Blood Count 9.9 4.8 - 10.8 X10*3/uL [facility] Red Blood Count 4.67 4.20 - 5.50 X10*6/uL [facility] Hemoglobin 14.6 12.0 - 16.0 g/dl [facility] Hematocrit 44.9 37.0 - 47.0 % [facility] Mean Corpuscular Volume 96.1 80.0 - 98.0 fL [facility] Mean Corpuscular Hemoglobin 31.3 27.0 - 33.0 pg [facility] Mean Corpuscular HGB Conc 32.5 31.0 - 35.0 g/dl [facility] Red Cell Distribution Width 13.2 11.0 - 16.0 % [facility] Platelet Count 234 160 - 400 X10*3/uL [facility] Mean Platelet Volume 10.9 9.4 - 12.3 fL [facility] Neutrophils Percent Auto 56.3 45 - 73 % [facility] Imm Gran Pct Auto 0.7(H) 0.0 - 0.4 % [facility] Lymphocytes Percent Auto 34.4 20 - 40 % [facility] Monocytes Percent Auto 7.2 2 - 11 % [facility] Eosinophils Percent Auto 1.0 0 - 4 % [facility] Basophils Percent Auto 0.4 0 - 2 % [facility] NRBC Pct Auto 0.0 0.0 - 0.2 /100WBC [facility] Neutrophils Absolute Auto 5.6 2.0 - 8.3 x10*3/uL [facility] Imm Gran Abs Auto 0.07(H) 0.00 - 0.03 X10*3/uL [facility] Lymphocytes Absolute Auto 3.4 1.2 - 4.9 X10*3/uL [facility] Monocytes Absolute Auto 0.7 0.1 - 1.2 X10*3/uL [facility] Eosinophils Absolute Auto 0.1 0.0 - 0.4 X10*3/uL [facility] Basophils Absolute Auto 0.0 0.0 - 0.2 X10*3/uL [facility] NRBC Abs Auto 0.000 0.0 - 0.012 X10*3/uL [facility] 07/04/2024 3:07 PM EST 07/04/2024 3:09 PM EST Generic External Data Provider LAB BLOOD ORDERAB LES Final Result Performing Organization Address [facility]/ZIP Co de Phone Number [facility] [address] [place] [phone] * Partial Thromboplastin Time, Activated (APTT) (07/04/2024 3:07 PM EST) Partial Thromboplastin Time 32.3 26.0 - 36.8 SEC [facility] Comment:For information rega rding the monitoring of direct thrombininhibitors, please refer to Pharmacy. 07/04/2024 3:07 PM EST 07/04/2024 3:09 PM EST us Generic External Data Provider LAB BLOOD ORDERAB LES Final Result Performing Organization Address [facility] Co de Phone Number [facility] [address] [place] [phone] * (ABNORMAL) Prothrombin Time-INR (07/04/2024 3:07 PM EST) Prothrombin Time 10.1(L) 10.9 - 12.4 SEC [facility] INTERNATIONAL NORM RATIO 0.9 0.9 - 1.1 [facility] Comment:INTERNATIONAL NORMAL IZED RATIO (INR) REFERENCE RANGES Reference RangeFor patients not on anticoagulant therapy: 0.9 - 1.1INR ranges for oral anticoagulanttherapy:For prevention and treatment of venous thrombosis and pulmonary embolism: 2.0 - 3.0For acute myocardial infarction with aspirin therapy: 2.0 - 3.0For acute myocardial infarction without aspirin therapy: 3.0 - 4.0For patients with mechanical prosthetic heart valves: 2.5 - 3.5 07/04/2024 3:07 PM EST 07/04/2024 3:09 PM EST us Generic External Data Provider LAB BLOOD ORDERAB LES Final Result [facility] [address] [place] [address] [phone] * (ABNORMAL) Comprehensive Metabolic Panel (07/04/2024 3:07 PM EST) Sodium 143 135 - 145 mmol/L [facility] Potassium 3.9 3.3 - 5.1 mmol/L [facility] Chloride 104 96 - 108 mmol/L [facility] Carbon Dioxide 29 22 - 29 mmol/L [facility] Anion Gap 14 12 - 20 [facility] Urea Nitrogen (BUN) 16 9 - 16 mg/dL [facility] Creatinine, Serum 1.14 0.5 - 1.4 mg/dL [facility] Creatinine Clr Calc Pharmacy 51.5 [facility] Comment:Provided height and weight: 157.48 cm,78.4 kg.eGFR (calculated from the MDRD study equation) and eCrCl(calculated from the Cockcroft-Gault equation) are based ondifferent parameters and may not yield comparable results.If eCrCl result is absurd, please check patient'sheight/weight. Estimated Glomerular Filt Rate 49 [facility] Comment:Chronic Kidney Disea se: Estimated GFR < 60 mL/min/[id number] Kidney Disease: Estimated GFR < 15 mL/min/1.73m2 Glucose 141(H) 60 - 115 mg/dL [facility] Calcium 10.0 8.4 - 10.2 mg/dL [facility] Bilirubin, Total 0.3 0.0 - 1.0 mg/dL [facility] Aspartate Amino Transferase 50(H) 5 - 31 U/L [facility] Alanine Aminotransferase 57(H) 0 - 31 U/L [facility] Total Protein 7.5 6.5 - 8.0 g/dL [facility] Albumin Level 4.1 3.5 - 5.0 g/dL [facility] Alkaline Phosphatase 81 39 - 117 U/L [facility] 07/04/2024 3:07 PM EST 07/04/2024 3:09 PM EST us Generic External Data Provider LAB BLOOD ORDERAB LES Final Result [facility] [address] [place] [address] [phone] * CT Chest w/o Contrast (07/01/2024 1:55 PM EST) Anatomical Region Laterality Modality Body, Chest Computed Tomogra phy 07/01/2024 1:55 PM EST Narrative 08/24/2024 6:44 PM EST ? [facility] ?[address] [facility] ?[place] [address] ? [address] Scan Report ? Signed ? Patient: Gamble,La ?MR#: [id number] ?? 631 ? : 1965 ?Acct:[id number] ? Age/Sex: 59 / F ?ADM Date: 12//24 ? Loc: HO.CT ? Attending Dr: Yanira Mi MD ? Ordering Physician: Yanira Mi MD ?? Date of Service: 07/01/24 ?? Procedure(s): CT chest wo IV con ?? Accession Number(s): [id number] ? cc: Yanira Mi MD ? Report Number: ?? [id number]: Total DLP = ??175.00 mGy-cm ?? EXAMINATION: ?? CT CHEST WITHOUT CONTRAST ? CLINICAL INFORMATION: ?? Follow-up pulmonary nodules and mediastinal lymphadenopathy. ? COMPARISON: ?? Prior chest CT examinations, most recently 05/21/2023. ? TECHNIQUE: ?? Multidetector volumetric CT imaging of the chest was done. Axial MIP ?? volume rendering provided. Sagittal and coronal reformatted images were ?? obtained. ? This CT examination was performed using dose optimization techniques as ?? appropriate, variously including the following: ?? *Automated exposure control ?? *Adjustment of mA and/or kV according to patient size (this includes ?? techniques or standardized protocols for targeted exams where dose is ?? matched to indication/reason for exam; i.e. extremities or head) ?? *Use of iterative reconstruction technique ? FINDINGS: ? DESILVERIZER: The lungs are symmetrically well-expanded and grossly clear. ? LUNGS: Medially within the right upper lobe (5:153 and 268), 3 mm and 5 ?? mm noncalcified subpleural nodules are seen. Within the posterior ?? segment of the right upper lobe medially (5:159), a 3 mm noncalcified ?? nodule is seen. At the posterior right base (5:249, 273, 286 and 306), ?? 5 mm, 4 mm, 4 mm and 5 mm subpleural nodules are seen. ? At the lateral left apex (5:131), a 4 mm noncalcified nodule is seen. ?? Within the apicoposterior segment of the left upper lobe (5:268), a 6 ?? mm noncalcified nodule is seen. In the posterior basal segment of the ?? left lower lobe (5:323), a 5 mm noncalcified nodule is seen. In the ?? lateral basal segment of the left lower lobe (5:365), a 4 mm ?? noncalcified nodule is seen. ? These nodules are stable from 06/15/2022, and they are considered ?? benign. ? No new nodule, mass, infiltrate or groundglass opacity is seen. There ?? is no generalized increase in peripheral interlobular septal markings. ?? There is mild mosaic attenuation pattern, most pronounced within the ?? mid and lower lungs bilaterally. ? No generalized small airway thickening is seen. The central airways ?? appear patent. ? MEDIASTINUM: The thyroid is unremarkable. ? A precarinal lymph node is seen, with short axis diameter of 9 mm. ?? There is no sizable mediastinal or hilar lymphadenopathy. ? No thoracic aortic aneurysm or dissection is seen. There are mild ?? atherosclerotic calcifications of the great vessel origins and thoracic ?? aorta. ? CORONARY ARTERY CALCIFICATION: None visualized on this study. ? PLEURA: There is no pleural effusion. No pleural mass or thickening. ? AXILLA: No lymphadenopathy. ? UPPER ABDOMEN: Unremarkable. ? OSSEOUS STRUCTURES: There is multi-level marked thoracolumbar ?? spondylosis, with an appearance suggesting possible DISH (diffuse ?? idiopathic skeletal hyperostosis). No acute or aggressive osseous ?? finding is noted. ? CT/CT chest wo IV con ?? IMPRESSION: ? 1. There are benign, stable pulmonary nodules, as detailed. ? 2. No new nodule, mass, infiltrate or groundglass opacity is seen. ? 3. There is a mild bilateral mosaic attenuation pattern, which can be ?? associated with obstructive small airways disease. ? 4. No thoracic lymphadenopathy or pleural effusion is seen. ? 5. Skeletal findings suggest possible DISH. No aggressive osseous ?? lesion is seen. ? Fleischner guidelines were followed. ? Electronically signed by: ??Duc Palomino MD ??08/24/2024 06:41 PM EST RP ? Dictated By: ?Duc Palomino MD ? Signed By: ?<Electronically signed by Duc Palomino MD in OV> ? 08/24/24 1841 ? DD/ 1355 ? TD/TT: 07/01/24 1410 ? Archeology Professor: HERBERT ? Procedure Note Cynthia, Sallie - 08/24/[address] [address] [address] Scan Report Signed Patient: La GambleMR#: [id number] 631 : 1965Acct:[id number] Age/Sex: 59 / FADM Date: 07/01/24 Loc: HO.CT Attending Dr: Yanira Mi MD Ordering Physician: Yanira Mi MD Date of Service: 07/01/24 Procedure(s): CT chest wo IV con Accession Number(s): [id number] cc: Yanira Mi MD Report Number: [id number]: Total DLP = 175.00 mGy-cm EXAMINATION: CT CHEST WITHOUT CONTRAST CLINICAL INFORMATION: Follow-up pulmonary nodules and mediastinal lymphadenopathy. COMPARISON: Prior chest CT examinations, most recently 05/21/2023. TECHNIQUE: Multidetector volumetric CT imaging of the chest was done. Axial MIP volume rendering provided. Sagittal and coronal reformatted images were obtained. This CT examination was performed using dose optimization techniques as appropriate, variously including the following: *Automated exposure control *Adjustment of mA and/or kV according to patient size (this includes techniques or standardized protocols for targeted exams where dose is matched to indication/reason for exam; i.e. extremities or head) *Use of iterative reconstruction technique FINDINGS: DESILVERIZER: The lungs are symmetrically well-expanded and grossly clear. LUNGS: Medially within the right upper lobe (5:153 and 268), 3 mm and 5 mm noncalcified subpleural nodules are seen. Within the posterior segment of the right upper lobe medially (5:159), a 3 mm noncalcified nodule is seen. At the posterior right base (5:249, 273, 286 and 306), 5 mm, 4 mm, 4 mm and 5 mm subpleural nodules are seen. At the lateral left apex (5:131), a 4 mm noncalcified nodule is seen. Within the apicoposterior segment of the left upper lobe (5:268), a 6 mm noncalcified nodule is seen. In the posterior basal segment of the left lower lobe (5:323), a 5 mm noncalcified nodule is seen. In the lateral basal segment of the left lower lobe (5:365), a 4 mm noncalcified nodule is seen. These nodules are stable from 06/15/2022, and they are considered benign. No new nodule, mass, infiltrate or groundglass opacity is seen. There is no generalized increase in peripheral interlobular septal markings. There is mild mosaic attenuation pattern, most pronounced within the mid and lower lungs bilaterally. No generalized small airway thickening is seen. The central airways appear patent. MEDIASTINUM: The thyroid is unremarkable. A precarinal lymph node is seen, with short axis diameter of 9 mm. There is no sizable mediastinal or hilar lymphadenopathy. No thoracic aortic aneurysm or dissection is seen. There are mild atherosclerotic calcifications of the great vessel origins and thoracic aorta. CORONARY ARTERY CALCIFICATION: None visualized on this study. PLEURA: There is no pleural effusion. No pleural mass or thickening. AXILLA: No lymphadenopathy. UPPER ABDOMEN: Unremarkable. OSSEOUS STRUCTURES: There is multi-level marked thoracolumbar spondylosis, with an appearance suggesting possible DISH (diffuse idiopathic skeletal hyperostosis). No acute or aggressive osseous finding is noted. CT/CT chest wo IV con IMPRESSION: 1. There are benign, stable pulmonary nodules, as detailed. 2. No new nodule, mass, infiltrate or groundglass opacity is seen. 3. There is a mild bilateral mosaic attenuation pattern, which can be associated with obstructive small airways disease. 4. No thoracic lymphadenopathy or pleural effusion is seen. 5. Skeletal findings suggest possible DISH. No aggressive osseous lesion is seen. Fleischner guidelines were followed. Electronically signed by: Duc Palomino MD 08/24/2024 06:41 PM EST Dictated By: Duc Palomino MD Signed By: <Electronically signed by Duc Palomino MD in OV> 08/24/24 1841 DD/ 1355 TD/TT: 07/01/24 1410 Archeology Professor: HERBERT Yanira Mi MD IMG CT PROCEDURES Edited Result - Final * XR Hand 3+ Views Right (06/01/2024 2:31 PM EST) Anatomical Region Laterality Modality Upper Extremities, Hand [facility] 06/01/2024 2:31 PM EST Narrative 06/02/2024 12:27 PM EST ?[facility] ?[address] ?[place] [address] ?XRay Report ? Signed ? Patient: Gamble,La ?MR#: [id number] ?? 631 ? : 1965 ?Acct:[id number] ? Age/Sex: 59 / F ?ADM Date: 11/06/24 ? Loc: HO.HHCX ? Attending Dr: Aleta Franklin MD ? Ordering Physician: Aleta Franklin MD ?? Date of Service: 06/01/24 ?? Procedure(s): XR hand RT min 3V ?? Accession Number(s): [id number] ? cc: Aleta Franklin MD ? EXAMINATION: ?? XR HAND, RIGHT ? CLINICAL INFORMATION: ?? PT STATES RIGHT HAND PAIN X 5 DAYS DENIES INJURY. ? COMPARISON: ?? Right hand radiograph 03/17/2018 ? TECHNIQUE: ?? PA, lateral, and oblique views of the right hand. ? FINDINGS: ?? No acute fracture. Negative ulnar variance, as before. Carpal rows and ?? osseous structures in the hand are in anatomic alignment with joint ?? spaces maintained. No erosions or soft tissue calcifications. No ?? radiopaque foreign body. ? XR/XR hand RT min 3V ?? IMPRESSION: ?? 1. ??No acute fracture or dislocation. ?? 2. ??Negative ulnar variance, as before. ? Electronically signed by: ??Marielena Garrett DO ??06/02/2024 12:24 PM EST ? Dictated By: ?Marielena Garrett ? Signed By: ?<Electronically signed by Marielena Garrett in OV> ? 06/02/24 1224 ? DD/ 1431 ? TD/TT: 06/01/24 1439 ? Archeology Professor: ? Procedure Note Sallie Marie - 06/02/2024 [facility] [address] [place] [address] XRay Report Signed Patient: La GambleMR#: [id number] 631 : 1965Acct:[id number] Age/Sex: 59 / FADM Date: 06/01/24 Loc: HO.HHCX Attending Dr: Aleta Franklin MD Ordering Physician: Aleta Franklin MD Date of Service: 06/01/24 Procedure(s): XR hand RT min 3V Accession Number(s): [id number] cc: Aleta Franklin MD EXAMINATION: XR HAND, RIGHT CLINICAL INFORMATION: PT STATES RIGHT HAND PAIN X 5 DAYS DENIES INJURY. COMPARISON: Right hand radiograph 03/17/2018 TECHNIQUE: PA, lateral, and oblique views of the right hand. FINDINGS: No acute fracture. Negative ulnar variance, as before. Carpal rows and osseous structures in the hand are in anatomic alignment with joint spaces maintained. No erosions or soft tissue calcifications. No radiopaque foreign body. XR/XR hand RT min 3V IMPRESSION: 1. No acute fracture or dislocation. 2. Negative ulnar variance, as before. Electronically signed by: Marielena Garrett DO 06/02/2024 12:24 PM [facility] Dictated By: Marielena Garrett Signed By: <Electronically signed by Marielena Garrett in OV> 06/02/24 1224 DD/ 1431 TD/TT: 06/01/24 1439 Archeology Professor: Aleta Franklin MD IMG XR PROCEDURES Edited Result - Final * (ABNORMAL) Lipid Panel with Reflex to Direct LDL (05/18/2024 2:00 PM EDT) Triglycerides 472(H) <150 mg/dL [facility] Comment:Desirable Triglyceri de: less than 150 mg/dLBorderline High Triglyceride 150-199 mg/dLHigh Triglyceride: 200-499 mg/dLVery High Triglyceride: greater than or equal to 5OO mg/dL Cholesterol 162 <200 mg/dL [facility] Comment:Desirable Cholestero l: less than 200 mg/dLBorderline High Cholesterol: 200-239 mg/dLHigh Cholesterol: greater than 239 mg/dL LDL Cholesterol Calculated TNP <100 mg/dL [facility] Comment:Unable to calculate the LDL. The formula of Friedwald,Duran, and Devon is only valid if the triglycerides areless than 400 mg/dl. HDL Cholesterol 42 >40 mg/dL [facility] Comment:Desirable HDL: great er than 40 mg/dL Note: This HDL assay may give artificially low results in patients with liver disease. Blood 05/18/2024 2:00 PM EDT 05/18/2024 4:09 PM EDT Yanira Mi MD LAB BLOOD ORDERABLES Edited Resu lt - Final Performing Organization Address [facility]/ZIP Co de Phone Number [facility] [address] [place] [address] [phone] * Albumin, Random Urine W/Creatinine (05/18/2024 2:00 PM EDT) Creatinine, Urine 58.80 mg/dL [facility] LABS Microalbumin Urine <5.0 mg/L [facility] Microalbum Creatinine Ratio Ur TNP <30 ug/mg cr [facility] Comment:Unable to calculate albumin/creatinine ratio due to lowmicroalbumin or creatinine result. Urine 05/18/2024 2:00 PM EDT 05/18/2024 4:09 PM EDT us Yanira Mi MD LAB URINE ORDERABLES Final Resul t Performing Organization Address [facility] Co de Phone Number [facility] [address] [place] [phone] * Hepatitis C Antibody with Reflex to HCV, RNA, Quantitative, Real-Time PCR (11/03/2023 9:10 AM EDT) Hepatitis C Antibody Nonreactive Nonreactive [facility] Comment:Antibodies to HCV no t detected; does not exclude early acuteHCV infection. Blood Venous blood specimen / Unknown 11/03/2023 9:10 AM EDT 11/03/2023 11:20 AM EDT Yanira Mi MD LAB BLOOD ORDERABLES Final Resul t Performing Organization Address [facility] Co de Phone Number [facility] [address] [place] [address] [phone] * HIV-1/2 Antigen and Antibodies, Fourth Generation, with Reflexes (11/03/2023 9:10 AM EDT) [facility] Signature HIV AB/AG Nonreactive Nonreactive [facility] Comment:HIV-1 p24 Ag and/or HIV-1/HIV-2 Ab not detected.A test result that is nonreactive does not exclude thepossibility of exposure to or infection with HIV-1 and/orHIV-2. Nonreactive results in this assay for individualswith prior exposure to HIV-1 and/or HIV-2 may be due toantigen and antibody levels that are below the limit ofdetection of this assay.The PixelFlow HIV Ag/Ab Combo assay result andsupplemental assay results should be interpreted inconjunction with the patient's clinical presentation,history and other laboratory results. If the results areinconsistent with clinical evidence, additional testing issuggested to confirm the result. Blood Venous blood specimen / Unknown 11/03/2023 9:10 AM EDT 11/03/2023 11:20 AM EDT us Yanira Mi MD LAB BLOOD ORDERABLES Final Resul t [facility] [address] [place] [phone] [phone] * BI Mammogram Screening Tomosynthesis Bilateral (09/24/2023 2:20 PM EST) Anatomical Region Laterality Modality Breast Bilateral Mammography 09/24/2023 2:20 PM EST Narrative 10/11/2023 5:45 PM EDT ? [facility] [place] ? [address] ?[place] [address] ? Mammography Report ? Signed ? Patient: Gamble,La ?MR#: [id number] ?? [id number] ? : 1965 ?Acct:[id number] ? Age/Sex: 58 / F ?ADM Date: 02/29/24 ? Loc: HO.MAMMO ? Attending Dr: Yanira Mi MD ? Ordering Physician: Yanira Mi MD ?Results: 1Negative ? Date of Service: 09/24/23 ?Follow Up: 1 Year From Orig ?? inal Mammogram ? Procedure(s): MM tomosynthesis screening BI ?? Accession Number(s): [id number] ? cc: Yanira Mi MD ? EXAMINATION: ?? MM SCREENING DIGITAL BREAST TOMOSYNTHESIS, BILATERAL ? CLINICAL INFORMATION: ? Screening. Asymptomatic. ? COMPARISON: ?? Mammography: This study is compared with prior exams dating back to ?? 2019. ? TECHNIQUE: ?? Digital breast tomosynthesis is performed in both the craniocaudal and ?? mediolateral oblique views along with computer-aided detection (CAD). ?? Synthesized 2D images are generated from the tomosynthesis. ? FINDINGS: ?? The breasts are almost entirely fatty (ACR BI-RADS breast composition ?? Category a). ? There are no significant masses, abnormal calcifications, or other ?? abnormalities. ? MM/MM tomosynthesis screening BI ?? IMPRESSION: ?? No mammographic evidence of malignancy. ? ASSESSMENT: ? BI-RADS BI-RADS 1 - Negative ? RECOMMENDATION: ?? Routine annual mammography screening. ? 1 year F/U ? This examination should not preclude the clinical evaluation of a ?? suspicious palpable abnormality. ? This patient's information was entered into a reminder system with a ?? target due date for their next mammogram. ? Dictated By: ?Abida Blackman MD ? Signed By: ?<Electronically signed by Abida Blackman MD in OV> ? 10/11/23 1741 ? DD/ ? TD/TT: ? Archeology Professor: ? Procedure Note Donothannyinterpreter, [facility] - [facility] [address] [place] [address] Mammography Report Signed Patient: La GambleMR#: [id number] : 1965Acct:[id number] Age/Sex: 58 / FADM Date: 09/24/23 Loc: [facility] Attending Dr: Yanira Mi MD Ordering Physician: Yanira Mi MDResults: 1Negative Date of Service: 09/24/23Follow Up: 1 Year From Orig inal Mammogram Procedure(s): MM tomosynthesis screening BI Accession Number(s): [id number] cc: Yanira Mi MD EXAMINATION: MM SCREENING DIGITAL BREAST TOMOSYNTHESIS, BILATERAL CLINICAL INFORMATION: Screening. Asymptomatic. COMPARISON: Mammography: This study is compared with prior exams dating back to 2019. TECHNIQUE: Digital breast tomosynthesis is performed in both the craniocaudal and mediolateral oblique views along with computer-aided detection (CAD). Synthesized 2D images are generated from the tomosynthesis. FINDINGS: The breasts are almost entirely fatty (ACR BI-RADS breast composition Category a). There are no significant masses, abnormal calcifications, or other abnormalities. MM/MM tomosynthesis screening BI IMPRESSION: No mammographic evidence of malignancy. ASSESSMENT: BI-RADS BI-RADS 1 - Negative RECOMMENDATION: Routine annual mammography screening. 1 year F/U This examination should not preclude the clinical evaluation of a suspicious palpable abnormality. This patient's information was entered into a reminder system with a target due date for their next mammogram. Dictated By: Abida Blackman MD Signed By: <Electronically signed by Abida Blackman MD in OV> 10/11/23 1741 DD/ 1420 TD/TT: Archeology Professor: us Yanira Mi MD IMG BI PROCEDURES Edited Result - Final * THINPREP TIS PAP AND HPV mRNA E6/E7, CT/NG, TRICH (03/27/2022 10:59 AM EDT) Chlamydia trachomatis RNA, TMA, Urogenital NOT DETECTED NOT DETECTED [facility] Clinical Information: None given [facility] COMMENT SEE COMMENT [facility] Comment: The analytical performance characteristics of this assay, when used to test SurePath(TM) specimens have been determined by [employer]. The modifications have not been cleared or approved by the FDA. This assay has been validated pursuant to the CLIA regulations and is used for clinical purposes. ?? For additional information, please refer to https://Ekinops.Breaker/faq/VLD726 (This link is being provided for information/ educational purposes only.) ?? COMMENT SEE COMMENT [facility] Comment: EXPLANATORY NOTE: ? The Pap is a screening test for cervical cancer. It is ?? not a diagnostic test and is subject to false negative ?? and false positive results. It is most reliable when a ?? satisfactory sample, regularly obtained, is submitted ?? with relevant clinical findings and history, and when ?? the Pap result is evaluated along with historic and ?? current clinical information. ?? COMMENT: This Pap test has been evaluated with computer assisted technology. [facility] Marketing Team Lead: SEE COMMENT [facility] Comment: RXB, CT(ASCP) CT screening location: [address] ??[phone] HPV nRNA E6/E7 Not Detected Not Detected [facility] Comment: Methodology: Audio Operator-Mediated Amplification This assay detects E6/E7 viral messenger RNA (mRNA) from 14 high-risk HPV types (16,18,31,33,35,39,45,51,52,56,58,59,66,68). ? Cervical sources are required for HPV testing. If a vaginal source from a patient who has had a total hysterectomy with removal of cervix was ?? submitted, please contact the testing laboratory for alternative testing options. ?? For additional information, please refer to http://Ekinops.Breaker/faq/BJZ752s2 (This link if provided for information/ educational purposes only.) Interpretation/Re sult: Negative for intraepithelial lesion or malignancy. [facility] LMP: NONE GIVEN [facility] Neisseria gonorrhoeae RNA, TMA, Urogenital NOT DETECTED NOT DETECTED [facility] Prev. BX: NONE GIVEN [facility] Prev. PAP: NONE GIVEN [facility] SOURCE: None given [facility] Statement Of Adequacy: SEE COMMENT [facility] Comment: Satisfactory for evaluation. Endocervical/transformation zone component absent. Age and/or menstrual status not provided Trichomonas vaginalis, QL, TMA, PAP Vial NOT DETECTED NOT DETECTED [facility] Comment: The analytical performance characteristics of this assay have been determined by [employer]. The modifications have not been cleared or approved by the FDA. This assay has been validated pursuant to the CLIA regulations and is used for clinical purposes. ?? For additional information, please refer to http://education.Breaker/ faq/Trichomonastma (This link is being provided for information/ educational purposes only.) ?? 03/27/2022 10:5 9 AM EDT Yanira Mi MD LAB PATHOLOGY ORDERABLES Final R esult [facility] [address] * Pap Smear (03/27/2022) Pap smear Performed Historical Provider HEALTH MAINTENANCE Final Result * Colonoscopy (10/25/2015) Colonoscopy Performed Historical Provider HEALTH MAINTENANCE Edited Result - Final from Last 3 Months or Most Recently Relevant to Health Maintenance Insurance [facility] - [facility] Care Teams Seafood Specialist Relationship Specialty Start Date End Date Yanira Mi MD [address] [place] [address] PCP - General Family Medicine 07/08/12 Marbella Tobar Certified Massage TherapistJava Enterprise Architect 07/29/23
--- OUTSIDE RECORDS SUMMARY | 2024-08-31 10:48 | XMS_ITS | Encounter Summary ---
Author Organization [employer] [facility] Address [address] [place] [address] Care Team Providers Care Clip Loading Machine Feeder Name Role Phone Yanira Mi MD Primary Care Provider [phone] Reason for Visit * Reason Comments Med Refill Encounter Details Date Type Department Care Team (Late Contact Info) Description 01/01/2023 Refill [facility] [address] [place], [place] [phone] Yanira Mi MD [address] [place], [place] [phone] Social History Tobacco Use Types Packs/Day Years [...] suspected to have Coronavirus/COVID-19? No / Unsure 12/29/2022 1:29 PM EDT documented as of this encounter Plan of Treatment Upcoming Encounters Date Type Department Care Team ([facility] Contact Info) Description 12/14/2024 2:00 PM EDT Office Visit [facility] [address] [place] [address] Yari Colmenares [address] [place] [address] documented as of this encounter Visit Diagnoses Not on filedocumented in this encounter Care Teams Clip Loading Machine Feeder Relationship Specialty Start Date End Date Yanira Mi MD [address] [place] [address] PCP - General Family Medicine 07/08/12 Marbella Tobar Pres[employer] Education DirectorTime Analysis Clerk 07/29/23 documented as of this encounter
--- OUTSIDE RECORDS SUMMARY | 2024-08-31 10:48 | XMS_ITS | Encounter Summary ---
Author Organization [facility] Address [address] 7[address] [place] [address] Care Team Providers Care Bus And Sys Integration Senior Manager Name Role Phone Yanira Mi MD Primary Care Provider [phone] Reason for Referral * Consultation (Routine) - Authorized Specialty Diagnoses / Procedures Referred By Lorrie alvarado Referred To Contact Orthopaedic Surgery Diagnoses Right hip pain Right thigh pain Yanira Mi MD [address] [place] [address] Phone: tel: fax: [facility] Referral ID Status Reason Start Date Expiration Date Visits Requested Visits Authorized [id number] Authorized Specialty Services Required 08/28/2024 08/28/2025 1 1 * Cardiac Stress Testing (Routine) - Authorized Specialty Diagnoses / Procedures Referred By Lorrie alvarado Referred To Contact Cardiology Diagnoses Premature beats Procedures Holter Monitor - 48 hour Yanira Mi MD [address] [place] [address] Phone: tel: fax: [facility] [address] [place], [place] Phone: tel: fax: Referral ID Status Reason Start Date Expiration Date V isits Requested Visits Authorized [id number] Authorized 08/22/2024 08/22/2025 1 1 Encounter Details Date Type Department Care Team (Late st Contact Info) Description 08/22/2024 3:15 PM EST Office Visit [facility] [address] [place] [address] Yanira Mi MD [address] [place] [address] Pulmonary nodules (Primary Dx); Asthma with COPD (CMS/HCC); PAC (premature atrial contraction); Primary hypertension; Adhesive capsulitis of right shoulder; Tendinitis of right rotator cuff; Tear of right rotator cuff, unspecified tear extent, unspecified whether traumatic; Chronic right shoulder pain; Type 2 diabetes mellitus without complication, without long-term current use of insulin ([facility]); Dyslipidemia; History of repair of rotator cuff; Moderate episode of recurrent major depressive disorder ([facility]/HCC); PTSD (post-traumatic stress disorder); Tobacco dependence; Premature beats; Right hip pain; Right thigh pain Social History Tobacco Use Types Packs/Day [...] 12 08/22/2024 2:25 PM EST Oxygen Saturation - - Inhaled Oxygen Concentration - - Weight 79.8 kg (176 lb) 08/22/2024 2:25 PM EST Height - - Body Mass Index 32.19 06/28/2024 4:58 PM EST documented in this encounter Progress Notes * Yanira Mi MD - 08/22/2024 3:15 PM EST Subjective La Gamble is a 59 y.o. female who has asthma and HTN, and patient presents for hip pain and weight gain concerns post injection. Background: Our last encounter was 05/17/2024. Interval history: Seen in [facility] on 07/21/24 for right hip and thigh pain. US was negative for DVT. XR showed right hip arthritis, mod-severe. Rx prednisone. Chest CT result is still pending. Today: The pt reports ongoing hip pain despite a four day course of prednisone. The pain initially improved for four days post emergency department visit but has since returned. She describes the pain as starting in the hip and radiating down the leg, interfering with her sleep. She recalls the pain beganafter performing an exercise incorrectly. She received an injection in the emergency department, suspected to be Toradol, which did not help with the pain. She reports weight gain following the injection and prednisone treatment. She is concerned about the effects of steroids on weight and blood sugar levels. Her elevated sugar levels could be due to these prednisone treatments. She smokes approximately six cigarettes daily, increasing to nine in periods of anxiety. She reports experiencing skipped heartbeats approximately three weeks ago. She reports feeling nasal congestion but has not used any nasal medications recently. Review of Systems Constitutional: Negative for activity change, appetite change and fever. HENT: Positive for congestion. Respiratory: Negative for shortness of breath. Cardiovascular: Negative for chest pain. Musculoskeletal: Radiating hip pain Objective Vitals: 08/22/24 1425 BP: 128/70 Pulse: 58 Resp: 12 Temp: 98.1 ??F (36.7 ??C) TempSrc: Temporal Weight: 176 lb (79.8 kg) Physical Exam Constitutional: General: She is not in acute distress. Appearance: Normal appearance. She is not ill-appearing. HENT: Head: Normocephalic and atraumatic. Mouth/Throat: Mouth: Mucous membranes are moist. Eyes: Extraocular Movements: Extraocular movements intact. Pupils: Pupils are equal, round, and reactive to light. Cardiovascular: Rate and Rhythm: Normal rate and regular rhythm. Heart sounds: No murmur heard. Pulmonary: Effort: Pulmonary effort is normal. No respiratory distress. Breath sounds: Normal breath sounds. No wheezing or rhonchi. Skin: General: Skin is warm. Neurological: Mental Status: She is alert. Mental status is at baseline. Psychiatric: Mood and Affect: Mood normal. Results: Lab Results Component Value Date NA 143 07/04/2024 K 3.9 07/04/2024 CL 104 07/04/2024 CO2 29 07/04/2024 BUN 16 07/04/2024 CREATININE 1.14 07/04/2024 CRCLCALCPH 51.5 07/04/2024 EGFR 49 07/04/2024 GLUCOSE 111 07/04/2024 TOTALBILIRUB 0.3 07/04/2024 AST 50 (H) 07/04/2024 ALT 57 (H) 07/04/2024 TOTPROTEIN 7.5 07/04/2024 ALB 4.1 07/04/2024 ALP 81 07/04/2024 Lab Results Component Value Date TRIG 472 (H) 05/18/2024 CHOL 162 05/18/2024 LDLCHOLCAL TNP 05/18/2024 HDL 42 05/18/2024 Lab Results Component Value Date HGBA1C 7.8 (A) 08/22/2024 MICROALBUR <5.0 05/18/2024 CREATUR 58.80 05/18/2024 MICROALBCREU TNP 05/18/2024 Lab Results Component Value Date WBC 9.9 07/04/2024 HGB 14.6 07/04/2024 HCT 44.9 07/04/2024 PLT 234 07/04/2024 MCV 96.1 07/04/2024 The 10-year ASCVD risk score (Tia ALFARO, et al., 2019) is: 16.2% Values used to calculate the score: Age: 59 years Sex: Female Is Non- : No Diabetic: Yes Tobacco smoker: Yes Systolic Blood Pressure: 128 mmHg Is BP treated: Yes HDL Cholesterol: 42 mg/dL Total Cholesterol: 162 mg/dL Screening and Health Care Maintenance: PHQ-2/9 Score: Patient Health Questionnaire-9 Score: 6 (05/02/2024 8:45 AM) Patient Health Questionnaire-2 Score: 2 (05/02/2024 8:45 AM) Thoughts that you would be better off or hurting yourself in some way: Not at all (05/02/2024 8:45 AM) DIANE-7 Score: DIANE-7 Total Score: 13 (05/02/2024 8:46 AM) Health Maintenance Due Topic Date Due Eye Exam Never done COVID-19 Vaccine ( season) 2024 Hepatitis A Vaccines (2 of 2 - Risk 2-dose series) 05/03/2024 Mammogram 09/23/2024 SDOH Screening 10/21/2024 Diabetes: Foot Exam 11/01/2024 Diabetes: Hemoglobin A1C 11/20/2024 Assessment/Plan Problem List Items Addressed This Visit Asthma with COPD (CMS/HCC) - most recent exacerbation in December 2022, [...] continue albuterol inhaler prn - stop smoking Hypertension -Goal BP < 140/90 per JNC-8 and < 130/80 per ACC/AHA guideline (Treatment threshold >= 130/80 ) - BP at goal today -Continue working on lifestyle modifications -Recommended self-monitoring BP. -Continue current medications: lisinopril 20 mg daily; metoprolol succinate 25 mg daily -Treatment Hx: -Follow up in 3-6 mo, sooner if any problem arises Pulmonary nodules - Primary -Most recent CT scan on 05/18/23 shwoed multiple stable nodule -CT scan on 07/01/24, pending result -Continue working on risk fator management Tobacco dependence Encouraged to keep up with smoking cessation Type 2 diabetes mellitus without complication (CMS/[facility]) -HgbA1C 7.8% on 08/22/24, - recently received prednisone for right hip arthritis pain -receiving prednisone for COPD exacerbation 3-4 times per year and steroid injection by orthopedist2-3 times per year. -Continue metformin 2 g qAM -Continue Jardiacne 10 mg daily, patient is having frequent vaginal candidiasis which may be a sideeffect of jardiance, patient is also having hyperglycemia lately, patient agreed to improve her diet -Continue working on lifestyle modifications -Continue self-monitoring blood glucose -Last eye exam Mar 2022 per patient, upcoming appointment on 05/24/24 -Last foot exam October 2023 -Last microalbumin test 05/18/24 no microalbuminuria -Last lipid profile on 05/18/24 total cholesterol 156; triglyceride 288; HDL 44; LDL 55 -Follow-up in 3-4 mo Relevant Orders POCT glucose manually resulted (Completed) POCT glycosylated hemoglobin (Hgb A1c) (Completed) History of repair of rotator cuff Chronic right shoulder pain - s/p right rotator cuff repair on 01/21/22 Moderate episode of recurrent major depressive disorder (CMS/HCC) Dyslipidemia Last lipid profile: 06/02/23 total cholesterol 156; triglyceride 288; HDL 44; LDL 55 Current medication: Atorvastatin 20 mg at bedtime Continue working on lifestyle modifications Right hip pain - X-ray in Jun 2024 showed moderate-severe osteoarthritis - judicious use of GARDUNO-2 inhibitor for severe pain - judicious josué of APAP for milder pain - continue staying physically active as tolerated Relevant Orders Referral to Orthopaedic Surgery Right thigh pain Relevant Orders Referral to Orthopaedic Surgery PTSD (post-traumatic stress disorder) Adhesive capsulitis of right shoulder PAC (premature atrial contraction) - evaluate with Holter monitor - in a setting of albuterol use, smoking, and occasional cocaine use Tendinitis of right rotator cuff Rotator cuff tear Other Visit Diagnoses Premature beats Relevant Orders Holter Monitor - 48 hour No Known Allergies Current Outpatient Medications Medication Instructions Acetaminophen Extra Strength 500 MG tablet TAKE 1 TO 2 TABLETS BY MOUTH EVERY 6 TO 8 HOURS NEEDED. DO NOT EXCEED 8 TABLETS IN 24 HOURS. albuterol 108 (90 Base) MCG/ACT inhaler 2 puffs, Inhalation, Every 4 hours PRN Alcohol Swabs (Alcohol Prep) 70 % pads USE DIRECTED ammonium lactate (Lac-Hydrin) 12 % lotion Topical, As needed Aspirin Adult Low Strength 81 mg, Oral, Every morning atorvastatin (Lipitor) 20 MG tablet TAKE 1 TABLET BY MOUTH EVERY MORNING Blood Glucose Monitoring Suppl (VaccsysStyle Lite) w/Device kit 1 each, Does not apply, Daily celecoxib (CELEBREX) 200 mg, Oral, Nightly cholecalciferol (Vitamin D High Potency) 25 MCG (1000 UT) capsule TAKE 1 CAPSULE BY MOUTH EVERY MORNING cyancobalamine (VITAMIN B-12) 250 mcg, Oral, Every morning cyclobenzaprine (Flexeril) 5 MG tablet 1 tab up to TID as needed for muscle spasm/pain fluticasone (Flonase Allergy Relief) 50 MCG/ACT nasal spray 1-2 sprays, Nightly FREESTYLE LITE test strip TEST BLOOD SUGAR THREE TIMES DAILY Jardiance 10 MG TAKE 1 TABLET BY MOUTH EVERY MORNING lisinopril 20 MG tablet TAKE 1 TABLET BY MOUTH EVERY MORNING loratadine (Claritin) 10 MG tablet TAKE 1 TABLET BY MOUTH EVERY MORNING metFORMIN XR (Glucophage-XR) 500 MG 24 hr tablet TAKE 2 TABLETS BY MOUTH TWICE DAILY IN THE MORNINGAND EVENING metoprolol succinate XL (Toprol-XL) 25 MG 24 hr tablet TAKE 1/2 TABLET BY MOUTH EVERY MORNING Mometasone Furoate (Asmanex HFA) 100 MCG/ACT aerosol INHALE 1 PUFF TWICE DAILY. RINSE MOUTH AFTER USING. sertraline (Zoloft) 100 MG tablet TAKE 1 AND 1/2 TABLETS BY MOUTH IN THE MORNING TRUEplus Lancets 33G misc TEST BLOOD SUGAR TWICE DAILY Follow-up: 3 mo or sooner if any problem arises. Scribe Attestation: IMani, am serving as a scribe to document services personally performed by Yanira Mi MD,based on the patient's response to questions by provider and provides statements to me. Physicians Attestation: IYanira, have reviewed the information by the scribe, Gerard Richardson, for accuracy and agree with its content. documented in this encounter Miscellaneous Notes * Assessment & Plan Note - Yanira Mi MD - 08/28/2024 12:37 PM ESTAssociated Problem(s): Right hip pain - X-ray in Jun 2024 showed moderate-severe osteoarthritis - judicious use of GARDUNO-2 inhibitor for severe pain - judicious josué of APAP for milder pain - continue staying physically active as tolerated * Assessment & Plan Note - Yanira Mi MD - 08/28/2024 12:32 PM ESTAssociated Problem(s): PAC (premature atrial contraction) - evaluate with Holter monitor - in a setting of albuterol use, smoking, and occasional cocaine use * Assessment & Plan Note - Mani Arshad - 08/22/2024 3:09 PM ESTAssociated Problem(s): Tobacco dependence Encouraged to keep up with smoking cessation * Assessment & Plan Note - Mani Arshad - 08/22/2024 3:08 PM ESTAssociated Problem(s): Dyslipidemia Last lipid profile: 06/02/23 total cholesterol 156; triglyceride 288; HDL 44; LDL 55 Current medication: Atorvastatin 20 mg at bedtime Continue working on lifestyle modifications * Assessment & Plan Note - Mani Arshad - 08/22/2024 3:08 PM ESTAssociated Problem(s): Type 2 diabetes mellitus without complication (CMS/HCC) -HgbA1C 7.8% on 08/22/24, - recently received prednisone for right hip arthritis pain -receiving prednisone for COPD exacerbation 3-4 times per year and steroid injection by orthopedist2-3 times per year. -Continue metformin 2 g qAM -Continue Jardiacne 10 mg daily, patient is having frequent vaginal candidiasis which may be a sideeffect of jardiance, patient is also having hyperglycemia lately, patient agreed to improve her diet -Continue working on lifestyle modifications -Continue self-monitoring blood glucose -Last eye exam Mar 2022 per patient, upcoming appointment on 05/24/24 -Last foot exam October 2023 -Last microalbumin test 05/18/24 no microalbuminuria -Last lipid profile on 05/18/24 total cholesterol 156; triglyceride 288; HDL 44; LDL 55 -Follow-up in 3-4 mo * Assessment & Plan Note - Mani Arshad - 08/22/2024 3:08 PM ESTAssociated Problem(s): Chronic right shoulder pain - s/p right rotator cuff repair on 01/21/22 * Assessment & Plan Note - Mani Arshad - 08/22/2024 3:07 PM ESTAssociated Problem(s): Hypertension -Goal BP < 140/90 per JNC-8 and < 130/80 per ACC/AHA guideline (Treatment threshold >= 130/80 ) - BP at goal today -Continue working on lifestyle modifications -Recommended self-monitoring BP. -Continue current medications: lisinopril 20 mg daily; metoprolol succinate 25 mg daily -Treatment Hx: -Follow up in 3-6 mo, sooner if any problem arises * Assessment & Plan Note - Mani Arshad - 08/22/2024 3:07 PM ESTAssociated Problem(s): Pulmonary nodules -Most recent CT scan on 05/18/23 shwoed multiple stable nodule -CT scan on 07/01/24, pending result -Continue working on risk fator management * Assessment & Plan Note - Mani Arshad - 08/22/2024 3:07 PM ESTAssociated Problem(s): Asthma with COPD ([facility]) - most recent exacerbation in December 2022, [...] continue albuterol inhaler prn - stop smoking documented in this encounter Plan of Treatment Upcoming Encounters Date Type Department Care Team (Late st Contact Info) Description 12/14/2024 2:00 PM EDT Office Visit [facility] [address] [place] [address] Yari Colmenares [address] [place] [address] Scheduled Orders Name Type Priority Associated Diagnoses Orde r Schedule Holter Monitor - 48 hour Cardiac Services Routine Premature beats Expected: 08/22/2024, Expires: 02/19/2025 Scheduled Referrals Name Type Priority Associated Diagnoses Order Schedule Referral to Orthopaedic Surgery Outpatient Referral Routine Right hip pain Right thigh pain Expected: 08/28/2024 (Approximate), Expires: 08/28/2025 documented as of this encounter Procedures Procedure Name Priority Date/Time Associated Diagnosis Comments POCT GLYCOSYLATED HEMOGLOBIN (HGB A1C) Routine 08/22/2024 2:29 PM EST Type 2 diabetes mellitus without complication, without long-term current use of insulin ([facility]) POCT GLUCOSE Routine 08/22/2024 2:28 PM EST Type 2 diabetes mellitus without complication, without long-term current use of insulin ([facility]) documented in this encounter Results * (ABNORMAL) POCT glycosylated hemoglobin (Hgb A1c) (08/22/2024 2:29 PM EST) Hemoglobin A1C 7.8(A) 4.0 - 6.0 % QC Media Lot # [id number] Lot# Expiration Date Blood Capillary blood specimen / Unknown 08/22/2024 2:29 PM EST us Yanira Mi MD POINT OF CARE TEST ENTER/EDIT OR DERABLES Final Result * POCT glucose manually resulted (08/22/2024 2:28 PM EST) Glucose Blood, POC 123 60 - 200 mg/dL QC Media Lot # [id number] Lot# Expiration Date 387 Blood Capillary blood specimen / Unknown 08/22/2024 2:28 PM EST us Yanira Mi MD POINT OF CARE TEST ENTER/EDIT OR DERABLES Final Result documented in this encounter Visit Diagnoses Diagnosis Pulmonary nodules- Primary Other diseases of lung, not elsewhere classified Asthma with COPD ([facility]) PAC (premature atrial contraction) Supraventricular premature beats Primary hypertension Unspecified essential hypertension Adhesive capsulitis of right shoulder Tendinitis of right rotator cuff Tear of right rotator cuff, unspecified tear extent, unspecified whether traumatic Chronic right shoulder pain Pain in joint, shoulder region Type 2 diabetes mellitus without complication, without long-term current use of insulin (CMS/HCC) Dyslipidemia Other and unspecified hyperlipidemia History of repair of rotator cuff Moderate episode of recurrent major depressive disorder (CMS/HCC) PTSD (post-traumatic stress disorder) Posttraumatic stress disorder Tobacco dependence Tobacco use disorder Premature beats Unspecified premature beats Right hip pain Pain in joint, pelvic region and thigh Right thigh pain Pain in soft tissues of limb documented in this encounter Additional Health Concerns Assessment Noted Time PHQ-9 Depression Total Score: 6 05/02/20 24 8:45 AM EDT documented as of this encounter Care Teams Bus And Sys Integration Senior Manager Relationship Specialty Start Date End Date Yanira Mi MD [address] [place] [id number] PCP - General Family Medicine 07/08/12 Marbella Tobar Genetic CounselorCertified Master Safe Technician 07/29/23 documented as of this encounter
--- OUTSIDE RECORDS SUMMARY | 2024-08-31 10:48 | XMS_ITS | Encounter Summary ---
Author Organization [employer] Address [address] [place] [address] Care Team Providers Care Weaving Professor Name Role Phone Yanira Mi MD Primary Care Provider [phone] Encounter Details Date Type Department Care Team ([facility] st Contact Info) Description 08/26/2024 Telephone [facility] [address] [place], [place] [phone] Yanira Mi MD [address] [place], [place] [phone] Social History Tobacco Use Types Packs/Day Years [...] AM EDT documented as of this encounter Miscellaneous Notes * Telephone Encounter - Jacey Mondragon - 08/26/2024 8:20 AM EST Normal lab test letter sent on 08/26/2024 documented in this encounter Plan of Treatment Upcoming Encounters Date Type Department Care Team (Late st Contact Info) Description 12/14/2024 2:00 PM EDT Office Visit [facility] [address] [place] [address] Yari Colmenares [address] [place] [address] documented as of this encounter Visit Diagnoses Not on filedocumented in this encounter Additional Health Concerns Assessment Noted Time PHQ-9 Depression Total Score: 6 05/02/20 8:45 AM EDT documented as of this encounter Care Teams Weaving Professor Relationship Specialty Start Date End Date Yanira Mi MD [address] [place] [address] PCP - General Family Medicine 07/08/12 Marbella Tobar Irradiated Fuel HandlerProof Technician 07/29/23 documented as of this encounter
--- OUTSIDE RECORDS SUMMARY | 2024-08-31 10:48 | XMS_ITS | Encounter Summary ---
Author Organization [employer] [facility] Address [address] [place] [address] Care Team Providers Care Lag Screwer Name Role Phone Yanira Mi MD Primary Care Provider [phone] Encounter Details Date Type Department Care Team (Late st Contact Info) Description 09/09/2022 Orders Only [facility] [address] [place], [place] [phone] Agueda Costa DO [address] [place], [place] [phone] Social History Tobacco Use Types Packs/Day Years Used Date Smoking Tobacco: Every Day Cigarettes Smokeless Tobacco: Current PHQ-2 Answer Date Recorded [...] PM EST documented as of this encounter Plan of Treatment Upcoming Encounters Date Type Department Care Team (Late st Contact Info) Description 12/14/2024 2:00 PM EDT Office Visit [facility] [address] [place], [place] [phone] Yari Colmenares [address] [place] [address] documented as of this encounter Visit Diagnoses Not on filedocumented in this encounter Care Teams Lag Screwer Relationship Specialty Start Date End Date Yanira Mi MD [address] [place] [address] PCP - General Family Medicine 07/08/12 Marbella Tobar Alcohol Law Enforcement AgentFitter Tacker 07/29/23 documented as of this encounter
--- OUTSIDE RECORDS SUMMARY | 2024-08-31 10:48 | XMS_ITS | Encounter Summary ---
Author Organization [employer] Address [address] [place] [address] Care Team Providers Care Hazardous Waste Remover Name Role Phone Yanira Mi MD Primary Care Provider [phone] Reason for Visit * Reason Comments Med Refill Encounter Details Date Type Department Care Team (Late st Contact Info) Description 06/09/2024 Refill [facility] [address] [facility] [address] Alisha Ko FNP [address] [place] [address] Social History Tobacco Use Types Packs/Day Years [...] 2:00 PM EDT Office Visit [facility] [address] [place] [address] Darrian, Yari [address] [place] [address] documented as of this encounter Visit Diagnoses Not on filedocumented in this encounter Additional Health Concerns Assessment Noted Time PHQ-9 Depression Total Score: 6 05/02/20 24 8:45 AM EDT documented as of this encounter Care Teams Hazardous Waste Remover Relationship Specialty Start Date End Date Yanira Mi MD [address] [place] [address] PCP - General Family Medicine 07/08/12 Marbella Tobar Trailer Truck DriverMaternal Fetal Physician 07/29/23 documented as of this encounter
--- OUTSIDE RECORDS SUMMARY | 2024-08-31 10:48 | XMS_ITS | Encounter Summary ---
Author Organization [employer] [facility] Address [address] [place] [address] Care Team Providers Care Crutcher Helper Name Role Phone Yanira Mi MD Primary Care Provider [phone] Reason for Visit * Reason Comments Med Refill Encounter Details Date Type Department Care Team (Late st Contact Info) Description 08/25/[address] [facility] [address] [place], [place] [phone] Yanira Mi MD [address] [place], [place] [phone] Moderate persistent asthma with acute exacerbation; Hypertension associated with diabetes (CMS/HCC) ([facility]/HCC) Social History Tobacco Use Types Packs/Day Years [...] 12/14/2024 2:00 PM EDT Office Visit [facility] [address] [place] [address] Darrian, Yari [address] [place] [address] documented as of this encounter Visit Diagnoses Diagnosis Moderate persistent asthma with acute exacerbation Hypertension associated with diabetes (CMS/HCC) (CMS/HCC) Unspecified essential hypertension documented in this encounter Additional Health Concerns Assessment Noted Time PHQ-9 Depression Total Score: 6 05/02/20 24 8:45 AM EDT documented as of this encounter Care Teams Crutcher Helper Relationship Specialty Start Date End Date Yanira Mi MD [address] [place] [address] PCP - General Family Medicine 07/08/12 Marbella Tobar Flotation Tank OperatorOyster Fisherman 07/29/23 documented as of this encounter
--- OUTSIDE RECORDS SUMMARY | 2024-08-31 10:48 | XMS_ITS | Encounter Summary ---
Author Organization [employer] [facility] Address [address] [place] [address] Care Team Providers Care Draughtsman Name Role Phone Yanira Mi MD Primary Care Provider [phone] Reason for Visit * Reason Comments Med Refill Encounter Details Date Type Department Care Team (Late Contact Info) Description 09/05/2022 Refill [facility] [address] [place] [address] Aliza Pickens MD [address] [place] [address] Social History Tobacco Use Types Packs/Day Years [...] suspected to have Coronavirus/COVID-19? No / Unsure 08/21/2022 2:10 PM EST documented as of this encounter Plan of Treatment Upcoming Encounters Date Type Department Care Team ([facility] Contact Info) Description 12/14/2024 2:00 PM EDT Office Visit [facility] [address] [place] [address] Yari Colmenares [address] [place] [address] documented as of this encounter Visit Diagnoses Not on filedocumented in this encounter Care Teams Draughtsman Relationship Specialty Start Date End Date Yanira Mi MD [address] [place] [address] PCP - General Family Medicine 07/08/12 Marbella Tobar [employer] Manager 07/29/23 documented as of this encounter
== END ==
LOC: HO.CARD 09:57
PROVIDERS: PCP Family Medicine; Visit Provider Family Medicine
DX: I49.49 Other premature depolarization (principal); I49.1 Atrial premature depolarization
CPT/HCPCS: 93225

== ENCOUNTER → 2024-08-31 10:00 | Outpatient (BNV) | payer OTHER, SELFPAY | PROVIDERS: PCP Family Medicine; Visit Provider Internal Medicine Cardiovascular Disease | DX: I49.1 Atrial premature depolarization (principal) | CPT/HCPCS: 93227 ==

== ENCOUNTER 2024-10-13 10:49 | Outpatient (AMB) | payer OTHER, SELFPAY ==
--- NOTE | 2024-10-13 10:55 | A.OFFVIS_ITS ---
Vital Signs 10/13/24 11:06 Height 5 ft 2 in Weight 172 lb BMI 31.5 Intake Visit Reasons: New prob- RT hip pain Intake Note: La is a 59 year old female who presents today for a evaluation of her right hip pain. patient reports ongoing pain since 07/04/25. She states that her pain is on the groin aspect of the her hip. Patient notices that her pain is worse when she is walking, sitting and laying on her right side. Allergies No Known Allergies Allergy (Verified 10/13/24 11:05) HPI HPI New prob- RT hip pain: Details: Ms. Gamble is a 59-year-old female who presents to the office today for evaluation of right hip pain. She reports that the pain is located majority in her groin and occasionally will radiate down the anterior aspect of the thigh. She reports that in June the groin pain began to become more persistent. She is in active female who participates in [employer] but realizes that she needs to make activity modifications due to hip pain. Additionally, when she goes grocery shopping she does have to make several stops because of right hip pain. Her pain is worse at night and limits her ability to fall asleep. [facility] Medical History Contusion of left knee Contusion of right knee COVID Preoperative cardiovascular examination Dental caries Alcoholism Anxiety reaction Muscle spasm of back Mood disorder Elevated cholesterol Arthritis Alcohol dependence Depression Palpitations Asthma Diabetes Hypertension Surgical History Hx of repair of rotator cuff H/O colonoscopy History of 2 sections Social History Alcohol intake: current Alcohol intake frequency: does not drink Alcohol type: hard liquor Patient Tobacco Use Status: Current everyday Tobacco user Cigarettes Per Day: 7 Second Hand Smoke Exposure: No Advance Directives Date on File: 01/02/22 Current occupational status: disabled 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 Associated groin pain with internal external rotation. No tenderness to palpation over the greater trochanteric bursa. Able to perform straight leg raise. NVI. Assessment & Plan Assessment & Plan (1) Osteoarthritis of right hip: Code(s): M16.11 - Unilateral primary osteoarthritis, right hip Category: Medical Plan Ms. Gamble is a 59-year-old female who presents to the office today for evaluation of right hip pain. She reports that the pain is located majority in her groin and occasionally will radiate down the anterior aspect of the thigh. She reports that in June the groin pain began to become more persistent. She is in active female who participates in [employer] but realizes that she needs to make activity modifications due to hip pain. Additionally, when she goes grocery shopping she does have to make several stops because of right hip pain. Her pain is worse at night and limits her ability to fall asleep. While in the office today, we discussed the role of surgical intervention versus cortisone injection. I did discuss that with cortisone injection this may help in the short term but for a long-term solution a total hip arthroplasty may be beneficial. Her right hip pain is impeding on her quality of life and she is unable to perform activities that she wishes to do without pain. She would like to discuss this further and therefore I have made a follow-up with Dr. Azul to do so. In the meantime, I sent a prescription for Celebrex 200 mg to be taken by mouth twice a day to the pharmacy. She will follow up with Dr. Azul, sooner if needed. X-rays of the right hip and pelvis which were obtained on 07/04/2024 were reviewed by me, Dedra Garrido PA-C, revealed moderate to severe right hip osteoarthritis. Medications: New celecoxib (Celebrex) 200 mg PO BID 60 caps 0RF 30 days Coding Level of Care Code Est Pt Level 4 (90876) Diagnoses Osteoarthritis of right hip M16.11
[2024-10-13 11:06] VITALS: BMI 31.5
== END 2024-10-13 11:09 | disposition home or self-care (01) ==
LOC: HO.HOS 10:49
PROVIDERS: PCP Family Medicine; Visit Provider Physician Assistant
DX: M16.11 Unilateral primary osteoarthritis, right hip (principal)
CPT/HCPCS: 99214

== ENCOUNTER → 2024-10-13 10:49 | Outpatient (BNVA) | payer OTHER, SELFPAY | PROVIDERS: PCP Family Medicine; Visit Provider Physician Assistant | DX: M16.11 Unilateral primary osteoarthritis, right hip (principal) | CPT/HCPCS: 99212 ==

== ENCOUNTER 2024-11-08 10:36 | Emergency (ER) | payer OTHER, SELFPAY ==
--- NOTE | ~2024-11-08 | XR_ITS ---
EXAMINATION: XR LUMBOSACRAL SPINE CLINICAL INFORMATION: low back pain COMPARISON: March 09, 2023. TECHNIQUE: Three views of the lumbosacral spine. FINDINGS: Syndesmophyte formation and marginal osteophyte formation from T11-12 to L5-S1. Endplate sclerosis and decreased intervertebral disc height at L4-5 and L5-S1 level. Grade 1 retrolisthesis L3-4. Bilateral facet joint hypertrophy, L4-5 and L5-S1. No acute cortical disruption. No lytic or blastic lesions. Atherosclerosis disease, abdominal aorta.. XR/XR lumbar spine 2-3V IMPRESSION: Multilevel thoracolumbar spondylosis. Grade 1 retrolisthesis L3-4 likely degenerative. Electronically signed by: Bony Josue MD 11/08/2024 12:04 PM EDT
--- NOTE | ~2024-11-08 | XR_ITS ---
EXAMINATION: XR HIP, RIGHT CLINICAL INFORMATION: right lower back pain/hip pain COMPARISON: July 14, 2024. TECHNIQUE: Two views of the right hip. FINDINGS: Sclerosis at the articular surface of the acetabulum and femoral head with asymmetric joint space narrowing, bilaterally. No acute cortical disruption or gross malalignment, right hip. Spondylosis at L4-5 and L5-S1. No lytic or blastic lesions. XR/XR hip RT w PEL1V IMPRESSION: Mild to moderate osteoarthrosis both hips without acute fracture or dislocation. Electronically signed by: Bony Josue MD 11/08/2024 12:02 PM EDT
[2024-11-08 11:21] VITALS: BP 119/51; PULSE 68; RESP 16; TEMP 36.3; O2SAT 98; BMI 32.0
--- NOTE | 2024-11-08 11:25 | ED_ITS ---
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 NO fevers, no IVDA, no numbness, weakness, loss of control of bowel or bladder. No fevers. She is taking celebrex and aspirin without relief. She has had this many times before. She cannot take the pain right now MD complaint: back pain Onset (ago): month(s) Location: back Radiation: extremity Severity: severe Quality: stabbing and aching Pain Consistency: intermittent Relieving factors: immobilization Exacerbating factors: movement Associated symptoms: denies other symptoms Treatments prior to arrival: NSAID and aspirin Related Data Home Medications ?Medication ?Instructions ?Recorded ?Confirmed aspirin 81 mg tablet 81 mg PO DAILY 05/17/20 12/18/21 lisinopril 20 mg tablet 20 mg PO DAILY 05/17/20 12/18/21 metformin 500 mg tablet 1,000 mg PO BID 05/17/20 12/18/21 atorvastatin 20 mg tablet 20 mg PO QAM 10/08/21 12/18/21 sertraline 100 mg tablet 150 mg PO QAM 10/08/21 12/18/21 albuterol sulfate 90 mcg/actuation 2 puff PO Q4-6H PRN Wheezing 12/18/21 12/18/21 aerosol inhaler (ProAir HFA) buspirone 10 mg tablet 1 tab PO BID anxiety 12/18/21 12/18/21 empagliflozin 10 mg tablet 1 tab PO QAM 12/18/21 12/18/21 (Jardiance) fluticasone propionate 44 2 puff inhalation BID 12/18/21 12/18/21 mcg/actuation HFA aerosol inhaler (Flovent HFA) metoprolol succinate 25 mg 0.5 tab PO QAM 12/18/21 12/18/21 tablet,extended release 24 hr valacyclovir 1 gram tablet 1,000 mg PO Q12H 05/01/22 Previous Rx's ?Medication ?Instructions ?Recorded acetaminophen 500 mg tablet 500 mg PO Q6H PRN pain or fever 07/16/20 (Tylenol Extra Strength) #20 tabs diclofenac sodium 1 % topical gel 2 g topical QID #100 grams 05/27/21 (Voltaren Arthritis Pain) cyclobenzaprine 5 mg tablet 5 mg PO TID PRN muscle spasm #10 03/03/22 tabs cefuroxime axetil 500 mg tablet 500 mg PO Q12H 7 days #14 tabs 03/22/22 celecoxib 200 mg capsule 200 mg PO BID PRN pain 30 days #60 05/01/22 caps cyclobenzaprine 5 mg tablet 5 mg PO BEDTIME PRN muscle spasm 06/24/22 #4 tabs ketorolac 10 mg tablet 10 mg PO Q6H PRN pain 5 days #20 06/24/22 tabs cyclobenzaprine 5 mg tablet 5 mg PO TID PRN muscle spasm #20 03/09/23 tabs acetaminophen 325 mg tablet 325 mg PO QID 7 days #28 tabs 07/04/24 (Tylenol) prednisone 20 mg tablet 40 mg (2 x 20 mg) PO DAILY 5 days 07/04/24 #10 tabs celecoxib 200 mg capsule (Celebrex) 200 mg PO BID 30 days #60 caps 10/13/24 lidocaine 5 % topical patch 1 patch topical DAILY #30 ea 11/08/24 tramadol 50 mg tablet 50 mg PO Q8H PRN pain #14 tabs 11/08/24 Allergies Allergy/AdvReac Type Severity Reaction Status Date / Time No Known Allergies Allergy Verified 11/08/24 11:24 Review of Systems Review of Systems: Constitutional : No Weight loss, No Fever, No Chills, ENT/Mouth : No Hearing loss, No Ear Pain, No Nasal Congestion, No Sinus Pain, No Hoarseness, No sore throat, No Rhinorrhea, No Swallowing Difficulty Cardiovascular : No Chest Pain, No SOB Respiratory : No Cough, No Dyspnea Gastrointestinal : No Nausea, No Vomiting, No Diarrhea, No abdominal Pain, No Hematochezia, No Melena Genitourinary : No Dysuria, No Urinary Frequency, No Hematuria, No Urinary Incontinence, Musculoskeletal : positive back pain Skin : No Skin Lesions, No rash Neuro : No Weakness, No Numbness, No Paresthesias, no loss of bowel or bladder incontinence, no saddle anesthesia all other systems reviewed and are negative [facility] Past Medical History Attestation statement: The following information was validated with the patient. Source: old records reviewed Medical History Contusion of left knee Contusion of right knee COVID Preoperative cardiovascular examination Dental caries Alcoholism Anxiety reaction Muscle spasm of back Mood disorder Elevated cholesterol Arthritis Alcohol dependence Depression Palpitations Asthma Diabetes Hypertension Surgical History Hx of repair of rotator cuff H/O colonoscopy History of 2 sections Social History Social History Alcohol intake: current Alcohol intake frequency: does not drink Alcohol type: hard liquor Patient Tobacco Use Status: Current everyday Tobacco user Cigarettes Per Day: 7 Second Hand Smoke Exposure: No Advance Directives: Yes Advance Directives on File: Yes Advance Directives Date on File: 01/02/22 Current occupational status: disabled 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 Oriented X3. No acute distress. Eyes: Pupils equal, round and reactive to light. ENT: Pharynx normal. Neck: Normal inspection. Neck supple. CVS: Normal heart rate and rhythm. Pulses normal. Respiratory: No respiratory distress. Breath sounds normal. Abdomen: Soft and nontender. Back: ttp along R lumbar paraspinal reproduces pain SILT intact inner thigh DTRs normal L5 5/5 bilaterally can flex and extend no issue Skin: Skin warm and dry. Normal skin color. Normal skin turgor. Extremities: No lower extremity edema. No calf ttp Neuro: Oriented X 3. No motor deficit. No sensory deficit. CN2-12 intact Course Course Course Narrative: RME: 59-year-old female with history of arthritis presents to ED for lower back right lower hit back pain for the past 5 days without any trauma. Patient denies any urinary/bowel incontinence, genitourinary symptoms, abdominal pain, nausea, vomiting, fever, chills, IV drug use, new workouts, or paralysis of lower extremities. Positive for lumbar spine right hip tenderness on palpation. UA x-ray ordered. Medical Decision Making Medical Decision Making [facility] Narrative: 59 yo female with PMH of hip pain, arthritis, back pain, HLD, depression, mood disorder, asthma, DM, HTN here with c/o R back and hip pain but no trauma no IVDA no thinners and no b/b incontinence or saddle anesthesia at this time will need UA and xrays - no hx of seizures will start on tramadol and follow up with PCP. Pain is lower doubt renal colic Differential Diagnosis Differential Diagnoses: The differential diagnosis associated with the pre sentation includes lumbar radiculopathy, back pain, sciatica, arthritis Admission/Observation Consideration of admission/observation: Escalation of care including admission/observation considered able to ambulate no issues can be managed as outpatient Lab Data [facility] Lab Attestation statement: I reviewed the patient's lab results. Labs: Lab Results 11/08/24 Range/Units 11:58 Urine Color Yellow Urine Appearance Clear Urine pH 5.5 (5.0-9.0) Ur Specific [place] 1.025 (1.005-1.025) Urine Protein Negative (Neg-Trace) mg/dL Urine Glucose (UA) >=1000 H (Negative) mg/dL Urine Ketones Negative (Negative) mg/dL Urine Blood Negative (Negative) Urine Nitrite Negative (Negative) Ur Leukocyte Esterase Negative (Negative) Urine RBC 0-2 (0-2) /HPF Urine WBC 0-5 (0-5) /HPF Ur Squamous Epith Cells 0-2 (0-2) /HPF Urine Bacteria None Seen (None Seen) Hyaline Casts 0-2 (0-2) /LPF Independent Interpretation I performed an independent interpretation of an: Plain X-Ray (no fracture) Radiology Impression Discussion of test interpretation with radiology: I have reviewed the radiologist's reading. External Record Review External record reviewed: Outpatient record Prescription Management I considered prescription management with: Pain Medication and Other Discharge Plan Discharge Clinical Impression: Lumbar spondylosis, Bilateral hip pain Patient Disposition: Home, Self-Care Instructions: Acute Low Back Pain (ED), Hip Pain (ED) Additional Instructions: xrays show arthritis return for numbness, weakness, loss of control of bowel or bladder or any other concerns follow up with your doctor Prescriptions: New lidocaine 5 % adhesive patch,medicated 1 patch topical DAILY Qty: 30 0RF Rx Instructions: leave on most painful area for up to 12 hrs tramadol 50 mg tablet 50 mg PO Q8H PRN (Reason: pain) Qty: 14 0RF No Action metformin 500 mg Tablet 1,000 mg PO BID lisinopril 20 mg Tablet 20 mg PO DAILY aspirin 81 mg Tablet 81 mg PO DAILY acetaminophen [Tylenol Extra Strength] 500 mg tablet 500 mg PO Q6H PRN (Reason: pain or fever) Qty: 20 0RF diclofenac sodium [Voltaren Arthritis Pain] 1 % gel 2 g topical QID Qty: 100 0RF Rx Instructions: apply to single elbow, wrist or hand; for hand includes palm/fingers/back of hand buspirone 10 mg tablet 1 tab PO BID Flovent HFA 44 mcg/actuation HFA aerosol inhaler 2 puff inhalation BID metoprolol succinate 25 mg tablet extended release 24 hr 0.5 tab PO QAM albuterol sulfate [ProAir HFA] 90 mcg/actuation HFA aerosol inhaler 2 puff PO Q4-6H PRN (Reason: Wheezing) Jardiance 10 mg tablet 1 tab PO QAM cyclobenzaprine 5 mg tablet 5 mg PO BEDTIME PRN (Reason: muscle spasm) Qty: 4 0RF ketorolac 10 mg tablet 10 mg PO Q6H PRN (Reason: pain) 5 Days Qty: 20 0RF Rx Instructions: 1. Patient rec'd Toradol in the ER 2. Please instruct to stop other NSAIDs cyclobenzaprine 5 mg tablet 5 mg PO TID PRN (Reason: muscle spasm) Qty: 10 0RF cefuroxime axetil 500 mg tablet 500 mg PO Q12H 7 Days Qty: 14 0RF prednisone 20 mg tablet 40 mg PO DAILY 5 Days Qty: 10 0RF acetaminophen [Tylenol] 325 mg tablet 325 mg PO QID 7 Days Qty: 28 0RF cyclobenzaprine 5 mg tablet 5 mg PO TID PRN (Reason: muscle spasm) Qty: 20 0RF sertraline 100 mg tablet 150 mg PO QAM atorvastatin 20 mg tablet 20 mg PO QAM valacyclovir 1 gram tablet 1,000 mg PO Q12H celecoxib 200 mg capsule 200 mg PO BID PRN (Reason: pain) 30 Days Qty: 60 0RF celecoxib [Celebrex] 200 mg capsule 200 mg PO BID 30 Days Qty: 60 0RF Interventions: ED Discharge Assessment Last Done: 11/08/24 12:42 Discharge Date/Time: 11/08/24 12:44 Print Language: Lithuanian
[2024-11-08 12:05] LABS: Appearance Urine Clear; Color Urine Yellow; Glucose Urine UA >=1000 mg/dL (Negative); Leukocyte Esterase Urine Negative (Negative); Nitrite Urine Negative (Negative); PH 5.5 (5.0-9.0); Specific Gravity - Urine 1.025 (1.005-1.025); UMIC TRIGGER UACC YES; Urine Blood Negative (Negative); Urine Ketones Negative (Negative); Urine Protein Negative (Neg-Trace)
[2024-11-08 12:08] LABS: Bacteria Urine None Seen (None Seen); Hyaline Casts Urine 0-2 /LPF (0-2); RBC Urine 0-2 /HPF (0-2); Squamous Epithelial Cell Urine 0-2 /HPF (0-2); WBC Urine 0-5 /HPF (0-5)
[2024-11-08 12:42] VITALS: BP 119/51; PULSE 68; RESP 16; TEMP 36.3; O2SAT 98
--- OUTSIDE RECORDS SUMMARY | 2024-11-08 15:13 | XMS_ITS | Clinical Summary ---
Author Organization [employer] Address [address] [place] [address] Care Team Providers Care Warpman Name Role Phone Yanira Mi MD Primary Care Provider [phone] Allergies No known active allergies Medications * This document contains information received from the source organization and may not represent a complete record from that organization. Blood Glucose Monitoring Suppl (Doctor FunStyle Lite) w/Device kit 1 each in the morning. 1 kit 11 05/07/20 23 Active cyclobenzaprine (Flexeril) 5 MG tabletIndication s:Muscle tension pain 1 tab up to TID as needed for muscle spasm/pain 30 tablet 11/04/19 24 Active Additional Information Patient not taking.Reported on 08/05/2024 Aspirin Adult Low Strength 81 MG EC tablet TAKE 1 TABLET BY MOUTH EVERY MORNING 90 tablet 3 01/06/20 24 Active Acetaminophen Extra Strength 500 MG tabletIndication s:Pain TAKE 1 TO 2 TABLETS BY MOUTH EVERY 6 TO 8 HOURS NEEDED. DO NOT EXCEED 8 TABLETS IN 24 HOURS. 90 tablet 2 01/27/20 24 Active Jardiance 10 MG TAKE 1 TABLET BY MOUTH EVERY MORNING 30 tablet 11 03/09/20 24 Active atorvastatin (Lipitor) 20 MG tablet TAKE 1 TABLET BY MOUTH EVERY MORNING 90 tablet 3 04/04/20 24 Active cholecalciferol (Vitamin D High Potency) 25 MCG (1000 UT) capsule TAKE 1 CAPSULE BY MOUTH EVERY MORNING 90 capsule 3 04/04/20 24 Active cyanocobalamin (Vitamin B-12) 250 MCG tabletIndication s:Cobalamin deficiency Take 1 tablet (250 mcg) by mouth in the morning. 90 tablet 3 05/19/20 24 Active Alcohol Swabs (Alcohol Prep) 70 % padsIndications: Type 2 diabetes mellitus without complications ([facility]) USE DIRECTED 100 each 11 06/07/20 24 Active fluticasone (Flonase Allergy Relief) 50 MCG/ACT nasal spray Administer 1-2 sprays into affected nostril(s) at bed time. 06/12/20 22 Active TRUEplus Lancets 33G miscIndications: Type 2 diabetes mellitus without complications ([facility]) TEST BLOOD SUGAR TWICE DAILY 100 each 11 06/09/20 24 Active ammonium lactate (Lac-Hydrin) 12 % lotion Apply topically if needed for dry skin. 225 g 2 06/09/20 24 Active sertraline (Zoloft) 100 MG tabletIndication s:Anxiety TAKE 1 AND 1/2 TABLETS BY MOUTH IN THE MORNING 45 tablet 3 07/25/20 24 Active metoprolol succinate XL (Toprol-XL) 25 MG 24 hr tabletIndication s:Primary hypertension TAKE 1/2 TABLET BY MOUTH EVERY MORNING 45 tablet 3 07/28/19 25 Active metFORMIN XR (Glucophage-XR) 500 MG 24 hr tabletIndication s:Hypertension associated with diabetes ([facility]) TAKE 2 TABLETS BY MOUTH TWICE DAILY IN THE MORNING AND EVENING 360 tablet 3 07/28/19 25 Active celecoxib (CeleBREX) 200 MG capsule Take 1 capsule (200 mg) by mouth at bedtime. 30 capsule 2 08/22/19 25 Active loratadine (Claritin) 10 MG tabletIndication s:Moderate persistent asthma with acute exacerbation TAKE 1 TABLET BY MOUTH EVERY MORNING 90 tablet 3 08/25/19 25 Active lisinopril 20 MG tabletIndication s:Hypertension associated with diabetes ([facility]) TAKE 1 TABLET BY MOUTH EVERY MORNING 90 tablet 3 08/25/19 25 Active Ventolin HFA 108 (90 Base) MCG/ACT inhalerIndicatio ns:COPD exacerbation ([facility]) INHALE 2 PUFFS BY MOUTH EVERY 4 HOURS NEEDED FOR WHEEZING OR SHORTNESS OF BREATH 18 g 1 09/19/19 25 Active FREESTYLE LITE test stripIndications :Type 2 diabetes mellitus without complication, without long-term current use of insulin ([facility]) TEST BLOOD SUGAR THREE TIMES DAILY 100 strip 5 09/27/19 25 Active Mometasone Furoate (Asmanex HFA) 100 MCG/ACT aerosol INHALE 1 PUFF BY MOUTH TWICE DAILY. RINSE MOUTH AFTER USING. 13 g 11 10/28/19 25 Active Mometasone Furoate (Asmanex HFA) 100 MCG/ACT aerosol INHALE 1 PUFF TWICE DAILY. RINSE MOUTH AFTER USING. 39 g 3 09/07/19 24 2024 Discontinued Active Problems Problem Noted Date Diagnosed Date [...] Moderate episode of recurrent major depressive disorder ([facility]/HCC) DIANE (generalized anxiety disorder) Patient ready to address current needs Yes Strengths include Willingness to engage, identifies triggers, boundary setting. PLAN: 1. Follow up with [facility]: Recommended for follow-up: 1 month 2. Patient [...] (02/09/2024 5:58 PM EDT): - following with [facility] - last seen on 03/24/23, received steroid injection - right side is worse than left side - continue judicious use of analgesics Assessment & Plan (08/14/2023 5:55 PM EST): - following with [facility] - last seen on 03/24/23, received steroid injection - right side is worse than left side - continue judicious use of analgesics Assessment & Plan (05/09/2023 4:21 PM EDT): - following with [facility] - last seen on 03/24/23, received steroid injection - right side is worse than left side - continue judicious use of analgesics Assessment & Plan (02/21/2023 5:34 PM EDT): - right more painful than left - previously seen by [facility] orthopedist - received steroid injection - she declines a referral for another steroid injection or physical therapy - home exercise program - upcoming appt with ortho due to recent fall injury Assessment & Plan (10/26/2022 7:03 AM EDT): - right more painful than left - previously seen by [facility] orthopedist - received steroid injection - she declines a referral for another steroid injection or physical therapy - home exercise program Chronic bilateral low back pain with bilateral s ciatica 07/01/2022 Overview (07/01/2022): -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 Assessment & Plan (10/26/2022 6:58 AM EDT): - referred to a sizing machine tender, but will refer to another sizing machine tender whose office is more accessible EVELIA (obstructive [...] (05/09/2023 4:27 PM EDT): - previously seeing [facility] provider - continue sertraline - continue V-care Anxiety 04/12/2012 05/14/2023 Encounters Date Type Department Care Team Description 11/08/2024 Orders Only [facility] Ref[facility] [address] [place] [address] Yanira Mi MD 09/26/2024 Refill [facility] [address] [place] [address] Yanira Mi MD Type 2 diabetes mellitus without complication, without long-term current use of insulin ([facility]) 09/17/2024 Refill [facility] [address] [place] [address] Aliza Pickens MD COPD exacerbation ([facility]) 08/26/2024 Telephone [facility] [address], [place] [phone] Yanira Mi MD 08/25/2024 Refill [facility] [address] [place] [address] Yanira Mi MD Moderate persistent asthma with acute exacerbation; Hypertension associated with diabetes ([facility]) ([facility]) 08/22/2024 3:15 PM EST Office Visit [facility] [address] [place] [address] Yanira Mi MD Pulmonary nodules (Primary Dx); Asthma with COPD ([facility]); PAC (premature atrial contraction); Primary hypertension; Adhesive capsulitis of right shoulder; Tendinitis of right rotator cuff; Tear of right rotator cuff, unspecified tear extent, unspecified whether traumatic; Chronic right shoulder pain; Type 2 diabetes mellitus without complication, without long-term current use of insulin ([facility]); Dyslipidemia; History of repair of rotator cuff; Moderate episode of recurrent major depressive disorder ([facility]); PTSD (post-traumatic stress disorder); Tobacco dependence; Premature beats; Right hip pain; Right thigh pain 08/22/2024 Travel from Last 3 Months Immunizations Name Administration [...] Care Team (Late st Contact Info) Description 11/22/2024 1:15 PM EDT Office Visit [facility] [address] [place] [address] Yanira Mi MD [address] [place] [address] 12/14/2024 2:00 PM EDT Office Visit [facility] [address] [place] [address] Yari Colmenares [address] [place] [address] 12/23/2024 1:30 PM EDT Office Visit [facility] [address] [place] [address] Rosendowilmer Aiden, DDS [address], [place] [phone] Health Maintenance Due Date Last Done Comments CT Colonography 1965 FIT DNA/Cologuard 1965 FIT 1965 FOBT 1965 Sigmoidoscopy 1965 Eye Exam 1975 COVID-19 Vaccine ( season) 2024 05/11/2023, 07/22/2022, 12/02/2021, Additional history exists Mammogram 09/23/2024 09/24/2023, 08/28, 09/12/2021, Additional history [...] Completed 12/01/2022, 06/12/2013, 10/05/2012, Additional history exists Hepatitis A Vaccines Aged Out 11/02/2023 No long er eligible based on patient's age to complete this topic HIV Screening Completed 11/03/2023, 05/28, 05/09/2022 Hepatitis [...] Procedure Name Priority Date/Time Associated Diagnosis Comments URINALYSIS, COMPLETE, WITH REFLEX TO CULTURE Routine 11/08/2024 11:58 AM EDT URINALYSIS WITH REFLEX MICROSCOPIC Routine 11/08/2024 11:58 AM EDT XR LUMBAR SPINE 2-3 VIEWS Routine 11/08/2024 11:24 AM EDT XR HIP RIGHT WITH PELVIS 1 VIEW Routine 11/08/2024 11:24 AM EDT POCT GLYCOSYLATED HEMOGLOBIN (HGB A1C) Routine 08/22/2024 2:29 PM EST Type 2 diabetes mellitus without complication, without long-term current use of insulin (CMS/HCC) POCT GLUCOSE Routine 08/22/2024 2:28 PM EST Type 2 diabetes mellitus without complication, without long-term current use of insulin (CMS/HCC) PROPHYLAXIS - ADULT Routine 06/15/2024 1 :00 PM EST Dental calculus Periodontal disease BITEWINGS - 4 RADIOGRAPHIC IMAGES Routine 06/15/2024 1:00 PM EST Advanced periodontitis Dental calculus Periodontal disease Generalized gingival recession PERIODIC ORAL EVALUATION - ESTABLISHED PATIENT Routine 06/15/2024 1:00 PM EST ALBUMIN, RANDOM URINE W/CREATININE Routine 05/18/2024 2:00 PM EDT Type 2 diabetes mellitus without complication, without long-term current use of insulin (CMS/HCC) LIPID PANEL WITH REFLEX TO DIRECT LDL Routine 05/18/2024 2:00 PM EDT Type 2 diabetes mellitus without complication, without long-term current use of insulin (CMS/HCC) INTRAORAL - COMPLETE SERIES OF RADIOGRAPHIC IMAGES Routine 11/12/2023 2:00 [...] 10:59 AM EDT HM PAP/HPV Routine 03/27/2022 COLONOSCOPY Routine 10/25/2015 from Last 3 Months or Most Recently Relevant to Health Maintenance Results * (ABNORMAL) Urinalysis, Complete, with Reflex to Culture (11/08/2024 11:58 AM EDT) Color Urine Yellow [facility] Appearance Urine Clear [facility] PH 5.5 5.0 - 9.0 [facility] Glucose Urine UA >=1000(A) Negative mg/dL [facility] Urine Blood Negative Negative [facility] Specific [place] - Urine 1.025 1.005 - 1.025 [facility] Urine Protein Negative Neg-Trace mg/dL [facility] Urine Ketones Negative Negative mg/dL [facility] Nitrite Urine Negative Negative [facility] Leukocyte Esterase Urine Negative Negative [facility] RBC Urine 0-2 0 - 2 /HPF [facility] Urine WBC 0-5 0 - 5 /HPF [facility] Urine Squamous Epithelial Cell 0-2 0 - 2 /HPF [facility] Urine Bacteria None Seen None Seen [facility] Hyaline Casts, Urine 0-2 0 - 2 /LPF [facility] 11/08/2024 11:5 8 AM EDT 11/08/2024 12:00 PM EDT Narrative [facility] - 11/08/2024 12:14 PM EDT Urine, Clean Catch us Generic External Data Provider LAB URINE ORDERAB LES Final Result Performing Organization Address [facility] de Phone Number [facility] [address] [place] [address] [phone] * (ABNORMAL) Urinalysis w/reflex microscopic (11/08/2024 11:58 AM EDT) Color Urine Yellow [facility] Appearance Urine Clear [facility] PH 5.5 5.0 - 9.0 [facility] Glucose Urine UA >=1000(A) Negative mg/dL [facility] Urine Blood Negative Negative [facility] Specific [place] - Urine 1.025 1.005 - 1.025 [facility] Urine Protein Negative Neg-Trace mg/dL [facility] Urine Ketones Negative Negative mg/dL [facility] Nitrite Urine Negative Negative [facility] Leukocyte Esterase Urine Negative Negative [facility] 11/08/2024 11:5 8 AM EDT 11/08/2024 12:00 PM EDT Narrative [facility] - 11/08/2024 12:06 PM EDT Urine, Clean Catch us Generic External Data Provider LAB URINE ORDERAB LES Final Result Performing Organization Address [facility] Co de Phone Number [facility] [address] [place] [address] [phone] * XR Hip right with Pelvis 1 view (11/08/2024 11:24 AM EDT) Anatomical Region Laterality Modality Lower Extremities, Hip Bilateral Radiograp hic Imaging 11/08/2024 11:2 4 AM EDT Narrative 11/08/2024 12:05 PM EDT ? [facility] ?[address] ?[place] [address] ?XRay Report ? Signed ? Patient: Gamble,La ?MR#: [id number] ?? 631 ? : 1965 ?Acct:[id number] ? Age/Sex: 59 / F ?ADM Date: 11/08/24 ? Loc: HO.ED ? Attending Dr: ? Ordering Physician: Mitchell Silverio ?? Date of Service: 11/08/24 ?? Procedure(s): XR hip RT w PEL1V ?? Accession Number(s): [id number] ? cc: Mitchell Silverio; Yanira Mi MD ? EXAMINATION: ?? XR HIP, RIGHT ? CLINICAL INFORMATION: ?? right lower back pain/hip pain ? COMPARISON: ?? July 14, 2024. ? TECHNIQUE: ?? Two views of the right hip. ? FINDINGS: ?? Sclerosis at the articular surface of the acetabulum and femoral head ?? with asymmetric joint space narrowing, bilaterally. ?? No acute cortical disruption or gross malalignment, right hip. ?? Spondylosis at L4-5 and L5-S1. ?? No lytic or blastic lesions. ? XR/XR hip RT w PEL1V ?? IMPRESSION: ?? Mild to moderate osteoarthrosis both hips without acute fracture or ?? dislocation. ? Electronically signed by: ??Bony Josue MD ??11/08/2024 12:02 PM ?? EDT RP ? Dictated By: ?Bony Ness MD ? Signed By: ?<Electronically signed by Bony Chiang MD in OV> ? 11/08/24 1202 ? DD/ 1124 ? TD/TT: 11/08/24 1153 ? Signals Intelligence Superintendent: ? Procedure Note Sallie Marie - 11/08/[address] [address] XRay Report Signed Patient: La GambleMR#: [id number] 631 : 1965Acct:[id number] Age/Sex: 59 / FADM Date: 11/08/24 Loc: HO.ED Attending Dr: Ordering Physician: Mitchell Silverio Date of Service: 11/08/24 Procedure(s): XR hip RT w PEL1V Accession Number(s): [id number] cc: Mitchell Silverio; Yanira Mi MD EXAMINATION: XR HIP, RIGHT CLINICAL INFORMATION: right lower back pain/hip pain COMPARISON: July 14, 2024. TECHNIQUE: Two views of the right hip. FINDINGS: Sclerosis at the articular surface of the acetabulum and femoral head with asymmetric joint space narrowing, bilaterally. No acute cortical disruption or gross malalignment, right hip. Spondylosis at L4-5 and L5-S1. No lytic or blastic lesions. XR/XR hip RT w PEL1V IMPRESSION: Mild to moderate osteoarthrosis both hips without acute fracture or dislocation. Electronically signed by: Bony Josue MD 11/08/2024 12:02 PM EDT RP Dictated By: Bony Ness MD Signed By: <Electronically signed by Bony Chiang MDin OV> 11/08/24 1202 DD/ 1124 TD/TT: 11/08/24 1153 Signals Intelligence Superintendent: [facility] External Provider IMG XR PROCEDURES Final Result * XR Lumbar Spine 2-3 Views (11/08/2024 11:24 AM EDT) Anatomical Region Laterality Modality Spine, L-spine Radiographic Gayathri ging 11/08/2024 11:2 4 AM EDT Narrative 11/08/2024 12:06 PM EDT ? [facility] ?[address] ?[place] [address] ?XRay Report ? Signed ? Patient: Gamble,La ?MR#: [id number] ?? 631 ? : 1965 ?Acct:[id number] ? Age/Sex: 59 / F ?ADM Date: 04/15/25 ? Loc: HO.ED ? Attending Dr: ? Ordering Physician: Mitchell Silverio ?? Date of Service: 11/08/24 ?? Procedure(s): XR lumbar spine 2-3V ?? Accession Number(s): [id number] ? cc: Mitchell Silverio; Yanira Mi MD ? EXAMINATION: ?? XR LUMBOSACRAL SPINE ? CLINICAL INFORMATION: ?? low back pain ? COMPARISON: ?? March 09, 2023. ? TECHNIQUE: ?? Three views of the lumbosacral spine. ? FINDINGS: ?? Syndesmophyte formation and marginal osteophyte formation from T11-12 ?? to L5-S1. ?? Endplate sclerosis and decreased intervertebral disc height at L4-5 and ?? L5-S1 level. ?? Grade 1 retrolisthesis L3-4. ?? Bilateral facet joint hypertrophy, L4-5 and L5-S1. ?? No acute cortical disruption. ?? No lytic or blastic lesions. ?? Atherosclerosis disease, abdominal aorta.. ? XR/XR lumbar spine 2-3V ?? IMPRESSION: ?? Multilevel thoracolumbar spondylosis. ?? Grade 1 retrolisthesis L3-4 likely degenerative. ? Electronically signed by: ??Bony Josue MD ??11/08/2024 12:04 PM ?? EDT RP ? Dictated By: ?Bony Ness MD ? Signed By: ?<Electronically signed by Bony Chiang MD in OV> ? 11/08/24 1204 ? DD/ 1124 ? TD/TT: 11/08/24 1153 ? Signals Intelligence Superintendent: ? Procedure Note Sallie Marie - 11/08/2024 [place] [address] XRay Report Signed Patient: La GambleMR#: [id number] 631 : 1965Acct:[id number] Age/Sex: 59 / FADM Date: 11/08/24 Loc: HO.ED Attending Dr: Ordering Physician: Mitchell Silverio Date of Service: 11/08/24 Procedure(s): XR lumbar spine 2-3V Accession Number(s): [id number] cc: Mitchell Silverio; Yanira Mi MD EXAMINATION: XR LUMBOSACRAL SPINE CLINICAL INFORMATION: low back pain COMPARISON: March 09, 2023. TECHNIQUE: Three views of the lumbosacral spine. FINDINGS: Syndesmophyte formation and marginal osteophyte formation from T11-12 to L5-S1. Endplate sclerosis and decreased intervertebral disc height at L4-5 and L5-S1 level. Grade 1 retrolisthesis L3-4. Bilateral facet joint hypertrophy, L4-5 and L5-S1. No acute cortical disruption. No lytic or blastic lesions. Atherosclerosis disease, abdominal aorta.. XR/XR lumbar spine 2-3V IMPRESSION: Multilevel thoracolumbar spondylosis. Grade 1 retrolisthesis L3-4 likely degenerative. Electronically signed by: Bony Josue MD 11/08/2024 12:04 PM EDT RP Dictated By: Bony Ness MD Signed By: <Electronically signed by Bony Chiang MDin OV> 11/08/24 1204 DD/ 1124 TD/TT: 11/08/24 1153 Signals Intelligence Superintendent: [facility] External Provider IMG XR PROCEDURES Final Result * (ABNORMAL) POCT glycosylated hemoglobin (Hgb A1c) [...] Media Lot # [id number] Lot# Expiration Date ,025 Blood Capillary blood specimen / Unknown 08/22/2024 2:28 PM EST Yanira Mi MD POINT OF CARE TEST ENTER/EDIT OR DERABLES Final Result * (ABNORMAL) Lipid Panel with Reflex to Direct LDL (05/18/2024 2:00 PM EDT) Triglycerides 472(H) <150 mg/dL [facility] Comment:Desirable Triglyceri de: less than 150 mg/dLBorderline High Triglyceride 150-199 mg/dLHigh Triglyceride: 200-499 mg/dLVery High Triglyceride: greater than or equal to 5OO mg/dL Cholesterol 162 <200 mg/dL [facility] Comment:Desirable Cholestero l: less than 200 mg/dLBorderline High Cholesterol: 200-239 mg/dLHigh Cholesterol: greater than 239 mg/dL LDL Cholesterol Calculated TNP <100 mg/dL [facility] Comment:Unable to calculate the LDL. The formula of Friedwald,Duran, and Devon is only valid if the triglycerides areless than 400 mg/dl. HDL Cholesterol 42 >40 mg/dL [facility] Comment:Desirable HDL: great er than 40 mg/dL Note: This HDL assay may give artificially low results in patients with liver disease. Blood 05/18/2024 2:00 PM EDT 05/18/2024 4:09 PM EDT us Yanira Mi MD LAB BLOOD ORDERABLES Edited Resu lt - Final Performing Organization Address City/[facility]/ZIP Co de Phone Number [facility] [address] [place] [address] [phone] * Albumin, Random Urine W/Creatinine (05/18/2024 2:00 PM EDT) Creatinine, Urine 58.80 mg/dL [facility] Microalbumin Urine <5.0 mg/L [facility] Microalbum Creatinine Ratio Ur TNP <30 ug/mg cr [facility] Comment:Unable to calculate albumin/creatinine ratio due to lowmicroalbumin or creatinine result. Urine 05/18/2024 2:00 PM EDT 05/18/2024 4:09 PM EDT us Yanira Mi MD LAB URINE ORDERABLES Final Resul t Performing Organization Address City/[facility]/ZIP Co de Phone Number [facility] [address] [place] [phone] * Hepatitis C Antibody with Reflex to HCV, RNA, Quantitative, Real-Time PCR (11/03/2023 9:10 AM EDT) Pathologist [facility] Hepatitis C Antibody Nonreactive Nonreactive [facility] Comment:Antibodies to HCV no t detected; does not exclude early acuteHCV infection. Blood Venous blood specimen / Unknown 11/03/2023 9:10 AM EDT 11/03/2023 11:20 AM EDT us Yanira Mi MD LAB BLOOD ORDERABLES Final Resul t Performing Organization Address City/[facility]/ZIP Co de Phone Number [facility] [address] [place] [phone] * HIV-1/2 Antigen and Antibodies, Fourth Generation, with Reflexes (11/03/2023 9:10 AM EDT) [facility] HIV AB/AG Nonreactive Nonreactive [facility] Comment:HIV-1 p24 Ag and/or HIV-1/HIV-2 Ab not detected.A test result that is nonreactive does not exclude thepossibility of exposure to or infection with HIV-1 and/orHIV-2. Nonreactive results in this assay for individualswith prior exposure to HIV-1 and/or HIV-2 may be due toantigen and antibody levels that are below the limit ofdetection of this assay.The [employer] HIV Ag/Ab Combo assay result andsupplemental assay results should be interpreted inconjunction with the patient's clinical presentation,history and other laboratory results. If the results areinconsistent with clinical evidence, additional testing issuggested to confirm the result. Blood Venous blood specimen / Unknown 11/03/2023 9:10 AM EDT 11/03/2023 11:20 AM EDT us Yanira Mi MD LAB BLOOD ORDERABLES Final Resul t Performing Organization Address City/[facility]/ZIP Co de Phone Number [facility] [address] [place] [address] [phone] * BI Mammogram Screening Tomosynthesis Bilateral (09/24/2023 2:20 PM EST) Anatomical Region Laterality Modality Breast Bilateral Mammography 09/24/2023 2:20 PM EST Narrative 10/11/2023 5:45 PM EDT ? [facility] [place] ? [address] ?[place] [address] ? Mammography Report ? Signed ? Patient: Gamble,La ?MR#: [id number] ?? 631 ? : 1965 ?Acct:[id number] ? Age/Sex: 58 / F ?ADM Date: 09/24/23 ? Loc: HO.MAMMO ? Attending Dr: Yanira Mi MD ? Ordering Physician: Yanira Mi MD ?Results: 1Negative ? Date of Service: 09/24/23 ?Follow Up: 1 Year From Orig ?? inal Mammogram ? Procedure(s): MM tomosynthesis screening BI ?? Accession Number(s): [id number] ? cc: Yanira Mi MD ? EXAMINATION: [...] in OV> ? 10/11/23 1741 ? DD/ 1420 ? TD/TT: ? Signals Intelligence Superintendent: ? Procedure Note Cynthia, Sallie - 10/11/2023 [facility] [address] [place], [place] [address] Mammography Report Signed Patient: La GambleMR#: [id number] 631 : 1965Acct:[id number] Age/Sex: 58 / FADM Date: 09/24/23 Loc: JEFFERY Attending Dr: Yanira Mi MD Ordering Physician: Yanira Mi MDResults: 1Negative Date of Service: 09/24/23Follow Up: 1 Year From Orig inal Mammogram Procedure(s): MM tomosynthesis screening BI Accession Number(s): [id number] cc: Yanira Mi MD EXAMINATION: MM SCREENING [...] in OV> 10/11/23 1741 DD/ 1420 TD/TT: Signals Intelligence Superintendent: Yanira Mi MD [facility] PROCEDURES Edited Result - Final * THINPREP TIS PAP AND HPV mRNA E6/E7, CT/NG, TRICH (03/27/2022 10:59 AM EDT) Chlamydia trachomatis RNA, TMA, Urogenital NOT DETECTED NOT DETECTED [facility] Clinical Information: None given [facility] COMMENT SEE COMMENT [facility] Comment: The analytical performance characteristics of this assay, when used to test SurePath(TM) specimens have been determined by [employer]. The modifications have not been cleared or approved by the FDA. This assay has been validated pursuant to the CLIA regulations and is used for clinical purposes. ?? For additional information, please refer to https://education.[employer].Lozo/faq/YWW529 (This link is being provided for information/ [...] has been evaluated with computer assisted technology. [facility] Nurse Leader: SEE COMMENT [facility] Comment: RXB, CT(ASCP) CT screening location: [address] ??[address] HPV nRNA E6/E7 Not Detected Not Detected [facility] Comment: Methodology: Auto Wash Buffer-Mediated Amplification This assay detects E6/E7 viral messenger RNA (mRNA) from 14 high-risk HPV types (16,18,31,33,35,39,45,51,52,56,58,59,66,68). ? Cervical sources are required for HPV testing. If a vaginal source from a patient who has had a total hysterectomy with removal of cervix was ?? submitted, please contact the testing laboratory for alternative testing options. ?? For additional information, please refer to http://JoopLoop.[employer]/faq/RMR319w7 (This link if provided for information/ educational purposes only.) Interpretation/Re sult: Negative for intraepithelial lesion or malignancy. [facility] LMP: NONE GIVEN [facility] Neisseria gonorrhoeae RNA, TMA, Urogenital NOT DETECTED NOT DETECTED [facility] Prev. BX: NONE GIVEN [facility] Prev. PAP: NONE GIVEN [facility] SOURCE: None given [facility] Statement Of Adequacy: SEE COMMENT [facility] Comment: Satisfactory for evaluation. Endocervical/transformation zone component absent. Age and/or menstrual status not provided Trichomonas vaginalis, QL, TMA, PAP Vial NOT DETECTED NOT DETECTED [facility] Comment: The analytical performance characteristics of this assay have been determined by [employer]. The modifications have not been cleared or approved by the FDA. This assay has been validated pursuant to the CLIA regulations and is used for clinical purposes. ?? For additional information, please refer to http://education.[employer]/ faq/Trichomonastma (This link is being provided for information/ educational purposes only.) ?? 03/27/2022 10:5 9 AM EDT us Yanira Mi MD LAB PATHOLOGY ORDERABLES Final R esult [facility] [address] [place] [address], * Pap Smear (03/27/2022) Pap smear Performed us Historical Provider HEALTH MAINTENANCE Final Result * Colonoscopy (10/25/2015) Colonoscopy Performed us Historical Provider HEALTH MAINTENANCE Edited Result - Final from Last 3 Months or Most Recently Relevant to Health Maintenance Insurance [facility] STANDARD - [facility] - [facility] Care Teams Warpman Relationship Specialty Start Date End Date Yanira Mi MD [address] [place] [phone] PCP - General Family Medicine 07/08/12 Marbella Tobar Panel Edge PainterCircular Saw Edge Fuser 07/29/23
--- OUTSIDE RECORDS SUMMARY | 2024-11-08 15:13 | XMS_ITS | Encounter Summary ---
Author Organization [facility] Address [address] [facility] 7t [place] [address] Care Team Providers Care Bedspread Cutter Name Role Phone Yanira Mi MD Primary Care Provider [phone] Encounter Details Date Type Department Care Team (Late st Contact Info) Description 06/26/2022 Orders Only [facility] [address] [place] [address] [phone] Casie Callaway PharmD [address] [place] [address] Social History Tobacco Use Types Packs/Day Years [...] Description 11/22/2024 1:15 PM EDT Office Visit [facility] [address] [place] [address] [phone] Yanira Mi MD [address] [place] [address] [phone] 12/14/2024 2:00 PM EDT Office [facility] [address] [facility] [place] [address] Yari Colmenares [address] [facility] [place] [address] 12/23/2024 1:30 PM EDT Office Visit [facility] [address] [facility] [address] Aiden Tate DDS [address] [facility] [place] [address] documented as of this encounter Procedures Procedure Name Priority Date/Time Associated Diagnosis Comments XR CHEST 2 VIEWS Routine 06/26/2022 1:20 PM EST documented in this encounter Results * XR Chest 2 Views (06/26/2022 1:20 PM EST) Anatomical Region Laterality Modality Chest Radiographic Gayathri ging 06/26/2022 1:20 PM EST Narrative 07/01/2022 8:59 AM EST ? [facility] ?[address] ?[place] [address] ?XRay Report ? Signed ? Patient: Gamble,La ?MR#: [id number] ?? 631 ? : 1965 ?Acct:[id number] ? Age/Sex: 57 / F ?ADM Date: 06/26/22 ? Loc: HO.XRAY ? Attending Dr: Ilya Mcdaniel MD ? Ordering Physician: Ilya Mcdaniel MD ?? Date of Service: 06/26/22 ?? Procedure(s): XR chest 2V ?? Accession Number(s): [id number] ? cc: Ilya Mcdaniel MD ? EXAMINATION: [...] signed by John Dallas MD in OV> ?07/01/22 0857 ? DD/ 1320 ? TD/TT: ? Rig Operator: ROSA ? Procedure Note Donothannyinterpreter, Image - 07/01/2022 [place] [address] XRay Report Signed Patient: La GambleMR#: [id number] 631 : 1965Acct:[id number] Age/Sex: 57 / FADM Date: 06/26/22 Loc: HO.PATRICIA Attending Dr: Ilya Mcdaniel MD Ordering Physician: Ilya Mcdaniel MD Date of Service: 06/26/22 Procedure(s): XR chest 2V Accession Number(s): [id number] cc: Ilya Mcdaniel MD EXAMINATION: XR CHEST [...] in OV> 07/01/22 0857 DD/ 1320 TD/TT: Rig Operator: ROSA us [facility] External Provider IMG XR PROCEDURES Edited Result - Final documented in this encounter Visit Diagnoses Not on filedocumented in this encounter Care Teams Bedspread Cutter Relationship Specialty Start Date End Date Yanira Mi MD [address] [place] [address] PCP - General Family Medicine 07/08/12 Marbella Tobar Community Planning TechnicianTailor Apprentice 07/29/23 documented as of this encounter
--- OUTSIDE RECORDS SUMMARY | 2024-11-08 15:13 | XMS_ITS | Encounter Summary ---
Author Organization [employer] Address [address] [facility] [facility] [address] 7t [place] [address] Care Team Providers Care Engineer Process Name Role Phone Yanira Mi MD Primary Care Provider [phone] Reason for Visit * Reason Comments Med Refill Encounter Details Date Type Department Care Team (Late st Contact Info) Description 06/09/2024 Refill [facility] [address] [place] [address] Jessica Menjivar, FAROOQ [address] [place] [address] Social History Tobacco Use Types Packs/Day Years [...] Description 11/22/2024 1:15 PM EDT Office Visit [facility] [address] [place] [address] Yanira Mi MD [address] [place] [address] 12/14/2024 2:00 PM EDT Office Visit [facility] [address] [place] [address] aYri Colmenares [address] [place] [address] 12/23/2024 1:30 PM EDT Office Visit [facility] D[facility] [address] [place] [address] Aiden Tate DDS [address] [place] [address] documented as of this encounter Visit Diagnoses Not on filedocumented in this encounter Additional Health Concerns Assessment Noted Time PHQ-9 Depression Total Score: 6 05/02/20 24 8:45 AM EDT documented as of this encounter Care Teams Engineer Process Relationship Specialty Start Date End Date Yanira Mi MD [address] [place] [address] PCP - General Family Medicine 07/08/12 Marbella Tobar Casing SplitterClaim Technician 07/29/23 documented as of this encounter
--- OUTSIDE RECORDS SUMMARY | 2024-11-08 15:13 | XMS_ITS | Encounter Summary ---
Author Organization [facility] Address [address] [facility] 7t [place] [address] Care Team Providers Care Metal Patternmaker Name Role Phone Yanira Mi MD Primary Care Provider [phone] Encounter Details Date Type Department Care Team (Latest Contact Info) Description 09/11/2021 Abstract [facility] CONVERSIONS Dental, Provider, DDS Social History Tobacco [...] Description 11/22/2024 1:15 PM EDT Office Visit [facility] MEDICINE [address] [place] [phone] Yanira Mi MD [address] [place] [address] 12/14/2024 2:00 PM EDT Office Visit [facility] ADULT DENTAL [address] [place] [address] Yari Colmenares [address] [place] [address] 12/23/2024 1:30 PM EDT Office Visit [facility] ADULT DENTAL 230 [place] [address] Aiden Tate DDS [address] [place] [address] documented as of this encounter Visit Diagnoses Not on filedocumented in this encounter Care Teams Metal Patternmaker Relationship Specialty Start Date End Date Yanira Mi MD [address] [place] [phone] PCP - General Family Medicine 07/08/12 Marbella Tobar Museum Exhibit DesignerAgency Director 07/29/23 documented as of this encounter
--- OUTSIDE RECORDS SUMMARY | 2024-11-08 15:13 | XMS_ITS | Encounter Summary ---
Author Organization [facility] Address [address] [facility] 7t [place] [address] Care Team Providers Care Micromatic Hone Operator Name Role Phone Yanira Mi MD Primary Care Provider [phone] Encounter Details Date Type Department Care Team (Late st Contact Info) Description 02/19/2023 Abstract [facility] 230 [place] [address] Yanira Mi MD [address] [place] [address] [phone] Social History Tobacco Use Types Packs/Day Years [...] Department Care Team (Late Contact Info) Description 11/22/2024 1:15 PM EDT Office Visit [facility] [address] [place] [address] [phone] Yanira Mi MD 230 [place] [address] 12/14/2024 2:00 PM EDT Office Visit [facility] ADULT DENTAL 230 [facility] [place] [address] Yari Colmenares [address] [place] [address] 12/23/2024 1:30 PM EDT Office Visit [facility] ADULT DENTAL 230 [place], [place] [phone] Aiden Tate DDS [address] [place] [address] documented as of this encounter Procedures Procedure Name Priority Date/Time Associated Diagnosis Comments HM DIABETES: URINE PROTEIN SCREENING Routine 02/18/2023 documented in this encounter Results * Diabetes: Urine Protein Screening (02/18/2023) Microalbumin, Urine 5.0 Creatinine, Random Urine 54.01 Urine Result [facility] Unassigned Pcp HEALTH MAINTENANCE Final Result documented in this encounter Visit Diagnoses Not on filedocumented in this encounter Care Teams Micromatic Hone Operator Relationship Specialty Start Date End Date Yanira Mi MD [address] [place], [place] [phone] PCP - General Family Medicine 07/08/12 Marbella Tobar Emotional Support TeacherTicket Writer 07/29/23 documented as of this encounter
--- OUTSIDE RECORDS SUMMARY | 2024-11-08 15:13 | XMS_ITS | Encounter Summary ---
Author Organization [employer] Address [address] 7t [place] [address] Care Team Providers Care Printing Table Worker Name Role Phone Yanira Mi MD Primary Care Provider [phone] Encounter Details Date Type Department Care Team (Late st Contact Info) Description 11/08/2024 Orders Only [facility] External Provider, [facility] Social History Tobacco Use Types Packs/Day Years [...] 1:15 PM EDT Office Visit [facility] [address] [place] [address] Yanira Mi MD [address] [place] [address] 12/14/2024 2:00 PM EDT Office Visit [facility] ADULT DENTAL [address] [place] [address] Yari Colmenares [address] [place] [address] 12/23/2024 1:30 PM EDT Office Visit [facility] ADULT DENTAL [address] [place] [address] Aiden Tate DDS [address] [place] [address] documented as of this encounter Procedures Procedure Name Priority Date/Time Associated Diagnosis Comments URINALYSIS, COMPLETE, WITH REFLEX TO CULTURE Routine 11/08/2024 11:58 AM EDT URINALYSIS WITH REFLEX MICROSCOPIC Routine 11/08/2024 11:58 AM EDT XR HIP RIGHT WITH PELVIS 1 VIEW Routine 11/08/2024 11:24 AM EDT XR LUMBAR SPINE 2-3 VIEWS Routine 11/08/2024 11:24 AM EDT documented in this encounter Results * (ABNORMAL) Urinalysis, Complete, with Reflex to Culture (11/08/2024 11:58 AM EDT) Color Urine Yellow [facility] Appearance Urine Clear [facility] PH 5.5 5.0 - 9.0 [facility] Glucose Urine UA >=1000(A) Negative mg/dL [facility] Urine Blood Negative Negative [facility] Specific [place] - Urine 1.025 1.005 - 1.025 [facility] Urine Protein Negative Neg-Trace mg/dL [facility] Urine Ketones Negative Negative mg/dL [facility] Nitrite Urine Negative Negative [facility] Leukocyte Esterase Urine Negative Negative [facility] RBC Urine 0-2 0 - 2 /HPF [facility] Urine WBC 0-5 0 - 5 /HPF [facility] Urine Squamous Epithelial Cell 0-2 0 - 2 /HPF [facility] Urine Bacteria None Seen None Seen [facility] Hyaline Casts, Urine 0-2 0 - 2 /LPF [facility] 11/08/2024 11:5 8 AM EDT 11/08/2024 12:00 PM EDT Narrative [facility] - 11/08/2024 12:14 PM EDT Urine, Clean Catch us Generic External Data Provider LAB URINE ORDERAB LES Final Result [facility] [address] [place] [address] [phone] * (ABNORMAL) Urinalysis w/reflex microscopic (11/08/2024 11:58 AM EDT) Color Urine Yellow [facility] Appearance Urine Clear [facility] PH 5.5 5.0 - 9.0 [facility] Glucose Urine UA >=1000(A) Negative mg/dL [facility] Urine Blood Negative Negative [facility] Specific [place] - Urine 1.025 1.005 - 1.025 [facility] Urine Protein Negative Neg-Trace mg/dL [facility] Urine Ketones Negative Negative mg/dL [facility] Nitrite Urine Negative Negative [facility] Leukocyte Esterase Urine Negative Negative [facility] 11/08/2024 11:5 8 AM EDT 11/08/2024 12:00 PM EDT Narrative [facility] - 11/08/2024 12:06 PM EDT Urine, Clean Catch us Generic External Data Provider LAB URINE ORDERAB LES Final Result Performing Organization Address City/State/[facility] Co de Phone Number [facility] [address] [place] [address] [phone] * XR Lumbar Spine 2-3 Views (11/08/2024 11:24 AM EDT) Anatomical Region Laterality Modality Spine, L-spine Radiographic Gayathri ging 11/08/2024 11:2 4 AM EDT Narrative 11/08/2024 12:06 PM EDT ? [facility] ?[address] ?[place] [address] ?XRay Report ? Signed ? Patient: Gamble,La ?MR#: [id number] ?? 631 ? : 1965 ?Acct:[id number] ? Age/Sex: 59 / F ?ADM Date: 11/08/24 ? Loc: HO.ED ? Attending Dr: ? Ordering Physician: Mitchell Silverio ?? Date of Service: 11/08/24 ?? Procedure(s): XR lumbar spine 2-3V ?? Accession Number(s): [id number] ? cc: Mitchell Silverio; Yanira Mi MD [...] DD/ 1124 ? TD/TT: 11/08/24 1153 ? Cat Cracker Operator: ? Procedure Note Sallie Marie - 11/08/[address] [address] XRay Report Signed Patient: La GambleMR#: [id number] 631 : 1965Acct:[id number] Age/Sex: 59 / FADM Date: 11/08/24 Loc: HO.ED Attending Dr: Ordering Physician: Mitchell Silverio Date of Service: 11/08/24 Procedure(s): XR lumbar spine 2-3V Accession Number(s): [id number] cc: Mitchell Silverio; Yanira Mi MD EXAMINATION: [...] 11/08/24 1204 DD/ 1124 TD/TT: 11/08/24 1153 Cat Cracker Operator: us [facility] External Provider IMG XR PROCEDURES Final Result * XR Hip right with Pelvis 1 view (11/08/2024 11:24 AM EDT) Anatomical Region Laterality Modality Lower Extremities, Hip Bilateral Radiograp hic Imaging 11/08/2024 11:2 4 AM EDT Narrative 11/08/2024 12:05 PM EDT ? [facility] ?[address] ?[place] [address] ?XRay Report ? Signed ? Patient: Vesna Gamblesette ?MR#: [id number] ?? 631 ? : 1965 ?Acct:[id number] ? Age/Sex: 59 / F ?ADM Date: 11/08/24 ? Loc: HO.ED ? Attending Dr: ? Ordering Physician: Mitchell Silverio ?? Date of Service: 11/08/24 ?? Procedure(s): XR hip RT w PEL1V ?? Accession Number(s): [id number] ? cc: Mitchell Silverio; Yanira Mi MD [...] DD/ 1124 ? TD/TT: 11/08/24 1153 ? Cat Cracker Operator: ? Procedure Note Donotuseinterpreter, Image - 11/08/[address] [address] XRay Report Signed Patient: La GambleMR#: [id number] 631 : 1965Acct:[id number] Age/Sex: 59 / FADM Date: 11/08/24 Loc: HO.ED Attending Dr: Ordering Physician: Mitchell Silverio Date of Service: 11/08/24 Procedure(s): XR hip RT w PEL1V Accession Number(s): [id number] cc: Mitchell Silverio; Yanira Mi MD EXAMINATION: [...] Bony Josue MD 11/08/2024 12:02 PM EDT Dictated By: Bony Ness MD Signed By: <Electronically signed by Bony Chiang MDin OV> 11/08/24 1202 DD/ 1124 TD/TT: 11/08/24 1153 Cat Cracker Operator: [facility] External Provider IMG XR PROCEDURES Final Result documented in this encounter Visit Diagnoses Not on filedocumented in this encounter Additional Health Concerns Assessment Noted Time PHQ-9 Depression Total Score: 6 05/02/20 24 8:45 AM EDT documented as of this encounter Care Teams Printing Table Worker Relationship Specialty Start Date End Date Yanira Mi MD [address] [place] [phone] PCP - General Family Medicine 07/08/12 Marbella Tobar Performance Improvement ManagerCone Examiner 07/29/23 documented as of this encounter
--- OUTSIDE RECORDS SUMMARY | 2024-11-08 15:13 | XMS_ITS | Encounter Summary ---
Author Organization [employer] [facility] Address [address] [facility] 7t [place] [address] Care Team Providers Care Waste Examiner Name Role Phone Yanira Mi MD Primary Care Provider Encounter Details Date Type Department Care Team (Late st Contact Info) Description 06/10/2022 Abstract [facility] MEDICINE [address] [place] [address] ProviderShanel MD Social History Tobacco Use Types [...] Description 11/22/2024 1:15 PM EDT Office Visit [facility] MEDICINE [address] [place] [phone] Yanira Mi MD [address] [place] [address] 12/14/2024 2:00 PM EDT Office Visit [facility] ADULT DENTAL [address] [place] [address] Yari Colmenares [address] [place] [address] 12/23/2024 1:30 PM EDT Office Visit [facility] ADULT DENTAL [address] [place] [address] Aiden Tate DDS [address] [place] [address] documented as of this encounter Visit Diagnoses Not on filedocumented in this encounter Care Teams Waste Examiner Relationship Specialty Start Date End Date Yanira Mi MD [address] [place], [place] [phone] PCP - General Family Medicine 07/08/12 Marbella Tobar Head CashierTelemedicine Physician 07/29/23 documented as of this encounter
--- OUTSIDE RECORDS SUMMARY | 2024-11-08 15:13 | XMS_ITS | Encounter Summary ---
Author Organization [employer] [facility] Address [address] [facility] 7t [place] [address] Care Team Providers Care Member Of The Legislative Council Name Role Phone Yanira Mi MD Primary Care Provider Reason for Visit * Reason Comments Med Refill Encounter Details Date Type Department Care Team (Late st Contact Info) Description 09/05/2022 Refill [facility] MEDICINE [address] [place] [phone] Aliza Pickens MD [address] [place] [address] [phone] Social History Tobacco Use Types Packs/Day Years [...] [facility] MEDICINE [address] [place] [phone] Yanira iM MD [address] [place] [address] 12/14/2024 2:00 PM EDT Office Visit [facility] ADULT DENTAL 230 [place] [address] Yari Colmenares [address] [place] [address] 12/23/2024 1:30 PM EDT Office Visit [facility] ADULT DENTAL [address] [place] [address] Aiden Tate DDS [address] [place] [address] documented as of this encounter Visit Diagnoses Not on filedocumented in this encounter Care Teams Member Of The Legislative Council Relationship Specialty Start Date End Date Yanira Mi MD [address] [place] [address] PCP - General Family Medicine 07/08/12 Marbella Tobar Deputy Chief SheriffPodopediatrician 07/29/23 documented as of this encounter
--- OUTSIDE RECORDS SUMMARY | 2024-11-08 15:13 | XMS_ITS | Encounter Summary ---
Author Organization [employer] Address [address] [facility] [address] 7t [place] [address] Care Team Providers Care Geothermal Powerplant Supervisor Name Role Phone Yanira Mi MD Primary Care Provider [phone] Reason for Visit * Reason Comments Med Refill Encounter Details Date Type Department Care Team (Late st Contact Info) Description 06/09/2024 Refill [facility] [address] [facility] [place] [address] Alisha Ko FNP [address] [place] [address] Social History Tobacco Use Types Packs/Day Years [...] Description 11/22/2024 1:15 PM EDT Office Visit [facility] MEDICINE [address] [place] [address] Yanira Mi MD 230 [place] [address] 12/14/2024 2:00 PM EDT Office Visit [facility] ADULT DENTAL [address] [place] [address] Yari Colmenares [address] [place] [address] 12/23/2024 1:30 PM EDT Office Visit [facility] ADULT DENTAL [address] [place] [address] Aiden Tate DDS [address] [place] [address] documented as of this encounter Visit Diagnoses Not on filedocumented in this encounter Additional Health Concerns Assessment Noted Time PHQ-9 Depression Total Score: 6 05/02/20 24 8:45 AM EDT documented as of this encounter Care Teams Geothermal Powerplant Supervisor Relationship Specialty Start Date End Date Yanira Mi MD [address] [place] [address] PCP - General Family Medicine 07/08/12 Marbella Tobar Popcorn Candy MakerRobotics Engineer 07/29/23 documented as of this encounter
--- OUTSIDE RECORDS SUMMARY | 2024-11-08 15:13 | XMS_ITS | Encounter Summary ---
Author Organization [email or web address] Address [address] 7t [place] [address] Care Team Providers Care Maintenance Shop Manager Name Role Phone Yanira Mi MD Primary Care Provider [phone] Reason for Visit * Reason Comments Med Refill Encounter Details Date Type Department Care Team (Late st Contact Info) Description 06/09/2024 Refill [facility] [address] [place], [place] [phone] Halima Hernandez ANP [address] [place] [address] Muscle tension pain Social History Tobacco Use [...] Description 11/22/2024 1:15 PM EDT Office Visit [facility] [address] [place] [address] Yanira Mi MD 230 [place] [address] 12/14/2024 2:00 PM EDT Office Visit [facility] [address] [place] [address] Yari Colmenares [address] [place] [address] 12/23/2024 1:30 PM EDT Office Visit [facility] [address] [place] [address] Aiden Tate DDS [address] [place] [address] documented as of this encounter Visit Diagnoses Diagnosis Muscle tension pain documented in this encounter Additional Health Concerns Assessment Noted Time PHQ-9 Depression Total Score: 6 05/02/20 24 8:45 AM EDT documented as of this encounter Care Teams Maintenance Shop Manager Relationship Specialty Start Date End Date Yanira Mi MD [address] [place] [address] PCP - General Family Medicine 07/08/12 Marbella Tobar Firestop/Containment WorkerOrder To Delivery Supervisor 07/29/23 documented as of this encounter
--- OUTSIDE RECORDS SUMMARY | 2024-11-08 15:13 | XMS_ITS | Encounter Summary ---
Author Organization [employer] [facility] Address [address] [facility] 7t [place] [address] Care Team Providers Care Parking Lot Attendant Name Role Phone Yanira Mi MD Primary Care Provider [phone] Reason for Visit * Reason Onset Date Comments Letter required 09/24/2022 Encounter Details Date Type Department Care Team ([facility] st Contact Info) Description 09/24/2022 Telephone [facility] [address] [place], [place] [phone] Yanira Mi MD [address] [place], [place] [phone] Letter required Social History Tobacco Use Types [...] - 09/24/2022 1:04 PM EST Tc from [facility] with [facility] requesting a letter for [facility] stating that patient would benefit from their facility regarding to Adult Foster Care. Please contact Karyn for any further information at [phone] documented in this encounter Plan of Treatment Upcoming Encounters Date Type Department Care Team (Late st Contact Info) Description 11/22/2024 1:15 PM EDT Office Visit [facility] [address] [place] [address] Yanira Mi MD [address] [place] [address] 12/14/2024 2:00 PM EDT Office Visit [facility] [address] [place] [address] Yari Colmenares [address] [place] [address] 12/23/2024 1:30 PM EDT Office Visit [facility] [address] [place] [address] Aiden Tate DDS [address] [place] [address] documented as of this encounter Visit Diagnoses Not on filedocumented in this encounter Care Teams Parking Lot Attendant Relationship Specialty Start Date End Date Yanira Mi MD [address] [place] [address] PCP - General Family Medicine 07/08/12 Marbella Tobar Community [employer] Technical Lead 07/29/23 documented as of this encounter
--- OUTSIDE RECORDS SUMMARY | 2024-11-08 15:13 | XMS_ITS | Encounter Summary ---
Author Organization [employer] Address [address] 7t [place] [address] Care Team Providers Care Venetian Blind Worker Name Role Phone Yanira Mi MD Primary Care Provider [phone] Encounter Details Date Type Department Care Team (Late st Contact Info) Description 05/19/2024 Orders Only [facility] [address] [place], [place] [phone] Yanira Mi MD [address] [place] [address] Cobalamin deficiency (Primary Dx); Hypertriglyceridemia; Transaminitis Social [...] 1:15 PM EDT Office Visit [facility] [address] [place] [address] Yanira Mi MD [address] [place] [address] 12/14/2024 2:00 PM EDT Office Visit [facility]ULT D[facility] [address] [place] [address] Yari Colmenares [address] [place] [address] 12/23/2024 1:30 PM EDT Office Visit [facility] [address] [place] [address] Aiden Tate DDS [address] [place] [address] Scheduled Orders Name Type Priority Associated Diagnoses [...] documented as of this encounter Care Teams Venetian Blind Worker Relationship Specialty Start Date End Date Yanira Mi MD [address] [place] [address] PCP - General Family Medicine 07/08/12 Marbella Tobar Billet CutterBrake Operator Sheet Metal 07/29/23 documented as of this encounter
--- OUTSIDE RECORDS SUMMARY | 2024-11-08 15:13 | XMS_ITS | Encounter Summary ---
Author Organization [employer] [facility] Address [address] [facility] [address] [address] 7t [place] [address] Care Team Providers Care Monorail Charger Operator Name Role Phone Yanira Mi MD Primary Care Provider [phone] Encounter Details Date Type Department Care Team (Late st Contact Info) Description 06/13/2022 Abstract [facility] [address] [place] [address] ProviderShanel MD Social History Tobacco Use Types [...] Description 11/22/2024 1:15 PM EDT Office Visit [facility] [address] [place] [address] Yanira Mi MD [address] [place] [address] 12/14/2024 2:00 PM EDT Office Visit [facility] [address] [place] [address] Yari Colmenares [address] [place] [address] 12/23/2024 1:30 PM EDT Office Visit [facility] [address] [place] [address] Aiden Tate DDS [address] [place] [address] documented as of this encounter Procedures Procedure Name Priority Date/Time Associated Diagnosis Comments PAP/HPV Routine 03/27/2022 MAMMOGRAPHY Routine 09/12/2021 HEMOGLOBIN A1C Routine 08/23/2021 COLONOSCOPY Routine 10/25/2015 documented in this encounter Results * Pap Smear (03/27/2022) Pap smear Performed [facility] Provider HEALTH MAINTENANCE Final Result * Mammography (09/12/2021) Mammogram Performed Anatomical Region Laterality Modality Other [facility] Provider HEALTH MAINTENANCE Final Result * (ABNORMAL) Hemoglobin A1c (08/23/2021) Hemoglobin A1C 6.6(A) 4.0 - 6.0 % Blood Venous blood specimen / Unknown [facility] Provider LAB BLOOD ORDERABLES Vivi l Result * Colonoscopy (10/25/2015) Colonoscopy Performed [facility] Provider HEALTH MAINTENANCE Edited Result - Final documented in this encounter Visit Diagnoses Not on filedocumented in this encounter Care Teams Monorail Charger Operator Relationship Specialty Start Date End Date Yanira Mi MD [address] [place] [address] PCP - General Family Medicine 07/08/12 Marbella Tobar Vascular PhysicianMachining Supervisor 07/29/23 documented as of this encounter
--- OUTSIDE RECORDS SUMMARY | 2024-11-08 15:13 | XMS_ITS | Encounter Summary ---
Author Organization [employer] [facility] Address [address] [facility] 7t [place] [address] Care Team Providers Care Brake Repairer Hydraulic Name Role Phone Yanira Mi MD Primary Care Provider [phone] Encounter Details Date Type Department Care Team (Late st Contact Info) Description 06/16/2022 Abstract [facility] [address] [place], [place] [phone] Yanira Mi MD [address] [place], [place] [phone] Social History Tobacco Use Types Packs/Day Years [...] Description 11/22/2024 1:15 PM EDT Office Visit [facility] [address] [place] [address] [phone] Yanira Mi MD [address] [place], [place] [phone] 12/14/2024 2:00 PM EDT Office Visit [facility] ADULT DENT[facility] [address] [place], [place] [phone] Yari Colmenares 230 [place] [address] 12/23/2024 1:30 PM EDT Office Visit [facility]ULT [facility] [address] [place] [address] Aiden Tate DDS [address] [place], [place] [phone] documented as of this encounter Visit Diagnoses Not on filedocumented in this encounter Care Teams Brake Repairer Hydraulic Relationship Specialty Start Date End Date Yanira Mi MD [address] [place], [place] [phone] PCP - General Family Medicine 07/08/12 Marbella Tobar Automotive MechanicField Technical Assistant 07/29/23 documented as of this encounter
--- OUTSIDE RECORDS SUMMARY | 2024-11-08 15:13 | XMS_ITS | Encounter Summary ---
Author Organization [employer] [facility] Address [address] [facility] 7t [place] [address] Care Team Providers Care Sheet Metal Duct Installer Name Role Phone Yanira Mi MD Primary Care Provider [phone] Encounter Details Date Type Department Care Team (Latest Contact Info) Description 09/01/2019 Abstract [facility], Provider, DDS Social History Tobacco [...] Description 11/22/2024 1:15 PM EDT Office Visit [facility] [address] [place] [address] Yanira Mi MD [address] [place] [address] 12/14/2024 2:00 PM EDT Office Visit [facility] [address] [place] [address] Yari Colmenares [address] [place] [address] 12/23/2024 1:30 PM EDT Office Visit [facility] [address] [place] [address] Aiden Tate DDS [address] [place] [address] documented as of this encounter Visit Diagnoses Not on filedocumented in this encounter Care Teams Sheet Metal Duct Installer Relationship Specialty Start Date End Date Yanira Mi MD [address] [place] [address] PCP - General Family Medicine 07/08/12 Marbella Tobar Tool FilerSpecial Education Itinerant Teacher 07/29/23 documented as of this encounter
--- OUTSIDE RECORDS SUMMARY | 2024-11-08 15:13 | XMS_ITS | Encounter Summary ---
Author Organization [employer] [facility] Address [address] [facility] 7t [place] [address] Care Team Providers Care Lieutenant Fire Fighter Name Role Phone Yanira Mi MD Primary Care Provider [phone] Reason for Visit * Reason Comments Med Refill Encounter Details Date Type Department Care Team (Late Contact Info) Description 01/01/[address] [facility] MED[facility] [address] [place] [address] [phone] Yanira Mi MD [address] [place] [address] [phone] Social History Tobacco Use Types Packs/Day Years [...] Upcoming Encounters Date Type Department Care Team ([facility] Contact Info) Description 11/22/2024 1:15 PM EDT Office Visit [facility] [address] [place] [address] [phone] Yanira Mi MD 230 [place] [address] 12/14/2024 2:00 PM EDT Office Visit [facility] ADULT DENTAL [address] [place] [address] Flip Colmenaresaris [address] [place] [address] 12/23/2024 1:30 PM EDT Office Visit [facility] D[facility] [address] [place] [address] Aiden Tate DDS [address] [place] [address] documented as of this encounter Visit Diagnoses Not on filedocumented in this encounter Care Teams Lieutenant Fire Fighter Relationship Specialty Start Date End Date Yanira Mi MD [address] [place] [address] PCP - General Family Medicine 07/08/12 Marbella Tobar Joint SetterHiv Cts Specialist 07/29/23 documented as of this encounter
--- OUTSIDE RECORDS SUMMARY | 2024-11-08 15:13 | XMS_ITS | Encounter Summary ---
Author Organization [employer] [facility] Address [address] [facility] 7t [place] [address] Care Team Providers Care Grades 9 Through 12 Teacher Name Role Phone Yanira Mi MD Primary Care Provider [phone] Encounter Details Date Type Department Care Team (Late st Contact Info) Description 06/16/2022 Abstract [facility] [address] [place], [place] [phone] Yanira Mi MD [address] [place], [place] [phone] Social History Tobacco Use Types Packs/Day Years [...] Description 11/22/2024 1:15 PM EDT Office Visit [facility] MED[facility] [address] [place] [address] [phone] Yanira Mi MD [address] [place], [place] [phone] 12/14/2024 2:00 PM EDT Office Visit [facility] ADULT DENT[facility] [address] [place], [place] [phone] Yari Colmenares [address] [place] [address] 12/23/2024 1:30 PM EDT Office Visit [facility] ADULT DENT[facility] [address] [place] [address] Aiden Tate DDS [address] [place], [place] [phone] documented as of this encounter Visit Diagnoses Not on filedocumented in this encounter Care Teams Grades 9 Through 12 Teacher Relationship Specialty Start Date End Date Yanira Mi MD [address] [place], [place] [phone] PCP - General Family Medicine 07/08/12 Marbella Tobar Commercial Journeyman ElectricianCloth Finisher 07/29/23 documented as of this encounter
--- OUTSIDE RECORDS SUMMARY | 2024-11-08 15:13 | XMS_ITS | Encounter Summary ---
Author Organization [employer] [facility] Address [address] [facility] 7t [place] [address] Care Team Providers Care Metal Gauge Maker Name Role Phone Yanira Mi MD Primary Care Provider [phone] Encounter Details Date Type Department Care Team (Late st Contact Info) Description 09/09/2022 Orders Only [facility] [address] [place] [address] Agueda Costa DO 230 [place], [place] [phone] Social History Tobacco Use Types Packs/Day Years [...] Description 11/22/2024 1:15 PM EDT Office Visit [facility] [address] [place] [address] Yanira Mi MD [address] [place] [address], [place] [address] 12/14/2024 2:00 PM EDT Office Visit [facility] [address] [place] [address] Yari Colmenares [address] [place] [address] 12/23/2024 1:30 PM EDT Office Visit [facility] [address] [place] [address] Aiden Tate DDS [address] [place] [address] documented as of this encounter Visit Diagnoses Not on filedocumented in this encounter Care Teams Metal Gauge Maker Relationship Specialty Start Date End Date Yanira Mi MD [address] [place] [phone] PCP - General Family Medicine 07/08/12 Marbella Tobar Paver OperatorProject Control Manager 07/29/23 documented as of this encounter
--- OUTSIDE RECORDS SUMMARY | 2024-11-08 15:14 | XMS_ITS | Encounter Summary ---
Author Organization [employer] [facility] Address [address] [facility] 7t [place] [address] Care Team Providers Care Architectural Inspector Name Role Phone Yanira Mi MD Primary Care Provider [phone] Reason for Visit * Reason Comments Med Refill Encounter Details Date Type Department Care Team (Late Contact Info) Description 03/26/2023 Refill [facility] [address] [place] [address] [phone] Yanira iM MD [address] [place] [address] [phone] Social History Tobacco Use Types Packs/Day Years [...] Description 11/22/2024 1:15 PM EDT Office Visit [facility] [address] [place] [address] [phone] Yanira Mi MD [address] [place] [address] [phone] 12/14/2024 2:00 PM EDT Office Visit [facility] AD[facility] [address] [facility] [place], [place] [phone] Yari Colmenares 230 [place], [place] [phone] 12/23/2024 1:30 PM EDT Office Visit [facility] [address] [place], [place] [phone] Aiden Tate DDS 230 [place] [address] documented as of this encounter Visit Diagnoses Not on filedocumented in this encounter Care Teams Architectural Inspector Relationship Specialty Start Date End Date Yanira Mi MD 230 [place], [place] [phone] PCP - General Family Medicine 07/08/12 Marbella Tobar Account AuditorBody Builder 07/29/23 documented as of this encounter
== END 2024-11-08 12:44 | disposition home or self-care (01) ==
PROVIDERS: Physician Assistant; Emergency Provider Emergency Medicine; PCP Family Medicine
DX: M47.816 Spondylosis without myelopathy or radiculopathy, lumbar region (principal); M25.552 Pain in left hip; M25.551 Pain in right hip; M19.90 Unspecified osteoarthritis, unspecified site; E11.9 Type 2 diabetes mellitus without complications; I10 Essential (primary) hypertension; E78.5 Hyperlipidemia, unspecified; J45.909 Unspecified asthma, uncomplicated
CPT/HCPCS: 72100; 73502; 81001; 99283

== ENCOUNTER → 2024-11-08 11:24 | Outpatient (BNV) | payer OTHER, SELFPAY | PROVIDERS: Emergency Provider Emergency Medicine; PCP Family Medicine; Visit Provider Radiology Diagnostic Radiology | DX: M16.0 Bilateral primary osteoarthritis of hip (principal); M47.895 Other spondylosis, thoracolumbar region | CPT/HCPCS: 72100; 73502 ==

== ENCOUNTER 2024-11-21 10:51 | Outpatient (AMB) | payer OTHER, SELFPAY ==
--- NOTE | 2024-11-21 11:32 | MHC.OFFVIS ---
Vital Signs 11/21/24 11:33 Height 5 ft 2 in Weight 175 lb BMI 32.0 Intake Visit Reasons: OV-Right hip -discuss surgery Intake Note: La is a 59 year old female who presents today for a follow up of her Right Hip OA. Patient was last seen with Dedra Garrido where she reported pain felt in the groin and occasional radiation down the leg worsening since June of 2024. They discuss surgical vs non surgical treatment options and patient would prefer to move forward with a nursing home solution. Allergies No Known Allergies Allergy (Verified 11/08/24 11:24) HPI HPI OV-Right hip -discuss surgery: Details: 59-year-old who comes in today with low back pain. This radiates around to her SI joints. She had states she has occasional mild groin pain but that is not really an issue. She was referred here for hip arthritis. She states that she has difficulty sleeping at night but walking is okay. She denies injury. She denies radiating numbness, tingling or burning. [facility] Medical History Contusion of left knee Contusion of right knee COVID Preoperative cardiovascular examination Dental caries Alcoholism Anxiety reaction Muscle spasm of back Mood disorder Elevated cholesterol Arthritis Alcohol dependence Depression Palpitations Asthma Diabetes Hypertension Surgical History Hx of repair of rotator cuff H/O colonoscopy History of 2 sections Social History Alcohol intake: current Alcohol intake frequency: does not drink Alcohol type: hard liquor Patient Tobacco Use Status: Current everyday Tobacco user Cigarettes Per Day: 7 Second Hand Smoke Exposure: No Advance Directives Date on File: 01/02/22 Current occupational status: disabled 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 Difficult to examine her right hip. She does have a mildly positive impingement test on the right but she is very apprehensive. Results Reviewed Results Reviewed: I personally reviewed relevant radiographs. [id number] bilateral hip osteoarthritis Multilevel thoracolumbar spondylosis Assessment & Plan Assessment & Plan (1) Lumbar spondylosis: Code(s): M47.816 - Spondylosis without myelopathy or radiculopathy, lumbar region Category: Medical Plan: This is a 59-year-old with lumbar spondylosis and mild hip arthritis. It seems that her back is more symptomatic than anything at this point. She certainly is not an immediate candidate for hip replacement. I would recommend physical therapy for her back. I referred her to pain management I wrote a prescription for Celebrex. She has taken this before. (2) Osteoarthritis of right hip: Code(s): M16.11 - Unilateral primary osteoarthritis, right hip Category: Medical Plan: [id number]. Orders: Orders PT Evaluation and Treatment Today M16.11 - Unilateral primary osteoarthritis, right hip, M47.816 - Spondylosis without myelopathy or radiculopathy, lumbar region Referrals Pain Management Referral M47.816 - Spondylosis without myelopathy or radiculopathy, lumbar region Coding Level of Care Code Est Pt Level 3 (02569) Complex EM visit Add On G2211 Diagnoses Lumbar spondylosis M47.816 Osteoarthritis of right hip M16.11
[2024-11-21 11:33] VITALS: BMI 32.0
--- OUTSIDE RECORDS SUMMARY | 2024-11-21 12:59 | XMS_ITS | Encounter Summary ---
Author Organization [employer] Address [address] 7t [place] [address] Care Team Providers Care Crab Picker Name Role Phone Yanira Mi MD Primary Care Provider [phone] Reason for Visit * Reason Comments Med Refill Encounter Details Date Type Department Care Team (Late st Contact Info) Description 06/09/2024 Refill [facility] 230 [place], [place] [phone] Halima Hernandez ANP [address] [place] [address] Muscle tension pain Social History Tobacco Use [...] Description 11/22/2024 1:15 PM EDT Office Visit [facility] [address] [place] [address] Yanira Mi MD [address] [place] [address] 12/14/2024 2:00 PM EDT Office Visit [facility] ADULT DENT[facility] [address] [place] [address] Yari Colmenares [address] [place] [address] 12/23/2024 1:30 PM EDT Office Visit [facility]ULT [facility] [address] [place] [address] Aiden Tate DDS [address] [place] [address] documented as of this encounter Visit Diagnoses Diagnosis Muscle tension pain documented in this encounter Additional Health Concerns Assessment Noted Time PHQ-9 Depression Total Score: 6 05/02/20 24 8:45 AM EDT documented as of this encounter Care Teams Crab Picker Relationship Specialty Start Date End Date Yanira Mi MD [address] [place] [address] PCP - General Family Medicine 07/08/12 Marbella Tobar AprnMedication Care Manager 07/29/23 documented as of this encounter
--- OUTSIDE RECORDS SUMMARY | 2024-11-21 12:59 | XMS_ITS | Clinical Summary ---
Author Organization [employer] Address [address] [facility] [address] [place] [address] Care Team Providers Care Data Power Consultant Name Role Phone Yanira Mi MD Primary Care Provider [phone] Allergies No known active allergies Medications * This document contains information received from the source organization and may not represent a complete record from that organization. Blood Glucose Monitoring Suppl (FreeStyle Lite) w/Device kit 1 each in the morning. 1 kit 11 05/07/20 23 Active Aspirin Adult Low Strength 81 MG EC [...] complications (CMS/HCC) USE DIRECTED 100 each 11 06/07/20 24 Active fluticasone (Flonase Allergy Relief) 50 MCG/ACT nasal spray Administer 1-2 sprays into affected nostril(s) at bed time. 11/17/20 22 Active TRUEplus Lancets 33G miscIndications: Type 2 diabetes mellitus without complications ([facility]) TEST BLOOD SUGAR TWICE DAILY 100 each [...] 24 hr tabletIndication s:Hypertension associated with diabetes ([facility]) TAKE 2 TABLETS BY MOUTH TWICE DAILY [...] 20 MG tabletIndication s:Hypertension associated with diabetes ([facility]) TAKE 1 TABLET BY MOUTH EVERY MORNING 90 tablet 3 08/25/19 25 Active Ventolin HFA 108 (90 Base) MCG/ACT inhalerIndicatio ns:COPD exacerbation ([facility]) INHALE 2 PUFFS BY MOUTH EVERY 4 HOURS NEEDED FOR WHEEZING OR SHORTNESS OF BREATH 18 g 1 09/19/19 25 Active FREESTYLE LITE test stripIndications :Type 2 diabetes mellitus without complication, without long-term current use of insulin ([facility]) TEST BLOOD SUGAR THREE TIMES DAILY 100 strip 5 09/27/19 25 Active Mometasone Furoate (Asmanex HFA) 100 MCG/ACT aerosol INHALE 1 PUFF BY MOUTH TWICE DAILY. RINSE MOUTH AFTER USING. 13 g 11 10/28/19 25 Active cyclobenzaprine (Flexeril) 5 MG tabletIndication s:Muscle tension pain 1 tab up to TID as needed for muscle spasm/pain 30 tablet 04/22/20 25 Active Mometasone Furoate (Asmanex HFA) 100 MCG/ACT aerosol INHALE 1 PUFF TWICE DAILY. RINSE MOUTH AFTER USING. 39 g 3 09/07/19 24 2024 Discontinued cyclobenzaprine (Flexeril) 5 MG tabletIndication s:Muscle tension pain 1 tab up to TID as needed for muscle spasm/pain 30 tablet 11/04/19 24 2024 Discontinued(R eorder (will not trigger notification to Pharmacy)) Active [...] occasional cocaine use Preoperative cardiovascular examination 06/28/20 Puncture wound of foot, left 06/28/2024 Spinal [...] Right hip pain 08/13/2023 Assessment & Plan (11/15/2024 3:44 PM EDT): Pt here with c/o chronic right hip pain X-ray in Jun 2024 showed moderate-severe osteoarthritis Evaluated by Ortho 09/2024 who recommended steroid injection VS THR Pt already scheduled to see Dr Azul in 1 week Pt is here requesting a refill of Flexeril, since She does not want to continue to take Celecoxib Plan: As per Ortho, Flexeril sent F/u with PCP as scheduled Assessment & Plan (08/28/2024 12:37 PM EST): [...] boundary setting. PLAN: 1. Follow up with [facility]: Recommended for follow-up: 1 month 2. Patient [...] (02/09/2024 5:58 PM EDT): - following with [facility] - last seen on 03/24/23, received steroid injection - right side is worse than left side - continue judicious use of analgesics Assessment & Plan (08/14/2023 5:55 PM EST): - following with [facility] - last seen on 03/24/23, received steroid injection - right side is worse than left side - continue judicious use of analgesics Assessment & Plan (05/09/2023 4:21 PM EDT): - following with [facility] - last seen on 03/24/23, received steroid injection - right side is worse than left side - continue judicious use of analgesics Assessment & Plan (02/21/2023 5:34 PM EDT): - right more painful than left - previously seen by [facility] - received steroid injection - she declines a referral for another steroid injection or physical therapy - home exercise program - upcoming appt with ortho due to recent fall injury Assessment & Plan (10/26/2022 7:03 AM EDT): - right more painful than left - previously seen by [facility] - received steroid injection - she declines a referral for another steroid injection or physical therapy - home exercise program Chronic bilateral low back pain with bilateral s ciatica 07/01/2022 Overview (07/01/2022): -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 Assessment & Plan (10/26/2022 6:58 AM EDT): - referred to a school clerk, but will refer to another school clerk whose office is more accessible EVELIA (obstructive [...] (05/09/2023 4:27 PM EDT): - previously seeing [facility] provider - continue sertraline - continue V-care Anxiety 04/12/2012 05/14/2023 Encounters Date Type Department Care Team Description 11/18/2024 Telephone [facility] [address] [place] [address] Yanira Mi MD chart prep 11/15/2024 3:20 PM EDT Office Visit [facility] [address] [place] [address] Ilya Anderson MD Right hip pain (Primary Dx); Muscle tension pain 11/08/2024 Orders Only [facility] External Provider, [employer] 10/27/2024 Refill [facility] [address] [place] [address] Yanira Mi MD 09/26/2024 Refill [facility] [address] [place] [address] Yanira Mi MD Type 2 diabetes mellitus without complication, without long-term current use of insulin ([facility]) 09/17/2024 Refill [facility] [address] [place] [address] Aliza Picknes MD COPD exacerbation ([facility]) 08/26/2024 Telephone [facility] [address] [place] [address] Yanira Mi MD 08/25/2024 Refill [facility] [address] [place] [address] Yanira Mi MD Moderate persistent asthma with acute exacerbation; Hypertension associated with diabetes ([facility]) ([facility]) from Last 3 Months Immunizations Name Administration [...] Sign Reading Time Taken Comments Blood Pressure 124/74 11/15/2024 3:21 PM EDT Pulse 80 11/15/2024 3:21 PM EDT Temperature 35.8 ??C (96.4 ??F) 11/15/2024 3:21 PM ED T Respiratory Rate 19 11/15/2024 3:21 PM EDT Oxygen Saturation 96% 11/15/2024 3:21 PM EDT Inhaled Oxygen Concentration - - Weight 79.4 kg (175 lb) 11/15/2024 3:21 PM EDT Height 157.5 cm (5' 2 ) 06/28/2024 4:58 PM EST Body Mass Index 32.01 06/28/2024 4:58 PM EST Plan of Treatment Upcoming Encounters Date Type Department Care Team (Late st Contact Info) Description 11/22/2024 1:15 PM EDT Office Visit [facility] [address] [place] [address] Yanira Mi MD [address] [place] [address] 12/14/2024 2:00 PM EDT Office Visit [facility] [address] [place] [address] Darrian, Yari [address] [place] [address] 12/23/2024 1:30 PM EDT Office Visit [facility] [address] [place] [address] Aiden Tate DDS [address] [place] [address] Health Maintenance Due Date Last Done Comments [...] history exists Depression Screening 05/02/2025 05/02/2024, 05/02/20 Alcohol/Substance Use Screening 05/17/2025 05/17/2024 Diabetes: Urine [...] complication, without long-term current use of insulin ([facility]/H[facility]) PROPHYLAXIS - ADULT Routine 06/15/2024 1 :00 [...] (11/08/2024 11:58 AM EDT) Color Urine Yellow [facility] Appearance Urine Clear [facility] PH 5.5 5.0 - 9.0 [facility] Glucose Urine UA >=1000(A) Negative mg/dL [facility] Urine Blood Negative Negative [facility] Specific [place] - Urine 1.025 1.005 - 1.025 [facility] Urine Protein Negative Neg-Trace mg/dL [facility] Urine Ketones Negative Negative mg/dL [facility] Nitrite Urine Negative Negative [facility] Leukocyte Esterase Urine Negative Negative [facility] RBC Urine 0-2 0 - 2 /HPF [facility] Urine WBC 0-5 0 - 5 /HPF [facility] Urine Squamous Epithelial Cell 0-2 0 - 2 /HPF [facility] Urine Bacteria None Seen None Seen [facility] Hyaline Casts, Urine 0-2 0 - 2 /LPF [facility] 11/08/2024 11:5 8 AM EDT 11/08/2024 12:00 PM EDT Narrative [facility] - 11/08/2024 12:14 PM EDT Urine, Clean Catch Generic External Data Provider LAB URINE ORDERAB LES Final Result Performing Organization Address [facility] Co de Phone Number [facility] [address] [place] [address] [phone] * (ABNORMAL) Urinalysis w/reflex microscopic (11/08/2024 11:58 AM EDT) Color Urine Yellow [facility] Appearance Urine Clear [facility] PH 5.5 5.0 - 9.0 [facility] Glucose Urine UA >=1000(A) Negative mg/dL [facility] Urine Blood Negative Negative [facility] Specific [place] - Urine 1.025 1.005 - 1.025 [facility] Urine Protein Negative Neg-Trace mg/dL [facility] Urine Ketones Negative Negative mg/dL [facility] Nitrite Urine Negative Negative [facility] Leukocyte Esterase Urine Negative Negative [facility] 11/08/2024 11:5 8 AM EDT 11/08/2024 12:00 PM EDT Narrative [facility] - 11/08/2024 12:06 PM EDT Urine, Clean Catch us Generic External Data Provider LAB URINE ORDERAB LES Final Result Performing Organization Address [facility] Co de Phone Number [facility] [address] [place] [phone] * XR Hip right with Pelvis 1 view (11/08/2024 11:24 AM EDT) Anatomical Region Laterality Modality Lower Extremities, Hip Bilateral Radiograp hic Imaging 11/08/2024 11:2 4 AM EDT Narrative 11/08/2024 12:05 PM EDT ? [facility] ?[address] ?[place] [address] ?XRay Report ? Signed ? Patient: Gamble,La ?MR#: [id number] ?? 631 ? : 1965 ?Acct:[id number] ? Age/Sex: 59 / F ?ADM Date: 11/08/24 ? Loc: HO.ED ? Attending Dr: ? Ordering Physician: Mitchell Silverio ?? Date of Service: 11/08/24 ?? Procedure(s): XR hip RT w PEL1V ?? Accession Number(s): [id number] ? cc: Mitchell Silverio; Yanira Mi MD [...] Josue MD ??11/08/2024 12:02 PM ?? EDT ? Dictated By: ?Bony Ness MD ? Signed By: ?<Electronically signed by Bony Chiang MD in OV> ? 11/08/24 1202 ? DD/ 1124 ? TD/TT: 11/08/24 1153 ? Blueprint Blocker: ? Procedure Note Sallie Marie - 11/08/[address] [address] XRay Report Signed Patient: La GambleMR#: [id number] 631 : 1965Acct:[id number] Age/Sex: 59 / FADM Date: 11/08/24 Loc: HO.ED Attending Dr: Ordering Physician: Mitchell Silverio Date of Service: 11/08/24 Procedure(s): XR hip RT w PEL1V Accession Number(s): [id number] cc: Mitchell Silverio; Yanira Mi MD EXAMINATION: [...] 11/08/24 1202 DD/ 1124 TD/TT: 11/08/24 1153 Blueprint Blocker: [facility] External Provider IMG XR PROCEDURES Final Result * XR Lumbar Spine 2-3 Views (11/08/2024 11:24 AM EDT) Anatomical Region Laterality Modality Spine, L-spine Radiographic Gayathri ging 11/08/2024 11:2 4 AM EDT Narrative 11/08/2024 12:06 PM EDT ? [facility] ?[address] ?[place] [address] ?XRay Report ? Signed ? Patient: Gamble,La ?MR#: [id number] ?? 631 ? : 1965 ?Acct:[id number] ? Age/Sex: 59 / F ?ADM Date: 04/15/25 ? Loc: HO.ED ? Attending Dr: ? Ordering Physician: Mitchell Silverio ?? Date of Service: 11/08/24 ?? Procedure(s): XR lumbar spine 2-3V ?? Accession Number(s): [id number] ? cc: Mitchell Silverio; Yanira Mi MD [...] Josue MD ??11/08/2024 12:04 PM ?? EDT ? Dictated By: ?Bony Ness MD ? Signed By: ?<Electronically signed by Bony Chiang MD in OV> ? 11/08/24 1204 ? DD/ 1124 ? TD/TT: 11/08/24 1153 ? Blueprint Blocker: ? Procedure Note Harshleesusanneyenifer, Image - 11/08/2024 [place] [address] XRay Report Signed Patient: La GambleMR#: [id number] 631 : 1965Acct:[id number] Age/Sex: 59 / FADM Date: 11/08/24 Loc: HO.ED Attending Dr: Ordering Physician: Mitchell Silverio Date of Service: 11/08/24 Procedure(s): XR lumbar spine 2-3V Accession Number(s): [id number] cc: Mitchell Silverio; Yanira Mi MD EXAMINATION: [...] 11/08/24 1204 DD/ 1124 TD/TT: 11/08/24 1153 Blueprint Blocker: [facility] External Provider IMG XR PROCEDURES Final Result * (ABNORMAL) POCT glycosylated hemoglobin (Hgb A1c) (08/22/2024 2:29 PM EST) Hemoglobin A1C 7.8(A) 4.0 - 6.0 % QC Media Lot # [id number] Lot# Expiration Date ,139 Blood Capillary blood specimen / Unknown 08/22/2024 2:29 PM EST Yanira Mi MD POINT OF CARE TEST ENTER/EDIT OR DERABLES Final Result * (ABNORMAL) Lipid Panel with Reflex to Direct LDL (05/18/2024 2:00 PM EDT) Triglycerides 472(H) <150 mg/dL [facility] Comment:Desirable Triglyceri de: less than 150 mg/dLBorderline High Triglyceride 150-199 mg/dLHigh Triglyceride: 200-499 mg/dLVery High Triglyceride: greater than or equal to 5OO mg/dL Cholesterol 162 <200 mg/dL [facility] Comment:Desirable Cholestero l: less than 200 mg/dLBorderline High Cholesterol: 200-239 mg/dLHigh Cholesterol: greater than 239 mg/dL LDL Cholesterol Calculated TNP <100 mg/dL [facility] Comment:Unable to calculate the LDL. The formula of Friedwald,Duran, and Devon is only valid if the triglycerides areless than 400 mg/dl. HDL Cholesterol 42 >40 mg/dL [facility] Comment:Desirable HDL: great er than 40 mg/dL Note: This HDL assay may give artificially low results in patients with liver disease. Blood 05/18/2024 2:00 PM EDT 05/18/2024 4:09 PM EDT Yanira Mi MD LAB BLOOD ORDERABLES Edited Resu lt - Final Performing Organization Address [facility]/ZIP Co de Phone Number [facility] [address] [place] [phone] * Albumin, Random Urine W/Creatinine (05/18/2024 2:00 PM EDT) Creatinine, Urine 58.80 mg/dL [facility] Microalbumin Urine <5.0 mg/L [facility] Microalbum Creatinine Ratio Ur TNP <30 ug/mg cr [facility] Comment:Unable to calculate albumin/creatinine ratio due to lowmicroalbumin or creatinine result. Urine 05/18/2024 2:00 PM EDT 05/18/2024 4:09 PM EDT us Yanira Mi MD LAB URINE ORDERABLES Final Resul t Performing Organization Address [facility]/ZIP Co de Phone Number [facility] [address] [place] [address] [phone] * Hepatitis C Antibody with Reflex to HCV, RNA, Quantitative, Real-Time PCR (11/03/2023 9:10 AM EDT) Hepatitis C Antibody Nonreactive Nonreactive [facility] Comment:Antibodies to HCV no t detected; does not exclude early acuteHCV infection. Blood Venous blood specimen / Unknown 11/03/2023 9:10 AM EDT 11/03/2023 11:20 AM EDT Yanira Mi MD LAB BLOOD ORDERABLES Final Resul t Performing Organization Address [facility] Co de Phone Number [facility] [address] [place] [phone] * HIV-1/2 Antigen and Antibodies, Fourth Generation, with Reflexes (11/03/2023 9:10 AM EDT) HIV AB/AG Nonreactive Nonreactive [facility] Comment:HIV-1 p24 Ag and/or HIV-1/HIV-2 Ab not detected.A test result that is nonreactive does not exclude thepossibility of exposure to or infection with HIV-1 and/orHIV-2. Nonreactive results in this assay for individualswith prior exposure to HIV-1 and/or HIV-2 may be due toantigen and antibody levels that are below the limit ofdetection of this assay.[employer] HIV Ag/Ab Combo assay result andsupplemental assay results should be interpreted inconjunction with the patient's clinical presentation,history and other laboratory results. If the results areinconsistent with clinical evidence, additional testing issuggested to confirm the result. Blood Venous blood specimen / Unknown 11/03/2023 9:10 AM EDT 11/03/2023 11:20 AM EDT Yanira Mi MD LAB BLOOD ORDERABLES Final Resul t Performing Organization Address [facility] Co de Phone Number [facility] [address] [place] [address] [phone] * BI Mammogram Screening Tomosynthesis Bilateral (09/24/2023 2:20 PM EST) Anatomical Region Laterality Modality Breast Bilateral Mammography 09/24/2023 2:20 PM EST Narrative 10/11/2023 5:45 PM EDT ? [facility] ? [address] ?[place] [address] ? Mammography Report ? Signed ? Patient: Gamble,La ?MR#: [id number] ?? 631 ? : 1965 ?Acct:[id number] ? Age/Sex: 58 / F ?ADM Date: 09/24/23 ? Loc: HO.MAMMO ? Attending Dr: Yanira Mi MD ? Ordering Physician: Yanira Mi MD ?Results: 1Negative ? Date of Service: 09/24/23 ?Follow Up: 1 Year From Orig ?? inal Mammogram ? Procedure(s): MM tomosynthesis screening BI ?? Accession Number(s): [id number] ? cc: Yanira Mi MD ? EXAMINATION: [...] 1741 ? DD/ 1420 ? TD/TT: ? Blueprint Blocker: ? Procedure Note Donotuseinterpreter, Image - 10/11/2023 [facility] [address] [place] [address] Mammography Report Signed Patient: La GambleMR#: [id number] 631 : 1965Acct:[id number] Age/Sex: 58 / FADM Date: 09/24/23 Loc: JEFFERY Attending Dr: Yanira Mi MD Ordering Physician: Yanira Mi MDResults: 1Negative Date of Service: 09/24/23Follow Up: 1 Year From Orig inal Mammogram Procedure(s): MM tomosynthesis screening BI Accession Number(s): [id number] cc: Yanira Mi MD EXAMINATION: MM SCREENING [...] in OV> 10/11/23 1741 DD/ 1420 TD/TT: Blueprint Blocker: us Yanira Mi MD IMG BI PROCEDURES Edited Result - Final * THINPREP TIS PAP AND HPV mRNA E6/E7, CT/NG, TRICH (03/27/2022 10:59 AM EDT) Chlamydia trachomatis RNA, TMA, Urogenital NOT DETECTED NOT DETECTED [facility] Clinical Information: None given [facility] COMMENT SEE COMMENT [facility] Comment: The analytical performance characteristics of this assay, when used to test SurePath(TM) specimens have been determined by [facility]. The modifications have not been cleared or approved by the FDA. This assay has been validated pursuant to the CLIA regulations and is used for clinical purposes. ?? For additional information, please refer to https://education.[employer]/faq/GWS288 (This link is being provided for information/ [...] has been evaluated with computer assisted technology. [employer] Bridge Construction Inspector: SEE COMMENT [facility] Comment: RXB, CT(ASCP) CT screening location: [address] ??[address] HPV nRNA E6/E7 Not Detected Not Detected [employer] Comment: Methodology: Compensation Vice President-Mediated Amplification This assay detects E6/E7 viral messenger RNA (mRNA) from 14 high-risk HPV types (16,18,31,33,35,39,45,51,52,56,58,59,66,68). ? Cervical sources are required for HPV testing. If a vaginal source from a patient who has had a total hysterectomy with removal of cervix was ?? submitted, please contact the testing laboratory for alternative testing options. ?? For additional information, please refer to http://[email or web address].[employer]/faq/BMA852n7 (This link if provided for information/ educational [...] of this assay have been determined by [facility]. The modifications have not been cleared or approved by the FDA. This assay has been validated pursuant to the CLIA regulations and is used for clinical purposes. ?? For additional information, please refer to [email or web address]/ faq/[email or web address] (This link is being provided for information/ educational purposes only.) ?? 03/27/2022 10:5 9 AM EDT us Yanira Mi MD LAB PATHOLOGY ORDERABLES Final R esult [facility] [address] * Pap Smear (03/27/2022) Pap smear Performed us Shanel Provider HEALTH MAINTENANCE Final Result * Colonoscopy (10/25/2015) Colonoscopy Performed us Historical Provider HEALTH MAINTENANCE Edited Result - Final from Last 3 Months or Most Recently Relevant to Health Maintenance Insurance [facility] < [address] [place] [id number] [facility] Care Teams Data Power Consultant Relationship Specialty Start Date End Date Yanira Mi MD [address] [place] [address] PCP - General Family Medicine 07/08/12 Marbella Tobar Machine WiperHot Stick Man 07/29/23
--- OUTSIDE RECORDS SUMMARY | 2024-11-21 12:59 | XMS_ITS | Encounter Summary ---
Author Organization [employer] Address [address] [place] [address] Care Team Providers Care Category Director Name Role Phone Yanira Mi MD Primary Care Provider [phone] Reason for Visit * Reason Comments Med Refill Encounter Details Date Type Department Care Team (Late st Contact Info) Description 06/09/2024 Refill [facility] [address] [place] [address] Jessica Menjivar, FAROOQ [address] [place] [address] Social History Tobacco Use Types Packs/Day Years [...] Description 11/22/2024 1:15 PM EDT Office Visit [facility] [address] [place] [address] Yanira Mi MD [address] [place] [address] 12/14/2024 2:00 PM EDT Office Visit [facility] [address] [place] [address] Yari Colmenares [address] [place] [address] 12/23/2024 1:30 PM EDT Office Visit [facility] [address] [place] [address] Aiden Tate DDS [address] [place] [address] documented as of this encounter Visit Diagnoses Not on filedocumented in this encounter Additional Health Concerns Assessment Noted Time PHQ-9 Depression Total Score: 6 05/02/20 24 8:45 AM EDT documented as of this encounter Care Teams Category Director Relationship Specialty Start Date End Date Yanira Mi MD [address] [place] [address] PCP - General Family Medicine 07/08/12 Marbella Tobar Silver WrapperNetwork Support Technician 07/29/23 documented as of this encounter
--- OUTSIDE RECORDS SUMMARY | 2024-11-21 12:59 | XMS_ITS | Encounter Summary ---
Author Organization [facility] Address [address] [facility] 7t [place] [address] Care Team Providers Care Teller Vault Name Role Phone Yanira Mi MD Primary Care Provider [phone] Encounter Details Date Type Department Care Team (Late st Contact Info) Description 02/19/2023 Abstract [facility] MEDICINE [address] [place] [address] Yanira Mi MD [address] [place] [address] [phone] Social History Tobacco Use Types Packs/Day Years [...] Description 11/22/2024 1:15 PM EDT Office Visit [facility] MEDICINE [address] [place] [address] [phone] Yanira Mi MD 230 [place] [address] 12/14/2024 2:00 PM EDT Office Visit [facility] ADULT DENTAL [address] [place] [address] Yari Colmenares 230 [place] [address] 12/23/2024 1:30 PM EDT Office Visit [facility] ADULT DENTAL [address] [place], [place] [phone] Aiden Tate DDS [address] [place] [address] documented as of this encounter Procedures Procedure Name Priority Date/Time Associated Diagnosis Comments HM DIABETES: URINE PROTEIN SCREENING Routine 02/18/2023 documented in this encounter Results * Diabetes: Urine Protein Screening (02/18/2023) Microalbumin, Urine 5.0 Creatinine, Random Urine 54.01 Urine Result [facility] Unassigned Pcp HEALTH MAINTENANCE Final Result documented in this encounter Visit Diagnoses Not on filedocumented in this encounter Care Teams Teller Vault Relationship Specialty Start Date End Date Yanira Mi MD [address] [place], [place] [phone] PCP - General Family Medicine 07/08/12 Marbella Tobar Care ProfessionalsPump Tester 07/29/23 documented as of this encounter
--- OUTSIDE RECORDS SUMMARY | 2024-11-21 12:59 | XMS_ITS | Encounter Summary ---
Author Organization [facility] Address 75 [facility] 7t [place] [address] Care Team Providers Care Primary Teacher Name Role Phone Yanira Mi MD Primary Care Provider [phone] Reason for Visit * Reason Comments Med Refill Encounter Details Date Type Department Care Team (Late Contact Info) Description 01/01/2023 Refill [facility] MEDICINE [address] [place] [address] [phone] Yanira Mi MD [address] [place] [address] [phone] Social History Tobacco Use Types Packs/Day Years [...] Upcoming Encounters Date Type Department Care Team ([facility] Contact Info) Description 11/22/2024 1:15 PM EDT Office Visit [facility] MEDICINE [address] [place] [address] [phone] Yanira Mi MD 230 [place] [address] 12/14/2024 2:00 PM EDT Office Visit [facility] ADULT DENTAL [address] [place] [address] Flip Colmenaresaris [address] [place] [address] 12/23/2024 1:30 PM EDT Office Visit [facility] ADULT DENTAL [address] [place] [address] Aiden Tate DDS [address] [place] [address] documented as of this encounter Visit Diagnoses Not on filedocumented in this encounter Care Teams Primary Teacher Relationship Specialty Start Date End Date Yanira Mi MD 230 [place] [address] PCP - General Family Medicine 07/08/12 Marbella Tobar Motor BossSheet Metal Erector 07/29/23 documented as of this encounter
--- OUTSIDE RECORDS SUMMARY | 2024-11-21 12:59 | XMS_ITS | Encounter Summary ---
Author Organization [employer] Address [address] [facility] [address] 7t [place] [address] Care Team Providers Care Fisher Trawl Net Name Role Phone Yanira Mi MD Primary Care Provider [phone] Encounter Details Date Type Department Care Team (Late st Contact Info) Description 05/19/2024 Orders Only [facility] MEDICINE 230 [place], [place] [phone] Yanira Mi MD 230 [place] [address] Cobalamin deficiency (Primary Dx); Hypertriglyceridemia; Transaminitis Social [...] 11/22/2024 1:15 PM EDT Office Visit [facility] MEDICINE 230 [place] [address] Yanira Mi MD 230 [place] [address] 12/14/2024 2:00 PM EDT Office Visit [facility] ADULT DENTAL 230 [place] [address] Yari Colmenares [address] [place] [address] 12/23/2024 1:30 PM EDT Office Visit [facility] ADULT DENTAL [address] [place] [address] Aiden Tate DDS [address] [place] [address] Scheduled Orders Name Type Priority Associated Diagnoses [...] documented as of this encounter Care Teams Fisher Trawl Net Relationship Specialty Start Date End Date Yanira Mi MD [address] [place] [phone] PCP - General Family Medicine 07/08/12 Marbella Tobar Code Number StamperMarina Manager 07/29/23 documented as of this encounter
--- OUTSIDE RECORDS SUMMARY | 2024-11-21 12:59 | XMS_ITS | Encounter Summary ---
Author Organization [employer] [facility] Address 75 [facility] 7t [place] [address] Care Team Providers Care Dormitory Counselor Name Role Phone Yanira Mi MD Primary Care Provider [phone] Reason for Visit * Reason Comments Med Refill Encounter Details Date Type Department Care Team (Late st Contact Info) Description 09/05/2022 Refill [facility] MEDICINE [address] [place] [phone] Aliza Pickens MD [address] [place] [address] [phone] Social History Tobacco Use Types Packs/Day Years [...] Upcoming Encounters Date Type Department Care Team ([facility] Contact Info) Description 11/22/2024 1:15 PM EDT Office Visit [facility] MEDICINE [address] [place] [phone] Yanira Mi MD 230 [place] [address] 12/14/2024 2:00 PM EDT Office Visit [facility] ADULT DENTAL 230 [place] [address] Yari Colmenares 230 [place] [address] 12/23/2024 1:30 PM EDT Office Visit [facility] ADULT DENTAL 230 [place] [address] Aiden Tate DDS [address] [place] [address] documented as of this encounter Visit Diagnoses Not on filedocumented in this encounter Care Teams Dormitory Counselor Relationship Specialty Start Date End Date Yanira Mi MD 230 [place] [address] PCP - General Family Medicine 07/08/12 Marbella Tobar Clay Machine OperatorAluminum Welder 07/29/23 documented as of this encounter
--- OUTSIDE RECORDS SUMMARY | 2024-11-21 12:59 | XMS_ITS | Encounter Summary ---
Author Organization [employer] [facility] Address 75 [facility] 7t [place] [address] Care Team Providers Care Field Supervisor Name Role Phone Yanira Mi MD Primary Care Provider [phone] Encounter Details Date Type Department Care Team (Late st Contact Info) Description 06/10/2022 Abstract [facility] MEDICINE 230 [place] [address] ProviderShanel MD Social History Tobacco Use Types [...] EDT Office Visit [facility] MEDICINE [address] [place] [address] Yanira Mi MD [address] [place] [address] 12/14/2024 2:00 PM EDT Office Visit [facility] ADULT DENTAL [address] [place] [address] Yari Colmenares [address] [place] [address] 12/23/2024 1:30 PM EDT Office Visit [facility] ADULT DENTAL [address] [place] [address] Aiden Tate DDS [address] [place] [address] documented as of this encounter Visit Diagnoses Not on filedocumented in this encounter Care Teams Field Supervisor Relationship Specialty Start Date End Date Yanira Mi MD 230 [place], [place] [phone] PCP - General Family Medicine 07/08/12 Marbella Tobar Manager NeonatalContent Administrator 07/29/23 documented as of this encounter
--- OUTSIDE RECORDS SUMMARY | 2024-11-21 12:59 | XMS_ITS | Encounter Summary ---
Author Organization [employer] [facility] Address [address] [place] [address] 7t [place] [address] Care Team Providers Care Wall To Wall Carpet Installer Name Role Phone Yanira Mi MD Primary Care Provider [phone] Encounter Details Date Type Department Care Team (Late st Contact Info) Description 06/26/2022 Orders Only [facility] MEDICINE [address] [place] [address] [phone] Casie Callaway PharmD 230 [place] [address] Social History Tobacco Use Types Packs/Day Years [...] Description 11/22/2024 1:15 PM EDT Office Visit [facility] MEDICINE [address] [place] [address] [phone] Yanira Mi MD [address] [place] [address] [phone] 12/14/2024 2:00 PM EDT Office Visit [facility] ADULT DENTAL [address] [facility] [place] [address] Yari Colmenares [address] [facility] [place] [address] 12/23/2024 1:30 PM EDT Office Visit [facility] ADULT DENTAL [address] [facility] [place] [address] Aiden Tate DDS [address] [facility] [place] [address] documented as of this encounter Procedures Procedure Name Priority Date/Time Associated Diagnosis Comments XR CHEST 2 VIEWS Routine 06/26/2022 1:20 PM EST documented in this encounter Results * XR Chest 2 Views (06/26/2022 1:20 PM EST) Anatomical Region Laterality Modality Chest Radiographic Gayathri ging 06/26/2022 1:20 PM EST Narrative 07/01/2022 8:59 AM EST ? [facility] ?[address] ?[place] [address] ?XRay Report ? Signed ? Patient: Gamble,La ?MR#: [id number] ?? [id number] ? : 1965 ?Acct:[id number] ? Age/Sex: 57 / F ?ADM Date: 06/26/22 ? Loc: HO.XRAY ? Attending Dr: Ilya Mcdaniel MD ? Ordering Physician: Ilya Mcdaniel MD ?? Date of Service: 06/26/22 ?? Procedure(s): XR chest 2V ?? Accession Number(s): [id number] ? cc: Ilya Mcdaniel MD ? EXAMINATION: [...] 0857 ? DD/ 1320 ? TD/TT: ? Mason Tender: ROSA ? Procedure Note Donothannyinterpreter, Image - 07/01/2022 [place] [address] XRay Report Signed Patient: La GambleMR#: [id number] : 1965Acct:[id number] Age/Sex: 57 / FADM Date: 06/26/22 Loc: HO.PATRICIA Attending Dr: Ilya Mcdaniel MD Ordering Physician: Ilya Mcdaniel MD Date of Service: 06/26/22 Procedure(s): XR chest 2V Accession Number(s): [id number] cc: Ilya Mcdaniel MD EXAMINATION: XR CHEST [...] in OV> 07/01/22 0857 DD/ 1320 TD/TT: Mason Tender: ROSA us [facility] External Provider IMG XR PROCEDURES Edited Result - Final documented in this encounter Visit Diagnoses Not on filedocumented in this encounter Care Teams Wall To Wall Carpet Installer Relationship Specialty Start Date End Date Yanira Mi MD 230 [place] [address] PCP - General Family Medicine 07/08/12 Marbella Tobar Internal Audit ConsultantField Software Engineer 07/29/23 documented as of this encounter
--- OUTSIDE RECORDS SUMMARY | 2024-11-21 12:59 | XMS_ITS | Encounter Summary ---
Author Organization [employer] [facility] Address 75 [facility] 7t [place] [address] Care Team Providers Care Lunch Truck Operator Name Role Phone Yanira Mi MD Primary Care Provider [phone] Encounter Details Date Type Department Care Team (Late st Contact Info) Description 06/16/2022 Abstract [facility] MEDICINE 230 [place], [place] [phone] Yanira Mi MD 230 [place], [place] [phone] Social History Tobacco Use Types Packs/Day Years [...] Description 11/22/2024 1:15 PM EDT Office Visit [facility] MED[facility] [address] [place] [address] [phone] Yanira Mi MD 230 [place], [place] [phone] 12/14/2024 2:00 PM EDT Office Visit [facility] ADULT DENTAL 230 [place], [place] [phone] Yari Colmenares 230 [place] [address] 12/23/2024 1:30 PM EDT Office Visit [facility] ADULT [facility]ENTAL 230 [place] [address] Aiden Tate DDS 230 [place], [place] [phone] documented as of this encounter Visit Diagnoses Not on filedocumented in this encounter Care Teams Lunch Truck Operator Relationship Specialty Start Date End Date Yanira Mi MD 230 [place], [place] [phone] PCP - General Family Medicine 07/08/12 Marbella Tobar Professor Of Environmental ScienceStudent Truck Driver 07/29/23 documented as of this encounter
--- OUTSIDE RECORDS SUMMARY | 2024-11-21 12:59 | XMS_ITS | Encounter Summary ---
Author Organization [employer] [facility] Address [address] [place] [address] 7t [place] [address] Care Team Providers Care Transmission Assembler Name Role Phone Yanira Mi MD Primary Care Provider [phone] Reason for Visit * Reason Comments Med Refill Encounter Details Date Type Department Care Team (Late Contact Info) Description 03/26/2023 Refill [facility] MEDICINE [address] [place] [address] [phone] Yanira Mi MD [address] [place] [address] [phone] Social History Tobacco Use Types Packs/Day Years [...] Description 11/22/2024 1:15 PM EDT Office Visit [facility] MEDICINE [address] [place] [address] [phone] Yanira Mi MD [address] [place] [address] [phone] 12/14/2024 2:00 PM EDT Office Visit [facility] ADULT DENTAL 230 [facility], [place] [phone] Yari Colmenares 230 [place], [place] [phone] 12/23/2024 1:30 PM EDT Office Visit [facility] ADULT DENTAL 230 [place], [place] [phone] Aiden Tate DDS 230 [place] [address] documented as of this encounter Visit Diagnoses Not on filedocumented in this encounter Care Teams Transmission Assembler Relationship Specialty Start Date End Date Yanira Mi MD 230 [place], [place] [phone] PCP - General Family Medicine 07/08/12 Marbella Tobar Flue Lining DipperAuto Transmission Mechanic 07/29/23 documented as of this encounter
--- OUTSIDE RECORDS SUMMARY | 2024-11-21 12:59 | XMS_ITS | Encounter Summary ---
Author Organization [employer] [facility] Address 75 [facility] 7t [place] [address] Care Team Providers Care Fire Sprinkler Designer Name Role Phone Yanira Mi MD Primary Care Provider [phone] Encounter Details Date Type Department Care Team (Late st Contact Info) Description 06/13/2022 Abstract [facility] MEDICINE [address] [place] [address] ProviderShanel MD Social History Tobacco Use Types [...] Description 11/22/2024 1:15 PM EDT Office Visit [facility] MEDICINE [address] [place] [phone] Yanira Mi MD [address] [place] [address] 12/14/2024 2:00 PM EDT Office Visit [facility] ADULT DENTAL [address] [place] [address] Yari Colmenares [address] [place] [address] 12/23/2024 1:30 PM EDT Office Visit [facility] ADULT DENTAL [address] [place] [address] Aiden Tate DDS 230 [place] [address] documented as of this encounter Procedures Procedure Name Priority Date/Time Associated Diagnosis Comments PAP/HPV Routine 03/27/2022 MAMMOGRAPHY Routine 09/12/2021 HEMOGLOBIN A1C Routine 08/23/2021 COLONOSCOPY Routine 10/25/2015 documented in this encounter Results * Pap Smear (03/27/2022) Pap smear Performed [facility] Provider HEALTH MAINTENANCE Final Result * Mammography (09/12/2021) Mammogram Performed Anatomical Region Laterality Modality Other [facility] Provider HEALTH MAINTENANCE Final Result * (ABNORMAL) Hemoglobin A1c (08/23/2021) Hemoglobin A1C 6.6(A) 4.0 - 6.0 % Blood Venous blood specimen / Unknown [facility] Provider LAB BLOOD ORDERABLES Vivi l Result * Colonoscopy (10/25/2015) Colonoscopy Performed [facility] Provider HEALTH MAINTENANCE Edited Result - Final documented in this encounter Visit Diagnoses Not on filedocumented in this encounter Care Teams Fire Sprinkler Designer Relationship Specialty Start Date End Date Yanira Mi MD 230 [place] [address] PCP - General Family Medicine 07/08/12 Marbella Tobar Public Transit Trolley DriverFinancial Aids Officer 07/29/23 documented as of this encounter
--- OUTSIDE RECORDS SUMMARY | 2024-11-21 12:59 | XMS_ITS | Encounter Summary ---
Author Organization [employer] [facility] Address 75 [facility] 7t [place] [address] Care Team Providers Care Junior Database Administrator Name Role Phone Yanira Mi MD Primary Care Provider [phone] Encounter Details Date Type Department Care Team (Latest Contact Info) Description 09/01/2019 Abstract [facility] CONVERSIONS Dental, Provider, DDS Social History [...] 11/22/2024 1:15 PM EDT Office Visit [facility] MEDICINE [address] [place] [phone] Yanira Mi MD [address] [place] [address] 12/14/2024 2:00 PM EDT Office Visit [facility] ADULT DENTAL 230 [place] [address] Yari Colmenares [address] [place] [address] 12/23/2024 1:30 PM EDT Office Visit [facility] ADULT DENTAL [address] [place] [address] Aiden Tate DDS [address] [place] [address] documented as of this encounter Visit Diagnoses Not on filedocumented in this encounter Care Teams Junior Database Administrator Relationship Specialty Start Date End Date Yanira Mi MD [address] [place] [address] PCP - General Family Medicine 07/08/12 Marbella Tobar Finishing Department SupervisorRum Processing Operator 07/29/23 documented as of this encounter
--- OUTSIDE RECORDS SUMMARY | 2024-11-21 12:59 | XMS_ITS | Encounter Summary ---
Author Organization [employer] [facility] Address 75 [facility] 7t [place] [address] Care Team Providers Care Hydraulic Engineer Name Role Phone Yanira Mi MD Primary Care Provider [phone] Encounter Details Date Type Department Care Team (Latest Contact Info) Description 09/11/2021 Abstract [facility] CONVERSIONS Dental, Provider, DDS Social [...] Office Visit [facility] MEDICINE [address] [place] [address] Yanira Mi MD [address] [place] [address] 12/14/2024 2:00 PM EDT Office Visit [facility] ADULT DENTAL 230 [place] [address] Yari Colmenares [address] [place] [address] 12/23/2024 1:30 PM EDT Office Visit [facility] ADULT DENTAL [address] [place] [address] Aiden Tate DDS [address] [place] [address] documented as of this encounter Visit Diagnoses Not on filedocumented in this encounter Care Teams Hydraulic Engineer Relationship Specialty Start Date End Date Yanira Mi MD [address] [place] [address] PCP - General Family Medicine 07/08/12 Marbella Tobar Supervisor LimeInterventional Radiologist 07/29/23 documented as of this encounter
--- OUTSIDE RECORDS SUMMARY | 2024-11-21 12:59 | XMS_ITS | Encounter Summary ---
Author Organization [employer] Address [address] [facility] [address] 7t [place] [address] Care Team Providers Care Public Health Educator Name Role Phone Yanira Mi MD Primary Care Provider [phone] Reason for Visit * Reason Comments Med Refill Encounter Details Date Type Department Care Team (Late st Contact Info) Description 06/09/2024 Refill [facility] [place] [address] Alisha Ko FNP [address] [place] [address] Social History Tobacco Use Types Packs/Day Years [...] PM EDT Office Visit [facility] MEDICINE [address] [place] [address] Yanira Mi MD 230 [place] [address] 12/14/2024 2:00 PM EDT Office Visit [facility] ADULT DENTAL [address] [place] [address] Yari Colmenares [address] [place] [address] 12/23/2024 1:30 PM EDT Office Visit [facility] ADULT DENTAL [address] [place] [address] Aiden Tate DDS [address] [place] [address] documented as of this encounter Visit Diagnoses Not on filedocumented in this encounter Additional Health Concerns Assessment Noted Time PHQ-9 Depression Total Score: 6 05/02/20 24 8:45 AM EDT documented as of this encounter Care Teams Public Health Educator Relationship Specialty Start Date End Date Yanira Mi MD [address] [place] [address] PCP - General Family Medicine 07/08/12 Marbella Tobar Slasher SawyerHide Buffer 07/29/23 documented as of this encounter
--- OUTSIDE RECORDS SUMMARY | 2024-11-21 12:59 | XMS_ITS | Encounter Summary ---
Author Organization [employer] [facility] Address 75 [facility] 7t [place] [address] Care Team Providers Care Daycare Manager Name Role Phone Yanira Mi MD Primary Care Provider [phone] Encounter Details Date Type Department Care Team (Late st Contact Info) Description 09/09/2022 Orders Only [facility] MEDICINE 230 [place] [address] Agueda Costa DO [address] [place], [place] [phone] Social History Tobacco Use Types Packs/Day Years [...] Description 11/22/2024 1:15 PM EDT Office Visit [facility] MEDICINE [address] [place] [address] Yanira Mi MD [address] [place] [address], [place] [address] 12/14/2024 2:00 PM EDT Office Visit [facility] ADULT DENTAL [address] [place] [address] Yari Colmenares [address] [place] [address] 12/23/2024 1:30 PM EDT Office Visit [facility] ADULT DENTAL [address] [place] [address] Aiden Tate DDS [address] [place] [address] documented as of this encounter Visit Diagnoses Not on filedocumented in this encounter Care Teams Daycare Manager Relationship Specialty Start Date End Date Yanira Mi MD [address] [place] [address] [phone] PCP - General Family Medicine 07/08/12 Marbella Tobar Infectious Disease PhysicianSlip Maker 07/29/23 documented as of this encounter
--- OUTSIDE RECORDS SUMMARY | 2024-11-21 12:59 | XMS_ITS | Encounter Summary ---
Author Organization [employer] [facility] Address 75 [facility] 7t [place] [address] Care Team Providers Care Ton Cylinder Inspector Name Role Phone Yanira Mi MD Primary Care Provider [phone] Encounter Details Date Type Department Care Team (Late st Contact Info) Description 06/16/[address] [facility] MEDICINE 230 [place], [place] [phone] Yanira Mi MD 230 [place], [place] [phone] Social History Tobacco Use Types Packs/Day Years [...] Description 11/22/2024 1:15 PM EDT Office Visit [facility] MEDICINE [address] [place] [address] [phone] Yanira Mi MD 230 [place], [place] [phone] 12/14/2024 2:00 PM EDT Office Visit [facility] ADULT DENTAL 230 [place], [place] [phone] Yari Colmenares 230 [place] [address] 12/23/2024 1:30 PM EDT Office Visit [facility] ADULT DENTAL 230 [place] [address] Aiden Tate DDS 230 [place], [place] [phone] documented as of this encounter Visit Diagnoses Not on filedocumented in this encounter Care Teams Ton Cylinder Inspector Relationship Specialty Start Date End Date Yanira Mi MD 230 [place], [place] [phone] PCP - General Family Medicine 07/08/12 Marbella Tobar Toddler NannyWeight Caller 07/29/23 documented as of this encounter
--- OUTSIDE RECORDS SUMMARY | 2024-11-21 12:59 | XMS_ITS | Encounter Summary ---
Author Organization [employer] [facility] Address [address] [facility] 7t [place] [address] Care Team Providers Care Warp Trucker Name Role Phone Yanira Mi MD Primary Care Provider [phone] Reason for Visit * Reason Onset Date Comments Letter required 09/24/2022 Encounter Details Date Type Department Care Team ([facility] st Contact Info) Description 09/24/2022 Telephone [facility] MEDICINE [address] [place], [place] [phone] Yanira Mi MD [address] [place], [place] [phone] Letter required Social History Tobacco Use Types [...] - 09/24/2022 1:04 PM EST Tc from [facility] with [facility] requesting a letter for [facility] stating that patient would benefit from their facility regarding to Adult Foster Care. Please contact Karyn for any further information at [phone] documented in this encounter Plan of Treatment Upcoming Encounters Date Type Department Care Team (Late st Contact Info) Description 11/22/2024 1:15 PM EDT Office Visit [facility] MEDICINE [address] [place] [address] Yanira Mi MD [address] [place] [address] 12/14/2024 2:00 PM EDT Office Visit [facility] ADULT DENTAL [address] [place] [address] Yari Colmenares [address] [place] [address] 12/23/2024 1:30 PM EDT Office Visit [facility] ADULT DENTAL [address] [place] [address] Aiden Tate DDS [address] [place] [address] documented as of this encounter Visit Diagnoses Not on filedocumented in this encounter Care Teams Warp Trucker Relationship Specialty Start Date End Date Yanira Mi MD [address] [place] [address] PCP - General Family Medicine 07/08/12 Marbella Tobar Commercial Construction EstimatorWindows Technical Specialist 07/29/23 documented as of this encounter
--- OUTSIDE RECORDS SUMMARY | 2024-11-21 12:59 | XMS_ITS | Encounter Summary ---
Author Organization [employer] Address [address] [facility] [address] 7t [place] [address] Care Team Providers Care Doctor Of Audiology Name Role Phone Yanira Mi MD Primary Care Provider [phone] Reason for Visit * Reason Onset Date Comments chart prep 11/18/2024 Encounter Details Date Type Department Care Team ([facility] st Contact Info) Description 11/18/2024 Telephone [facility] MEDICINE [address] [place], [place] [phone] Yanira Mi MD 230 [place], [place] [phone] chart prep Social History Tobacco Use Types Packs/Day Years [...] encounter Miscellaneous Notes * Telephone Encounter - Callie Garcia [place] - 11/18/2024 11:48 AM EDT ..Chart Prep Labs: not done Images: not applicable Vaccines due: Covid Due Referrals: Not Applicable Screenings: Eye Exam Overdue care gaps: A1C, Glucose, SDOH, Disability , and Oral Health documented in this encounter Plan of Treatment Upcoming Encounters Date Type Department Care Team (Late st Contact Info) Description 11/22/2024 1:15 PM EDT Office Visit [facility] MEDICINE [address] [place] [address] Yanira Mi MD [address] [place] [address] 12/14/2024 2:00 PM EDT Office Visit [facility] ADULT DENTAL [address] [place] [address] Yari Colmenares [address] [place] [address] 12/23/2024 1:30 PM EDT Office Visit [facility] ADULT DENTAL [address] [place] [address] Aiden Tate DDS [address] [place], [place] [phone] documented as of this encounter Visit Diagnoses Not on filedocumented in this encounter Additional Health Concerns Assessment Noted Time PHQ-9 Depression Total Score: 6 05/02/20 24 8:45 AM EDT documented as of this encounter Care Teams Doctor Of Audiology Relationship Specialty Start Date End Date Yanira Mi MD [address] [place] [address] PCP - General Family Medicine 07/08/12 Marbella Tobar Microarray SpecialistStructural Manager 07/29/23 documented as of this encounter
== END 2024-11-21 12:07 | disposition home or self-care (01) ==
LOC: HO.HOS 10:52
PROVIDERS: PCP Family Medicine; Visit Provider Orthopaedic Surgery
DX: M47.816 Spondylosis without myelopathy or radiculopathy, lumbar region (principal); M16.11 Unilateral primary osteoarthritis, right hip
CPT/HCPCS: 99213; G2211

== ENCOUNTER → 2024-11-21 10:51 | Outpatient (BNVA) | payer OTHER, SELFPAY | PROVIDERS: PCP Family Medicine; Visit Provider Orthopaedic Surgery | DX: M16.11 Unilateral primary osteoarthritis, right hip (principal); M47.816 Spondylosis without myelopathy or radiculopathy, lumbar region | CPT/HCPCS: 99212 ==

== ENCOUNTER 2024-12-07 11:39 | Outpatient (REF) | payer OTHER, SELFPAY | END 2024-12-07 11:40 | disposition home or self-care (01) | LOC: HO.MAMMO 11:39 | PROVIDERS: PCP Family Medicine; Visit Provider Family Medicine | DX: Z12.31 Encounter for screening mammogram for malignant neoplasm of breast (principal) | CPT/HCPCS: 77063; 77067 ==

== ENCOUNTER → 2024-12-07 11:45 | Outpatient (BNV) | payer OTHER, SELFPAY | PROVIDERS: PCP Family Medicine; Visit Provider Internal Medicine | DX: Z12.31 Encounter for screening mammogram for malignant neoplasm of breast (principal) | CPT/HCPCS: 77063; 77067 ==

== ENCOUNTER 2024-12-09 13:48 | Outpatient (AMB) | payer OTHER, SELFPAY ==
--- NOTE | 2024-12-09 13:50 | MHC.OFFVIS ---
Vital Signs 12/09/24 13:56 Height 5 ft 2 in Weight 173 lb BMI 31.6 BP 126/64 Blood Pressure Location Rt brachial Position Sitting Pulse 94 Pulse Source Pulse Oximeter Pulse Oximetry (%) 100 Oxygen Delivery Method Room Air Intake Visit Reasons: Spondylosis w/o myelopathy, lumbar reg SUNITA 05/01/22 Intake Note: Pain today 04/05 Contact Center Representative Required: No Accompanied by: Self / Same As Patient Allergies No Known Allergies Allergy (Verified 12/09/24 13:54) HPI Comments Details: The patient is a 59-year-old female presenting with follow-up for chronic low back pain and right hip pain. Initially assessed in 2021 for her condition, she has commenced physical therapy sessions scheduled twice per week over the past five weeks to address her symptoms. Despite initiation of treatments like Celebrex, diclofenac gel, and other pain management techniques such as Tramadol, her symptoms remain unresolved, and pain persists significantly, impacting daily functioning severely. She reports right hip pain with radiation into her right groin and reduced strength is more profound than right sided low back pain with SI joint component. The pain has made typical daily activities challenging due to her limited capacity to move, sit, stand or lie comfortably. She reports being a diabetic currently well managed on metformin and dietary adjustments. - Onset: Chronic, started in 2021 - Quality: Persistent and unrelieved by current medications - Primary Location: Low back and right hip with radiation into right groin - Exacerbating Factors: Sleeping, walking, sitting, standing, carrying, lifting, transitional movements - Relieving Factors: None noted to be effective - Interference: Daily activities (sleep, mobility, movements) - Affect: Pain impacts daily life significantly, reducing mobility and normal functioning. - Analgesia: Currently using Celebrex, diclofenac gel, and Tramadol with minimal/no relief. - Adverse Effects: None reported from current medications. - Activities of Daily Living: Highly impacted, challenges in walking, sitting, standing, carrying, and sleep. - Aberrant Drug Related Behaviors: None reported PRIOR 05/01/22: Patient is a 57 years old female who presents today with back pain and right hip pain since January. She denies any recent trauma, fall, or injury. Patient reports that her pain started after recent right RTC repair surgery and notes her sleeping position has changed. She was evaluated in our ER in February with right sided sciatica symptoms and responded well to ER treatment with prednisone, cyclobenzaprine, oxycodone and ibuprofen. Patient states her symptoms have returned. Her back pain is axial that spreads across her back and radiates down into her right lower leg posteriorly with associated numbness and tingling. She also has significant right sided sacroiliac joint pain. Pain described as intermittent aching, throbbing, hiring, tiring, exhausting, numbness, tingling, and shooting. Pain intensifies at the end of the day and is worst in the middle of the night with highest intensity 7-10/10. Patient reports pain affects her daily activities, functioning, mood, social interactions and quality of life. She denies any fever, abdominal or groin pain, weakness, dizziness, bowel or bladder incontinence, or saddle anesthesia. She is currently active with physical therapy for right shoulder post surgery. She denies previous back surgery, injections or lumbar PT. Chart review is noted for ER visit evaluation for mechanical fall due to alcohol intoxication. Lumbar xrays and left hip xrays were taken on 06/06/2021 and showed mild 2 mm anterior subluxation of L4 with respect L5 on flexion. Severe facet arthritis. Mild multilevel spondylosis and degenerative disc disease at L5-S1. Moderate left hip arthritis. A more recent lumbar xray in February showed moderate degenerative change throughout the lumbar spine. Patient denies previous lumbar spine MRI. She is interested in pursuing PT after obtaining lumbar spine MRI. Patient is also interested in interventional treatments to alleviate her pain. [facility] Medical History (Updated 12/09/24 @ 19:01 by FRITZ Mccollum) Degenerative joint disease (DJD) of lumbar spine Carpal tunnel syndrome Cocaine dependence, episodic Contusion of left knee Contusion of right knee COVID Preoperative cardiovascular examination Dental caries Alcoholism Anxiety reaction Muscle spasm of back Mood disorder Elevated cholesterol Arthritis Alcohol dependence Depression Palpitations Asthma Diabetes Hypertension Surgical History Hx of repair of rotator cuff H/O colonoscopy History of 2 sections Social History Alcohol intake: current Alcohol intake frequency: does not drink Alcohol type: hard liquor Patient Tobacco Use Status: Current everyday Tobacco user Cigarettes Per Day: 7 Second Hand Smoke Exposure: No Advance Directives Date on File: 01/02/22 Current occupational status: disabled 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 Alert and oriented. Mood and affect appropriate. Follows and participates in conversation appropriately. Respiratory effort is unlabored. No cough. Able to transition from sit to stand unassisted. Ambulates with bilaterally normal heel strike and toe off. General: Yes no CVA tenderness Back/Spine/Pelvis Other: Patient is able to walk and stand on heels and tip toes with mild difficulty on the right due to pain. Mildly antalgic gait, no limping. Lumbar flexion and extension reproduce mild-moderate pain. Demonstrates 5/5 left and 4/5 right due to pain strength of quadriceps bilaterally as well as flexion/dorsiflexion of bilateral feet against resistance. 2+ pedal pulses bilaterally. Straight leg rise with dorsiflexion positive on the right. +1 patellar and achilles reflexes bilaterally. Facet loading test positive bilaterally. Annie signs, Paco?s, Gaenslen, Pelvic compression and Stinchfield tests are positive on the right. Moderate right groin pain with I/E bilateral hip rotations. Milt TTP to bilateral GTB. Valsalva maneuver is negative. Back: no CVA tenderness Cervical Spine: cervical ROM normal, cervical muscular tenderness, No Cervical spine tenderness and No step off deformity Thoracic/Lumbar Spine: thoracic and lumbar spine normal to inspection, No Thoracic/lumbar spine scar(s), Lasegue's sign negative, straight leg raise negative bilaterally, pain with thoraco-lumbar ROM, paraspinal muscle tenderness, thoraco-lumbar ROM limited, thoraco-lumbar spasm on the right greater than left, No thoracic spinal tenderness and lumbar spinal tenderness at L4 and at L5 Pelvis: no pain with anterior-posterior compression, no pain with lateral compression and buttock tenderness bilaterally Sacroiliac joints: bilaterally (right>left) tender to palpation Extrem General: Yes capillary refill normal, Yes no clubbing, cyanosis or edema and Yes no calf tenderness Results Reviewed Results Reviewed: XR LUMBOSACRAL SPINE 11/08/24 CLINICAL INFORMATION: low back pain COMPARISON: March 09, 2023. TECHNIQUE: Three views of the lumbosacral spine. FINDINGS: Syndesmophyte formation and marginal osteophyte formation from T11-12 to L5-S1. Endplate sclerosis and decreased intervertebral disc height at L4-5 and L5-S1 level. Grade 1 retrolisthesis L3-4. Bilateral facet joint hypertrophy, L4-5 and L5-S1. No acute cortical disruption. No lytic or blastic lesions. Atherosclerosis disease, abdominal aorta.. IMPRESSION: Multilevel thoracolumbar spondylosis. Grade 1 retrolisthesis L3-4 likely degenerative. XR HIP, RIGHT 11/08/24 CLINICAL INFORMATION: right lower back pain/hip pain COMPARISON: July 14, 2024. TECHNIQUE: Two views of the right hip. FINDINGS: Sclerosis at the articular surface of the acetabulum and femoral head with asymmetric joint space narrowing, bilaterally. No acute cortical disruption or gross malalignment, right hip. Spondylosis at L4-5 and L5-S1. No lytic or blastic lesions. IMPRESSION: Mild to moderate osteoarthrosis both hips without acute fracture or dislocation. MR LUMBAR SPINE WITHOUT CONTRAST 05/29/22 CLINICAL INFORMATION: Lumbar radiculopathy on right side. Low back pain. COMPARISON: X-ray dated 03/13/2022. TECHNIQUE: Multiplanar, multisequence imaging was obtained. FINDINGS: VERTEBRAL BODIES AND PARASPINAL STRUCTURES: There is a leftward curvature of the lumbar spine. Mild edematous endplate changes noted anteriorly with bulky ossific spurring at the T11-T12 level and, to a lesser degree, at the T10-T11 level. There are no compression fractures. The remainder of the marrow signal is homogeneous. Slight retrosubluxation evident at the L3-L4 level with a minimal anterolisthesis at the L4-L5 level. The paraspinal soft tissues are unremarkable. CONUS MEDULLARIS AND CAUDA EQUINE: The distal cord, conus tip, and cauda equina nerve roots are normal. SPINAL LEVELS: L1-L2: Mild retrosubluxation and disc bulge with mild facet arthropathy. No central canal stenosis or foraminal narrowing. L2-L3: [id number] facet arthropathy and right lateral endplate spurring. No focal disc protrusion, central canal stenosis, or foraminal narrowing. L3-L4: Slight retrosubluxation and mild disc bulge with hypertrophic facet arthropathy resulting in mild central canal stenosis and mild thecal sac distortion. Patent foramina. L4-L5: Mild anterolisthesis and disc bulge with advanced facet arthropathy and thickening of the ligamentum flavum resulting in severe central canal stenosis and thecal sac compression. Mild bilateral foraminal narrowing. L5-S1: Very mild disc bulge and severe facet arthrosis, more so on the left side. No central canal stenosis. Mild right foraminal narrowing. Ossific spurring results in moderate left foraminal encroachment and mass effect upon the exiting left L5 nerve root. IMPRESSION: 1. Leftward curvature of the lumbar spine with multilevel spondylitic changes. Mild anterior endplate edema at the T11-T12 level with bulky ossific spurring. 2. Mild central canal stenosis and mild disc bulge at the L3-L4 level. 3. Mild anterolisthesis and severe facet arthropathy with a mild disc bulge at the L4-L5 level resulting in severe central canal stenosis and thecal sac compression. 4. Severe facet arthropathy at the L5-S1 level with moderate left foraminal encroachment and osseous spurring resulting in mass effect upon the exiting left L5 nerve root. Assessment & Plan Assessment & Plan (1) Chronic back pain: Code(s): M54.9 - Dorsalgia, unspecified; G89.29 - Other chronic pain Category: Medical (2) Degenerative joint disease (DJD) of lumbar spine: Code(s): M47.816 - Spondylosis without myelopathy or radiculopathy, lumbar region Category: Medical (3) Lumbar spondylosis: Code(s): M47.816 - Spondylosis without myelopathy or radiculopathy, lumbar region Category: Medical (4) Osteoarthritis of right hip: Code(s): M16.11 - Unilateral primary osteoarthritis, right hip Category: Medical (5) Right hip pain: Code(s): M25.551 - Pain in right hip Category: Medical (6) Sacroiliac joint pain: Code(s): M53.3 - Sacrococcygeal disorders, not elsewhere classified Category: Medical Plan To address the patient's persistent pain issues related to chronic low back pain and right hip pain with sacroiliac joint dysfunction, a diagnostic strategy has been laid out to ascertain the pain's origin. Schedule Right sacroiliac joint steroid injection with local and fluoroscopy. Subsequently will consider right hip injection. Expectations, risks and benefits were reviewed. Patient is aware she will be contacted to schedule this procedure. Continuous monitoring of the patient's response, glucose levels, and improvement in daily activities will guide subsequent interventions or adjustments in her current therapeutic regimen, while diligent monitoring of her clinical status and disease progression will be adhered to. All questions and concerns have been answered and patient agreed with the plan. Follow up after injection and sooner as needed. Patient was informed and verbally consented to the use of an ambient scribe for clinic note documentation during this visit. Coding Level of Care Code Est Pt Level 4 (72099) Complex EM visit Add On G2211 Diagnoses Chronic back pain M54.9; G89.29 Degenerative joint disease (DJD) of lumbar spine M47.816 Lumbar spondylosis M47.816 Osteoarthritis of right hip M16.11 Right hip pain M25.551 Sacroiliac joint pain M53.3
--- OUTSIDE RECORDS SUMMARY | 2024-12-09 13:50 | XMS_ITS | Encounter Summary ---
Author Organization [employer] Address [address] [facility] 7t [place] [address] Care Team Providers Care Historical Archeologist Name Role Phone Yanira Mi MD Primary Care Provider [phone] Reason for Visit * Reason Onset Date Comments Letter required 09/24/2022 Encounter Details Date Type Department Care Team ([facility] st Contact Info) Description 09/24/2022 Telephone [facility]ICINE [address] [place], [place] [phone] Yanira Mi MD [address] [place], [place] [phone] Letter required Social History Tobacco Use Types [...] Miscellaneous Notes * Telephone Encounter - Rossi Rebolledo Jennifer - 09/24/2022 1:04 PM EST Tc from [facility] with [facility] requesting a letter for [facility] stating that patient would benefit from their facility regarding to Adult Foster Care. Please contact Karyn for any further information at [phone] documented in this encounter Plan of Treatment Upcoming Encounters Date Type Department Care Team (Late st Contact Info) Description 12/14/2024 2:00 PM EDT Office Visit [facility] ADULT DENTAL [address] [place] [address] Darrian, Yari [address] [place] [address] 12/23/2024 1:30 PM EDT Office Visit [facility] ADULT DENTAL [address] [place] [address] Aiden Tate DDS [address] [place] [address] documented as of this encounter Visit Diagnoses Not on filedocumented in this encounter Care Teams Historical Archeologist Relationship Specialty Start Date End Date Yanira Mi MD [address] [place] [address] PCP - General Family Medicine 07/08/12 Marbella Tobar Management Services TechnicianTube Wrapper 07/29/23 documented as of this encounter
--- OUTSIDE RECORDS SUMMARY | 2024-12-09 13:50 | XMS_ITS | Encounter Summary ---
Author Organization [employer] Address [address] [facility] 7t [place] [address] Care Team Providers Care Jury Consultant Name Role Phone Yanira Mi MD Primary Care Provider [phone] Reason for Visit * Reason Comments Med Refill Encounter Details Date Type Department Care Team (Late st Contact Info) Description 09/05/2022 Refill [facility] MEDICINE [address] [place] [address] Aliza Pickens MD [address] [place] [address] Social History Tobacco Use Types Packs/Day Years [...] Visit [facility] ADULT DENTAL [address] [place] [address] Yari Colmenares [address] [place] [address] 12/23/2024 1:30 PM EDT Office Visit [facility] ADULT DENTAL [address] [place] [address] Aiden Tate DDS [address] [place] [address] documented as of this encounter Visit Diagnoses Not on filedocumented in this encounter Care Teams Jury Consultant Relationship Specialty Start Date End Date Yanira Mi MD 230 [place], [place] [phone] PCP - General Family Medicine 07/08/12 Marbella Tobar Body TrimmerShipping Weigher 07/29/23 documented as of this encounter
--- OUTSIDE RECORDS SUMMARY | 2024-12-09 13:50 | XMS_ITS | Encounter Summary ---
Author Organization [employer] Address [address] [facility] 7t [place] [address] Care Team Providers Care Debt Counselor Name Role Phone Yanira Mi MD Primary Care Provider [phone] Encounter Details Date Type Department Care Team (Late st Contact Info) Description 02/19/2023 Abstract [facility] MEDICINE [address] [place] [address] Yanira Mi MD [address] [place], [place] [phone] Social History Tobacco Use Types Packs/Day Years [...] Description 12/14/2024 2:00 PM EDT Office Visit [facility] ADULT DENTAL [address] [place] [address] Yari Colmenares [address] [place] [address] 12/23/2024 1:30 PM EDT Office Visit [facility] ADULT DENTAL [address] [place] [address] Aiden Tate DDS [address] [place] [address] documented as of this encounter Procedures Procedure Name Priority Date/Time Associated Diagnosis Comments HM DIABETES: URINE PROTEIN SCREENING Routine 02/18/2023 documented in this encounter Results * HM Diabetes: Urine Protein Screening (02/18/2023) Microalbumin, Urine 5.0 Creatinine, Random Urine 54.01 Urine Result [facility] Unassigned Pcp HEALTH MAINTENANCE Final Result documented in this encounter Visit Diagnoses Not on filedocumented in this encounter Care Teams Debt Counselor Relationship Specialty Start Date End Date Yanira Mi MD [address] [place] [address] PCP - General Family Medicine 07/08/12 Marbella Tobar Audiovisual Equipment OperatorExecutive Chairman Of The Board 07/29/23 documented as of this encounter
--- OUTSIDE RECORDS SUMMARY | 2024-12-09 13:50 | XMS_ITS | Encounter Summary ---
Author Organization [employer] Address [address] [facility] 7t [place] [address] Care Team Providers Care Electrical Maintenance Man Name Role Phone Yanira Mi MD Primary Care Provider [phone] Reason for Visit * Reason Comments Med Refill Encounter Details Date Type Department Care Team (Late st Contact Info) Description 03/26/2023 Refill [facility] MEDICINE [address] [place] [address] Yanira Mi MD [address] [place] [address] Social History Tobacco Use Types Packs/Day Years [...] Description 12/14/2024 2:00 PM EDT Office Visit [facility] ADULT DENTAL [address] [place] [address] Yari Colmenares [address] [place] [address] 12/23/2024 1:30 PM EDT Office Visit [facility] ADULT DENTAL [address] [place] [address] Aiden Tate DDS [address] [place], [place] [phone] documented as of this encounter Visit Diagnoses Not on filedocumented in this encounter Care Teams Electrical Maintenance Man Relationship Specialty Start Date End Date Yanira Mi MD 230 [place] [address] PCP - General Family Medicine 07/08/12 Marbella Tobar Monomer Recovery SupervisorFinancial Assistant 07/29/23 documented as of this encounter
--- OUTSIDE RECORDS SUMMARY | 2024-12-09 13:50 | XMS_ITS | Encounter Summary ---
Author Organization [employer] Address [address] [facility] [address] 7[address] [place] [address] Care Team Providers Care X Ray Technician Name Role Phone Yanira Mi MD Primary Care Provider [phone] Reason for Visit * Reason Comments Med Refill Encounter Details Date Type Department Care Team (Late st Contact Info) Description 06/09/2024 Refill [facility] 230 [place] [address] Halima Hernandez, ANP [address] [place] [address] Muscle tension pain Social History Tobacco Use [...] Description 12/14/2024 2:00 PM EDT Office Visit [facility] ADULT DENTAL 230 [place] [address] Darrian, Yari [address] [place] [address] 12/23/2024 1:30 PM EDT Office Visit [facility] ADULT DENTAL [address] [place] [address] Aiden Tate DDS [address] [place] [address] documented as of this encounter Visit Diagnoses Diagnosis Muscle tension pain documented in this encounter Additional Health Concerns Assessment Noted Time PHQ-9 Depression Total Score: 6 05/02/20 24 8:45 AM EDT documented as of this encounter Care Teams X Ray Technician Relationship Specialty Start Date End Date Yanira Mi MD [address] [place] [address] PCP - General Family Medicine 07/08/12 Marbella Tobar Agency OwnerCardiac Nurse Practitioner 07/29/23 documented as of this encounter
--- OUTSIDE RECORDS SUMMARY | 2024-12-09 13:50 | XMS_ITS | Encounter Summary ---
Author Organization [employer] Address [address] [facility] 7t [place] [address] Care Team Providers Care Recycling Sorter Name Role Phone Yanira Mi MD Primary Care Provider [phone] Encounter Details Date Type Department Care Team (Late st Contact Info) Description 06/26/2022 Orders Only [facility] MEDICINE [address] [place] [address] Casie Callaway, TroyD 230 [place] [address] Social History Tobacco Use Types Packs/Day Years [...] AM EST documented as of this encounter Functional Status * Over the past 2 weeks, how often have you been bothered by any of the following problems? Question Answer Date of Assessment Author Little interest or pleasure in doing things Several days 06/26/2022 9:59 AM Amanda Olivera MA Feeling down, depressed, or hopeless Several days 06/26/2022 9:59 AM Amanda Olivera MA Patient Health Questionnaire -2 Score 2 06/26/2022 9:59 AM Amanda Olivera MA * If you checked off any problems on this questionnaire so far, Question Answer Date of Assessment Author How difficult have these problems made it for you to do your work, take care of things at home, or get along with other people? Not difficult at all 06/26/2022 9:59 AM Amanda Olivera M A documented as of this encounter Plan of Treatment Upcoming Encounters Date Type Department Care Team (Late st Contact Info) Description 12/14/2024 2:00 PM EDT Office Visit [facility] ADULT DENTAL [address] [place] [address] Yari Colmenares [address] [place] [address] 12/23/2024 1:30 PM EDT Office Visit [facility] ADULT DENTAL [address] [place] [address] Aiden Tate DDS [address] [place] [address] documented as of this encounter Procedures Procedure Name Priority Date/Time Associated Diagnosis Comments XR CHEST 2 VIEWS Routine 06/26/2022 1:20 PM EST documented in this encounter Results * XR Chest 2 Views (06/26/2022 1:20 PM EST) Anatomical Region Laterality Modality Chest Radiographic Gayathri ging 06/26/2022 1:20 PM EST Narrative 07/01/2022 8:59 AM EST ? [facility] ?[address] ?[place] [address] ?XRay Report ? Signed ? Patient: Gamble,La ?MR#: [id number] ?? [id number] ? : 1965 ?Acct:[id number] ? Age/Sex: 57 / F ?ADM Date: 12/01/22 ? Loc: HO.XRAY ? Attending Dr: Ilya Mcdaniel MD ? Ordering Physician: Ilya Mcdaniel MD ?? Date of Service: 06/26/22 ?? Procedure(s): XR chest 2V ?? Accession Number(s): [id number] ? cc: Ilya Mcdaniel MD ? EXAMINATION: [...] 0857 ? DD/ 1320 ? TD/TT: ? Workers Compensation Claims Specialist: ROSA ? Procedure Note Cynthia, Image - 07/01/2022 [place] [address] XRay Report Signed Patient: Shanta Gamble#: [id number] : 1965Acct:[id number] Age/Sex: 57 / FADM Date: 06/26/22 Loc: [facility] Attending Dr: Ilya Mcdaniel MD Ordering Physician: Ilya Mcdaniel MD Date of Service: 06/26/22 Procedure(s): XR chest 2V Accession Number(s): [id number] cc: Ilya Mcdaniel MD EXAMINATION: XR CHEST [...] in OV> 07/01/22 0857 DD/ 1320 TD/TT: Workers Compensation Claims Specialist: [facility] External Provider IMG XR PROCEDURES Edited Result - Final documented in this encounter Visit Diagnoses Not on filedocumented in this encounter Care Teams Recycling Sorter Relationship Specialty Start Date End Date Yanira Mi MD [address] [place] [address] PCP - General Family Medicine 07/08/12 Marbella Tobar Link Trainer OperatorSmoke Tester 07/29/23 documented as of this encounter
--- OUTSIDE RECORDS SUMMARY | 2024-12-09 13:50 | XMS_ITS | Clinical Summary ---
Author Organization [employer] Address [address] [facility] [place] [address] Care Team Providers Care Records Tech Name Role Phone Yanira Mi MD Primary Care Provider [phone] Allergies No known active allergies Medications * This document contains information received from the source organization and may not represent a complete record from that organization. Blood Glucose Monitoring Suppl (AerobStyle Lite) w/Device kit 1 each in the [...] HOURS. 90 tablet 2 01/27/20 24 Active atorvastatin (Lipitor) 20 MG tablet [...] without complications (CMS/HCC) USE DIRECTED 100 each 06/07/20 24 Active TRUEplus Lancets 33G miscIndications: Type 2 diabetes mellitus without complications (CMS/HCC) TEST BLOOD SUGAR TWICE DAILY 100 each 06/09/20 24 Active ammonium lactate (Lac-Hydrin) 12 % lotion Apply topically if needed for dry skin. 225 g 2 06/09/20 24 Active metoprolol succinate XL (Toprol-XL) 25 MG 24 hr tabletIndication s:Primary hypertension TAKE 1/2 TABLET BY MOUTH EVERY MORNING 45 tablet 3 07/28/19 25 Active metFORMIN XR (Glucophage-XR) 500 MG 24 hr tabletIndication s:Hypertension associated with diabetes ([facility]) TAKE 2 TABLETS BY MOUTH TWICE [...] 20 MG tabletIndication s:Hypertension associated with diabetes ([facility]) TAKE 1 TABLET BY MOUTH EVERY MORNING 90 tablet 3 08/25/19 25 Active Ventolin HFA 108 (90 Base) MCG/ACT inhalerIndicatio ns:COPD exacerbation ([facility]) INHALE 2 PUFFS BY MOUTH EVERY 4 HOURS NEEDED FOR WHEEZING OR SHORTNESS OF BREATH 18 g 1 09/19/19 25 Active FREESTYLE LITE test stripIndications :Type 2 diabetes mellitus without complication, without long-term current use of insulin ([facility]) TEST BLOOD SUGAR THREE TIMES DAILY 100 strip 5 09/27/19 25 Active Mometasone Furoate (Asmanex HFA) 100 MCG/ACT aerosol INHALE 1 PUFF BY MOUTH TWICE DAILY. RINSE MOUTH AFTER USING. 13 g 11 10/28/19 25 Active cyclobenzaprine (Flexeril) 5 MG tabletIndication s:Muscle tension pain 1 tab up to TID as needed for muscle spasm/pain 30 tablet 11/16/19 25 Active empagliflozin (Jardiance) 25 MG Take 1 tablet (25 mg) by mouth in the morning. 90 tablet 3 11/23/19 25 Active sertraline (Zoloft) 100 MG tabletIndication s:Anxiety TAKE 1 AND 1/2 TABLETS BY MOUTH IN THE MORNING 45 tablet 3 11/25/19 25 Active cyclobenzaprine (Flexeril) 5 MG tabletIndication s:Muscle tension pain 1 tab up to TID as needed for muscle spasm/pain 30 tablet 11/04/19 24 2024 Discontinued(R eorder (will not trigger notification to Pharmacy)) Jardiance 10 MG TAKE 1 TABLET BY MOUTH EVERY MORNING 30 tablet 11 03/09/20 24 2024 Discontinued(R eorder (will not trigger notification to Pharmacy)) fluticasone (Flonase Allergy Relief) 50 MCG/ACT nasal spray Administer 1-2 sprays into affected nostril(s) at bed time. 06/12/20 22 2024 Discontinued(M ed list cleanup (will not trigger notification to Pharmacy)) sertraline (Zoloft) 100 MG tabletIndication s:Anxiety TAKE 1 AND 1/2 TABLETS BY MOUTH IN THE MORNING 45 tablet 3 07/25/20 24 2024 Discontinued Active Problems Problem Noted [...] (premature atrial contraction) 06/28/2024 Assessment & Plan (11/22/2024 1:36 PM EDT): - evaluate with Holter monitor - in a setting of albuterol use, smoking, and occasional cocaine use Assessment & Plan (08/28/2024 12:32 PM EST): [...] recession 11/12/2023 Dyslipidemia 08/13/2023 Assessment & Plan (11/22/2024 1:37 PM EDT): Last lipid profile: 06/02/23 total cholesterol 156; triglyceride 288; HDL 44; LDL 55 Current medication: Atorvastatin 20 mg at bedtime Continue working on lifestyle modifications Assessment & Plan (08/22/2024 3:08 PM EST): [...] Right hip pain 08/13/2023 Assessment & Plan (11/27/2024 5:28 PM EDT): Pt here with c/o chronic right hip pain X-ray in Jun 2024 showed moderate-severe osteoarthritis Evaluated by Ortho 09/2024 who recommended steroid injection VS THR Re-evaluated by ortho in October 2024 and was recommended to continue PT, celecoxib and referred to pain management. Continue judicious use of celecoxib, cyclobenzaprine Assessment & Plan (11/15/2024 3:44 PM EDT): [...] with pa in 08/13/2023 Assessment & Plan (11/22/2024 1:36 PM EDT): - 08/31/23 venous study 1. [...] schedule for left microphlebectomy Assessment & Plan (02/09/2024 5:58 PM EDT): [...] of recurrent major depressive d isorder 05/14/2023 Assessment & Plan (11/27/2024 5:24 PM EDT): - she declines behavioral health service referral - she states her adult day program, [facility], is her greatest support DIANE (generalized anxiety disorder) 05/14/2023 Assessment & [...] boundary setting. PLAN: 1. Follow up with [facility]: Recommended for follow-up: 1 month 2. Patient goal is manage symptoms 3. Behavioral Recommendations a. Referral to Kavon Philip/sylvia prior to 06/11 if needed c. Continue attending Care Scalp lesion 11/17/2022 Assessment & Plan (11/17/2022 [...] (02/09/2024 5:58 PM EDT): - following with [facility] - last seen on 03/24/23, received steroid injection - right side is worse than left side - continue judicious use of analgesics Assessment & Plan (08/14/2023 5:55 PM EST): - following with [facility] - last seen on 03/24/23, received steroid injection - right side is worse than left side - continue judicious use of analgesics Assessment & Plan (05/09/2023 4:21 PM EDT): - following with [facility] - last seen on 03/24/23, received steroid injection - right side is worse than left side - continue judicious use of analgesics Assessment & Plan (02/21/2023 5:34 PM EDT): - right more painful than left - previously seen by [facility] orthopedist - received steroid injection - she declines a referral for another steroid injection or physical therapy - home exercise program - upcoming appt with ortho due to recent fall injury Assessment & Plan (10/26/2022 7:03 AM EDT): - right more painful than left - previously seen by [facility] orthopedist - received steroid injection - she declines a referral for another steroid injection or physical therapy - home exercise program Chronic bilateral low back pain with bilateral s ciatica 07/01/2022 Overview (07/01/2022): -followed by [facility] pain management nurse practitioner -MRI on 05/29/22 -Continue PT and following up with specialist -Continue cyclobenzaprine, APAP Right foot pain 07/01/2022 Overview (11/17/2022): Following with [facility] Assessment & Plan (11/17/2022 11:34 AM EDT): -Evaluate with X-Ray -Consider diabetic footwear -been referred to artificial limb fitter Callus of foot 07/01/2022 Overview (07/01/2022): -Refer to artificial limb fitter. Assessment & Plan (10/26/2022 6:58 AM EDT): - referred to a artificial limb fitter, but will refer to another artificial limb fitter whose office is more accessible EVELIA (obstructive [...] diabetes mellitus without complication Assessment & Plan (11/23/2024 11:18 PM EDT): -HgbA1C 8.1% on 11/22/24, slight increase from 7.8% on 08/22/24, - recently received prednisone for right hip arthritis pain -receiving prednisone for COPD exacerbation 3-4 times per year and steroid injection by orthopedist 2-3 times per year. -Continue metformin 2 g qAM -Increase Jardiacne to 25 mg daily from 10 mg, patient is having frequent vaginal candidiasis which [...] -Follow-up in 3-4 mo Assessment & Plan (08/28/2024 12:36 PM EST): [...] 12/20/2015 Tobacco dependence 12/20/2015 Assessment & Plan (11/27/2024 5:25 PM EDT): Encouraged to keep up with smoking cessation Assessment & Plan (08/22/2024 3:09 PM EST): [...] mild cough Hypertension 04/28/2013 Assessment & Plan (11/22/2024 1:35 PM EDT): -Goal BP < 140/90 per JNC-8 and < 130/80 per ACC/AHA guideline (Treatment threshold >= 130/80 ) - BP at goal today -Continue working on lifestyle modifications -Recommended self-monitoring BP. -Continue current medications: lisinopril 20 mg daily; metoprolol succinate 25 mg daily -Treatment Hx: -Follow up in 3-6 mo, sooner if any problem arises Assessment & Plan (08/22/2024 3:07 PM EST): [...] 06/04/2012 Pulmonary nodules 04/12/2012 Assessment & Plan (11/27/2024 5:26 PM EDT): -Most recent CT scan on 05/18/23 shwoed multiple stable nodule -CT scan on 07/01/24 benign-appearing stable pulmonary nodules -Continue working on risk fator management Assessment & Plan (08/28/2024 12:32 PM EST): [...] of vagina 06/13/2022 Depressive disorder 09/02/2013 05/14/20 23 Assessment & Plan (05/09/2023 4:27 PM EDT): - previously seeing [facility] provider - continue sertraline - continue [facility] Anxiety 04/12/2012 05/14/2023 Encounters Date Type Department Care Team Description 11/24/2024 Refill [facility] [address] [place] [address] Yanira Mi MD Anxiety 11/22/2024 1:15 PM EDT Office Visit [facility] [address] [place] [address] Yanira Mi MD Primary hypertension (Primary Dx); Varicose veins of both lower extremities with pain; Type 2 diabetes mellitus without complication, without long-term current use of insulin ([facility]); Dyslipidemia; PAC (premature atrial contraction); Right hip pain; Palpitation; At high risk for cardiovascular disease; Moderate episode of recurrent major depressive disorder ([facility]/HCC); PTSD (post-traumatic stress disorder); Tobacco dependence; DIANE (generalized anxiety disorder); Pulmonary nodules; Breast cancer screening by mammogram 11/18/2024 Telephone [facility] [address] [place] [address] Yanira Mi MD chart prep 11/15/2024 3:20 PM EDT Office Visit [facility] [address] [place] [address] Ilya Anderson MD Right hip pain (Primary Dx); Muscle tension pain 11/08/2024 Orders Only [facility] External Provider, [facility] 10/27/2024 Refill [facility] [address] [place] [address] Yanria Mi MD 09/26/2024 Refill [facility] [address] [place] [address] Yanira Mi MD Type 2 diabetes mellitus without complication, without long-term current use of insulin (CMS/HCC) 09/17/2024 Refill [facility] [address] [place] [address] Aliza Pickens MD COPD exacerbation (CMS/HCC) from Last 3 Months Immunizations Immunization Administration Dates Next Due Hep A, Adult 11/28/2024,11/02/2023 Hep B, adult 03/06/2009,10/25/2008,09/07/2008 Influenza Injectable Quadriv [...] housing situation today? I have nito bermudez 11/22/[address] you li ve. Do you have problems with any of the following? None of the above 11/22/2024 Food Insecurity Answer Date Recorded Within the past 12 months, y ou worried that your food would run out before you got money to buy more: Never True 11/22/2024 Within the past 12 months,th e food you bought just didn't last and you didn't have enough money to get more: Never True Transportation Answer Date Recorded In the past 12 months, has l ack of transportation kept you from medical appts, meetings, work or from getting things needed for daily living? No 11/22/2024 Utilities Answer Date Recorded In the past 12 months, has t he electric, gas, oil or water company threatened to shut off services in your home? No 11/22/2024 Depression Answer Date Recorded Patient Health Questionnaire-2 Score 2 05/02/2024 Internet Access Answer Date Recorded Internet Access Q1 No 11/22/2024 Internet Access Q2 I do not want or need it 10/26 Comments No Sex and Gender Information Value Date Recorded Sex Assigned at Female 05/26/2022 10:15 AM EDT Legal Sex Female 10:15 AM EDT Gender Identity Female 05/26/2022 10:15 AM EDT Sexual Orientation Straight 05/26/2022 10 :15 AM EDT Last Filed Vital Signs Vital Sign Reading Time Taken Comments Blood Pressure 116/69 11/22/2024 1:26 PM EDT Pulse 94 11/22/2024 1:26 PM EDT Temperature 36.1 ??C (96.9 ??F) 11/22/2024 1:26 PM ED T Respiratory Rate 20 11/22/2024 1:26 PM EDT Oxygen Saturation 95% 11/22/2024 1:26 PM EDT Inhaled Oxygen Concentration - - Weight 79.5 kg (175 lb 3.2 oz) 11/22/2024 1:26 P M EDT Height 157.5 cm (5' 2 ) 11/22/2024 1:26 PM EDT Body Mass Index 32.04 11/22/2024 1:26 PM EDT Plan of Treatment Upcoming Encounters Date Type Department Care Team (Late st Contact Info) Description 12/14/2024 2:00 PM EDT Office Visit [facility] [address] [place] [address] Darrian, Yari [address] [place] [address] 12/23/2024 1:30 PM EDT Office Visit [facility] [address] [place] [address] Aiden Tate, DDS [address] [place] [address] Health Maintenance Due Date Last Done Comments CT Colonography 1965 FIT DNA/Cologuard 1965 FIT 1965 FOBT 1965 Sigmoidoscopy 1965 Eye Exam 1975 COVID-19 Vaccine ( season) 2024 05/11/2023, 07/22/2022, 12/02/2021, Additional history exists Mammogram 09/23/2024 09/24/2023, 08/28, 09/12/2021, Additional history exists Dental Oral Exam 12/14/2024 06/15/2024, , 05/22/2022, Additional history exists Dental Prophylaxis 12/14/2024 06/15/2024, 0 11/12/2023, 05/22/2022, Additional history exists Diabetes: Hemoglobin A1C 02/21/2025 025, 08/22/2024, 05/17/2024, Additional history exists Depression Screening 05/02/2025 05/02/2024, 05/02/20 24 Alcohol/Substance Use Screening 05/17/2025 05/17/2024 Diabetes: Urine Protein Screening 05/18/2025 05/18/2024, 02/18/2023, 02/18/2023, Additional history exists Lipid Panel 05/18/2025 05/18/2024, 04/27, 06/02/2023, Additional history exists Dental X-Ray: Bitewings 06/16/2025 06/15/20 24, 11/12/2023, 09/11/2021, Additional history exists Colonoscopy 10/24/2025 10/25/2015 Colorectal Cancer Screening 10/24/2025 Diabetes: Foot Exam 11/22/2025 11/22/2024, 11/22/2024, 11/22/2024, Additional history exists SDOH Screening 11/22/2025 11/22/2024 Tobacco Screening 11/27/2025 11/27/2024 Dental X-Ray: Full Mouth 11/12/2026 024, 09/01/2019, [...] Completed 05/17/2024, , 04/30/2022, Additional history exists Hepatitis A Vaccines Aged Out 11/28/2024, 11/02/19 24 No longer eligible based on patient's age to complete this topic HIB Vaccines Aged Out No longer eligi ble based on patient's age to complete this topic HPV Vaccines Aged Out No longer eligi ble based on patient's age to complete this topic IPV Vaccines Aged Out No longer eligi ble based on patient's age to complete this topic Meningococcal B Vaccine Aged Out No l onger eligible based on patient's age to complete [...] Name Priority Date/Time Associated Diagnosis Comments POCT GLYCATED HEMOGLOBIN, TOTAL Routine 11/22/2024 1:29 PM EDT Type 2 diabetes mellitus without complication, without long-term current use of insulin ([facility]) POCT GLUCOSE Routine 11/22/2024 1:28 PM EDT Type 2 diabetes mellitus without complication, without long-term current use of insulin ([facility]) URINALYSIS, COMPLETE, WITH REFLEX TO CULTURE Routine 11/08/2024 11:58 AM EDT URINALYSIS WITH REFLEX MICROSCOPIC Routine 11/08/2024 11:58 AM EDT XR LUMBAR SPINE 2-3 VIEWS Routine 11/08/2024 11:24 AM EDT XR HIP RIGHT WITH PELVIS 1 VIEW Routine 11/08/2024 11:24 AM EDT PROPHYLAXIS - ADULT Routine 06/15/2024 1 :00 [...] complication, without long-term current use of insulin ([facility]) LIPID PANEL WITH REFLEX TO DIRECT LDL [...] to Health Maintenance Results * (ABNORMAL) POCT HGB A1C (11/22/2024 1:29 PM EDT) Hemoglobin A1C 8.1(A) 4.0 - 6.0 % QC Media Lot # [id number] Lot# Expiration Date Blood 11/22/2024 1:29 PM EDT Yanira Mi MD POINT OF CARE TEST ENTER/EDIT OR DERABLES Final Result * (ABNORMAL) POCT Glucose (11/22/2024 1:28 PM EDT) Glucose Blood, POC 327(A) 60 - 200 mg/dL QC Media Lot # [id number] Lot# Expiration Date [id number] Blood Capillary blood specimen / Unknown 11/22/2024 1:28 PM EDT us Yanira Mi MD POINT OF CARE TEST ENTER/EDIT OR DERABLES Final Result * (ABNORMAL) Urinalysis, Complete, with Reflex to Culture (11/08/2024 11:58 AM EDT) Color Urine Yellow [facility] Appearance Urine Clear [facility] PH 5.5 5.0 - 9.0 [facility] Glucose Urine UA >=1000(A) Negative mg/dL [facility] Urine Blood Negative Negative [facility] Specific [place] - Urine 1.025 1.005 - 1.025 [facility] Urine Protein Negative Neg-Trace mg/dL [facility] Urine Ketones Negative Negative mg/dL [facility] Nitrite Urine Negative Negative [facility] Leukocyte Esterase Urine Negative Negative [facility] RBC Urine 0-2 0 - 2 /HPF [facility] Urine WBC 0-5 0 - 5 /HPF [facility] Urine Squamous Epithelial Cell 0-2 0 - 2 /HPF [facility] Urine Bacteria None Seen None Seen [facility] Hyaline Casts, Urine 0-2 0 - 2 /LPF [facility] 11/08/2024 11:5 8 AM EDT 11/08/2024 12:00 PM EDT Narrative [facility] - 11/08/2024 12:14 PM EDT Urine, Clean Catch us Generic External Data Provider LAB URINE ORDERAB LES Final Result [facility] [address] [place] [phone] * (ABNORMAL) Urinalysis w/reflex microscopic (11/08/2024 11:58 AM EDT) Color Urine Yellow [facility] Appearance Urine Clear [facility] PH 5.5 5.0 - 9.0 [facility] Glucose Urine UA >=1000(A) Negative mg/dL [facility] Urine Blood Negative Negative [facility] Specific [place] - Urine 1.025 1.005 - 1.025 [facility] Urine Protein Negative Neg-Trace mg/dL [facility] Urine Ketones Negative Negative mg/dL [facility] Nitrite Urine Negative Negative [facility] Leukocyte Esterase Urine Negative Negative [facility] 11/08/2024 11:5 8 AM EDT 11/08/2024 12:00 PM EDT Narrative [facility] - 11/08/2024 12:06 PM EDT Urine, Clean Catch us Generic External Data Provider LAB URINE ORDERAB LES Final Result Performing Organization Address City/State/[facility] Co de Phone Number [facility] [address] [place] [address] [phone] * XR Hip right with Pelvis 1 view (11/08/2024 11:24 AM EDT) Anatomical Region Laterality Modality Lower Extremities, Hip Bilateral Radiograp hic Imaging 11/08/2024 11:2 4 AM EDT Narrative 11/08/2024 12:05 PM EDT ? [facility] ?[address] ?[place] [address] ?XRay Report ? Signed ? Patient: Gamble,La ?MR#: [id number] ?? 631 ? : 1965 ?Acct:[id number] ? Age/Sex: 59 / F ?ADM Date: 04/15/25 ? Loc: HO.ED ? Attending Dr: ? Ordering Physician: Mitchell Silverio ?? Date of Service: 04/15/25 ?? Procedure(s): XR hip RT w PEL1V ?? Accession Number(s): [id number] ? cc: Mitchell Silverio; Yanira Mi MD [...] DD/ 1124 ? TD/TT: 11/08/24 1153 ? Billing And Quality Technician: ? Procedure Note Sallie Marie - 11/08/[address] [address] XRay Report Signed Patient: La GambleMR#: [id number] 631 : 1965Acct:[id number] Age/Sex: 59 / FADM Date: 11/08/24 Loc: HO.ED Attending Dr: Ordering Physician: Mitchell Silverio Date of Service: 11/08/24 Procedure(s): XR hip RT w PEL1V Accession Number(s): [id number] cc: Mitchell Silverio; Yanira Mi MD EXAMINATION: [...] 11/08/24 1202 DD/ 1124 TD/TT: 11/08/24 1153 Billing And Quality Technician: us [facility] External Provider IMG XR PROCEDURES Final Result * XR Lumbar Spine 2-3 Views (11/08/2024 11:24 AM EDT) Anatomical Region Laterality Modality Spine, L-spine Radiographic Gayathri ging 11/08/2024 11:2 4 AM EDT Narrative 11/08/2024 12:06 PM EDT ? [facility] ?[address] ?[place] [address] ?XRay Report ? Signed ? Patient: Gamble,La ?MR#: [id number] ?? 631 ? : 1965 ?Acct:[id number] ? Age/Sex: 59 / F ?ADM Date: 11/08/24 ? Loc: HO.ED ? Attending Dr: ? Ordering Physician: Mitchell Silverio ?? Date of Service: 11/08/24 ?? Procedure(s): XR lumbar spine 2-3V ?? Accession Number(s): [id number] ? cc: Mitchell Silverio; Yanira Mi MD [...] DD/ 1124 ? TD/TT: 11/08/24 1153 ? Billing And Quality Technician: ? Procedure Note Donimaninterpreter, Image - 11/08/[address] [address] XRay Report Signed Patient: La GambleMR#: [id number] 631 : 1965Acct:[id number] Age/Sex: 59 / FADM Date: 11/08/24 Loc: HO.ED Attending Dr: Ordering Physician: Mitchell Silverio Date of Service: 11/08/24 Procedure(s): XR lumbar spine 2-3V Accession Number(s): [id number] cc: Mitchell Silverio; Yanira Mi MD EXAMINATION: [...] Bony Josue MD 11/08/2024 12:04 PM EDT Dictated By: Bony Ness MD Signed By: <Electronically signed by Bony Chiang MDin OV> 11/08/24 1204 DD/ 1124 TD/TT: 11/08/24 1153 Billing And Quality Technician: [facility] External Provider IMG XR PROCEDURES Final Result * (ABNORMAL) Lipid Panel with Reflex to Direct LDL (05/18/2024 2:00 PM EDT) Triglycerides 472(H) <150 mg/dL [facility] Comment:Desirable Triglyceri de: less than 150 mg/dLBorderline High Triglyceride 150-199 mg/dLHigh Triglyceride: 200-499 mg/dLVery High Triglyceride: greater than or equal to 5OO mg/dL Cholesterol 162 <200 mg/dL [facility] Comment:Desirable Cholestero l: less than 200 mg/dLBorderline High Cholesterol: 200-239 mg/dLHigh Cholesterol: greater than 239 mg/dL LDL Cholesterol Calculated TNP <100 mg/dL [facility] Comment:Unable to calculate the LDL. The formula of Friedwald,Duran, and Devon is only valid if the triglycerides areless than 400 mg/dl. HDL Cholesterol 42 >40 mg/dL [facility] Comment:Desirable HDL: great er than 40 mg/dL Note: This HDL assay may give artificially low results in patients with liver disease. Blood 05/18/2024 2:00 PM EDT 05/18/2024 4:09 PM EDT Yanira Mi MD LAB BLOOD ORDERABLES Edited Resu lt - Final [facility] [address] [place] [phone] * Albumin, Random Urine W/Creatinine (05/18/2024 2:00 PM EDT) Creatinine, Urine 58.80 mg/dL [facility] Microalbumin Urine <5.0 mg/L [facility] Microalbum Creatinine Ratio Ur TNP <30 ug/mg cr [facility] Comment:Unable to calculate albumin/creatinine ratio due to lowmicroalbumin or creatinine result. Urine 05/18/2024 2:00 PM EDT 05/18/2024 4:09 PM EDT Yanira Mi MD LAB URINE ORDERABLES Final Resul t Performing Organization Address [facility] Co de Phone Number [facility] [address] [place] [phone] * Hepatitis C Antibody with Reflex to HCV, RNA, Quantitative, Real-Time PCR (11/03/2023 9:10 AM EDT) Hepatitis C Antibody Nonreactive Nonreactive [facility] Comment:Antibodies to HCV no t detected; does not exclude early acuteHCV infection. Blood Venous blood specimen / Unknown 11/03/2023 9:10 AM EDT 11/03/2023 11:20 AM EDT Yanira Mi MD LAB BLOOD ORDERABLES Final Resul t Performing Organization Address [facility] Co de Phone Number [facility] [address] [place] [phone] * HIV-1/2 Antigen and Antibodies, Fourth Generation, with Reflexes (11/03/2023 9:10 AM EDT) HIV AB/AG Nonreactive Nonreactive [facility] Comment:HIV-1 p24 Ag and/or HIV-1/HIV-2 Ab not detected.A test result that is nonreactive does not exclude thepossibility of exposure to or infection with HIV-1 and/orHIV-2. Nonreactive results in this assay for individualswith prior exposure to HIV-1 and/or HIV-2 may be due toantigen and antibody levels that are below the limit ofdetection of this assay.The [employer] HIV Ag/Ab Combo assay result andsupplemental assay results should be interpreted inconjunction with the patient's clinical presentation,history and other laboratory results. If the results areinconsistent with clinical evidence, additional testing issuggested to confirm the result. Blood Venous blood specimen / Unknown 11/03/2023 9:10 AM EDT 11/03/2023 11:20 AM EDT us aYnira Mi MD LAB BLOOD ORDERABLES Final Resul t [facility] [address] [place] [address] [phone] * BI Mammogram Screening Tomosynthesis Bilateral (09/24/2023 2:20 PM EST) Anatomical Region Laterality Modality Breast Bilateral Mammography 09/24/2023 2:20 PM EST Narrative 10/11/2023 5:45 PM EDT ? [facility] ? [address] ?[place] [address] ? Mammography Report ? Signed ? Patient: Gamble,La ?MR#: [id number] ?? [id number] ? : 1965 ?Acct:[id number] ? Age/Sex: 58 / F ?ADM Date: 09/24/23 ? Loc: HO.MAMMO ? Attending Dr: Yanira Mi MD ? Ordering Physician: Yanira Mi MD ?Results: 1Negative ? Date of Service: 09/24/23 ?Follow Up: 1 Year From Orig ?? inal Mammogram ? Procedure(s): MM tomosynthesis screening BI ?? Accession Number(s): [id number] ? cc: Yanira Mi MD ? EXAMINATION: [...] 1741 ? DD/ 1420 ? TD/TT: ? Billing And Quality Technician: ? Procedure Note Cynthia, Image - 10/11/2023 [facility] [address] [place], [place] [address] Mammography Report Signed Patient: La Gamble#: [id number] : 1965Acct:[id number] Age/Sex: 58 / FADM Date: 09/24/23 Loc: JEFFERY Attending Dr: Yanira Mi MD Ordering Physician: Yanira Miesults: 1Negative Date of Service: 09/24/23Follow Up: 1 Year From Orig ina Mammogram Procedure(s): MM tomosynthesis screening BI Accession Number(s): [id number] cc: Yanira Mi MD EXAMINATION: MM SCREENING [...] in OV> 10/11/23 1741 DD/ 1420 TD/TT: Billing And Quality Technician: Yanira Mi MD IM BI PROCEDURES Edited Result - Final * THINPREP TIS PAP AND HPV mRNA E6/E7, CT/NG, TRICH (03/27/2022 10:59 AM EDT) Chlamydia trachomatis RNA, TMA, Urogenital NOT DETECTED NOT DETECTED [facility] Clinical Information: None given [facility] COMMENT SEE COMMENT [facility] Comment: The analytical performance characteristics of this assay, when used to test SurePath(TM) specimens have been determined by [facility]. The modifications have not been cleared or approved by the FDA. This assay has been validated pursuant to the CLIA regulations and is used for clinical purposes. ?? For additional information, please refer to https://education.[employer]/faq/DMM195 (This link is being provided for information/ [...] has been evaluated with computer assisted technology. [facility] Dehydrating Press Operator: SEE COMMENT [facility] Comment: RXB, CT(ASCP) CT screening location: [address] ??[id number] HPV nRNA E6/E7 Not Detected Not Detected [facility] Comment: Methodology: Remote Sensing Surveyor-Mediated Amplification This assay detects E6/E7 viral messenger RNA (mRNA) from 14 high-risk HPV types (16,18,31,33,35,39,45,51,52,56,58,59,66,68). ? Cervical sources are required for HPV testing. If a vaginal source from a patient who has had a total hysterectomy with removal of cervix was ?? submitted, please contact the testing laboratory for alternative testing options. ?? For additional information, please refer to http://education.[employer]/faq/ERK122k8 (This link if provided for information/ educational purposes only.) Interpretation/Re sult: Negative for intraepithelial lesion or malignancy. [facility] LMP: NONE GIVEN [facility] N [...] TMA, PAP Vial NOT DETECTED NOT DETECTED [facility] Comment: The analytical performance characteristics of this assay have been determined by [facility]. The modifications have not been cleared or approved by the FDA. This assay has been validated pursuant to the CLIA regulations and is used for clinical purposes. ?? For additional information, please refer to http://education.[employer] Insights/ faq/Trichomonastma (This link is being provided for information/ educational purposes only.) ?? 03/27/2022 10:5 9 AM EDT Yanira Mi MD LAB PATHOLOGY ORDERABLES Final R esult [facility] [address] * Pap Smear (03/27/2022) Pap smear Performed Historical Provider MD HEALTH MAINTENANCE Final Result * Colonoscopy (10/25/2015) Colonoscopy Performed Historical Provider HEALTH MAINTENANCE Edited Result - Final from Last 3 Months or Most Recently Relevant to Health Maintenance Insurance [facility] STANDARD [facility] ONE CARE < 65 DENTAL - [facility] Care Teams Records Tech Relationship Specialty Start Date End Date Yanira Mi MD [address] [place] [phone] PCP - General Family Medicine 07/08/12 Marbella Tobar Senior Business Process AnalystPark Services Specialist 07/29/23
--- OUTSIDE RECORDS SUMMARY | 2024-12-09 13:50 | XMS_ITS | Encounter Summary ---
Author Organization [employer] Address [address] [facility] 7t [place] [address] Care Team Providers Care Bridal Gown Fitter Name Role Phone Yanira Mi MD Primary Care Provider [phone] Encounter Details Date Type Department Care Team (Late st Contact Info) Description 06/13/2022 Abstract [facility] MEDICINE [address] [place] [address] ProviderShanel MD Social History Tobacco Use Types [...] 2:00 PM EDT Office Visit [facility] ADULT DENTAL [address] [place] [address] Yari Colmenares [address] [place] [address] 12/23/2024 1:30 PM EDT Office Visit [facility] ADULT DENTAL [address] [place] [address] Aiden Tate DDS [address] [place] [address] documented as of this encounter Procedures Procedure Name Priority Date/Time Associated Diagnosis Comments PAP/HPV Routine 03/27/2022 MAMMOGRAPHY Routine 09/12/2021 HEMOGLOBIN A1C Routine 08/23/2021 COLONOSCOPY Routine 10/25/2015 documented in this encounter Results * Pap Smear (03/27/2022) Pap smear Performed [facility] Provider HEALTH MAINTENANCE Final Result * Mammography (09/12/2021) Mammogram Performed Anatomical Region Laterality Modality Other [facility] Provider HEALTH MAINTENANCE Final Result * (ABNORMAL) Hemoglobin A1c (08/23/2021) Pathologist [facility] Hemoglobin A1C 6.6(A) 4.0 - 6.0 % Blood Venous blood specimen / Unknown [facility] Provider LAB BLOOD ORDERABLES Vivi l Result * Colonoscopy (10/25/2015) Colonoscopy Performed [facility] Provider HEALTH MAINTENANCE Edited Result - Final documented in this encounter Visit Diagnoses Not on filedocumented in this encounter Care Teams Bridal Gown Fitter Relationship Specialty Start Date End Date Yanira Mi MD [address] [place] [address] PCP - General Family Medicine 07/08/12 Marbella Tobar Net Web Application DeveloperManager Cardiac 07/29/23 documented as of this encounter
--- OUTSIDE RECORDS SUMMARY | 2024-12-09 13:50 | XMS_ITS | Encounter Summary ---
Author Organization [employer] Address 75 [facility] 7t [place] [address] Care Team Providers Care Stockkeeper Name Role Phone Yanira Mi MD Primary Care Provider [phone] Encounter Details Date Type Department Care Team (Latest Contact Info) Description 09/01/2019 Abstract [facility] CONVERSIONS Dental, Provider, DDS Social History Tobacco [...] Visit [facility] ADULT DENTAL [address] [place] [address] Yari Colmenares [address] [place] [address] 12/23/2024 1:30 PM EDT Office Visit [facility] ADULT DENTAL [address] [place] [address] Aiden Tate DDS [address] [place] [address] documented as of this encounter Visit Diagnoses Not on filedocumented in this encounter Care Teams Stockkeeper Relationship Specialty Start Date End Date Yanira Mi MD [address] [place] [address] PCP - General Family Medicine 07/08/12 Marbella Tobar Event Planning ManagerQuilting Machine Helper 07/29/23 documented as of this encounter
--- OUTSIDE RECORDS SUMMARY | 2024-12-09 13:50 | XMS_ITS | Encounter Summary ---
Author Organization [employer] Address [address] [facility] [address] 7t [place] [address] Care Team Providers Care Video Surveillance Technician Name Role Phone Yanira Mi MD Primary Care Provider [phone] Reason for Visit * Reason Comments Med Refill Encounter Details Date Type Department Care Team (Late st Contact Info) Description 06/09/2024 Refill [facility] MEDICINE [address] [place], [place] [phone] Jessica Menjivar, FAROOQ [address] [place] [address] Social History Tobacco Use Types Packs/Day Years [...] 2:00 PM EDT Office Visit [facility] ADULT DENTAL [address] [place] [address] Darrian, Yari [address] [place] [address] 12/23/2024 1:30 PM EDT Office Visit [facility] ADULT DENTAL [address] [place] [address] Aiden Tate DDS [address] [place] [address] documented as of this encounter Visit Diagnoses Not on filedocumented in this encounter Additional Health Concerns Assessment Noted Time PHQ-9 Depression Total Score: 6 05/02/20 24 8:45 AM EDT documented as of this encounter Care Teams Video Surveillance Technician Relationship Specialty Start Date End Date Yanira Mi MD [address] [place] [address] PCP - General Family Medicine 07/08/12 Marbella Tobar Census ClerkFuneral Greeter 07/29/23 documented as of this encounter
--- OUTSIDE RECORDS SUMMARY | 2024-12-09 13:50 | XMS_ITS | Encounter Summary ---
Author Organization [employer] Address 75 [facility] 7t [place] [address] Care Team Providers Care Float Nurse Name Role Phone Yanira Mi MD Primary Care Provider [phone] Reason for Visit * Reason Comments Med Refill Encounter Details Date Type Department Care Team (Late st Contact Info) Description 01/01/2023 Refill [facility] MEDICINE [address] [place], [place] [phone] Yanira Mi MD [address] [place], [place] [phone] Social History Tobacco Use Types Packs/Day Years [...] 2:00 PM EDT Office Visit [facility] ADULT DENTAL [address] [place] [address] Darrian Yari [address] [place] [address] 12/23/2024 1:30 PM EDT Office Visit [facility] ADULT DENTAL [address] [place], [place] [phone] Aiden Tate DDS [address] [place] [address] documented as of this encounter Visit Diagnoses Not on filedocumented in this encounter Care Teams Float Nurse Relationship Specialty Start Date End Date Yanira Mi MD [address] [place], [place] [phone] PCP - General Family Medicine 07/08/12 Marbella Tobar Supervisor QuiltingOlive Grader 07/29/23 documented as of this encounter
--- OUTSIDE RECORDS SUMMARY | 2024-12-09 13:50 | XMS_ITS | Encounter Summary ---
Author Organization [employer] Address [address] [facility] 7t [place] [address] Care Team Providers Care Photographic Equipment Technician Name Role Phone Yanira Mi MD Primary Care Provider [phone] Encounter Details Date Type Department Care Team (Late st Contact Info) Description 09/09/2022 Orders Only [facility] MEDICINE [address] [place], [place] [phone] Agueda Costa DO [address] [place] [address] Social History Tobacco Use Types Packs/Day Years [...] Description 12/14/2024 2:00 PM EDT Office Visit [facility] ADULT DENTAL [address] [place] [address] Yari Colmenares [address] [place] [address] 12/23/2024 1:30 PM EDT Office Visit [facility] ADULT DENTAL [address] [place], [place] [phone] Aiden Tate DDS [address] [place] [address] documented as of this encounter Visit Diagnoses Not on filedocumented in this encounter Care Teams Photographic Equipment Technician Relationship Specialty Start Date End Date Yanira Mi MD [address] [place], [place] [phone] PCP - General Family Medicine 07/08/12 Marbella Tobar Cream DumperBaseboard Heating Installer 07/29/23 documented as of this encounter
--- OUTSIDE RECORDS SUMMARY | 2024-12-09 13:50 | XMS_ITS | Encounter Summary ---
Author Organization [employer] Address [address] [facility] 7t [place] [address] Care Team Providers Care Inspectors And Regulatory Officers Name Role Phone Yanira Mi MD Primary Care Provider [phone] Encounter Details Date Type Department Care Team (Late st Contact Info) Description 06/16/2022 Abstract [facility] MEDICINE [address] [place] [address] Yanira Mi MD [address] [place] [address] Social History Tobacco Use Types Packs/Day Years [...] [facility] ADULT DENTAL [address] [place] [address] Yari Colmenares [address] [place] [address] 12/23/2024 1:30 PM EDT Office Visit [facility] ADULT DENTAL [address] [place] [address] Aiden Tate DDS [address] [place] [address] documented as of this encounter Visit Diagnoses Not on filedocumented in this encounter Care Teams Inspectors And Regulatory Officers Relationship Specialty Start Date End Date Yanira Mi MD [address] [place] [address] PCP - General Family Medicine 07/08/12 Marbella Tobar Power BarkerPipe Jeeper 07/29/23 documented as of this encounter
--- OUTSIDE RECORDS SUMMARY | 2024-12-09 13:50 | XMS_ITS | Encounter Summary ---
Author Organization [employer] Address [address] [facility] [address] 7t [place] [address] Care Team Providers Care Charge Preparation Technician Name Role Phone Yanira Mi MD Primary Care Provider [phone] Encounter Details Date Type Department Care Team (Late st Contact Info) Description 05/19/2024 Orders Only [facility] MEDICINE [address] [place] [address] Yanira Mi MD [address] [place] [address] Cobalamin deficiency (Primary Dx); Hypertriglyceridemia; Transaminitis Social [...] Description 12/14/2024 2:00 PM EDT Office Visit [facility] ADULT DENTAL [address] [place] [address] Darrian, Yari [address] [place] [address] 12/23/2024 1:30 PM EDT Office Visit [facility] ADULT DENTAL [address] [place] [address] Aiden Tate DDS [address] [place] [address] Scheduled Orders Name Type Priority Associated Diagnoses [...] documented as of this encounter Care Teams Charge Preparation Technician Relationship Specialty Start Date End Date Yanira Mi MD [address] [place] [address] PCP - General Family Medicine 07/08/12 Marbella Tobar Content CoordinatorRoll Or Tape Edge Machine Operator 07/29/23 documented as of this encounter
--- OUTSIDE RECORDS SUMMARY | 2024-12-09 13:50 | XMS_ITS | Encounter Summary ---
Author Organization [employer] Address [address] [facility] [address] 7[address] [place] [address] Care Team Providers Care Facility Mechanic Name Role Phone Yanira Mi MD Primary Care Provider [phone] Reason for Visit * Reason Comments Med Refill Encounter Details Date Type Department Care Team (Late st Contact Info) Description 06/09/2024 Refill [facility] [address] [place] [address] Alisha Ko FNP [address] [place] [address] Social History Tobacco Use Types Packs/Day Years [...] Description 12/14/2024 2:00 PM EDT Office Visit [facility] ADULT DENTAL [address] [place] [address] Darrian, Yari [address] [place] [address] 12/23/2024 1:30 PM EDT Office Visit [facility] ADULT DENTAL [address] [place] [address] Aiden Tate DDS [address] [place] [address] documented as of this encounter Visit Diagnoses Not on filedocumented in this encounter Additional Health Concerns Assessment Noted Time PHQ-9 Depression Total Score: 6 05/02/20 24 8:45 AM EDT documented as of this encounter Care Teams Facility Mechanic Relationship Specialty Start Date End Date Yanira Mi MD [address] [place] [address] PCP - General Family Medicine 07/08/12 Marbella Tobar Education And Development ManagerChurch Supervisor 07/29/23 documented as of this encounter
--- OUTSIDE RECORDS SUMMARY | 2024-12-09 13:50 | XMS_ITS | Encounter Summary ---
Author Organization [employer] Address [address] [facility] 7t [place] [address] Care Team Providers Care Sap Project Manager Name Role Phone Yanira Mi MD Primary Care Provider [phone] Encounter Details Date Type Department Care Team (Late st Contact Info) Description 06/10/2022 Abstract [facility] MEDICINE [address] [place] [address] ProviderShanel MD Social History Tobacco Use Types [...] Description 12/14/2024 2:00 PM EDT Office Visit [facility] ADULT DENTAL [address] [place] [address] Yari Colmenares [address] [place] [address] 12/23/2024 1:30 PM EDT Office Visit [facility] ADULT DENTAL [address] [place] [address] Aiden Tate DDS [address] [place] [address] documented as of this encounter Visit Diagnoses Not on filedocumented in this encounter Care Teams Sap Project Manager Relationship Specialty Start Date End Date Yanira Mi MD [address] [place] [address] PCP - General Family Medicine 07/08/12 Marbella Tobar Glassware EngraverLarge Engine Assembler 07/29/23 documented as of this encounter
--- OUTSIDE RECORDS SUMMARY | 2024-12-09 13:50 | XMS_ITS | Encounter Summary ---
Author Organization [employer] Address 75 [facility] 7t [place] [address] Care Team Providers Care Tool Clerk Name Role Phone Yanira Mi MD Primary Care Provider Encounter Details Date Type Department Care Team (Latest Contact Info) Description 09/11/2021 Abstract [facility] CONVERSIONS Dental, Provider, DDS Social History [...] Description 12/14/2024 2:00 PM EDT Office Visit [facility] ADULT DENTAL [address] [place] [address] Yari Colmenares [address] [place] [address] 12/23/2024 1:30 PM EDT Office Visit [facility] ADULT DENTAL [address] [place] [address] Aiden Tate DDS [address] [place] [address] documented as of this encounter Visit Diagnoses Not on filedocumented in this encounter Care Teams Tool Clerk Relationship Specialty Start Date End Date Yanira Mi MD [address] [place] [address] PCP - General Family Medicine 07/08/12 Marbella Tobar Assistant Superintendent For CurriculumAnnealing Operator 07/29/23 documented as of this encounter
--- OUTSIDE RECORDS SUMMARY | 2024-12-09 13:50 | XMS_ITS | Encounter Summary ---
Author Organization [employer] Address 75 [facility] 7t [place] [address] Care Team Providers Care Riprap Man Name Role Phone Yanira Mi MD Primary Care Provider [phone] Encounter Details Date Type Department Care Team (Late st Contact Info) Description 06/16/2022 Abstract [facility] MEDICINE [address] [place] [address] Yanira Mi MD [address] [place] [address] Social History Tobacco Use Types Packs/Day Years [...] Description 12/14/2024 2:00 PM EDT Office Visit [facility] ADULT DENTAL [address] [place] [address] Yari Colmenares [address] [place] [address] 12/23/2024 1:30 PM EDT Office Visit [facility] ADULT DENTAL [address] [place] [address] Aiden Tate DDS [address] [place] [address] documented as of this encounter Visit Diagnoses Not on filedocumented in this encounter Care Teams Riprap Man Relationship Specialty Start Date End Date Yanira Mi MD [address] [place] [address] PCP - General Family Medicine 07/08/12 Marbella Tobar Chip Applying Machine TenderMarriage And Family Teacher 07/29/23 documented as of this encounter
[2024-12-09 13:56] VITALS: BP 126/64; PULSE 94; O2SAT 100; BMI 31.6
== END 2024-12-09 14:19 | disposition home or self-care (01) ==
LOC: HO.PMC 13:48
PROVIDERS: PCP Family Medicine; Referring Provider Orthopaedic Surgery; Visit Provider Nurse Practitioner Family
DX: M54.9 Dorsalgia, unspecified (principal); G89.29 Other chronic pain; M47.816 Spondylosis without myelopathy or radiculopathy, lumbar region; M16.11 Unilateral primary osteoarthritis, right hip; M25.551 Pain in right hip; M53.3 Sacrococcygeal disorders, not elsewhere classified
CPT/HCPCS: 99214; G2211

== ENCOUNTER → 2024-12-09 13:48 | Outpatient (BNVA) | payer OTHER, SELFPAY | PROVIDERS: PCP Family Medicine; Referring Provider Orthopaedic Surgery; Visit Provider Nurse Practitioner Family | DX: M54.9 Dorsalgia, unspecified (principal); M47.816 Spondylosis without myelopathy or radiculopathy, lumbar region; M16.11 Unilateral primary osteoarthritis, right hip; M25.551 Pain in right hip; M53.3 Sacrococcygeal disorders, not elsewhere classified; G89.29 Other chronic pain | CPT/HCPCS: 99212 ==

== ENCOUNTER 2025-01-11 14:00 | Outpatient (RCR) | payer OTHER, SELFPAY ==
--- NOTE | 2024-12-06 15:03 | MHC.PT.EP ---
[facility] [place] Office [place] Office [place] Office [address] Smiley Cohen [address] [phone] F: [phone] F: [phone] F: [phone] F: [phone] Physical Therapy Plan of Care Date of Evaluation: 12/06/24 Date of Surgery: Diagnosis: spondylosis without myelopathy or radiculopathy, lumbar region unilateral primary OA, R hip Assessment: 59 y/o R-hand dominant female referred to PT with spondylosis without myelopathy or radiculopathy, lumbar region and unilateral primary OA, R hip. S/s consistent with lumbar derangement and SI dysfunction resulting in pain and difficulty with sleeping, walking, sitting, standing, carrying, and transitional movements. Examination shows limited lumbar/ hip AROM, decreased B LE strength (R weaker than L), pain, R anterior innominate, and altered gait mechanics. Recommend PT 2x/week for 5 weeks to address impairments, implement HEP, and optimize functional mobility. Frequency and Duration: The patient will be seen 2x/week for 5 weeks Short Term Goals: 3 weeks I with HEP Pt will be able to don/doff shoes with pain <3/10 Usp Goals: 5 weeks I with HEP and self management of sx Pt will be able to walk > 20 minutes with pain < 3/10 Pt will be able to sleep > 50% of the night with pain < 3/10 Treatment Plan: Modalities to reduce pain, spasms and effusion. Manual therapy to restore motion and function. Therapeutic exercise to improve strength and flexibility. Neuromuscular re-education for posture and balance. Therapeutic activities to return to functional activities of daily living. Electronically signed by: Ary Santos PT Please sign and return to therapist. Thank you for your referral.
--- NOTE | 2025-01-26 14:20 | MHC.PT.DC ---
[facility] [place] Office [place] Office [place] Office [address] Smiley Cohen [address] [phone] F: [phone] F: [phone] F: [phone] F: [phone] Physical Therapy Discharge Report Diagnosis: spondylosis without myelopathy or radiculopathy, lumbar region unilateral primary OA, R hip Date of Surgery: Date of Evaluation: 12/06/24 Date of Discharge: 01/26/25 Treatments to Date: 7 Cancellations to Date: 3 No Shows to Date: 2 Discharge Status: Visit Non-compliance Discharge Summary: Pt with poor compliance with attendance policy limiting progress in PT. D/c at this time Electronically signed by: Ary Santos PT Please sign and return to therapist. Thank you for your referral.
== END 2025-01-26 14:20 | disposition home or self-care (01) ==
LOC: HO.PT 14:00
PROVIDERS: PCP Family Medicine; Visit Provider Orthopaedic Surgery
DX: M47.816 Spondylosis without myelopathy or radiculopathy, lumbar region (principal); M16.11 Unilateral primary osteoarthritis, right hip
CPT/HCPCS: 97110; 97112; 97162

== ENCOUNTER 2025-05-04 10:48 | Outpatient (REF) | payer OTHER, SELFPAY ==
[2025-05-04 13:58] LABS: Alanine Aminotransferase 50 U/L (0-31); Albumin Level 4.3 g/dL (3.5-5.0); Alkaline Phosphatase 92 U/L (39-117); Anion Gap 13 (12-20); Aspartate Amino Transferase 37 U/L (5-31); Blood Urea Nitrogen 14 mg/dL (9-16); Calcium 9.7 mg/dL (8.4-10.2); Carbon Dioxide 28 mmol/L (22-29); Chloride 104 mmol/L (96-108); Cholesterol 193 mg/dL (<200); Estimated Glomerular Filt Rate > 60; HDL Cholesterol 40 mg/dL (>40); Potassium 4.0 mmol/L (3.3-5.1); Sodium 141 mmol/L (135-145); Total Protein 7.2 g/dL (6.5-8.0); Triglycerides 413 mg/dL (<150)
[2025-05-04 14:16] LABS: Hematocrit 45.7 % (37.0-47.0); Hemoglobin 14.8 g/dl (12.0-16.0); Mean Corpuscular HGB Conc 32.4 g/dl (31.0-35.0); Mean Corpuscular Hemoglobin 30.4 pg (27.0-33.0); Mean Corpuscular Volume 93.8 fL (80.0-98.0); NRBC Abs Auto 0.000 X10*3/uL (0.0-0.012); NRBC Pct Auto 0.0 /100WBC (0.0-0.2); Platelet Count 231 X10*3/uL (160-400); Red Blood Count 4.87 X10*6/uL (4.20-5.50); White Blood Count 9.0 X10*3/uL (4.8-10.8)
[2025-05-04 14:27] LABS: Folate 9.4 ng/mL (> or = 4.0); Vitamin B12 1103 pg/mL (200-900)
[2025-05-04 14:34] LABS: HBS Num1 68.45 mIU/mL (0-7.99); HBc Num1 0.09 S/CO (0.00-0.79); HBsAGNum1 0.43 S/CO (0.00-0.99); HIV Num 1 0.06 S/CO (0.00-0.99); Hepatitis B Surface Antigen Negative (Negative); ~HepC Num1 0.14 S/CO (0.00-0.79); ~Hepatitis B Surface Antibody REACTIVE (Nonreactive); ~Hepatitis C Antibody Nonreactive (Nonreactive)
[2025-05-04 17:50] LABS: Reflex LDLD? Yes
[2025-05-05 08:27] LABS: ~Hepatitis A Antibody IgG 8.09 S/CO (0.00-0.99)
== END 2025-05-04 10:49 | disposition home or self-care (01) ==
LOC: HO.HHCL 10:48
PROVIDERS: PCP Family Medicine; Visit Provider Family Medicine
DX: Z11.4 Encounter for screening for human immunodeficiency virus [HIV] (principal); E11.9 Type 2 diabetes mellitus without complications; E78.1 Pure hyperglyceridemia; R74.01 Elevation of levels of liver transaminase levels
CPT/HCPCS: 36415; 80053; 80061; 82043; 82248; 82570; 82607; 82746; 83721; 85027; 86704; 86706; 86708; 86803; 87340; 87389

== ENCOUNTER 2025-07-10 14:08 | Outpatient (AMB) | payer OTHER, SELFPAY ==
[2025-07-10 14:09] VITALS: BP 98/52; PULSE 75; BMI 31.6
--- NOTE | 2025-07-10 14:09 | A.OFFVIS_ITS ---
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 Diesel Maintenance Technician Name: voice marie [id number] Allergies No Known Allergies Allergy (Verified 07/10/25 14:13) Medication List - Last Reconciled 07/10/25 by CLIFTON Adam acetaminophen (Tylenol) 325 mg PO QID 7 days albuterol sulfate 90 mcg/actuation (ProAir HFA) 2 puffs PO Q4-6H PRN aspirin 81 mg PO QAM atorvastatin 20 mg PO QAM buspirone 1 tab PO BID cefuroxime axetil 500 mg PO Q12H 7 days celecoxib 200 mg PO BID cholecalciferol (vitamin D3) (Vitamin D3) 25 mcg PO QAM cyanocobalamin (vitamin B-12) 250 mcg PO QAM diclofenac sodium 1% (Voltaren Arthritis Pain) 2 grams topical QID empagliflozin (Jardiance) 1 tab PO QAM fluticasone propionate 44 mcg/actuation (Flovent HFA) 2 puffs inhalation BID ketorolac 10 mg PO Q6H PRN 5 days lidocaine 5% 1 patch topical DAILY lisinopril 20 mg PO DAILY loratadine 10 mg PO QAM metformin 1,000 mg PO BID metoprolol succinate ER 0.5 tabs PO QAM sertraline 150 mg PO QAM tramadol 50 mg PO Q8H PRN valacyclovir 1,000 mg PO Q12H HPI HPI [employer]KER / Dr Mi / palpitations: Details: The patient is a 60-year-old female presenting for a cardiology consultation for a report of heart palpitations, referred by her PCP. She reports feeling her heart beating very fast for about half a second at a time, though this does not occur daily and she has not experienced it in the past week. She also notes feeling fatigued and sometimes has to use an inhaler for her asthma. Additionally, she experienced tightness on her right side four days ago, which she suspects may be musculoskeletal due to exercise. A prior cardiac workup includes an echocardiogram from 11/19/2021, which showed an ejection fraction of 65-70% with no valve or regional wall motion ab normalities. A two-day Holter monitor from earlier this year revealed sinus rhythm with an average heart rate of 77 bpm and frequent isolated premature atrial contractions (PACs) with a 5.8% burden. Her current medications include aspirin, atorvastatin, metoprolol 12.5 mg daily, and lisinopril 20 mg, and she reports taking them daily as prescribed. She has been on metoprolol for years. Her past medical history includes hypertension, hyperlipidemia, diabetes, chronic back pain, prior alcohol and cocaine dependence. Her social history is significant for smoking since age 15, currently about s even cigarettes per day, and social alcohol consumption. She denies any known family history of heart disease. She leads an active lifestyle, attending a day program for activities and exercise six days a week. [facility] Medical History Degenerative joint disease (DJD) of lumbar spine Carpal tunnel syndrome Cocaine dependence, episodic Contusion of left knee Contusion of right knee COVID Preoperative cardiovascular examination Dental caries Alcoholism Anxiety reaction Muscle spasm of back Mood disorder Elevated cholesterol Arthritis Alcohol dependence Depression Palpitations Asthma Diabetes Hypertension Surgical History Hx of repair of rotator cuff H/O colonoscopy History of 2 sections Social History Alcohol intake: current Alcohol intake frequency: does not drink Alcohol type: hard liquor Patient Tobacco Use Status: Current everyday Tobacco user Cigarettes Per Day: 7 Second Hand Smoke Exposure: No Advance Directives Date on File: 01/02/22 Current occupational status: disabled 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 Review of Systems Const All systems reviewed & are unremarkable except as noted in HPI and below ENT Denies dizziness Card Denies chest pain, Denies chest pain at rest, Denies chest pain with activity, Reports rapid heart rate (brief palpitations), Denies pedal edema, Denies edema, Denies leg edema, Denies lightheadedness, Denies palpitations, Denies dyspnea, Denies dyspnea on exertion and Denies orthopnea Resp Denies cough, Denies dyspnea and Denies dyspnea on exertion GI Denies hematochezia and Denies change in stool character Musc Denies abnormal gait, Denies limited range of motion, Denies muscle cramps, Denies muscle weakness, Denies numbness, Denies radiating pain into limb, Denies stiffness and Denies tingling Neuro Denies abnormal gait, Denies dizziness, Denies numbness and Denies tingling Endo Denies palpitations Physical Exam Vital Signs: Last Vital Signs Pulse 75 07/10/25 14:09 BP 98/52 L 07/10/25 14:09 BMI result Body Mass Index 31.6 Const General: cooperative, healthy appearing, comfortable and no acute distress Orientation/consciousness: patient oriented x3 Neck Neck: Yes normal visual inspection Resp Effort & Inspection: normal respiratory effort Auscultation: clear to auscultation bilaterally, no rales, no rhonchi and no wheezes Cardio Rate: regular rate Rhythm: regular rhythm Heart sounds: S1 normal heart sound present, S2 normal heart sound present, no gallops, no murmurs and no rubs Neuro General: patient oriented x3 Extrem General: Yes normal to inspection and No no pedal edema Psych Appearance: grossly normal Mental Status: mental status grossly normal Speech and movement: Normal speech and movement present Office Procedures EKG Details: Today, read by me, normal sinus rhythm, rate 75, Qtc 439ms [id number], Complete Assessment & Plan Assessment & Plan (1) PAC (premature atrial contraction): Code(s): I49.1 - Atrial premature depolarization Category: Medical Plan: History of PACs as seen on Holter monitor earlier this year, burden 5.8%. Now with reports of heart palpitations, brief rapid rates. She could be feeling isolated PACs or brief atrial runs. Prior echocardiogram showed normal EF and normal atrial sizes which is reassuring. Offered to increase her metoprolol and she declines at this time. Continue metoprolol XL 12.5 mg daily. Reviewed caffeine reduction, staying well hydrated, physical activity as tolerated. Will update Holter monitor. Cardiology follow-up 3 months, sooner if needed. (2) Hypertension: Code(s): I10 - Essential (primary) hypertension Category: Medical Plan: History of hypertension, well controlled with lisinopril and low-dose metoprolol. Blood pressure on low side today however recheck done by me 104/50. Instructed to maintain good hydration. No med changes made. Plan I explained to the patient that her sensation of a rapid heartbeat is likely due to premature atrial contractions (PACs), which are early heartbeats that are generally benign. I reassured her that while they can feel scary, they are not dangerous, especially since her episodes are very brief. We discussed that triggers like caffeine, stress, and dehydration can increase palpitations. We reviewed management options, including increasing her metoprolol dose from a half tablet to a full tablet, but the patient preferred to continue her current low dose for now. She agreed to contact her primary care doctor to consider a dose increase if her palpitations worsen. To re-evaluate her heart rhythm, she consented to wearing another Holter monitor for a couple of days. I scheduled a follow-up appointment for her in about three months to reassess her symptoms and review the monitor results. The patient will be contacted by central scheduling to arrange the Holter monitor placement. Patient Instructions: - The fast heartbeats you feel are called palpitations and are likely caused by early heartbeats that are not dangerous. - Try to limit your coffee intake to one cup per day, as caffeine can make palpitations worse. - Continue taking your half-tablet of metoprolol every day. If your palpitations get worse, you can talk to your regular doctor about increasing the dose. - We will have you wear a heart monitor again for a couple of days to check your heart's rhythm. Our scheduling office will call you to set this up. - Please come back for a follow-up visit in about three months to see how you are doing. - Do not worry too much about your palpitations. Patient was informed and verbally consented to the use of an ambient scribe for clinic note documentation during this visit. Visit time spent on chart review, interview, assessment, orders, documentation. Coding Level of Care Code New Pt Level 4 (24596) Add On Problem Visit Only Diagnoses PAC (premature atrial contraction) I49.1 Hypertension I10 CPT Codes EKG - CPT: [id number], Complete ([id number]) Time Spent (min) 32
--- OUTSIDE RECORDS SUMMARY | 2025-07-10 20:34 | XMS_ITS | Clinical Summary ---
Author Organization 175 [facility] Address [address] [place] [address] Phone Care Team Providers Care Imcu Specialist Name Role Phone Yanira Mi MD Primary Care Provider [phone] Surgical History Surgery Date Site/Laterality Comments SECTION PROCEDURE: HISTORICAL DELIVERY; COMMENT: 2 ROTATOR CUFF REPAIR Right PROCEDURE: HISTORICAL ROTATOR CUFF REPAIR Medical History Medical History Date Comments Asthma DX:Asthma Osteoarthritis DX:Osteoarthriti s Depressive disorder DX:Depressiv e disorder Diabetes mellitus type 2, co ntrolled, with complications ([facility] V24, [facility] V28) DX:Diabetes mellitus type 2, controlled, with complications ([facility]) Essential hypertension DX:Essent ial hypertension Mixed hyperlipidemia DX:Mixed hy perlipidemia Social History Tobacco Use Types Packs/Day Years Used Date Smoking Tobacco: Every Day Cigarettes Smokeless Tobacco: Never Comments Unknown Sex and Gender Information Value Date Recorded Sex Assigned at Not on file Legal Sex Female 8:15 PM EST Gender Identity Not on file Sexual Orientation Not on file Last Filed Vital Signs Vital Sign Reading Time Taken Comments Blood Pressure - - Pulse - - Temperature - - Respiratory Rate - - Oxygen Saturation - - Inhaled Oxygen Concentration - - Weight 87.1 kg (192 lb) 06/23/2022 3:15 PM EST Height 157.5 cm (5' 2 ) 06/23/2022 3:15 PM EST Body Mass Index 35.12 06/23/2022 3:15 PM EST Plan of Treatment Upcoming Encounters Date Type Department Care Team (Late st Contact Info) Description 08/14/2025 2:00 PM EST Office Visit Orthopedic Surgery - [place] [address] [id number] Jesus Alberto Gomez DPM [address] [address] Health Maintenance Due Date Last Done Comments Breast Cancer Screening 1965 Colorectal Cancer Screening: Colonoscopy 1965 DTaP,Tdap,and Td Vaccines (1 - Tdap) 02/16/1984 Pneumococcal Vaccine: 50+ Ye ars (1 of 2 - PCV) 02/16/1984 Cervical Cancer Screening: P ap Smear 1986 Zoster Vaccines (1 of 2) 2015 HIV Screening 08/20/2023 Hepatitis C Screening 08/20/2023 Medicare Annual Wellness Visit 08/20/2023 Social Influencers of Health Screening 08/20/2023 Depression Screening 07/27/2024 COVID-19 Vaccine (1 - 2024-2 6 season) 2025 Influenza Vaccine (#1) 2025 RSV Immunization Adult Patie nts (1 - 1-dose 75+ series) 02/16/2040 HIB Vaccines Aged Out No longer eligi ble based on patient's age to complete this topic HPV Vaccines Aged Out No longer eligi ble based on patient's age to complete this topic Hepatitis A Vaccines Aged Out No long er eligible based on patient's age to complete this topic Hepatitis B Vaccines Aged Out No long er eligible based on patient's age to complete this topic IPV Vaccines Aged Out No longer eligi ble based on patient's age to complete this topic MMR Vaccines Aged Out No longer eligi ble based on patient's age to complete this topic Meningococcal ACWY Vaccine Aged Out N o longer eligible based on patient's age to complete this topic Meningococcal B Vaccine Aged Out No l onger eligible based on patient's age to complete this topic RSV Immunization Patients Un mika 20 months Aged Out No longer eligible b ased on patient's age to complete this topic Varicella Vaccines Aged Out No longer eligible based on patient's age to complete this topic Insurance [facility] MEDICARE Member Subscriber Plan / Payer (Ef fective 2023-Present) Name:KELVIN HEARD JANE Relation to Subscriber:Self Name:La Gamble Payer ID:[id number] Group ID:[id number] Type:Not on file Address: [place] [address] [place] [id number] Care Teams Imcu Specialist Relationship Specialty Start Date End Date Yanira Mi MD [address] [place] [phone] PCP - General 06/30/22
== END 2025-07-10 14:56 | disposition home or self-care (01) ==
LOC: HO.HCS 14:08
PROVIDERS: PCP Family Medicine; Visit Provider Nurse Practitioner Family
DX: I49.1 Atrial premature depolarization (principal); I10 Essential (primary) hypertension
CPT/HCPCS: 93010; 99204; G2211

== ENCOUNTER → 2025-07-10 14:08 | Outpatient (BNVA) | payer OTHER, SELFPAY | PROVIDERS: PCP Family Medicine; Visit Provider Nurse Practitioner Family | DX: I49.1 Atrial premature depolarization (principal); I10 Essential (primary) hypertension; E78.5 Hyperlipidemia, unspecified; Z79.82 Long term (current) use of aspirin; Z79.899 Other long term (current) drug therapy | CPT/HCPCS: 93005; 99202 ==